=== PATIENT | male | born 1970 | race Caucasian/White ===

== ENCOUNTER 2021-06-18 13:03 | Outpatient (REF) | payer BC, SELFPAY ==
--- NOTE | ~2021-06-18 | XR_ITS ---
EXAMINATION: XR CHEST CLINICAL INFORMATION: Cough. COMPARISON: None TECHNIQUE: 2 views of the chest were obtained. FINDINGS: No significant abnormality is noted involving the heart, lungs, mediastinum, bony thorax or soft tissues. XR/XR chest 2V IMPRESSION: No acute cardiopulmonary process.
[2021-06-18 13:30] LABS: Binax Internal Control QC Valid; Binax Now Covid-19 Ag Negative (Negative)
== END 2021-06-18 13:04 | disposition home or self-care (01) ==
LOC: HO.HMGCX 13:03
PROVIDERS: Visit Provider Physician Assistant Medical
DX: R05.9 Cough, unspecified (principal); Z20.822 Contact with and (suspected) exposure to COVID-19
CPT/HCPCS: 71046

== ENCOUNTER 2021-07-03 11:35 | Emergency (ER) | payer BC, SELFPAY ==
--- NOTE | ~2021-07-03 | US_ITS ---
EXAMINATION: US SCROTUM US PELVIC-LIMITED CLINICAL INFORMATION: Right testicular pain.. Right groin pain. COMPARISON: None TECHNIQUE: A sonogram of the scrotum was performed assessing jiang-scale appearance and color Doppler flow. Spectral Doppler analysis of the arterial and venous flow were performed in the testes bilaterally. FINDINGS: SCROTAL ULTRASOUND: RIGHT: Right testicle measures 4.9 x 1.9 x 3.7 cm, volume 17.4 mL. No focal testicular parenchymal lesions are visualized. Spectral Doppler analysis of the arterial and venous flow is normal in the right testis. Right epididymal head is normal in size. The body of the right epididymis appears slightly heterogeneous, without any hypervascularity, may represent chronic changes. No right varicocele is seen. Right epididymal Doppler flow is normal. Note is made of right-sided epididymal head cyst measuring 0.7 x 0.6 x 0.7 cm. Moderate to large volume hydrocele is noted. LEFT: Left testicle measures 4.1 x 2.2 x 3.0 cm, volume 14.5 mL. No focal testicular parenchymal lesions are visualized. Spectral Doppler analysis of the arterial and venous flow is normal in the left testis. Septated cysts are noted in the region of the left epididymal head, the largest measures approximately 2 cm, most consistent with epididymal head cysts versus spermatocele or combination thereof. No left varicocele is seen. Left epididymal Doppler flow is normal. Moderate to large volume hydrocele is present. PELVIC ULTRASOUND: Evaluation of the right groin, right lower quadrant of the abdomen shows no underlying sonographically detectable focal abnormalities. No evidence of any herniation or mass is present. No fluid collection is seen. Morphologically normal-appearing right groin lymph nodes are present. US/US scrotum doppler IMPRESSION: 1. Sonographically unremarkable bilateral testicles. 2. Bilateral moderate to large volume hydrocele. 3. Bilateral epididymal head cyst/spermatocele (left greater than right). 4. Slight heterogeneous appearance of the body of the right epididymis without any increased flow, may represent chronic changes. 5. No sonographic evidence of right groin hernia or mass or fluid collection or lymphadenopathy.
--- NOTE | ~2021-07-03 | US_ITS ---
EXAMINATION: US PELVIS, LIMITED/FOLLOW UP CLINICAL INFORMATION: Right inguinal/testicle pain COMPARISON: Scrotal ultrasound performed the same day TECHNIQUE: Grayscale and color imaging of the right inguinal region using a linear transducer FINDINGS: No hernia or mass is seen. There is a normal-appearing right inguinal lymph node that measures 3 x 1 x 1.2 cm in sagittal AP and transverse dimension. US/US pelvic limited IMPRESSION: No hernia seen.
[2021-07-03 12:00] VITALS: BP 157/72; PULSE 81; RESP 20; TEMP 36.6; O2SAT 98; BMI 24.4
[2021-07-03 14:40] LABS: Appearance Urine CLEAR; Color Urine YELLOW; Glucose Urine UA NEG (NEG); Leukocyte Esterase Urine NEG (NEG); Nitrite Urine NEG (NEG); PH 7.5 (5.0-8.0); Urine Blood NEG (NEG); Urine Ketones NEG (NEG); Urine Protein NEG (NEG-TRACE)
--- NOTE | 2021-07-03 15:02 | ED.MALEGU ---
HPI - Male Genitourinary General Chief complaint: Urogenital-Male Stated complaint: Hernia Time Seen by Provider: 07/03/21 12:22 Source: patient Mode of arrival: ambulatory History of Present Illness HPI Narrative: 50-year-old male with no significant past medical history presenting to the ED complaining of acute on chronic right testicular pain and swelling which worsened today. Admits symptoms have been present for years. Denies trauma, injury, erythema, fever, chills, dysuria/hematuria, penile discharge, abdominal pain, flank pain Denies being sexually active or concern for STI MD Complaint: testicle swelling Onset (ago): year(s) Related Data Previous Rx's Medication Instructions Recorded albuterol sulfate 90 mcg/actuation 1 inh INHALATION QID PRN #6.7 g 06/18/21 aerosol inhaler azithromycin 250 mg tablet See Rx Instructions PO .COMPLEX #6 06/18/21 tab benzonatate 100 mg capsule 100 mg PO BID-TID PRN #30 cap 06/18/21 prednisone 10 mg tablet 40 mg PO DAILY 3 Days #30 tab 06/18/21 acetaminophen 500 mg tablet 500 mg PO Q6H PRN #20 tab 07/03/21 (Tylenol Extra Strength) levofloxacin 500 mg tablet 500 mg PO DAILY 10 Days #10 tab 07/03/21 naproxen 500 mg tablet 500 mg PO BID PRN 10 Days #20 tab 07/03/21 Allergies Allergy/AdvReac Type Severity Reaction Status Date / Time ENVIRONMENTAL Allergy Unknown STUFFY Uncoded 06/18/21 12:32 NOSE, SNEEZING Review of Systems Review of Systems: Constitutional: No Fever, No Chills, No Fatigue, No Malaise ENT/Mouth: No Ear Pain, No Nasal Congestion, No sore throat, No Rhinorrhea, No Swallowing Difficulty Eyes: No Eye Pain, No Swelling, No Redness Cardiovascular: No Chest Pain, No SOB, No Edema, No Palpitations Respiratory: No Cough, No Sputum, No Dyspnea Gastrointestinal: No Nausea, No Vomiting, No Diarrhea, No Constipation, No Abdominal pain Genitourinary: No irregular bleeding, No Dysuria, No Urinary Frequency, No Hematuria, +scrotal pain and swelling, No Urgency, No Flank Pain, No Urinary Flow Changes Musculoskeletal: No joint pain, No Myalgias, No Joint Swelling Skin: No Skin Lesions, No rash Neuro: No Weakness, No Headache Yes all other systems are reviewed and are negative [facility] Past Medical History Attestation statement: The following information was validated with the patient. Social History Social History Advance Directives: No Advance Directives Information Provided: No Physical Exam Vital Signs: Vital Signs: Last Vital Signs Temp 98 F 07/03/21 12:00 Pulse 81 07/03/21 12:00 Resp 20 07/03/21 12:00 BP 157/72 H 07/03/21 12:00 Pulse Ox 98 07/03/21 12:00 BMI result Body Mass Index 24.4 Const: General: cooperative, healthy appearing and no acute distress Orientation/consciousness: patient oriented x3 Limitations: no limitations HEENT: Head: Yes normal to inspection and Yes atraumatic Ears: hearing grossly normal bilaterally General nose exam: Normal external nose present Face and sinus: Yes normal facial exam Eyes: General: appearance normal, both eyes and all related structures EOM: EOMs intact bilaterally Neck: Neck: Yes normal visual inspection and Yes no meningeal signs Resp: Effort & Inspection: normal respiratory effort and no respiratory distress Cardio: Rate: regular rate Heart sounds: S1 normal heart sound present and S2 normal heart sound present GI: Inspection: Yes normal to inspection Palpation (GI): Soft to palpation, nontender, no guarding and not rigid : General: Yes no CVA tenderness Male General Exam: No hernia Penis: normal penis and circumcised Scrotum: not edematous, not erythematous, scrotal swelling bilateral (> right) and no ulcerations Testes: no testicular mass and testicular tenderness on the right (mild) Back/Spine/Pelvis: Back: no CVA tenderness Skin: Rashes: no rashes Wounds: no wounds Neuro: General: patient oriented x3, tone normal and no meningeal signs Gait exam (Neuro): Normal gait present Extrem: General: Yes normal to inspection Course Course Course Narrative: US pelvic limited IMPRESSION: No hernia seen.? ? US scrotum IMPRESSION: 1. Sonographically unremarkable bilateral testicles. 2. Bilateral moderate to large volume hydrocele. 3. Bilateral epididymal head cyst/spermatocele (left greater than right). 4. Slight heterogeneous appearance of the body of the right epididymis without any increased flow, may represent chronic changes. 5. No sonographic evidence of right groin hernia or mass or fluid collection or lymphadenopathy. >> results discussed with patient including needed follow-up with urology. He verbalized understanding and feels safe for discharge home. Worrisome signs and symptoms discussed. MDM - Male Genitourinary MDM Narrative Medical decision making narrative: 50-year-old male with no significant past medical history presenting to the ED complaining of acute on chronic right testicular pain and swelling which worsened today. On exam vital signs stable, NAD/nontoxic appearing, abdomen soft/nontender, bilateral scrotal swelling greater to the right with mild right testicular/epididymal tenderness. Concern for acute on chronic epididymitis vs hydrocele. Lower concern for torsion with chronicity of pain. Rule out UTI Plan: UA, CT NG, scrotal and pelvic ultrasound Differential Diagnosis Differential diagnosis: Likely urinary tract infection, epididymitis and inguinal hernia Medical Records Attestation: I reviewed the patient's medical records. Lab Data Attestation: I reviewed the patient's lab results. Labs: Lab Results 07/03/21 Range/Units 14:33 Urine Color YELLOW Urine Appearance CLEAR Urine pH 7.5 (5.0-8.0) Ur Specific [place] 1.010 (1.005-1.025) Urine Protein NEG (NEG-TRACE) MG/DL Urine Glucose (UA) NEG (NEG) MG/DL Urine Ketones NEG (NEG) MG/DL Urine Blood NEG (NEG) Urine Nitrite NEG (NEG) Ur Leukocyte Esterase NEG (NEG) Discharge Plan Discharge Clinical Impression: Bilateral hydrocele, Cyst of epididymis Patient Disposition: Home, Self-Care Instructions: Hydrocele (ED), Scrotal Pain (ED) Additional Instructions: Your ultrasound shows bilateral moderate to large volume hydrocele. This is a lot of fluid in her scrotum, you should apply scrotal sling/scrotal support, you may get this at a medical supply store, or wear supportive underwear. You also bilateral epididymal head cysts You need to follow-up with the specialist, urology. Call tomorrow to make an appointment Levaquin as an antibiotic please take as prescribed. In addition naproxen as anti-inflammatory/pain medication, and also take Tylenol Prescriptions: New levofloxacin 500 mg tablet 500 mg PO DAILY 10 Days Qty: 10 0RF acetaminophen [Tylenol Extra Strength] 500 mg tablet 500 mg PO Q6H PRN (Reason: pain or fever) Qty: 20 0RF naproxen 500 mg tablet 500 mg PO BID PRN (Reason: pain) 10 Days Qty: 20 0RF No Action azithromycin 250 mg tablet See Rx Instructions PO .COMPLEX Qty: 6 0RF Rx Instructions: take 500 mg today (day 1), then 250 mg for 4 days (days 2-5) PO benzonatate 100 mg capsule 100 mg PO BID-TID PRN (Reason: cough) Qty: 30 0RF prednisone 10 mg tablet 40 mg PO DAILY 3 Days Qty: 30 0RF Rx Instructions: then take 3 tabs for 3 days, then 2 tabs for 3 days, then 1 tab for 3 days. albuterol sulfate 90 mcg/actuation HFA aerosol inhaler 1 inh inhalation QID PRN (Reason: shortness of breath or wheezing) Qty: 6.7 0RF Referrals: Rian Crocker MD [Physician] - 1 day (call tomorrow to make appointment )
[2021-07-04 05:40] LABS: CT PCR NOT DETECTED (Not Detect.); NG PCR NOT DETECTED (Not Detect.)
== END 2021-07-03 15:22 | disposition home or self-care (01) ==
PROVIDERS: Physician Assistant; Emergency Provider Emergency Medicine
DX: N43.3 Hydrocele, unspecified (principal); N45.1 Epididymitis; N50.812 Left testicular pain; N50.811 Right testicular pain; Z79.899 Other long term (current) drug therapy
CPT/HCPCS: 76857; 76870; 81003; 87491; 87591; 93975; 99283; 99284

== ENCOUNTER → 2021-08-12 13:04 | Outpatient (BNVA) | payer BC, SELFPAY | PROVIDERS: Visit Provider Urology | DX: Z13.89 Encounter for screening for other disorder (principal) ==

== ENCOUNTER 2021-08-31 10:08 | Outpatient (REF) | payer BC, SELFPAY ==
--- NOTE | ~2021-08-31 | CT_ITS ---
EXAMINATION: CT PELVIS WITHOUT CONTRAST CLINICAL INFORMATION: Unilateral inguinal hernia without obstruction COMPARISON: Previous scrotal ultrasound June 2021 TECHNIQUE: Helical scanning was performed with submillimeter collimation through the pelvis. Sagittal and coronal multiplanar 2-D reconstructions were obtained. This CT examination was performed using dose optimization techniques as appropriate, variously including the following: *Automated exposure control *Adjustment of mA and/or kV according to patient size (this includes techniques or standardized protocols for targeted exams where dose is matched to indication/reason for exam; i.e. extremities or head) *Use of iterative reconstruction technique DLP: 645 mGy-cm FINDINGS: There is a large right inguinal hernia containing small bowel. There is a small left inguinal hernia containing fat. There is a small umbilical hernia containing fat. There is a horseshoe kidney. There is diverticulosis of the colon. The bladder and prostate gland are normal. No ascites. There are small bilateral inguinal lymph nodes. No enlarged lymph nodes. There is degenerative disc disease at L5-S1. CT/CT pelvis wo con IMPRESSION: Right inguinal hernia containing small bowel. No evidence of obstruction. Small left inguinal hernia containing fat. Horseshoe kidney. Mild diverticulosis of the colon.
== END 2021-08-31 10:09 | disposition home or self-care (01) ==
LOC: HO.CT 10:08
PROVIDERS: Visit Provider Urology
DX: K40.90 Unilateral inguinal hernia, without obstruction or gangrene, not specified as recurrent (principal)
CPT/HCPCS: 72192

== ENCOUNTER 2021-10-12 13:22 | Outpatient (REF) | payer BC, SELFPAY ==
[2021-10-12 13:36] LABS: MANUAL DIFF FLAG NO
[2021-10-12 14:16] LABS: Basophils Percent Auto 0.4 % (0-2); Eosinophils Absolute Auto 0.6 X10*3/uL (0.0-0.4); Eosinophils Percent Auto 6.5 % (0-4); Hematocrit 40.5 % (42.0-52.0); Hemoglobin 13.4 g/dl (14.0-18.0); Imm Gran Abs Auto 0.02 X10*3/uL (0.00-0.03); Imm Gran Pct Auto 0.2 % (0.0-0.4); Lymphocytes Absolute Auto 2.1 X10*3/uL (1.2-4.9); Mean Corpuscular HGB Conc 33.1 g/dl (31.0-36.0); Mean Corpuscular Hemoglobin 30.1 pg (27.0-33.0); Mean Platelet Volume 10.7 fL (9.4-12.4); Monocytes Absolute Auto 0.8 X10*3/uL (0.1-1.2); Monocytes Percent Auto 9.1 % (2-11); Neutrophils Absolute Auto 5.6 x10*3/uL (2.0-8.3); Neutrophils Percent Auto 60.8 % (45-73); Platelet Count 211 X10*3/uL (160-400); Red Blood Count 4.45 X10*6/uL (4.60-5.80); Red Cell Distribution Width 12.9 % (11.0-16.0); White Blood Count 9.2 X10*3/uL (4.8-10.8)
[2021-10-12 15:00] LABS: Anion Gap 14 (12-20); Blood Urea Nitrogen 11 mg/dL (9-16); Calcium 9.5 mg/dL (8.4-10.2); Carbon Dioxide 28 mmol/L (22-29); Chloride 106 mmol/L (96-108); Estimated Glomerular Filt Rate > 60; Glucose Random 69 mg/dL (60-115); Potassium 4.8 mmol/L (3.3-5.1); Sodium 143 mmol/L (135-145)
[2021-10-17 18:22] LABS: Cotinine, U 11 ng/mL; Nicotine, U <2 ng/mL
== END 2021-10-12 13:23 | disposition home or self-care (01) ==
LOC: HO.LAB 13:22
PROVIDERS: Visit Provider Surgery
DX: R10.9 Unspecified abdominal pain (principal); K40.90 Unilateral inguinal hernia, without obstruction or gangrene, not specified as recurrent; F17.210 Nicotine dependence, cigarettes, uncomplicated
CPT/HCPCS: 80048; 80323; 85025

== ENCOUNTER → 2021-10-27 09:10 | Day surgery (SDC) | payer BC, SELFPAY ==
[2021-10-21 16:28] VITALS: BMI 25.1
--- NOTE | 2021-10-26 10:16 | HO.ANESPROP2 ---
HPI - Anesthesia Eval Consult details Narrative: 50yo M for Hernia Repair Inguinal with mesh PMFSH Active Problems Active Problems: All Active Problems (Updated 08/12/21 @ 13:23 by Rian Crocker MD) Cigarette smoker (Acute) Inguinal hernia (Acute) Hydrocele in adult (Acute) Past Medical History Medical History Cigarette smoker Family History Family History Maternal Grandmother Cancer of unknown origin Mother Skin cancer Surgical History Surgical History History of appendectomy Social History Social History Alcohol intake: current Alcohol intake frequency: holidays/special occasions only Patient Tobacco Use Status: Current everyday Tobacco user Cigarettes Per Day: 5 Meds Allergies Allergy/AdvReac Type Severity Reaction Status Date / Time ENVIRONMENTAL Allergy Unknown STUFFY Uncoded 10/12/21 12:58 NOSE, SNEEZING Home Medications Medication Instructions Recorded Confirmed Last Taken Type omeprazole magnesium 20 mg 20 mg PO DAILY 09/21/21 09/21/21 Unknown History tablet,delayed release (Prilosec OTC) Exam Exam Date and Time: October 26, 2021 1016 Height,Weight and Vital Signs: Height 5 ft 11 in Weight 81.647 kg Pertinent Lab Results Pertinent Lab Results: Laboratory Tests 10/12/21 10/12/21 13:33 13:33 WBC 9.2 Hgb 13.4 L Hct 40.5 L Plt Count 211 Sodium 143 Potassium 4.8 Chloride 106 Carbon Dioxide 28 BUN 11 Creatinine 1.13 Assessment and Plan Assessment Anesthesia Assessment: Chart Reviewed
--- NOTE | 2021-10-27 09:21 | W.PM.OPN ---
Operative Note Operative Note Date of Service: 10/27/21 Narrative: Patient has tinea Crura & tinea corpra; case to be rescheduled
[2021-10-27 10:25] VITALS: BMI 26.4
[2021-10-27 10:32] VITALS: BP 128/72; PULSE 61; RESP 16; TEMP 36.6; O2SAT 93
--- NOTE | 2021-10-27 11:17 | PC.NURSE ---
MD SANTANA BY BEDSIDE EVALUATING PATIENT GENERALIZED RASH. CANCELLED FOR TODAY. INSTRUCTED PATIENT TO FOLLOW UP WITH HIS PCP FOR THE RASH AND THEN THE HERNIA SURGERY WILL RESCHEDULE WITH HIM.
== END | disposition home or self-care (01) ==
PROVIDERS: Visit Provider Surgery
DX: K40.90 Unilateral inguinal hernia, without obstruction or gangrene, not specified as recurrent (principal); Z53.09 Procedure and treatment not carried out because of other contraindication; R21 Rash and other nonspecific skin eruption

== ENCOUNTER 2022-05-11 16:07 | Outpatient (REF) | payer BC, SELFPAY ==
[2022-05-11 16:46] LABS: MANUAL DIFF FLAG NO
[2022-05-11 17:03] LABS: Basophils Percent Auto 0.5 % (0-2); Eosinophils Absolute Auto 0.4 X10*3/uL (0.0-0.4); Eosinophils Percent Auto 4.7 % (0-4); Hematocrit 39.5 % (42.0-52.0); Hemoglobin 13.1 g/dl (14.0-18.0); Imm Gran Abs Auto 0.02 X10*3/uL (0.00-0.03); Imm Gran Pct Auto 0.2 % (0.0-0.4); Lymphocytes Absolute Auto 2.6 X10*3/uL (1.2-4.9); Lymphocytes Percent Auto 31.6 % (20-40); Mean Corpuscular HGB Conc 33.2 g/dl (31.0-36.0); Mean Corpuscular Hemoglobin 29.8 pg (27.0-33.0); Mean Corpuscular Volume 89.8 fL (80.0-98.0); Mean Platelet Volume 10.2 fL (9.4-12.4); Monocytes Absolute Auto 0.8 X10*3/uL (0.1-1.2); Monocytes Percent Auto 9.3 % (2-11); Neutrophils Absolute Auto 4.4 x10*3/uL (2.0-8.3); Neutrophils Percent Auto 53.7 % (45-73); Platelet Count 261 X10*3/uL (160-400); Red Cell Distribution Width 13.1 % (11.0-16.0); White Blood Count 8.1 X10*3/uL (4.8-10.8)
[2022-05-11 17:35] LABS: Alanine Aminotransferase 20 U/L (0-40); Albumin Level 4.4 g/dL (3.5-5.0); Alkaline Phosphatase 82 U/L (39-117); Anion Gap 12 (12-20); Aspartate Amino Transferase 18 U/L (5-37); Bilirubin Total 0.4 mg/dL (0.0-1.0); Blood Urea Nitrogen 16 mg/dL (9-16); Calcium 9.9 mg/dL (8.4-10.2); Carbon Dioxide 28 mmol/L (22-29); Chloride 105 mmol/L (96-108); Estimated Glomerular Filt Rate > 60; Glucose Random 96 mg/dL (60-115); Potassium 4.3 mmol/L (3.3-5.1); Sodium 141 mmol/L (135-145); Total Protein 7.7 g/dL (6.5-8.0)
== END 2022-05-11 16:08 | disposition home or self-care (01) ==
LOC: HO.LAB 16:07
PROVIDERS: Visit Provider Surgery
DX: K40.90 Unilateral inguinal hernia, without obstruction or gangrene, not specified as recurrent (principal); B35.4 Tinea corporis; D64.9 Anemia, unspecified; R01.1 Cardiac murmur, unspecified; Z87.891 Personal history of nicotine dependence
CPT/HCPCS: 80053; 85025

== ENCOUNTER 2022-08-30 08:14 | Outpatient (REF) | payer BC, SELFPAY ==
[2022-08-30 11:14] LABS: MANUAL DIFF FLAG NO
[2022-08-30 11:21] LABS: Basophils Percent Auto 0.4 % (0-2); Eosinophils Absolute Auto 0.3 X10*3/uL (0.0-0.4); Eosinophils Percent Auto 3.3 % (0-4); Hematocrit 38.2 % (42.0-52.0); Hemoglobin 12.6 g/dl (14.0-18.0); Imm Gran Abs Auto 0.02 X10*3/uL (0.00-0.03); Imm Gran Pct Auto 0.3 % (0.0-0.4); Lymphocytes Absolute Auto 2.1 X10*3/uL (1.2-4.9); Lymphocytes Percent Auto 27.4 % (20-40); Mean Corpuscular Hemoglobin 30.1 pg (27.0-33.0); Mean Corpuscular Volume 91.4 fL (80.0-98.0); Mean Platelet Volume 10.6 fL (9.4-12.4); Monocytes Absolute Auto 0.8 X10*3/uL (0.1-1.2); Monocytes Percent Auto 10.1 % (2-11); Neutrophils Absolute Auto 4.6 x10*3/uL (2.0-8.3); Neutrophils Percent Auto 58.5 % (45-73); Platelet Count 244 X10*3/uL (160-400); Red Blood Count 4.18 X10*6/uL (4.60-5.80); Red Cell Distribution Width 13.3 % (11.0-16.0); White Blood Count 7.8 X10*3/uL (4.8-10.8)
[2022-08-30 11:26] LABS: Appearance Urine Clear; Color Urine Yellow; Glucose Urine UA Negative (Negative); Leukocyte Esterase Urine Negative (Negative); Nitrite Urine Negative (Negative); Specific Gravity - Urine 1.015 (1.005-1.025); Urine Blood Negative (Negative); Urine Ketones Negative (Negative); Urine Protein Negative (Neg-Trace)
[2022-08-30 12:08] LABS: Alanine Aminotransferase 20 U/L (0-40); Albumin Level 4.1 g/dL (3.5-5.0); Alkaline Phosphatase 73 U/L (39-117); Anion Gap 14 (12-20); Aspartate Amino Transferase 17 U/L (5-37); Bilirubin Total 0.6 mg/dL (0.0-1.0); Blood Urea Nitrogen 12 mg/dL (9-16); Calcium 9.4 mg/dL (8.4-10.2); Carbon Dioxide 24 mmol/L (22-29); Chloride 105 mmol/L (96-108); Cholesterol 183 mg/dL; Estimated Glomerular Filt Rate > 60; Glucose Fasting 107 mg/dL (60-99); HDL Cholesterol 47 mg/dL; LDL Cholesterol Calculated 126 mg/dl; Potassium 4.1 mmol/L (3.3-5.1); Sodium 139 mmol/L (135-145); Total Protein 7.5 g/dL (6.5-8.0); Triglycerides 53 mg/dL
[2022-08-30 12:13] LABS: Prostate Specific Antigen Scr 1.93 ng/mL (<0.05-4.0)
== END 2022-08-30 08:15 | disposition home or self-care (01) ==
LOC: HO.HMGCLDS 08:14
PROVIDERS: PCP Nurse Practitioner Family; Visit Provider Nurse Practitioner Family
DX: B35.6 Tinea cruris (principal); D64.9 Anemia, unspecified; R01.1 Cardiac murmur, unspecified; K40.90 Unilateral inguinal hernia, without obstruction or gangrene, not specified as recurrent; Z12.5 Encounter for screening for malignant neoplasm of prostate; Z13.220 Encounter for screening for lipoid disorders
CPT/HCPCS: 36415; 80053; 80061; 81003; 84153; 84443; 85025

== ENCOUNTER → 2022-10-10 14:56 | Outpatient (REF) | payer BC, SELFPAY ==
--- NOTE | 2022-10-10 15:00 | CA_ITS ---
Transthoracic Echocardiogram Patient (Last, First, Middle): Saroj Vega, Gender: Male Date of : 1970 Age: 51 Procedure Date: 10/10/2022 Procedure Type: Transthoracic Echocardiogram Location: OP Height: 180.34 cm Weight: 85.73 kg BSA: 2.06 m2 Heart Rate: bpm BP: 115 / 62 mmHg Awning Hanger Supervisor: CANDACE Referring MD: Ritchie Villa [facility] Symptoms: R01.1 - Cardiac murmur, unspecified Study Quality: Adequate ECG Rhythm: Sinus Conclusions: - The left ventricular systolic function is hyperdynamic. The calculated ejection fraction is 71% by biplane method. - There is mild aortic valve stenosis. There is mild aortic valve regurgitation. Probable bicuspid aortic valve with some calcification. - There is moderate dilatation of the ascending aorta measuring 4.60 cm and mild dilatation of the aortic arch measuring 4.00 cm. Findings Left Ventricle Normal left ventricular cavity size. There is mildly increased left ventricular wall thickness. The left ventricular systolic function is hyperdynamic. The calculated ejection fraction is 71% by biplane method. There is no evidence of regional wall motion abnormalities. Diastolic function is indeterminate on the basis of available data. Right Ventricle Normal right ventricular cavity size and systolic function. Atria The left atrium is mildly dilated. The right atrium is normal in size. Aortic Valve There is mild aortic valve stenosis. There is mild aortic valve regurgitation. Probable bicuspid aortic valve with some calcification, but difficult to see raphe. Gradients across aortic valve are elevated, likely from high stroke volume. Mitral Valve There is mild anterior mitral leaflet thickening. There is mild mitral annular calcification. There is no mitral valve stenosis. Pulmonic Valve The pulmonic valve is likely normal. Tricuspid Valve There is trace tricuspid valve regurgitation. There is no evidence of pulmonary hypertension. Great Vessels The sinuses of valsalva is normal in size. There is moderate dilatation of the ascending aorta measuring 4.60 cm and mild dilatation of the aortic arch measuring 4.00 cm. Venous The inferior vena cava is normal in size and collapses greater than 50% with inspiration. Pericardium/Pleural There is no evidence of pericardial effusion. Prior Study Comparison No prior study available for comparison. Measurements 2D Linear Measurements IVSd: 1.14 0.6-0.9/0.6-1.0 cm LVIDd: 5.06 3.9-5.3/4.2-5.9 cm LVIDd Index: 2.46 2.4-3.2/2.2-3.1 cm/m2 LVIDs: 2.75 2.0-3.6 cm LVPWd: 1.05 0.7-1.1 cm LA Diam: 3.20 2.7-3.8/3.0-4.0 cm LAIDs Index: 1.55 1.5-2.3 cm/m2 LV Mass: 261.58 67-162/88-224 g LV Mass Index: 126.98 43-95/49-115 g/m2 LVOT Diam: 2.20 3.0+(-)1.3 cm 2D Systolic Function EF 4C: 71.70 >55% EF 2C: 69.90 >55% EF BiP: 71.40 >55% Mitral Valve MV Pk E: 1.14 MV PK A: 0.74 MV Decel Time: 265.00 E/A: 1.50 E'Lateral: 9.25 E'Medial: 7.18 E/E' Med: 15.90 E/E' Lat: 12.30 PHT: 77.00 MVA PHT: 2.86 Decel [place]: 4.30 Aortic Valve AoV Pk Juan: 3.91 AoV Mn Juan: 2.76 AoV VTI: 0.80 AoV Pk Grad: 61.00 Aov Mn Grad: 35.00 CADE Cont.VTI: 1.70 AI Pk Juan: 3.61 AI [place]: 2.54 LVOT LVOT Pk Juan: 1.63 LVOT Mn Juan: 1.08 LVOT VTI: 0.36 LVOT Pk Grad: 11.00 LVOT Mn Grad: 6.00 LVOT Diam: 2.20 LVOT Area: 3.80 Diastolic Function MV Pk E: 1.14 MV Pk A: 0.74 E/A: 1.50 E'Medial: 7.18 E/E' Med: 15.90 E' Laterial: 9.25 E/E' Lat: 12.30 Right Ventricle TAPSE (mm): 28.70 TVS' Juan: 18.60 Tricuspid Valve TR Pk Juan: 2.17 TR Pk Grad: 19.00 Great Vessels Aorta Sinus of Valsalva: 3.69 2.0-3.[address] [place]: 3.21 1.7-3.4 cm Ao Asc: 4.60 2.1-3.4 cm Ao Arch: 4.00 Updated in Other Vendor System with Status of Final Calvin Tovar MD electronically signed on 10/11/2022 11:40:29 AM with status of Final
== END ==
LOC: HO.CARD 14:56
PROVIDERS: PCP Nurse Practitioner Family; Visit Provider Nurse Practitioner Family
DX: R01.1 Cardiac murmur, unspecified (principal)
CPT/HCPCS: 93306

== ENCOUNTER → 2022-10-10 15:00 | Outpatient (BNV) | payer BC, SELFPAY | PROVIDERS: PCP Nurse Practitioner Family; Visit Provider Internal Medicine | DX: I35.0 Nonrheumatic aortic (valve) stenosis (principal); I35.1 Nonrheumatic aortic (valve) insufficiency | CPT/HCPCS: 93306 ==

== ENCOUNTER 2022-10-17 13:40 | Outpatient (AMB) | payer BC, SELFPAY ==
--- NOTE | 2022-10-17 13:49 | MHC.PC.OV ---
Vital Signs 10/17/22 13:56 Height 5 ft 11 in Weight 189 lb 4 oz BMI 26.4 BP 120/68 Blood Pressure Location Lt brachial Position Sitting Pulse 73 Pulse Source Pulse Oximeter Pulse Oximetry (%) 94 Oxygen Delivery Method Room Air Intake Visit Reasons: Annual PE PER [facility] Allergies ENVIRONMENTAL Allergy (Unknown, Uncoded 10/17/22 14:13) STUFFY NOSE, SNEEZING Medication List - Last Reconciled 10/17/22 by LISA BuckYONATHAN ketoconazole 2% 1 appl topical BID omeprazole magnesium (Prilosec OTC) 20 mg PO DAILY Tobacco use date assessed: 10/17/22 Dental Screening Dental Screen Date: 10/17/22 Did you have a dental visit in the last 12 months?: No Did you have a dental problem in the last 6 months where you did not have access to dental care?: No Was dental information given to patient?: Patient has dentist HPI Annual PE PER [facility] HPI Details Pt is here for a PE. Labs were already performed. PSA is up to date. Anemia noted, will check iron and ferritin. Pt is seeing GI for a colon screen. PFSH Medical History Aortic stenosis Ascending aorta dilatation Bicuspid aortic valve Cigarette smoker Surgical History History of appendectomy Family History Maternal Grandmother Cancer of unknown origin Mother Skin cancer Social History Housing: Condominium Alcohol intake: current Alcohol intake frequency: holidays/special occasions only Patient Tobacco Use Status: Current everyday Tobacco user Tobacco use type: Cigarette Cigarettes Per Day: 2 e-Cigarette/Vaping Use: Never Used Second Hand Smoke Exposure: Yes service: No Current occupational status: employed Current occupation: [employer] Current occupational exposures/hazards: No Cognitive needs: No Hearing needs: No Vision needs: No Questionnaire Thrive Questionnaire Date Thrive assessed: 08/23/22 ARTHUR-7 AMB Questionnaire ARTHUR-7 Date ARTHUR - 7 assessed: 08/23/22 Source: Developed by Drs. Pieter Hedrick, Alida Ruiz, Drew Murray and colleagues, with an educational chaim from [employer]. Review of Systems Const Denies chills and Denies fever(s) Eyes Denies blurry vision ENT Denies vertigo, Denies dizziness and Denies sore throat Card Denies chest pain at rest, Denies chest pain with activity, Denies diaphoresis, Denies dyspnea and Denies dyspnea on exertion Resp Denies cough, Denies dyspnea, Denies dyspnea on exertion and Denies wheezing GI Denies abdominal pain, Denies melena, Denies hematochezia, Denies constipation, Denies diarrhea and Denies loose stools Denies hematuria Musc Denies numbness and Denies tingling Skin/Breast Denies lesions Neuro Denies vertigo, Denies dizziness, Denies numbness and Denies tingling Psych Denies anxiety, Denies depression, Denies homicidal ideation, Denies suicidal ideation and Denies other (substance abuse) Aller/Immun Denies wheezing Physical exam (Primary Care) Vital Signs: Last Vital Signs Pulse 73 10/17/22 13:56 BP 120/68 10/17/22 13:56 Pulse Ox 94 10/17/22 13:56 Oxygen Delivery Method Room Air 10/17/22 13:56 BMI result Body Mass Index 26.4 Tobacco/Smoking Status: Tobacco use Status Tobacco use date assessed 10/17/22 10/17/22 14:02 Patient Tobacco Use Status Current everyday Tobacco 10/17/22 13:49 Tobacco use type Cigarette 10/17/22 13:49 e-Cigarette/Vaping Use Never Used 10/17/22 13:49 Thrive Assessment: Date of Thrive Assessment Date Thrive assessed 08/23/22 10/17/22 13:49 Const General: cooperative Nutritional Appearance: well nourished Orientation/consciousness: patient oriented x3 HENMT Other: cerumen noted bilat, after ear lavage TMs easily seen Head: Yes normal to inspection, Yes normocephalic and Yes atraumatic Eyes General: appearance normal, both eyes and all related structures Alignment and Position: alignment normal and position normal Neck Neck: Yes normal visual inspection and Yes no lymphadenopathy Thyroid: Thyroid normal Resp Effort & Inspection: normal respiratory effort Auscultation: clear to auscultation bilaterally Cardio Rate: regular rate Rhythm: regular rhythm Heart sounds: S1 normal heart sound present, S2 normal heart sound present and Murmur heart sound present systolic GI Palpation (GI): Soft to palpation and nontender Auscultation: normal bowel sounds Other: excessively large right inguinal hernia, right scrotum enlarged, slightly indurated, no erythema Male General Exam: Yes normal external exam Penis: normal penis Scrotum: testes descended bilaterally Testes: no testicular mass Skin Rashes: no rashes Neuro General: patient oriented x3, moves all extremities, no focal motor deficits and deep tendon reflexes 2+ bilaterally Romberg Test: Negative Psych Appearance: grossly normal Mental Status: mental status grossly normal Speech and movement: Normal speech and movement present Affect: normal affect Attitude: cooperative Thought process: Normal thought process present Thought content: Normal thought content present Insight: Good insight present (Psych) Judgement: Good judgement present (Psych) Office Procedures Cerumen Removal From which ear canal was the cerumen removed: bilateral Removal: irrigation Notes: patient tolerated procedure well [id number] Irrigation/Lavage Assessment and Plan Assessment & Plan (1) Impacted cerumen of both ears: Code(s): H61.23 - Impacted cerumen, bilateral (2) Physical exam: Code(s): Z00.00 - Encounter for general adult medical examination without abnormal findings Plan The patient agreed to the use of a manager medical device for this encounter. Scribed for JERMAINE John by Doreen Gonzalez manager medical device, on 10/17/2022 at 14:10 EST. Coding Level of Care Code Est Pt Prev Care 40-64y(39917) Diagnoses Impacted cerumen of both ears H61.23 Physical exam Z00.00 CPT Codes Office Procedure - CPT: 29178-Inm Irrigation/Lavage ([id number])
[2022-10-17 13:56] VITALS: BP 120/68; PULSE 73; O2SAT 94; BMI 26.4
== END 2022-10-17 16:04 | disposition home or self-care (01) ==
PROVIDERS: PCP Nurse Practitioner Family; Visit Provider Nurse Practitioner Family
DX: Z00.00 Encounter for general adult medical examination without abnormal findings (principal); H61.23 Impacted cerumen, bilateral
CPT/HCPCS: 69209; 99396

== ENCOUNTER 2022-10-25 10:16 | Outpatient (AMB) | payer BC, SELFPAY ==
--- NOTE | 2022-10-25 10:21 | MHC.OFFVISWM ---
Intake Intake Visit Reasons: re-discuss inguinal hernia repair Allergies ENVIRONMENTAL Allergy (Unknown, Uncoded 10/17/22 14:13) STUFFY NOSE, SNEEZING PFSH Medical History Aortic stenosis Ascending aorta dilatation Bicuspid aortic valve Cigarette smoker Surgical History History of appendectomy Family History Maternal Grandmother Cancer of unknown origin Mother Skin cancer Social History Housing: Condominium Alcohol intake: current Alcohol intake frequency: holidays/special occasions only Patient Tobacco Use Status: Current everyday Tobacco user Tobacco use type: Cigarette Cigarettes Per Day: 2 e-Cigarette/Vaping Use: Never Used Second Hand Smoke Exposure: Yes service: No Current occupational status: employed Current occupation: [employer] Current occupational exposures/hazards: No Cognitive needs: No Hearing needs: No Vision needs: No Coding Diagnoses
--- NOTE | 2022-10-25 10:23 | MHC.OFFVIS ---
Intake Vital Signs 10/25/22 10:38 Height 5 ft 11 in Weight 186 lb 8.177 oz BMI 26.0 BP 144/69 H Blood Pressure Location Lt brachial Position Sitting Pulse 67 Intake Visit Reasons: re-discuss inguinal hernia repair Intake Note: Patient is seen in office to re-discuss right inguinal hernia surgery. Patient c/o: pt did establish with a PCP and is schedule to see gastro next week, states hernia is getting bigger. 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 He is seen by way of Dr. Crocker, her urologist, as the patient had right scrotal swelling that is been present for a couple years. He was seen in the emergency department and ultrasound was concerning for a hydrocele. The patient was seen by the urologist who sent him for a CT on 08/31/2021 of the pelvis confirmed a large RIGHT INGUINAL/SCROTAL HERNIA with fat and small bowel. The patient presented for surgery with a large fungal infection/tinea corpris, involving his abdomen and pelvis. He is here post treatment for evaluation. The patient has establish a relationship with his PCP for appropriate treatment. He has resumed smoking. He further denies any constipation, hematuria or rectal bleeding. Denies any unexplained weight loss. The patient denies prior history of hernia repair at any point in his life. He notes that the mass is painful when he exerts himself and he is interested in repair. The patient states he has quit smoking. He states he works at [employer] and shop. [facility] Medical History Aortic stenosis Ascending aorta dilatation Bicuspid aortic valve Cigarette smoker Surgical History History of appendectomy Family History Maternal Grandmother Cancer of unknown origin Mother Skin cancer [facility] Alcohol intake: current Alcohol intake frequency: holidays/special occasions only Patient Tobacco Use Status: Current everyday Tobacco user Tobacco use type: Cigarette Cigarettes Per Day: 2 e-Cigarette/Vaping Use: Never Used Second Hand Smoke Exposure: Yes service: No Current occupational status: employed Current occupation: [employer] Current occupational exposures/hazards: No Cognitive needs: No Hearing needs: No Vision needs: No Review of Systems Const All systems reviewed & are unremarkable except as noted in HPI and below Reports as per HPI Physical Exam On exam, the patient is nontoxic He smells of cigarette smoke His heart is regular with a 2/6 EBENEZER as previously noted Lungs are clear and equal Examination of his abdomen and right inguinal area demonstrated a large chronically incarcerated right inguinal hernia and no evidence of fungal infection Results Reviewed Results Reviewed: I reviewed the actual images and CT report from 08/31/2021 and confirmed the patient has a large right scrotal hernia containing fat and nonobstructed bowel Labs dated 08/30/2022 show mild anemia with a hemoglobin of 12.6 with normochromic indices White blood cell count is normal at 7.8, platelet count 244K Electrolytes are within normal parameters, BUN 12, creatinine 0.87 Assessment & Plan Assessment & Plan (1) Bicuspid aortic valve: Code(s): Q23.1 - Congenital insufficiency of aortic valve (2) Ascending aorta dilatation: Code(s): I77.810 - Thoracic aortic ectasia (3) Aortic stenosis: Code(s): I35.0 - Nonrheumatic aortic (valve) stenosis (4) Inguinal hernia: Code(s): K40.90 - Unilateral inguinal hernia, without obstruction or gangrene, not specified as recurrent (5) Cigarette smoker: Code(s): F17.210 - Nicotine dependence, cigarettes, uncomplicated Plan We discussed open RIGHT inguinal hernia repair with mesh versus the option of continued observation or 2nd opinion. The patient's questions seemed to be satisfactorily answered. Activity restrictions, specifically the patient cannot lift more than 20 lb for the next 4 weeks, the need for light duty, the fact that the patient is not disabled and can perform light duty was all discussed and apparently understood. The patient is resumed smoking and the importance of nicotine cessation before scheduling surgery was reviewed. The increased risk of surgical complications including infection, pain and hernia recurrence and need for another procedure in the event of complication was discussed and apparently understood The options including continued observation and 2nd opinion were also discussed but declined. The inherent risks to open inguinal hernia repair: These risks of hernia surgery include, but are not limited to: Bleeding, infection, hernia recurrence especially if weight gain or postoperative instructions are not followed, nerve entrapment, urinary retention & need for [place], chronic pain, mesh complications that could require reoperation. The patient seemed to understand all of these matters, had his questions answered and wanted to proceed. Post-op activity restrictions and pain management including the need to contact me if his postop narcotic medicine is out of stock was also discussed. Coding Level of Care Code Est Pt Level 4 (69189) Diagnoses Bicuspid aortic valve Q23.1 Ascending aorta dilatation I77.810 Aortic stenosis I35.0 Inguinal hernia K40.90 Cigarette smoker F17.210
[2022-10-25 10:38] VITALS: BP 144/69; PULSE 67; BMI 26.0
== END 2022-10-25 11:13 | disposition home or self-care (01) ==
LOC: HO.HGS 10:16
PROVIDERS: PCP Nurse Practitioner Family; Visit Provider Surgery
DX: Q23.1 Congenital insufficiency of aortic valve (principal); I77.810 Thoracic aortic ectasia; K40.90 Unilateral inguinal hernia, without obstruction or gangrene, not specified as recurrent; F17.210 Nicotine dependence, cigarettes, uncomplicated
CPT/HCPCS: 99214

== ENCOUNTER → 2022-10-25 10:16 | Outpatient (BNVA) | payer BC, SELFPAY | PROVIDERS: PCP Nurse Practitioner Family; Visit Provider Surgery ==

== ENCOUNTER 2022-11-01 08:08 | Outpatient (REF) | payer BC, SELFPAY ==
[2022-11-07 22:04] LABS: Cotinine, U 16 ng/mL; Nicotine, U 4 ng/mL
== END 2022-11-01 08:09 | disposition home or self-care (01) ==
LOC: HO.LAB 08:08
PROVIDERS: PCP Nurse Practitioner Family; Visit Provider Surgery
DX: Z12.11 Encounter for screening for malignant neoplasm of colon (principal); B35.4 Tinea corporis; K40.90 Unilateral inguinal hernia, without obstruction or gangrene, not specified as recurrent; F17.210 Nicotine dependence, cigarettes, uncomplicated
CPT/HCPCS: 80323

== ENCOUNTER 2022-11-01 08:08 | Outpatient (AMB) | payer BC, SELFPAY ==
--- NOTE | 2022-11-01 08:18 | MHC.OFFVIS ---
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 Accompanied by: Self / Same As Patient Allergies ENVIRONMENTAL Allergy (Unknown, Uncoded 10/25/22 10:45) STUFFY NOSE, SNEEZING Medication List - Last Reconciled 11/01/22 by Arlene Blunt PA-C ketoconazole 2% 1 appl topical BID omeprazole magnesium (Prilosec OTC) 20 mg PO DAILY HPI HPI Comments History of Present Illness Details A 51 y/o male referred for index screening colonoscopy- Family hx unknown- Bowels are normal Appetite good-he does not have acid reflux he does not use omeprazole He drinks- no smoke, he works He has no respiratory are cardiac issues PFSH Medical History Aortic stenosis Ascending aorta dilatation Bicuspid aortic valve Cigarette smoker Surgical History History of appendectomy Family History Maternal Grandmother Cancer of unknown origin Mother Skin cancer Social History Housing: Condominium Alcohol intake: current Alcohol intake frequency: holidays/special occasions only Patient Tobacco Use Status: Current everyday Tobacco user Tobacco use type: Cigarette Cigarettes Per Day: 2 e-Cigarette/Vaping Use: Never Used Second Hand Smoke Exposure: Yes service: No Current occupational status: employed Current occupation: [employer] Current occupational exposures/hazards: No Cognitive needs: No Hearing needs: No Vision needs: No Review of Systems Const All systems reviewed & are unremarkable except as noted in HPI and below Card Denies chest pain, Denies dyspnea and Denies dyspnea on exertion Resp Denies dyspnea and Denies dyspnea on exertion GI Denies abdominal pain, Denies hematochezia, Denies change in bowel habits, Denies heartburn, Denies nausea and Denies vomiting Physical Exam Vital Signs: Last Vital Signs Pulse 59 11/01/22 08:20 BP 125/58 L 11/01/22 08:20 BMI result Body Mass Index 25.9 Const General: comfortable and no acute distress Orientation/consciousness: patient oriented x3 Limitations: no limitations Eyes Sclerae: sclerae normal Resp Effort & Inspection: normal respiratory effort and able to speak in complete sentences Auscultation: clear to auscultation bilaterally, no rales, rhonchi and no wheezes Cardio Rate: regular rate Rhythm: regular rhythm Heart sounds: Murmur heart sound present Neuro General: patient oriented x3 Extrem General: Yes full ROM Psych Speech and movement: Clear speech present Affect: Irritable affect present Attitude: Guarded attititude/behavior present Results Reviewed Results Reviewed: 10/10/22- ECG Rhythm:? ? ? Sinus ?? ? Conclusions: - The left ventricular systolic function is hyperdynamic.? The ? calculated ejection fraction is 71% by biplane method. ? - There is mild aortic valve stenosis.? There is mild aortic ? ? valve regurgitation.? Probable bicuspid aortic valve with some ? calcification. ? - There is moderate dilatation of the ascending aorta measuring? 4.60 cm and mild dilatation of the aortic arch measuring 4.00 cm Assessment & Plan Assessment & Plan (1) Screening for colon cancer: Comment: NOT forthcoming- Code(s): Z12.11 - Encounter for screening for malignant neoplasm of colon Plan Colonoscopy- MG prep- Patient Instructions: 51-year-old male referred for index screening colonoscopy he has no GI complaints. Index screening colonoscopy MiraLax Gatorade split-literature given Discussed procedure, indications, rare risks, need for escorted due to anesthesia Encouraged to call questions or concerns Coding Level of Care Code New Pt Level 3 (69391) Diagnoses Screening for colon cancer Z12.11 Time Spent (min) 25
[2022-11-01 08:20] VITALS: BP 125/58; PULSE 59; BMI 25.9
== END 2022-11-01 09:43 | disposition home or self-care (01) ==
PROVIDERS: PCP Nurse Practitioner Family; Visit Provider Physician Assistant
DX: Z01.818 Encounter for other preprocedural examination (principal); Z12.11 Encounter for screening for malignant neoplasm of colon
CPT/HCPCS: S0285

== ENCOUNTER 2023-01-15 11:26 | Outpatient (AMB) | payer BC, SELFPAY ==
[2023-01-15 13:38] VITALS: BP 120/70; PULSE 69; TEMP 36.3; O2SAT 95; BMI 24.5
--- NOTE | 2023-01-15 13:38 | MHC.OFFWIV ---
Intake Vital Signs 01/15/23 13:38 Height 5 ft 11 in Weight 79.549 kg BMI 24.5 BP 120/70 Blood Pressure Location Lt brachial Position Sitting Pulse 69 Pulse Source Pulse Oximeter Temp 97.4 F Temp Source Temporal Artery Scan Pulse Oximetry (%) 95 Oxygen Delivery Method Room Air Intake Visit Reasons: EP stomach cramps Intake Note: pt is here for c/o stomach cramps Patient Tobacco Use Status: Current everyday Tobacco user Allergies ENVIRONMENTAL Allergy (Unknown, Uncoded 01/15/23 13:39) STUFFY NOSE, SNEEZING Do you need a note to return to daycare/school/sports/work: Yes HPI EP stomach cramps HPI Details Patient presents with 2 days of upper abdominal pain and cramping. He does note 1 episode of vomiting and now continued anorexia nausea. He also notes 1-2 episodes of diarrhea. He has not had vomiting or diarrhea today. He denies melena, hematochezia, coffee-ground emesis. He admits to occasional bright red blood per rectum with wiping. He does not drink alcohol daily. No history of liver disease or gallbladder disease Or peptic ulcer disease.. He does note he has an inguinal hernia Pending repair.. He denies fever, chest pain or shortness of breath. PFSH Medical History Aortic stenosis Ascending aorta dilatation Bicuspid aortic valve Cigarette smoker Surgical History History of appendectomy Family History Maternal Grandmother Cancer of unknown origin Mother Skin cancer Social History Housing: Condominium Alcohol intake: current Alcohol intake frequency: holidays/special occasions only Patient Tobacco Use Status: Current everyday Tobacco user Tobacco use type: Cigarette Cigarettes Per Day: 2 e-Cigarette/Vaping Use: Never Used Second Hand Smoke Exposure: Yes service: No Current occupational status: employed Current occupation: [employer] Current occupational exposures/hazards: No Cognitive needs: No Hearing needs: No Vision needs: No Review of Systems Const Reports as per HPI and Reports no additional complaints Card Reports as per HPI and Reports no additional complaints Resp Reports as per HPI and Reports no additional complaints GI Reports as per HPI and Reports no additional complaints Reports no additional complaints and Reports as per HPI Musc Reports no additional complaints and Reports as per HPI Neuro Reports no additional complaints and Reports as per HPI Physical Exam Vital Signs: Last Vital Signs Temp 97.4 F 01/15/23 13:38 Pulse 69 01/15/23 13:38 BP 120/70 01/15/23 13:38 Pulse Ox 95 01/15/23 13:38 Oxygen Delivery Method Room Air 01/15/23 13:38 BMI result Body Mass Index 24.5 Const General: cooperative, comfortable and no acute distress Orientation/consciousness: patient oriented x3 Resp Effort & Inspection: normal respiratory effort Auscultation: clear to auscultation bilaterally Cardio Rate: regular rate Rhythm: regular rhythm Heart sounds: S1 normal heart sound present and S2 normal heart sound present GI Inspection: Yes normal to inspection, No distended and No visible pulsation Palpation (GI): Soft to palpation, Tenderness to palpation present (GI) (Diffuse right upper quadrant tenderness without a positive Story sign) with no rebound tenderness, no guarding, not rigid, no hernias, no masses, no pulsatile masses, No Ascites present and No Rebound tenderness present Percussion: Yes normal to percussion Auscultation: normal bowel sounds Neuro General: patient oriented x3 Assessment & Plan Assessment & Plan (1) Abdominal pain: Code(s): R10.9 - Unspecified abdominal pain Qualifiers: Abdominal location: generalized Qualified Code(s): R10.84 - Generalized abdominal pain Plan: Patient's exam is essentially benign, no red flags for surgical abdomen. Diffuse tenderness could be related to gastroenteritis. Will draw some basic labs today with strict instructions if any worsening of symptoms or if symptoms continue for another 24 hours she should be seen in emergency department for CT scan. Follow-up with PCP if symptoms persist. Will report lab results as available. Orders: Orders Complete Blood Count Auto Diff 01/15/23 R10.9 - Unspecified abdominal pain Comprehensive Met. Panel 01/15/23 R10.9 - Unspecified abdominal pain Lipase 01/15/23 R10.9 - Unspecified abdominal pain Coding Level of Care Code Est Pt Level 4 (03529) Diagnoses Generalized abdominal pain R10.84 Abdominal location: generalized
== END 2023-01-15 14:21 | disposition home or self-care (01) ==
PROVIDERS: PCP Nurse Practitioner Family; Visit Provider Physician Assistant
DX: R10.84 Generalized abdominal pain (principal)
CPT/HCPCS: 99214

== ENCOUNTER 2023-01-15 14:21 | Outpatient (REF) | payer BC, SELFPAY ==
[2023-01-15 16:10] LABS: MANUAL DIFF FLAG NO
[2023-01-15 16:13] LABS: Basophils Percent Auto 0.3 % (0-2); Eosinophils Absolute Auto 0.1 X10*3/uL (0.0-0.4); Eosinophils Percent Auto 1.5 % (0-4); Hematocrit 36.8 % (42.0-52.0); Imm Gran Abs Auto 0.03 X10*3/uL (0.00-0.03); Imm Gran Pct Auto 0.3 % (0.0-0.4); Lymphocytes Absolute Auto 2.8 X10*3/uL (1.2-4.9); Lymphocytes Percent Auto 31.5 % (20-40); Mean Corpuscular HGB Conc 32.6 g/dl (31.0-36.0); Mean Corpuscular Hemoglobin 30.9 pg (27.0-33.0); Mean Corpuscular Volume 94.8 fL (80.0-98.0); Mean Platelet Volume 10.4 fL (9.4-12.4); Monocytes Absolute Auto 0.9 X10*3/uL (0.1-1.2); Monocytes Percent Auto 10.2 % (2-11); Neutrophils Percent Auto 56.2 % (45-73); Platelet Count 259 X10*3/uL (160-400); Red Blood Count 3.88 X10*6/uL (4.60-5.80); Red Cell Distribution Width 15.6 % (11.0-16.0); White Blood Count 8.9 X10*3/uL (4.8-10.8)
[2023-01-15 17:21] LABS: Alanine Aminotransferase 15 U/L (0-40); Alkaline Phosphatase 71 U/L (39-117); Anion Gap 11 (12-20); Aspartate Amino Transferase 16 U/L (5-37); Blood Urea Nitrogen 20 mg/dL (9-16); Calcium 9.2 mg/dL (8.4-10.2); Carbon Dioxide 27 mmol/L (22-29); Chloride 104 mmol/L (96-108); Estimated Glomerular Filt Rate > 60; Glucose Random 99 mg/dL (60-115); Iron 48 mcg/dL (45-160); Lipase 8 U/L (8-78); Percent Iron Saturation 19 % (15-50); Potassium 4.5 mmol/L (3.3-5.1); Sodium 137 mmol/L (135-145); Total Iron Binding Capacity 253 mcg/dL (228-428); Total Protein 7.6 g/dL (6.5-8.0); Unsaturated Iron Binding 205 ug/dL
[2023-01-15 17:36] LABS: Ferritin 266 ng/mL (20-250)
[2023-01-15 17:50] LABS: Folate 9.2 ng/mL (> or = 4.0); Vitamin B12 333 pg/mL (200-900)
== END 2023-01-15 14:22 | disposition home or self-care (01) ==
LOC: HO.HMGCLDS 14:21
PROVIDERS: PCP Nurse Practitioner Family; Visit Provider Physician Assistant
DX: R10.9 Unspecified abdominal pain (principal); D64.9 Anemia, unspecified
CPT/HCPCS: 36415; 80053; 82607; 82728; 82746; 83540; 83690; 85025

== ENCOUNTER 2023-01-17 13:39 | Inpatient (IN) | payer BC, SELFPAY ==
--- NOTE | ~2023-01-17 | XR_ITS ---
EXAMINATION: XR CHEST CLINICAL INFORMATION: Central line placement. COMPARISON: Chest radiograph 06/18/2021. TECHNIQUE: Frontal view of the chest was obtained. FINDINGS: Right IJ CVC tip projects at the level of the cavoatrial junction. Normal heart size. Low lung volumes with mild platelike opacities in the right lower lobe. Otherwise, clear lungs. No pleural effusion or pneumothorax. No acute osseous findings. XR/XR chest 1V IMPRESSION: 1. Right IJ CVC tip projects at the level of the cavoatrial junction. No pneumothorax. 2. Low lung volumes with platelike opacities in the right lower lobe, likely subsegmental atelectasis.
--- NOTE | ~2023-01-17 | XR_ITS ---
EXAMINATION: XR ABDOMEN KUB CLINICAL INDICATION: Abdominal bloating post laparoscopy for bleeding. COMPARISON: CT scan dated 01/18/2023. TECHNIQUE: AP view of the abdomen. FINDINGS: The bowel gas pattern appears unremarkable, with no evidence of ileus or obstruction. No unusual soft tissue calcifications are noted. The bones appear unremarkable. Large right lower quadrant hematoma seen on recent prior CT scan is not well appreciated on the current film examination. XR/XR KUB IMPRESSION: No acute finding.
--- NOTE | ~2023-01-17 | XR_ITS ---
EXAMINATION: XR CHEST CLINICAL INFORMATION: Respiratory failure. COMPARISON: 01/18/2023. TECHNIQUE: Frontal view of the chest was obtained. FINDINGS: The lung volumes are low. The cardiomediastinal silhouette is within normal limits and stable. There is an endotracheal tube seen in adequate position above the jose. A right central line is in a stable position.There appears to be minimal atelectatic change at the lung bases. There are no significant pleural effusions. The bony structures and soft tissues are unremarkable. XR/XR chest 1V IMPRESSION: Low lung volume slightly limits evaluation. Endotracheal tube in adequate position. There appears to be minimal atelectatic change at the lung bases.
--- NOTE | ~2023-01-17 | CT_ITS ---
EXAMINATION: CT ABDOMEN AND PELVIS WITH CONTRAST CLINICAL INFORMATION: Evaluate retroperitoneal bleed. Fever. Hernia repair. COMPARISON: CT abdomen from 01/18/2023 TECHNIQUE: Multidetector volumetric images were obtained from the superior aspect of the liver through the pubic symphysis following administration 85 mL of Omnipaque 350 intravenous contrast and oral contrast. Sagittal and coronal reformatted images were obtained on the technologist's workstation. This CT examination was performed using dose optimization techniques as appropriate, variously including the following: *Automated exposure control *Adjustment of mA and/or kV according to patient size (this includes techniques or standardized protocols for targeted exams where dose is matched to indication/reason for exam; i.e. extremities or head) *Use of iterative reconstruction technique DLP: 507 mGy-cm FINDINGS: LUNG BASES: Subsegmental atelectasis of posterior right lower lobe and trace right pleural effusion. The aortic valve is calcified. Coronary artery atherosclerotic calcifications are noted. HEPATOBILIARY: The liver has normal size, shape, and attenuation.. Gallbladder has a normal appearance. No radiopaque stones, wall thickening or pericholecystic fluid. No dilated bile ducts. PANCREAS: No edema, pancreatic ductal dilatation or mass. SPLEEN: Normal. ADRENAL GLANDS: Normal. 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 BLADDER: Unremarkable. BOWEL AND PERITONEUM: Stomach is normal. No dilated bowel loops. No focal bowel wall thickening or pneumoperitoneum. There are multiple diverticula of the descending and sigmoid colon without evidence of diverticulitis. ABDOMINAL WALL: There is edema within subcutaneous tissues of the lower abdominal wall. A small amount of fat is seen within the right inguinal canal and again noted is fluid/hemorrhage along the canal. This is associated with the retroperitoneal hematoma which projects lateral to the horseshoe kidney and overlies the right iliopsoas as it tracks anteroinferiorly in the pelvis to the right inguinal canal. The hematoma is difficult to precisely measure since it has some irregular peripheral components. The main hematoma is approximately 11 cm transverse, 10.5 cm AP and 16 cm craniocaudal (12.5 x 10.5 x 17 cm on 01/18/2023). No evidence of any active bleeding. Specifically, no recurrent bleed in region of right inferior epigastric vessels. A large right-sided hydrocele is present. VASCULATURE: Abdominal aorta is normal in caliber and its branches are widely patent. Inferior vena cava is unremarkable. LYMPH NODES: No pathologic sized lymph nodes in the abdomen or pelvis. No inguinal lymphadenopathy. PELVIC VISCERA: Prostate gland is unremarkable. MUSCULOSKELETAL: No acute or suspicious osseous abnormality. Degenerative loss of disc height, vacuum disc phenomenon and osteophytosis at L5-S1. CT/CT abdomen pelvis w IV con IMPRESSION: * No evidence of recurrent hemorrhage. * There is a residual large right pelvic hematoma which tracks into the right inguinal canal, status post reduction/repair of previously seen bowel herniation into the right inguinal canal. The hematoma is slightly smaller compared to 01/18/2023. A large right hydrocele is present. * Trace right pleural effusion and mild right lower lobe atelectasis.
--- NOTE | ~2023-01-17 | CT_ITS ---
EXAMINATION: CT ANGIOGRAM CHEST, ABDOMEN AND PELVIS CLINICAL INFORMATION: Hypotension, concern for aortic dissection, concern for intra-abdominal bleeding COMPARISON: CT abdomen and pelvis 01/17/2023 TECHNIQUE: Following the uneventful intravenous administration of [address] angiography of the chest, abdomen and pelvis was performed from the thoracic inlet through the proximal femurs. Coronal and sagittal reformatted images were generated from the source data. This CT examination was performed using dose optimization techniques as appropriate, variously including the following: *Automated exposure control *Adjustment of mA and/or kV according to patient size (this includes techniques or standardized protocols for targeted exams where dose is matched to indication/reason for exam; i.e. extremities or head) *Use of iterative reconstruction technique DLP: 913 mGy-cm FINDINGS: Vascular: There is an aneurysm of the ascending thoracic aorta which measures 4.4 x 4.3 cm at the level of the main pulmonary artery. There is motion artifact which slightly limits evaluation, though there is no definite evidence of dissection or other acute aortic syndrome. The aorta tapers into the aortic arch. There is three-vessel branching anatomy of the arch vessels. The visualized segments of the arch vessels are well-opacified and normal in caliber. The descending thoracic aorta is normal in caliber. No dissection or other acute aortic syndrome. The abdominal aorta is normal in course and caliber. There is no dissection or other acute aortic syndrome. Iliac bifurcation is unremarkable. There is a J-shaped orientation of the celiac axis which may relate to phase of respiration. The celiac is otherwise well opacified and has an expected branching pattern. The superior mesenteric artery is normal in caliber. The inferior mesenteric artery is patent. There are 3 renal arteries with an accessory renal originating from the left common iliac and supplying the midportion of the horseshoe kidney. There is minimal calcification of the right common femoral. The visualized segments of the femoral arteries are well-opacified. There is a focus of contrast extravasation centered within a hematoma in the right lower quadrant (for example image 639, series 14) the site of origin of extravasation is not fully certain. The inferior epigastric is in relative proximity, and there is potentially a portion of the omentum tracking into the central portion of the hematoma where the contrast extravasation is seen, best appreciated on sagittal images. The heterogeneous hematoma centered within the right lower quadrant measures on the order of 10.7 x 13 x 16.8 cm with blood products tracking into the region of the repaired right inguinal hernia as well as tracking cranially along the anterior margin of the iliopsoas, though not does not appear to arise from within the iliopsoas. The hematoma displaces bowel structures and, the bladder, the horseshoe kidney medially. There is also a small volume of hemoperitoneum. With fluid in the right greater than left upper quadrant. There is an unremarkable appearance of the venous structures for an arterial phase of contrast. The pulmonary arteries are not dilated. While not a dedicated evaluation of the pulmonary arteries, no large central pulmonary emboli are seen. Nonvascular: There is trace bilateral pleural fluid and a small amount of bibasilar opacity and volume loss likely representing atelectasis. No discrete suspicious pulmonary nodule is seen. The central and peripheral airways are patent and normal appearing. The heart is not enlarged. There are partially visualized calcifications of the coronary arteries, though evaluation is limited secondary to cardiac motion. There is no pericardial effusion or pericardial thickening. No pathologically enlarged thoracic lymph nodes are seen. The axillae are unremarkable. There is fluid within the esophagus to the level of the thoracic inlet. The liver is normal in size and overall attenuation. No focal lesions are identified. There is no intra or extrahepatic duct dilation. The gallbladder is unremarkable and there is no pericholecystic inflammation seen. The pancreas is unremarkable. No pancreatic duct dilation is seen. The spleen is unremarkable. Adrenal glands are normal appearing. There is a horseshoe orientation of the kidney. No renal lesions, calculi or hydronephrosis are seen. There is fluid distending the esophagus and the stomach is distended with fluid as well. There is a small hiatus hernia containing peritoneal fat and small amount of fluid. The small and large bowel are normal in caliber. No bowel wall inflammatory changes are seen. The bladder is distended and displaced to the left secondary to the right lower quadrant hematoma described above. Prostate and seminal vesicles are unremarkable. No abdominopelvic or retroperitoneal lymphadenopathy is seen. There are surgical changes relating to a right inguinal hernia repair with small amount of blood products and foci of gas within the hernia repair bed. There is no acute or aggressive bony abnormality identified. CT/CT abdomen pelvis w IV con IMPRESSION: There is a large right lower quadrant hematoma with displacement of intra-abdominal structures. There is contrast extravasation at its anterior inferior aspect suggesting active arterial hemorrhage. The exact source of the hemorrhage is uncertain. This is in the relative vicinity of the inferior epigastric and there may be omental fat contained within the more central portion of the hematoma. This finding was discussed by telephone with Dr. Petty by Dr. Cook at 2206 hours. No evidence of aortic dissection or other acute aortic syndrome. Postsurgical changes relating to hernia repair.
--- NOTE | ~2023-01-17 | CT_ITS ---
EXAMINATION: CT ABDOMEN AND PELVIS WITH CONTRAST CLINICAL INFORMATION: Left lower quadrant pain COMPARISON: Previous CT of the pelvis August 2021 TECHNIQUE: Multidetector volumetric images were obtained from the superior aspect of the liver through the pubic symphysis following administration 85 mL of Omnipaque 350 intravenous contrast. Sagittal and coronal reformatted images were obtained on the technologist's workstation. Oral contrast: Yes This CT examination was performed using dose optimization techniques as appropriate, variously including the following: *Automated exposure control *Adjustment of mA and/or kV according to patient size (this includes techniques or standardized protocols for targeted exams where dose is matched to indication/reason for exam; i.e. extremities or head) *Use of iterative reconstruction technique DLP: 819 mGy-cm FINDINGS: LUNG BASES: The visualized lung bases are unremarkable. LIVER, GALLBLADDER, AND BILIARY TREE: The liver is normal in size, shape, and attenuation. No focal hepatic lesion or biliary ductal dilatation is present. The gallbladder is contracted. PANCREAS: Unremarkable. SPLEEN: Unremarkable. ADRENAL GLANDS: Unremarkable. KIDNEYS AND URETERS: Horseshoe kidney. No hydronephrosis, hydroureter, or calculi seen. No perinephric stranding. BLADDER: There are full bladder. GASTROINTESTINAL TRACT: Right inguinal hernia containing the appendix, cecum and distal small bowel. The more proximal small bowel is dilated. There is a caliber change of the small bowel at the hernia suggestive of cause of distal small bowel obstruction. ABDOMINAL WALL: Right inguinal hernia containing appendix seen, and distal small bowel as described above. Small left inguinal hernia containing fat. Small umbilical hernia containing fat. LYMPH NODES: Nonspecific fat stranding of the small bowel mesentery and small lymph nodes. A nonspecific finding. Differential would include mesenteritis, changes from pancreatitis or enteritis, lymphoproliferative disease and carcinoid. VASCULAR: Unremarkable. PELVIC VISCERA: Unremarkable. OSSEOUS STRUCTURES: Degenerative changes at L5-S1.. CT/CT abdomen pelvis w IV con IMPRESSION: Distal small bowel obstruction secondary to right inguinal hernia. There is also some of the cecum and appendix in the hernia sac. Small left inguinal hernia containing fat. Horseshoe kidney. Distended bladder. Fleischner guidelines were followed. Findings will be communicated by the [facility] biological scientist
[2023-01-17 14:04] VITALS: BP 145/50; PULSE 76; RESP 18; TEMP 37.1; O2SAT 96; BMI 24.4
[2023-01-17 14:51] LABS: MANUAL DIFF FLAG NO
[2023-01-17 14:52] LABS: Basophils Percent Auto 0.3 % (0-2); Eosinophils Absolute Auto 0.2 X10*3/uL (0.0-0.4); Eosinophils Percent Auto 2.8 % (0-4); Hematocrit 31.5 % (42.0-52.0); Hemoglobin 10.5 g/dl (14.0-18.0); Imm Gran Abs Auto 0.02 X10*3/uL (0.00-0.03); Imm Gran Pct Auto 0.3 % (0.0-0.4); Lymphocytes Absolute Auto 2.7 X10*3/uL (1.2-4.9); Lymphocytes Percent Auto 39.8 % (20-40); Mean Corpuscular HGB Conc 33.3 g/dl (31.0-36.0); Mean Corpuscular Hemoglobin 30.3 pg (27.0-33.0); Mean Corpuscular Volume 90.8 fL (80.0-98.0); Mean Platelet Volume 9.2 fL (9.4-12.4); Monocytes Absolute Auto 0.8 X10*3/uL (0.1-1.2); Monocytes Percent Auto 11.3 % (2-11); Neutrophils Absolute Auto 3.1 x10*3/uL (2.0-8.3); Neutrophils Percent Auto 45.5 % (45-73); Platelet Count 211 X10*3/uL (160-400); Red Blood Count 3.47 X10*6/uL (4.60-5.80); Red Cell Distribution Width 14.9 % (11.0-16.0); White Blood Count 6.7 X10*3/uL (4.8-10.8)
[2023-01-17 15:16] LABS: Alanine Aminotransferase 14 U/L (0-40); Albumin Level 3.6 g/dL (3.5-5.0); Alkaline Phosphatase 78 U/L (39-117); Anion Gap 8 (12-20); Aspartate Amino Transferase 15 U/L (5-37); Bilirubin Direct 0.3 mg/dL (0.0-0.5); Bilirubin Total 0.6 mg/dL (0.0-1.0); Blood Urea Nitrogen 13 mg/dL (9-16); Calcium 8.8 mg/dL (8.4-10.2); Carbon Dioxide 29 mmol/L (22-29); Chloride 107 mmol/L (96-108); Creatinine Clr Calc Pharmacy 118.3; Estimated Glomerular Filt Rate > 60; Glucose Random 97 mg/dL (60-115); Lipase 11 U/L (8-78); Magnesium 1.9 mg/dL (1.6-2.6); Potassium 3.7 mmol/L (3.3-5.1); Sodium 140 mmol/L (135-145); Total Protein 6.7 g/dL (6.5-8.0)
[2023-01-17 16:55] VITALS: BP 149/68; PULSE 68; RESP 18; TEMP 36.8; O2SAT 96
--- NOTE | 2023-01-17 18:40 | PC.NURSE ---
a&o x4, calm, and cooperative. pt changed over to hospital attire. placed on bedside monitor. awaiting UA. call morales within reach. visitor at bedside. plan of care ongoing.
[2023-01-17 18:43] VITALS: BP 139/72; PULSE 67; RESP 17; O2SAT 98
--- NOTE | 2023-01-17 19:07 | ED_ITS ---
HPI - General Adult General Chief complaint: Abdominal Pain Stated complaint: Abd pain Time Seen by Provider: 01/17/23 18:49 Source: patient Limitations: no limitations History of Present Illness HPI narrative: 52 years old with no significant past medical history, prior surgical history of appendectomy presents to the emergency room for evaluation of abdominal pain. The patient reports that he started feeling sick on Sunday at that time he had abdominal pain and vomiting while on Sunday he had diarrhea. He attended a walking clinic which discharge home however today patient was called by On- call at urgent care clinic and was advised to present to the emergency room for CT scan of his belly because is hemoglobin had dropped 2 g since his last blood work. Patient reports nonbloody loose stools over the past 5 days however reported that over the past few months he had intermittent episodes of hematochezia for which she is pending an outpatient colonoscopy. Patient denies family history of colon cancer. He denies shortness of breath or chest pain. No headache, unilateral weakness, blurry vision Patient reports that the pain in his abdomen has almost completely resolved, is periumbelical 1/10 in severity he did not have any bowel movement since Sunday but is passing air. Related Data Home Medications Medication Instructions Recorded Confirmed omeprazole magnesium 20 mg 20 mg PO DAILY 09/21/21 11/01/22 tablet,delayed release (Prilosec OTC) Previous Rx's Medication Instructions Recorded ketoconazole 2 % topical cream 1 appl topical BID #60 grams 08/30/22 Allergies Allergy/AdvReac Type Severity Reaction Status Date / Time ENVIRONMENTAL Allergy Unknown STUFFY Uncoded 01/15/23 13:39 NOSE, SNEEZING Review of Systems 2 Review of Systems: Yes all other systems are reviewed and are negative [facility] Past Medical History Medical History Aortic stenosis Ascending aorta dilatation Bicuspid aortic valve Cigarette smoker Surgical History History of appendectomy Family History Family History Maternal Grandmother Cancer of unknown origin Mother Skin cancer Social History [facility] Alcohol intake: current Alcohol intake frequency: holidays/special occasions only Alcohol type: beer Patient Tobacco Use Status: Current everyday Tobacco user Tobacco use type: Cigarette Cigarettes Per Day: 2 Smoked in Last 30 Days: No e-Cigarette/Vaping Use: Never Used Second Hand Smoke Exposure: Yes Use of substances other than those prescribed or required for medical reasons: No Advance Directives: No Advance Directives Information Provided: Yes service: No Current occupational status: employed Current occupation: [employer] Current occupational exposures/hazards: No Cognitive needs: No Hearing needs: No Vision needs: No Physical Exam ED Vital Signs: Vital Signs - 24 hr 01/17/23 14:04 01/17/23 16:55 01/17/23 18:43 Temperature 98.7 F 98.3 F Pulse Rate 76 68 67 Respiratory Rate 18 18 17 Blood Pressure 145/50 H 149/68 H 139/72 Pulse Oximetry 96 96 98 Oxygen Delivery Method Room Air Room Air Room Air 01/17/23 21:56 Temperature 98.7 F Pulse Rate 70 Respiratory Rate 17 Blood Pressure 129/64 Pulse Oximetry 96 Oxygen Delivery Method Room Air BMI result Body Mass Index 24.4 General: Alert, Not in Distress Skin: No rash, warm HEENT: Atraumatic, No Exudate or Pharyngeal Erythema Resp: Normal Breath sounds bilaterally Cardio: Regular rate and Rhythm, Normal S1, S2 ABD: Abd mildly tender in periumbelical area, no guarding or rebound. Normal Bowel sounds. : No cva tenderness Neuro: Alert, oriented x4, PERRL Strenght 5/5 on all extremities Sensation is preserved in both lower and upper extremities Index to nose: normal Cranial Nerves II-XII grossly intact No dysarthria, or aphasia No neglet. Visual edmond are normal bilaterally Psych: Cooperative, NO SI Course Reevaluation(s) Reevaluation #1: FOB negative. Time: 20:23 Reevaluation #2: I personally reviewed the patient's CT scan which seems unremarkable Formal reading is pending Patient is comfortable, not in pain. will sign out to dr crocker Time: 21:46 Medications Administered Discontinued Medications Generic Name Dose Route Start Last Admin Trade Name Freq PRN Reason Stop Dose Admin Acetaminophen 975 mg 01/17/23 18:57 01/17/23 19:14 Acetaminophen 325 Mg Tablet PO 01/17/23 18:58 975 mg ONCE ONE Administration Iohexol 85 ml 01/17/23 21:12 01/17/23 21:13 Iohexol 350 Mg/Ml 100 Ml Infus..Btl IV 01/17/23 21:13 85 ml ONCE ONE Administration Ketorolac Tromethamine 30 mg 01/17/23 18:57 01/17/23 19:15 Ketorolac Tromethamine 30 Mg/Ml Vial IM 01/17/23 18:58 30 mg ONCE ONE Administration Medical Decision Making Medical Decision Making [facility] Narrative: Patient presents to the emergency room for episode of abdominal pain which has however almost resolved since his onset 4 days ago. Concern from urgent care clinic because his hemoglobin had dropped 2 points since August however patient has history of for the past couple of months of blood in the stools for which is pending outpatient colonoscopy. Patient does not have any chest pain or shortness of breath. No active bleeding. Impression: Abdominal pain nausea and vomiting from this weekend are possibly secondary to virus syndrome/enteritis/gastritis. The chronic lower GI bleed the patient is reporting may be secondary to polyps, av malformation hemorrhoids Plan: Analgesia CT abdomen and pelvis Reassessment. Admission/Observation Consideration of admission/observation: Escalation of care including admission/observation considered Lab Data [facility] Lab Attestation statement: I reviewed the patient's lab results. 01/17/23 14:47 01/17/23 14:47 Labs: Lab Results 01/17/23 01/17/23 01/17/23 Range/Units 14:47 19:55 22:03 WBC 6.7 (4.8-10.8) X10*3/uL RBC 3.47 L (4.60-5.80) X10*6/uL Hgb 10.5 L (14.0-18.0) g/dl Hct 31.5 L (42.0-52.0) % MCV 90.8 (80.0-98.0) fL MCH 30.3 (27.0-33.0) pg MCHC 33.3 (31.0-36.0) g/dl RDW 14.9 (11.0-16.0) % Plt Count 211 (160-400) X10*3/uL MPV 9.2 L (9.4-12.4) fL Immature Gran % (Auto) 0.3 (0.0-0.4) % Neut % (Auto) 45.5 (45-73) % Lymph % (Auto) 39.8 (20-40) % Hunt % (Auto) 11.3 H (2-11) % Eos % (Auto) 2.8 (0-4) % Baso % (Auto) 0.3 (0-2) % Lymph # (Auto) 2.7 (1.2-4.9) X10*3/uL Hunt # (Auto) 0.8 (0.1-1.2) X10*3/uL Eos # (Auto) 0.2 (0.0-0.4) X10*3/uL Baso # (Auto) 0.0 (0.0-0.2) X10*3/uL Abs Immat Gran (auto) 0.02 (0.00-0.03) X10*3/uL Absolute Neuts (auto) 3.1 (2.0-8.3) x10*3/uL Absolute Nucleated RBC 0.000 (0.0-0.012) X10*3/uL Nucleated RBC % (auto) 0.0 (0.0-0.2) /100WBC Sodium 140 (135-145) mmol/L Potassium 3.7 (3.3-5.1) mmol/L Chloride 107 (96-108) mmol/L Carbon Dioxide 29 (22-29) mmol/L Anion Gap 8 L (12-20) BUN 13 (9-16) mg/dL Creatinine 0.76 (0.5-1.4) mg/dL Estim Creat Clear Calc 118.3 Estimated GFR > 60 Random Glucose 97 (60-115) mg/dL Calcium 8.8 (8.4-10.2) mg/dL Magnesium 1.9 (1.6-2.6) mg/dL Total Bilirubin 0.6 (0.0-1.0) mg/dL Direct Bilirubin 0.3 (0.0-0.5) mg/dL AST 15 (5-37) U/L ALT 14 (0-40) U/L Alkaline Phosphatase 78 (39-117) U/L Total Protein 6.7 (6.5-8.0) g/dL Albumin 3.6 (3.5-5.0) g/dL Lipase 11 (8-78) U/L Stool Occult Blood NEGATIVE (NEGATIVE) Urine Opiates Screen Not Detected (Not Detect) Urine Fentanyl Screen Not Detected (Not Detect) Ur Barbiturates Screen Not Detected (Not Detect) Ur Phencyclidine Scrn Not Detected (Not Detect) Ur Amphetamines Screen Not Detected (Not Detect) U Benzodiazepines Scrn Not Detected (Not Detect) Urine Cocaine Screen Not Detected (Not Detect) U Marijuana (THC) Screen Not Detected (Not Detect) Ethyl Alcohol < 10 mg/dL Independent Interpretation I performed an independent interpretation of an: CT Scan (unremarkable CT abd) Discharge Plan Discharge Clinical Impression: Abdominal pain Instructions: Abdominal Pain (ED) Additional Instructions: Your seen emergency room for abdominal pain. Your physical exam was reassuring Occult blood in your stools was also negative. Your CT scan did not show any worrisome finding. Given the fact that your hemoglobin has dropped 2 g since August and that you have been having intermittent episodes of blood in your stools is important for you to follow-up with her primary care physician within a week. Please call his office to schedule an appointment. We also recommend follow-up with the GI. Please: Dr. Lal office to schedule an appointment. Prescriptions: No Action ketoconazole 2 % cream 1 appl topical BID Qty: 60 0RF omeprazole magnesium [Prilosec OTC] 20 mg tablet,delayed release (/EC) 20 mg PO DAILY Referrals: Ritchie Villa FNP- [Primary Care Provider] - Pieter Lal MD [Physician] - (Lower GI bleed)
[2023-01-17] MEDS: Acetaminophen 325 MG TABLET 975 MG PO (19:14)
[2023-01-17] MEDS: Ketorolac Tromethamine 30 MG/ML VIAL IM (19:15)
[2023-01-17 19:34] LABS: Ethanol < 10 mg/dL
[2023-01-17 20:03] LABS: OBS Int Ctl Valid YES; OBS1 NEGATIVE (NEGATIVE)
[2023-01-17] MEDS: iohexoL 350 MG/ML 100 ML INFUS..BTL 85 ML IV (21:13)
[2023-01-17 21:56] VITALS: BP 129/64; PULSE 70; RESP 17; TEMP 37.1; O2SAT 96
[2023-01-17 22:16] LABS: Amphetamine Screen Urine Not Detected (Not Detect); Appearance Urine Clear; Barbiturates, Urine Not Detected (Not Detect); Benzodiazepines Screen Urine Not Detected (Not Detect); Cannabinoid Screen Urine Not Detected (Not Detect); Cocaine Screen Urine Not Detected (Not Detect); Color Urine Dark Yellow; Fentanyl, urine Not Detected (Not Detect); Glucose Urine UA Negative (Negative); Leukocyte Esterase Urine Negative (Negative); Nitrite Urine Negative (Negative); Opiate Screen Urine Not Detected (Not Detect); PH 6.5 (5.0-9.0); Phencyclidine Screen Urine Not Detected (Not Detect); Specific Gravity - Urine 1.025 (1.005-1.025); Urine Blood Negative (Negative); Urine Ketones Negative (Negative); Urine Protein Negative (Neg-Trace)
[2023-01-17] MEDS: Dextrose 5 % and 0.45 % NaCl 1,000 ML 125 ML IVCONT (23:35)
[2023-01-17 23:42] VITALS: BP 136/70; PULSE 70; RESP 16; TEMP 36.9; O2SAT 96
[2023-01-17] MEDS: Acetaminophen 1,000 MG/100 ML PIGGYBACK 400 MG IV (23:54)
[2023-01-18] VITALS (61 sets, daily range): BP systolic 68–159; BP diastolic 35–94; PULSE 57–110; RESP 13–28; TEMP 35.8–37; O2SAT 92–100
--- NOTE | 2023-01-18 | ECG_ITS ---
Test Reason : Hypotension Blood Pressure : / mmHG Vent. Rate : 104 BPM Atrial Rate : 104 BPM P-R Int : 128 ms QRS Dur : 082 ms QT Int : 338 ms P-R-T Axes : 054 010 008 degrees QTc Int : 444 ms Sinus tachycardia with Premature supraventricular complexes RSR' or QR pattern in V1 suggests right ventricular conduction delay Nonspecific T wave abnormality Inferior leads Abnormal ECG No previous ECGs available Referred By: Dorie Calzada Electronically Signed By:MARISSA MCDONOUGH MD
--- NOTE | 2023-01-18 02:53 | PC.NURSE ---
Patient ambulated to the restroom independently with a steady gait. Patient returned back to his room. Patient denies any pain. IV fluids running, call morales within patient's reach.
[2023-01-18 06:01] LABS: MANUAL DIFF FLAG NO
[2023-01-18] MEDS: Acetaminophen 1,000 MG/100 ML PIGGYBACK 400 MG IV ×3 (06:07→19:49)
[2023-01-18 06:17] LABS: Basophils Percent Auto 0.5 % (0-2); Eosinophils Absolute Auto 0.2 X10*3/uL (0.0-0.4); Eosinophils Percent Auto 3.2 % (0-4); Hematocrit 30.4 % (42.0-52.0); Hemoglobin 9.9 g/dl (14.0-18.0); Imm Gran Abs Auto 0.02 X10*3/uL (0.00-0.03); Imm Gran Pct Auto 0.3 % (0.0-0.4); Lymphocytes Absolute Auto 2.9 X10*3/uL (1.2-4.9); Lymphocytes Percent Auto 49.1 % (20-40); Mean Corpuscular HGB Conc 32.6 g/dl (31.0-36.0); Mean Corpuscular Hemoglobin 30.3 pg (27.0-33.0); Mean Platelet Volume 10.4 fL (9.4-12.4); Monocytes Absolute Auto 0.7 X10*3/uL (0.1-1.2); Neutrophils Absolute Auto 2.1 x10*3/uL (2.0-8.3); Neutrophils Percent Auto 35.9 % (45-73); Platelet Count 219 X10*3/uL (160-400); Red Blood Count 3.27 X10*6/uL (4.60-5.80); Red Cell Distribution Width 14.6 % (11.0-16.0); White Blood Count 5.9 X10*3/uL (4.8-10.8)
[2023-01-18 06:22] LABS: Anion Gap 10 (12-20); Blood Urea Nitrogen 9 mg/dL (9-16); Calcium 8.6 mg/dL (8.4-10.2); Carbon Dioxide 28 mmol/L (22-29); Chloride 106 mmol/L (96-108); Creatinine Clr Calc Pharmacy 115.3; Estimated Glomerular Filt Rate > 60; Glucose Random 105 mg/dL (60-115); Sodium 140 mmol/L (135-145)
--- NOTE | 2023-01-18 08:25 | PHA.MEDREC ---
Pharmacy Consult ? Medication Reconciliation Pharmacy has completed the medication reconciliation. Spoke to patient and confirmed medication list.
--- NOTE | 2023-01-18 08:32 | PC.NURSE ---
patient awake, resting quietly in room on phone. met with surgeon this morning, awaiting dispo at this time. offering no complaints at this time, call morales remains in reach
--- NOTE | 2023-01-18 09:25 | PM.HPGS ---
History of Present Illness History of Present Illness Date of Service: 01/18/23 Chief complaint: SBO, Right Inguinal Hernia Narrative: Saroj Vega Jr is a 52 year old male known to me for a large right scrotal hernia that is been present for some number of years. Patient was referred to the office with an active fungal infection and had delayed follow-up and treatment because of not following up with his PCP. In evaluation, he was also noted to have anemia which is not yet been evaluated. We have had candid discussions about his age, nicotine use/smoking and risk of malignancy but the patient reports that over the weekend he has been having abdominal cramps and bloating. Patient was admitted by Dr. Martinez yesterday via ER for presumed bowel obstruction given recent symptoms but on my interview with the patient this morning, he notes that he is passing gas and had a sandwich in the emergency room last night without any GI complaints. During follow-up, he had a new 2/6 EBENEZER at physical exam; evaluation is pending. The patient believes that the hernia is worse and impacting on his day-to-day activities including ability to eat. Long discussion regarding options at this point given that he reports he is passing gas and had tolerated dinner last night was undertaken. Patient notes that he has pending appointments regarding anemia workup including EGD and colonoscopy but would like to have the hernia repair given his recent abdominal complaints. Review of Systems Review of Systems: Yes all other systems are reviewed and are negative Constitutional: Constitutional: Reports as per [facility] Past Medical History Medical History Ascending aorta dilatation Bicuspid aortic valve Aortic stenosis Cigarette smoker Functional capacity: independent ambulation Family History Family History Maternal Grandmother Cancer of unknown origin Mother Skin cancer Surgical History Surgical History History of appendectomy Social History Social History Housing: Condominium Alcohol intake: current Alcohol intake frequency: holidays/special occasions only Alcohol type: beer Patient Tobacco Use Status: Former Tobacco user Tobacco use type: Cigarette Cigarettes Per Day: 2 Smoked in Last 30 Days: No e-Cigarette/Vaping Use: Never Used Second Hand Smoke Exposure: Yes Use of substances other than those prescribed or required for medical reasons: No Advance Directives: No Advance Directives Information Provided: Yes service: No Current occupational status: employed Current occupation: [employer] Current occupational exposures/hazards: No Cognitive needs: No Hearing needs: No Vision needs: No Meds Allergies Allergy/AdvReac Type Severity Reaction Status Date / Time ENVIRONMENTAL Allergy Unknown STUFFY Uncoded 01/15/23 13:39 NOSE, SNEEZING Active Medications: Current Medications Hydromorphone HCl (Hydromorphone Hcl 0.5 Mg/0.5 Ml Syringe) 0.5 mg IVPUSH Q4H PRN; Protocol PRN Reason: Pain, Severe (Pain Scale 7-10) Dextrose/Sodium Chloride (D51/2ns) 1,000 mls @ 125 mls/hr IVCONT .Q8H [facility] Last Admin: 01/17/23 23:35 Dose: 125 mls/hr Acetaminophen (Ofirmev) 1,000 mg in 100 mls @ 400 mls/hr IV Q6H [facility] Last Infusion: 01/18/23 06:26 Dose: Infused Ondansetron HCl (Ondansetron Hcl 4 Mg/2 Ml Vial) 4 mg IVPUSH Q8H PRN PRN Reason: Nausea and Vomiting Sodium Chloride (0.9 % Sodium Chloride Flush 3 Ml Syringe) 3 ml IVFLUSH QSHIFT [facility] Last Admin: 01/18/23 07:42 Dose: Not Given Zolpidem Tartrate (Zolpidem Tartrate 5 Mg Tablet) 5 mg PO BEDTIME PRN PRN Reason: Insomnia Home Medications Medication Instructions Recorded Confirmed Last Taken Type omeprazole magnesium 20 mg 20 mg PO DAILY PRN Acid Reflux 09/21/21 01/17/23 Unknown History tablet,delayed release (Prilosec OTC) Physical Exam Vital Signs: Vital Signs: Last Vital Signs Temp 97.5 F 01/18/23 06:21 Pulse 59 01/18/23 06:21 Resp 14 01/18/23 06:21 BP 138/64 01/18/23 06:21 Pulse Ox 96 01/18/23 06:21 O2 Del Method Room Air 01/18/23 06:21 BMI result Body Mass Index 24.4 On exam, the patient is nontoxic His heart is regular with a 2/6 EBENEZER as previously noted Lungs are clear and equal Examination of his abdomen and right inguinal area demonstrated a large chronically incarcerated right inguinal hernia and no evidence of fungal infection. His hernia is nontender, there are no trophic skin changes. Results Results Labs: Short CBC 01/17/23 01/18/23 Range/Units 14:47 04:45 WBC 6.7 5.9 (4.8-10.8) X10*3/uL Hgb 10.5 L 9.9 L (14.0-18.0) g/dl Hct 31.5 L 30.4 L (42.0-52.0) % Plt Count 211 219 (160-400) X10*3/uL BMP 01/17/23 01/18/23 14:47 04:45 Sodium 140 140 Potassium 3.7 4.0 Chloride 107 106 Carbon Dioxide 29 28 BUN 13 9 Creatinine 0.76 0.78 Calcium 8.8 8.6 Liver Function 01/17/23 Range/Units 14:47 Total Bilirubin 0.6 (0.0-1.0) mg/dL Direct Bilirubin 0.3 (0.0-0.5) mg/dL AST 15 (5-37) U/L ALT 14 (0-40) U/L Alkaline Phosphatase 78 (39-117) U/L Albumin 3.6 (3.5-5.0) g/dL Urine 01/17/23 Range/Units 22:03 Urine Color Dark Yellow Urine Appearance Clear Urine pH 6.5 (5.0-9.0) Ur Specific [place] 1.025 (1.005-1.025) Urine Protein Negative (Neg-Trace) mg/dL Urine Glucose (UA) Negative (Negative) mg/dL Abdomen CT scan report/results: report reviewed and image reviewed CT scan - pelvis: report reviewed and image reviewed Assessment and Plan (1) Inguinal hernia: Status: Acute (2) Heart murmur: Status: Acute (3) Anemia: Status: Acute (4) Bicuspid aortic valve: Status: Acute (5) Ascending aorta dilatation: Status: Acute (6) Aortic stenosis: Status: Acute Plan The patient reports that he continues to pass gas since admission and that he is not obstructed. Given this, we discussed the option of continuing his workup given the anemia that could represent a malignancy and his cardiac murmur. However, the patient has had poor follow-up regarding his health care and is now intermittently having obstructive symptoms that are impacting on his life and he wishes to proceed with surgery. The patient seemed to understand his options and expressed concern over the obstructive symptoms. Activity restrictions, specifically the patient cannot lift more than 20 lb for the next 4 weeks, the need for light duty, the fact that the patient is not disabled and can perform light duty was all discussed and apparently understood. Given that the hernia contains small bowel and cecum and to his scrotum, we discussed an open right inguinal hernia repair with mesh. The options including continued workup given his anemia that could represent malignancy and impact postoperative healing, his heart murmur versus operative repair today were also discussed. The inherent risks to open inguinal hernia repair with mesh were discussed. These risks of hernia surgery include, but are not limited to: Bleeding, infection, hernia recurrence especially if weight gain or postoperative instructions are not followed, nerve entrapment, urinary retention, chronic pain, mesh complications that could require reoperation. The patient seemed to understand his options, had his questions answered and wanted to proceed with open right inguinal hernia repair with mesh. Activity restrictions were also discussed at length in the patient's questions seemed to be answered. The importance of follow-up regarding his anemia which could represent malignancy and his heart murmur were also discussed. See orders; patient for OR this morning. 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 Patient should be suitable for discharge unless unexpected intraoperative postoperative issues arise. Quality Stroke Does the patient have a stroke diagnosis?: No VTE Prior VTE?: No VTE Risk Level:: Surgical - moderate VTE Device Contraindication: N/A - Device Ordered VTE Drug Contraindication: Treatment Not Indicated Procedures Date of Service Date of Service: 01/18/23
[2023-01-18] MEDS: ceFAZolin Sodium/Dextrose,Iso 2 GM/50 ML PIGGYBACK IV (09:34)
--- NOTE | 2023-01-18 09:36 | W.PM.OPN ---
Operative Note Operative Note Date of Service: 01/18/23 Narrative: Preop diagnosis: [RIGHT inguinal hernia with obstructive symptoms] Postop diagnosis: [Same, small-bowel adhesions SHRAVAN for 25'] Procedure: [Open right inguinal hernia repair with 3' x 6' polypropylene mesh and lysis of adhesions for 25 minute] Surgeon: Tl Petty MD, FACS, [facility] Assist: [Nga Pond, RN] Anesthesia: [GET, lidocaine, 1% with epi/Marcaine, 0.25% in 50 50 mix] Estimated blood loss: [3cc] Specimen: [Hernia sac] Intraoperative findings: [A large indirect hernia sac containing viable small bowel with extensive bowel/bowel adhesions requiring lysis of adhesions was encountered. High ligation of the sac and Fanny hernia repair were performed.] Indications: [The patient is a 52-year-old gentleman who was referred to the office because of a hernia that was initially assumed to be a hydrocele. During workup, the patient was noted to be anemic and ultimately was identified to have a new systolic ejection murmur that his aortic stenosis. Patient has follow-up regarding workup was poor and treatment further delayed by a fungal infection of his skin that he opted to treat topically rather than as recommended and continued nicotine use. The patient has had progressive anemia and has not had this evaluated. Over the weekend, he had developed some obstructive symptoms assumed to be related to his hernia and was ultimately directed to the ER last night and admitted. Patient reports that he tolerated a sandwich at 11:00 o'clock last night and is passing gas and had a bowel movement yesterday. However CT shows proximal small bowel dilation and is noted clinically, he is having new partial obstruction symptoms including abdominal bloating, pain and vomiting. Options including continuing his cardiac workup for his new murmur and anemia evaluation since this could represent a malignancy were discussed with the patient as well as the inherent risks of operative repair. Patient would like to proceed with open right inguinal hernia repair with mesh. These risks of hernia surgery include, but are not limited to: Bleeding, infection, hernia recurrence especially if weight gain or postoperative instructions are not followed, nerve entrapment, urinary retention, chronic pain, mesh complications that could require reoperation. The risk of seroma formation that may require aspiration was also reviewed with the patient and reassured that this is normal given the size of his hernia was also discussed. The patient seemed to understand all of these options, had his questions answered and wanted to proceed. Activity restrictions were also discussed at length and the patient's questions seemed to be answered. ] Procedure: [ The patient presented with a symptomatic right inguinal hernia. The options including continued observation versus operative repair and 2nd opinion were discussed. The inherent risks to open inguinal hernia repair were discussed and options to explore his anemia of unknown origin were discussed patient wanted to proceed with open right inguinal hernia repair.. These risks of hernia surgery include, but are not limited to: Bleeding, infection, hernia recurrence especially if weight gain or postoperative instructions are not followed, nerve entrapment, chronic pain, mesh complications that could require reoperation. The patient seemed to understand all of these options, had their questions answered and wanted to proceed. Procedure: The patient was identified in the preoperative holding area by myself and the operative site marked by me confirming a right inguinal hernia. 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 The operative field hair had been clipped in preop holding. The patient was again identified in the operating suite and placed supine on the table. See anesthesia notes for full details regarding anesthesia care and management. An appropriate time-out was performed confirming the operative site and procedure. The patient was then widely prepped and draped in the usual manner using chlorhexidine. A right ileoinguinal nerve block was performed using 1% lidocaine with epinephrine and bupivacaine, 0.25% and a standard inguinal herniorrhaphy incision made sharply through the skin. Dissection was carried through all layers using electric cautery for dissection and hemostasis. Additional local was infiltrated is the external oblique aponeurosis, in the external oblique aponeurosis opened sharply in the direction of its fibers to the external ring. The ilioinguinal nerve was identified and sacrificed due to its chronic distortion from this large hernia. The cord was mobilized at the level of the pubic tubercle and surrounded with hernia tape. The floor was inspected and an indirect inguinal hernia found. Careful dissection of the spermatic cord to preserve the vessels & vas was undertaken but the large hernia had distorted his anatomy. The hernia sac was highly dissected, opened, and approximately a foot of small bowel with dense adhesions required lysis for 25 minutes, then its contents reduced and suture ligation performed with a 2 0 Vicryl.. Next, a standard Fanny tension-free herniorrhaphy performed using polypropylene patch (3' x 6 trimmed to approximately 5 in in length) that was sutured to the pubic tubercle and inguinal ligament using a 2-0 Polysorb. A new internal ring was made using 2-0 polypropylene suture. The new internal ring was snug enough that it could just accommodate a tip of a hemostat. Next, the operative field was inspected for hemostasis which was good, the external oblique aponeurosis was closed with a running 0 Polysorb suture, subcutaneous tissues closed with 3-0 Polysorb and skin closed with running 4-0 Monocryl subcuticular suture. The abdomen was washed and dried, Mastisol and Steri-Strips applied followed by a sterile dressing. Patient tolerated the procedure well was sent to the recovery area in stable condition. All sponge and instrument counts were correct x2.]
--- NOTE | 2023-01-18 09:50 | HO.ANESPROP2 ---
HPI - Anesthesia Eval Consult details Narrative: 52 M for open hernia repair for right inguinal hernia with obstructive symptoms Patient with progressive anemia , h/o fungal infection ,Mild Aortic stenosis, moderate dilatation of the ascending aorta. The patient was suppose to get further work up for the anemia but the patient is non compliant . We discussed the case with the surgeon Dr Petty . The patient is not optimized but as per the surgeon since the patient now has obstructive symptoms so we have to proceed emergently for the procedure without any further work up at this time . Patient denies any chest pain, SOB or any other cardiac symptoms . He is an active smoker . Patient educated about the increased risks in the perioperative period PMFSH Active Problems Active Problems: All Active Problems (Updated 01/17/23 @ 23:18 by Kuldeep Wooten MD) Inguinal hernia of right side with obstruction and without gangrene (Acute) Physical exam (Acute) Impacted cerumen of both ears (Acute) Bicuspid aortic valve (Acute) Ascending aorta dilatation (Acute) Aortic stenosis (Acute) Screening for colon cancer (Acute) Screening PSA (prostate specific antigen) (Acute) Heart murmur (Acute) Anemia (Acute) Cigarette smoker (Acute) Tinea corporis (Acute) Tinea cruris (Acute) Inguinal hernia (Acute) Hydrocele in adult (Acute) Past Medical History Medical History Ascending aorta dilatation Bicuspid aortic valve Aortic stenosis Cigarette smoker Family History Family History Maternal Grandmother Cancer of unknown origin Mother Skin cancer Family history of problems with anesthesia: No Surgical History Surgical History History of appendectomy History of Problems with Anesthesia: No Social History Social History Housing: Condominium Alcohol intake: current Alcohol intake frequency: 0-2 drinks per day Alcohol type: beer Patient Tobacco Use Status: Former Tobacco user Tobacco use type: Cigarette Cigarettes Per Day: 2 e-Cigarette/Vaping Use: Never Used Second Hand Smoke Exposure: No service: No Current occupational status: employed Current occupation: [employer] Current occupational exposures/hazards: No Cognitive needs: No Hearing needs: No Vision needs: No Meds Allergies Allergy/AdvReac Type Severity Reaction Status Date / Time ENVIRONMENTAL Allergy Unknown STUFFY Uncoded 01/15/23 13:39 NOSE, SNEEZING Active Medications: Current Medications Hydromorphone HCl (Hydromorphone Hcl 0.5 Mg/0.5 Ml Syringe) 0.5 mg IVPUSH Q4H PRN; Protocol PRN Reason: Pain, Severe (Pain Scale 7-10) Dextrose/Sodium Chloride (D51/2ns) 1,000 mls @ 125 mls/hr IVCONT .Q8H [facility] Last Admin: 01/17/23 23:35 Dose: 125 mls/hr Acetaminophen (Ofirmev) 1,000 mg in 100 mls @ 400 mls/hr IV Q6H [facility] Last Infusion: 01/18/23 06:26 Dose: Infused Cefazolin Sodium/Dextrose (Ancef) 2 gm in 50 mls @ 100 mls/hr IV ONCE ONE Stop: 01/18/23 10:03 Ondansetron HCl (Ondansetron Hcl 4 Mg/2 Ml Vial) 4 mg IVPUSH Q8H PRN PRN Reason: Nausea and Vomiting Sodium Chloride (0.9 % Sodium Chloride Flush 3 Ml Syringe) 3 ml IVFLUSH QSHIFT [facility] Last Admin: 01/18/23 07:42 Dose: Not Given Zolpidem Tartrate (Zolpidem Tartrate 5 Mg Tablet) 5 mg PO BEDTIME PRN PRN Reason: Insomnia Home Medications Medication Instructions Recorded Confirmed Last Taken Type omeprazole magnesium 20 mg 20 mg PO DAILY PRN Acid Reflux 09/21/21 01/17/23 Unknown History tablet,delayed release (Prilosec OTC) Exam Exam Date and Time: January 18, 2023 0950 Height,Weight and Vital Signs: Height 5 ft 11 in Weight 79.379 kg Last Vital Signs Temp 97.5 F 01/18/23 06:21 Pulse 59 01/18/23 06:21 Resp 14 01/18/23 06:21 BP 138/64 01/18/23 06:21 Pulse Ox 96 01/18/23 06:21 O2 Del Method Room Air 01/18/23 06:21 Pertinent Lab Results Pertinent Lab Results: Laboratory Tests 01/17/23 01/17/23 01/17/23 14:47 19:55 22:03 WBC 6.7 RBC 3.47 L Hgb 10.5 L Hct 31.5 L MCV 90.8 MCH 30.3 MCHC 33.3 RDW 14.9 Plt Count 211 MPV 9.2 L Immature Gran % (Auto) 0.3 Neut % (Auto) 45.5 Lymph % (Auto) 39.8 [place] % (Auto) 11.3 H Eos % (Auto) 2.8 Baso % (Auto) 0.3 Lymph # (Auto) 2.7 [place] # (Auto) 0.8 Eos # (Auto) 0.2 Baso # (Auto) 0.0 Abs Immat Gran (auto) 0.02 Absolute Neuts (auto) 3.1 Absolute Nucleated RBC 0.000 Nucleated RBC % (auto) 0.0 Sodium 140 Potassium 3.7 Chloride 107 Carbon Dioxide 29 Anion Gap 8 L BUN 13 Creatinine 0.76 Estim Creat Clear Calc 118.3 Estimated GFR > 60 Random Glucose 97 Calcium 8.8 Magnesium 1.9 Total Bilirubin 0.6 Direct Bilirubin 0.3 AST 15 ALT 14 Alkaline Phosphatase 78 Total Protein 6.7 Albumin 3.6 Lipase 11 Urine Color Dark Yellow Urine Appearance Clear Urine pH 6.5 Ur Specific [place] 1.025 Urine Protein Negative Urine Glucose (UA) Negative Urine Ketones Negative Urine Blood Negative Urine Nitrite Negative Ur Leukocyte Esterase Negative Stool Occult Blood NEGATIVE Urine Opiates Screen Not Detected Urine Fentanyl Screen Not Detected Ur Barbiturates Screen Not Detected Ur Phencyclidine Scrn Not Detected Ur Amphetamines Screen Not Detected U Benzodiazepines Scrn Not Detected Urine Cocaine Screen Not Detected U Marijuana (THC) Screen Not Detected Ethyl Alcohol < 10 01/18/23 04:45 WBC 5.9 RBC 3.27 L Hgb 9.9 L Hct 30.4 L MCV 93.0 MCH 30.3 MCHC 32.6 RDW 14.6 Plt Count 219 MPV 10.4 Immature Gran % (Auto) 0.3 Neut % (Auto) 35.9 L Lymph % (Auto) 49.1 H [place] % (Auto) 11.0 Eos % (Auto) 3.2 Baso % (Auto) 0.5 Lymph # (Auto) 2.9 [place] # (Auto) 0.7 Eos # (Auto) 0.2 Baso # (Auto) 0.0 Abs Immat Gran (auto) 0.02 Absolute Neuts (auto) 2.1 Absolute Nucleated RBC 0.000 Nucleated RBC % (auto) 0.0 Sodium 140 Potassium 4.0 Chloride 106 Carbon Dioxide 28 Anion Gap 10 L BUN 9 Creatinine 0.78 Estim Creat Clear Calc 115.3 Estimated GFR > 60 Random Glucose 105 Calcium 8.6 Magnesium Total Bilirubin Direct Bilirubin AST ALT Alkaline Phosphatase Total Protein Albumin Lipase Urine Color Urine Appearance Urine pH Ur Specific [place] Urine Protein Urine Glucose (UA) Urine Ketones Urine Blood Urine Nitrite Ur Leukocyte Esterase Stool Occult Blood Urine Opiates Screen Urine Fentanyl Screen Ur Barbiturates Screen Ur Phencyclidine Scrn Ur Amphetamines Screen U Benzodiazepines Scrn Urine Cocaine Screen U Marijuana (THC) Screen Ethyl Alcohol Narrative Narrative: [address] [address] Cardiology Report Signed Patient: Saroj Vega Jr MR#: [id number] Date of Service: 10/10/22 Procedure(s): CA echo transthoracic complete Conclusions: - The left ventricular systolic function is hyperdynamic. The calculated ejection fraction is 71% by biplane method. - There is mild aortic valve stenosis. There is mild aortic valve regurgitation. Probable bicuspid aortic valve with some calcification. - There is moderate dilatation of the ascending aorta measuring 4.60 cm and mild dilatation of the aortic arch measuring 4.00 cm. Airway Mallampati Class: IV Neck ROM: Full Loose/Missing/Broken Teeth: Yes Assessment and Plan Assessment Anesthesia Assessment: Anesthesia Plan Discussed and Chart Reviewed Final Anesthetic Review Family History of Problems with Anesthesia: No History of Problems with Anesthesia: No NPO: Yes ASA Class: III and Emergency Final Preanesthetic Review: Meds/Allgs Chart Reviewed, Consent Obtained/Reviewed and Anes Risks/Benef Reviewed Patient Risk: High Procedure Risk: Intermediate Anesthetic Plan Anesthetic Plan: GA and Agree w/ Assess. and Plan Disposition: Standard PACU and Inp. Admit - IMC
--- NOTE | 2023-01-18 09:50 | MHC.CM.PN ---
Attempted to meet with patient in regards to discharge planning. Patient currently in OR. No family present. Will attempt to meet again. Continue to monitor for d/c needs.
--- NOTE | 2023-01-18 13:29 | PM.PNGS ---
Subjective Subjective Date of Service: 01/18/23 Patient reports: no new complaints and feels better Interval history: Patient is seen in PACU after notification by RN regarding low blood pressure at 88. There is no tachycardia and the patient is requesting 1/4 lb her with cheese. Overall, he feels better. Patient is receiving a bolus of IV fluid and denies chest pain or shortness of breath Physical Exam Vital Signs: Vital Signs: Last Vital Signs Temp 97.5 F 01/18/23 11:45 Pulse 64 01/18/23 13:05 Resp 18 01/18/23 13:05 BP 88/55 L 01/18/23 13:05 Pulse Ox 100 01/18/23 13:05 O2 Del Method Nasal Cannula 01/18/23 13:05 O2 Flow Rate 2 01/18/23 13:05 BMI result Body Mass Index 24.4 On exam, the patient is nontoxic and in surprisingly good spirits Abdomen is soft with no peritoneal sign in his right inguinal dressing is intact with no obvious swelling nor hematoma Objective Data Active Medications Docusate Sodium (Docusate Sodium 100 Mg Capsule) 200 mg PO BID [facility] Hydromorphone HCl (Hydromorphone Hcl 0.5 Mg/0.5 Ml Syringe) 0.5 mg IVPUSH Q4H PRN; Protocol PRN Reason: Pain, Severe (Pain Scale 7-10) Hydromorphone HCl (Hydromorphone Hcl 0.5 Mg/0.5 Ml Syringe) 0.25 mg IVPUSH Q5M PRN; Protocol PRN Reason: Pain, Severe (Pain Scale 7-10) Dextrose/Sodium Chloride (D51/2ns) 1,000 mls @ 125 mls/hr IVCONT .Q8H [facility] Last Admin: 01/17/23 23:35 Dose: 125 mls/hr Documented By: ALLI Acetaminophen (Ofirmev) 1,000 mg in 100 mls @ 400 mls/hr IV Q6H [facility] Last Infusion: 01/18/23 06:26 Dose: Infused Documented By: ALLI Promethazine HCl 6.25 mg/ (Sodium Chloride) 50.25 mls @ 201 mls/hr IV ONCE PRN PRN Reason: Nausea and Vomiting Ibuprofen (Ibuprofen 400 Mg Tablet) 400 mg PO Q6H PRN PRN Reason: Pain, Mild (Pain Scale 1-3) Ondansetron HCl (Ondansetron Hcl 4 Mg/2 Ml Vial) 4 mg IVPUSH Q8H PRN PRN Reason: Nausea and Vomiting Oxycodone HCl (Oxycodone Hcl Immed Release 5 Mg Tablet) 5 mg PO Q4H PRN PRN Reason: Pain, Moderate(Pain Scale 4-6) Sodium Chloride (0.9 % Sodium Chloride Flush 3 Ml Syringe) 3 ml IVFLUSH QSHIFT [facility] Last Admin: 01/18/23 07:42 Dose: Not Given Documented By: MIKI Non-Admin Reason: IV Running Labs 01/18/23 04:45 01/18/23 04:45 Labs: Laboratory Results - last 24 hr 01/17/23 01/17/23 01/17/23 14:47 19:55 22:03 MCV 90.8 MCH 30.3 MCHC 33.3 RDW 14.9 Plt Count 211 MPV 9.2 L Immature Gran % (Auto) 0.3 Neut % (Auto) 45.5 Lymph % (Auto) 39.8 [place] % (Auto) 11.3 H Eos % (Auto) 2.8 Baso % (Auto) 0.3 Lymph # (Auto) 2.7 [place] # (Auto) 0.8 Eos # (Auto) 0.2 Baso # (Auto) 0.0 Abs Immat Gran (auto) 0.02 Absolute Neuts (auto) 3.1 Absolute Nucleated RBC 0.000 Nucleated RBC % (auto) 0.0 Anion Gap 8 L Estim Creat Clear Calc 118.3 Estimated GFR > 60 Random Glucose 97 Calcium 8.8 Magnesium 1.9 Total Bilirubin 0.6 Direct Bilirubin 0.3 AST 15 ALT 14 Alkaline Phosphatase 78 Total Protein 6.7 Albumin 3.6 Lipase 11 Urine Color Dark Yellow Urine Appearance Clear Urine pH 6.5 Ur Specific [place] 1.025 Urine Protein Negative Urine Glucose (UA) Negative Urine Ketones Negative Urine Blood Negative Urine Nitrite Negative Ur Leukocyte Esterase Negative Stool Occult Blood NEGATIVE Urine Opiates Screen Not Detected Urine Fentanyl Screen Not Detected Ur Barbiturates Screen Not Detected Ur Phencyclidine Scrn Not Detected Ur Amphetamines Screen Not Detected U Benzodiazepines Scrn Not Detected Urine Cocaine Screen Not Detected U Marijuana (THC) Screen Not Detected Ethyl Alcohol < 10 01/18/23 04:45 MCV 93.0 MCH 30.3 MCHC 32.6 RDW 14.6 Plt Count 219 MPV 10.4 Immature Gran % (Auto) 0.3 Neut % (Auto) 35.9 L Lymph % (Auto) 49.1 H [place] % (Auto) 11.0 Eos % (Auto) 3.2 Baso % (Auto) 0.5 Lymph # (Auto) 2.9 [place] # (Auto) 0.7 Eos # (Auto) 0.2 Baso # (Auto) 0.0 Abs Immat Gran (auto) 0.02 Absolute Neuts (auto) 2.1 Absolute Nucleated RBC 0.000 Nucleated RBC % (auto) 0.0 Anion Gap 10 L Estim Creat Clear Calc 115.3 Estimated GFR > 60 Random Glucose 105 Calcium 8.6 Magnesium Total Bilirubin Direct Bilirubin AST ALT Alkaline Phosphatase Total Protein Albumin Lipase Urine Color Urine Appearance Urine pH Ur Specific [place] Urine Protein Urine Glucose (UA) Urine Ketones Urine Blood Urine Nitrite Ur Leukocyte Esterase Stool Occult Blood Urine Opiates Screen Urine Fentanyl Screen Ur Barbiturates Screen Ur Phencyclidine Scrn Ur Amphetamines Screen U Benzodiazepines Scrn Urine Cocaine Screen U Marijuana (THC) Screen Ethyl Alcohol Procedures Date of Service Date of Service: 01/18/23 Progress Note: A&P Assessment and plan (1) Inguinal hernia: Status: Acute (2) Heart murmur: Status: Acute (3) Anemia: Status: Acute (4) Cigarette smoker: Status: Acute (5) Aortic stenosis: Status: Acute (6) Bicuspid aortic valve: Status: Acute Plan Continue IV fluid as ordered If BP remains soft, may need input from hospitalist or Cardiology given the patient's smoking history, aortic stenosis and unknown etiology for his anemia. Patient's abdominal exam is not consistent with hemoperitoneum, nor is his operative site. There is no tachycardia to suggest sepsis and the patient is hungry and in surprisingly good spirits. Continue to monitor Time Spent With Patient Time: Total time managing care of this patient today ____ minutes. Quality Stroke Does the patient have a stroke diagnosis?: No VTE Prior VTE?: No VTE Risk Level:: Surgical - moderate VTE Device Contraindication: N/A - Device Ordered VTE Drug Contraindication: Treatment Not Indicated
[2023-01-18 14:39] LABS: MANUAL DIFF FLAG NO
[2023-01-18 14:41] LABS: Basophils Percent Auto 0.2 % (0-2); Eosinophils Percent Auto 0.3 % (0-4); Hematocrit 26.1 % (42.0-52.0); Hemoglobin 8.6 g/dl (14.0-18.0); Imm Gran Abs Auto 0.07 X10*3/uL (0.00-0.03); Imm Gran Pct Auto 0.6 % (0.0-0.4); Lymphocytes Absolute Auto 1.5 X10*3/uL (1.2-4.9); Lymphocytes Percent Auto 13.8 % (20-40); Mean Corpuscular Hemoglobin 30.6 pg (27.0-33.0); Mean Corpuscular Volume 92.9 fL (80.0-98.0); Mean Platelet Volume 9.5 fL (9.4-12.4); Monocytes Absolute Auto 0.4 X10*3/uL (0.1-1.2); Monocytes Percent Auto 3.8 % (2-11); Neutrophils Percent Auto 81.3 % (45-73); Platelet Count 249 X10*3/uL (160-400); Red Blood Count 2.81 X10*6/uL (4.60-5.80); Red Cell Distribution Width 14.9 % (11.0-16.0); White Blood Count 11.1 X10*3/uL (4.8-10.8)
[2023-01-18 14:55] LABS: Anion Gap 10 (12-20); Blood Urea Nitrogen 8 mg/dL (9-16); Calcium 8.1 mg/dL (8.4-10.2); Carbon Dioxide 27 mmol/L (22-29); Chloride 108 mmol/L (96-108); Creatinine Clr Calc Pharmacy 116.8; Estimated Glomerular Filt Rate > 60; Glucose Random 145 mg/dL (60-115); Potassium 3.6 mmol/L (3.3-5.1); Sodium 141 mmol/L (135-145)
--- NOTE | 2023-01-18 16:09 | PC.NURSE ---
Addendum entered by Pepe Lambert 01/18/23 16:50: Levophed started by Dr. Henry at bedside. Original Note: Blood completed. Patient denies shortness of breath. Lungs clear. Anesthesia remains at bedside.
[2023-01-18] MEDS: Norepinephrine Bitartrate/D5W 8 MG/250 ML PLAST..BAG 10.42 MG IV (16:41)
--- NOTE | 2023-01-18 17:23 | P.PNCC_ITS ---
Subjective Subjective Date of Service: 01/18/23 Interval History: Patient is a 52 Y M, bicuspid aortic valve, appendectomy, presenting 01/17 to ED w/ abdominal pain, found to have a R inguinal hernia containing the appendix, and complicated by small bowel obstruction, admitted to general surgery service; now s/p open R inguinal repair; in PACU, patient developed hypotension, found to have anemia, transferred to ICU for further work-up, management Critical Care Time (minutes): 60 Physical Exam 2 Vital Signs: Vital Signs: Last Vital Signs Temp 97.2 F 01/18/23 16:05 Pulse 78 01/18/23 17:15 Resp 14 01/18/23 17:15 BP 111/58 L 01/18/23 17:15 Pulse Ox 100 01/18/23 17:15 O2 Del Method Room Air 01/18/23 17:15 O2 Flow Rate 2 01/18/23 17:00 BMI result Body Mass Index 24.4 Const: Other: overall generally pale complexion General: cooperative, comfortable and well developed O rientation/consciousness: patient oriented x3 HEENT: Head: Yes normal to inspection, Yes normocephalic and Yes atraumatic Eyes: General: appearance normal, both eyes and all related structures Neck: Neck: Yes normal visual inspection and Yes supple Chest: Chest palpation & inspection: normal inspection of the chest Resp: Other: no rales, rhonchi, wheezing Cardio: Rate: regular rate Rhythm: regular rhythm GI: Other: some distension, though soft, compressible; no guarding, rebound : Other: appreciable scrotal edema, R greater than L Skin: General skin exam: no rashes or lesions noted Neuro: General: patient oriented x3, moves all extremities and no focal motor deficits Extrem: General: Yes normal to inspection, Yes capillary refill normal and Yes no clubbing, cyanosis or edema Psych: Appearance: grossly normal Objective Data Labs 01/18/23 17:57 01/18/23 17:57 Labs: Laboratory Results - last 24 hr 01/17/23 01/17/23 01/17/23 14:47 19:55 22:03 WBC RBC Hgb Hct MCV MCH MCHC RDW Plt Count MPV Immature Gran % (Auto) Neut % (Auto) Lymph % (Auto) [place] % (Auto) Eos % (Auto) Baso % (Auto) Lymph # (Auto) [place] # (Auto) Eos # (Auto) Baso # (Auto) Abs Immat Gran (auto) Absolute Neuts (auto) Absolute Nucleated RBC Nucleated RBC % (auto) Sodium Potassium Chloride Carbon Dioxide Anion Gap BUN Creatinine Estim Creat Clear Calc Estimated GFR Random Glucose Calcium Urine Color Dark Yellow Urine Appearance Clear Urine pH 6.5 Ur Specific [place] 1.025 Urine Protein Negative Urine Glucose (UA) Negative Urine Ketones Negative Urine Blood Negative Urine Nitrite Negative Ur Leukocyte Esterase Negative Stool Occult Blood NEGATIVE Urine Opiates Screen Not Detected Urine Fentanyl Screen Not Detected Ur Barbiturates Screen Not Detected Ur Phencyclidine Scrn Not Detected Ur Amphetamines Screen Not Detected U Benzodiazepines Scrn Not Detected Urine Cocaine Screen Not Detected U Marijuana (THC) Screen Not Detected Ethyl Alcohol < 10 Blood Type Antibody Screen Crossmatch 01/18/23 01/18/23 01/18/23 04:45 14:26 14:33 WBC 5.9 11.1 H RBC 3.27 L 2.81 L Hgb 9.9 L 8.6 L Hct 30.4 L 26.1 L MCV 93.0 92.9 MCH 30.3 30.6 MCHC 32.6 33.0 RDW 14.6 14.9 Plt Count 219 249 MPV 10.4 9.5 Immature Gran % (Auto) 0.3 0.6 H Neut % (Auto) 35.9 L 81.3 H Lymph % (Auto) 49.1 H 13.8 L [place] % (Auto) 11.0 3.8 Eos % (Auto) 3.2 0.3 Baso % (Auto) 0.5 0.2 Lymph # (Auto) 2.9 1.5 [place] # (Auto) 0.7 0.4 Eos # (Auto) 0.2 0.0 Baso # (Auto) 0.0 0.0 Abs Immat Gran (auto) 0.02 0.07 H Absolute Neuts (auto) 2.1 9.0 H Absolute Nucleated RBC 0.000 0.000 Nucleated RBC % (auto) 0.0 0.0 Sodium 140 141 Potassium 4.0 3.6 Chloride 106 108 Carbon Dioxide 28 27 Anion Gap 10 L 10 L BUN 9 8 L Creatinine 0.78 0.77 Estim Creat Clear Calc 115.3 116.8 Estimated GFR > 60 > 60 Random Glucose 105 145 H Calcium 8.6 8.1 L Urine Color Urine Appearance Urine pH Ur Specific [place] Urine Protein Urine Glucose (UA) Urine Ketones Urine Blood Urine Nitrite Ur Leukocyte Esterase Stool Occult Blood Urine Opiates Screen Urine Fentanyl Screen Ur Barbiturates Screen Ur Phencyclidine Scrn Ur Amphetamines Screen U Benzodiazepines Scrn Urine Cocaine Screen U Marijuana (THC) Screen Ethyl Alcohol Blood Type O Positive Antibody Screen NEGATIVE Crossmatch See Detail Progress Note: A&P Assessment and plan (1) Hypotension: Status: Acute (2) Inguinal hernia of right side with obstruction and without gangrene: Status: Acute Plan Patient is a 52 Y M with bicuspid aortic valve, c/b aortic stenosis, p/w R inguinal hernia c/b small bowel obstruction, s/p R inguinal hernia repair, found to be hypotensive, anemic; N: no acute issues CV: hypotension; norepinephrine gtt as needed; to follow-up formal echocardiogram R: no acute issues GI: R inguinal hernia s/p repair; NPO : no acute issues H: anemia; to investivate possible bleeding w/ CTA chest, abdomen, pelvis ID: given hypotension, to perform blood cultures, empirc vancomycin, zosyn E: no acute issues P: no acute issues Quality Stroke Does the patient have a stroke diagnosis?: No VTE Prior VTE?: No VTE Risk Level:: Surgical - moderate VTE Device Contraindication: N/A - Device Ordered VTE Drug Contraindication: Treatment Not Tolerated
--- NOTE | 2023-01-18 17:37 | HO.ANESEVENT ---
Anesthesia Event Note Date of Service: 01/18/23 Event Note: In the PACU , the patient's Blood pressures were low . We started fluid resuscitation, obtained addtional IV access and stat labs were sent. H and H dropped to 8.6 and 26.1 from 9.9 and 30.4 in the AM . Stat PRBC were ordered and started in the PACU along with low dose pressors . The case was discussed with the surgeon and the Personnel Training Officer . As per the surgeon a diagnostic Laproscopy will be low yield . Surgical options deferred to the surgery team . The supervisor steffen house did a bedside ECHO and as per her interpretation patient is hypovolemic . Patient is accepted by the supervisor steffen house and being transferred to the ICU for further workup and management . Further management as per the ICU and the surgical team. Time Spent With Patient Time: Total time managing care of this patient today ____ minutes.
[2023-01-18] MEDS: Lactated Ringers 1,000 ML 100 ML IVCONT (18:03)
[2023-01-18 18:04] LABS: MANUAL DIFF FLAG NO
[2023-01-18 18:16] LABS: Lactic Acid 2.9 mmol/L (0.5-2.0)
[2023-01-18] MEDS: Calcium Gluconate/NaCl,Iso-Osm 2 GM/100 ML PLAST..BAG IV (18:17)
[2023-01-18 18:19] LABS: Basophils Percent Auto 0.1 % (0-2); Hematocrit 25.6 % (42.0-52.0); Hemoglobin 8.3 g/dl (14.0-18.0); Imm Gran Abs Auto 0.19 X10*3/uL (0.00-0.03); Imm Gran Pct Auto 1.4 % (0.0-0.4); Lymphocytes Absolute Auto 1.8 X10*3/uL (1.2-4.9); Lymphocytes Percent Auto 12.9 % (20-40); Mean Corpuscular HGB Conc 32.4 g/dl (31.0-36.0); Mean Corpuscular Hemoglobin 29.7 pg (27.0-33.0); Mean Corpuscular Volume 91.8 fL (80.0-98.0); Mean Platelet Volume 9.9 fL (9.4-12.4); Monocytes Absolute Auto 0.8 X10*3/uL (0.1-1.2); Monocytes Percent Auto 5.8 % (2-11); Neutrophils Absolute Auto 11.1 x10*3/uL (2.0-8.3); Neutrophils Percent Auto 79.8 % (45-73); Platelet Count 288 X10*3/uL (160-400); Red Blood Count 2.79 X10*6/uL (4.60-5.80); Red Cell Distribution Width 14.8 % (11.0-16.0); White Blood Count 13.9 X10*3/uL (4.8-10.8)
[2023-01-18 18:20] LABS: Alanine Aminotransferase 11 U/L (0-40); Albumin Level 2.7 g/dL (3.5-5.0); Alkaline Phosphatase 48 U/L (39-117); Anion Gap 11 (12-20); Aspartate Amino Transferase 18 U/L (5-37); Bilirubin Total 1.7 mg/dL (0.0-1.0); Blood Urea Nitrogen 10 mg/dL (9-16); Calcium 7.8 mg/dL (8.4-10.2); Carbon Dioxide 26 mmol/L (22-29); Chloride 104 mmol/L (96-108); Creatinine Clr Calc Pharmacy 108.3; Estimated Glomerular Filt Rate > 60; Glucose Random 194 mg/dL (60-115); Potassium 3.9 mmol/L (3.3-5.1); Sodium 137 mmol/L (135-145); Total Protein 4.8 g/dL (6.5-8.0)
[2023-01-18 18:49] LABS: Glucose, Whole Blood 170 mg/dL (60-115)
--- NOTE | 2023-01-18 18:55 | PC.NURSE ---
Assume care of patient at 175O, Bedside report per PACU nurse. MAP low Levophed titrated up, see MAR. LR and Blood infusing, increase to 350ml/ hr, VO Dr. Petty. Anesthesia at bedside for TLC placement. MAP maintaining greater then 65. Hand off given to Vivien BROWNE. Plan for CT abd when pt stable.
[2023-01-18 19:16] LABS: Partial Thromboplastin Time 24.1 SEC (26.0-36.4)
[2023-01-18 19:19] LABS: Lactate Dehydrogenase 186 U/L (118-273)
[2023-01-18] MEDS: vancomycin/NS 2,000 MG/500 ML PLAST..BAG 250 MG IV (19:49)
[2023-01-18] MEDS: Lactated Ringers 1,000 ML 125 ML IVCONT (19:50)
[2023-01-18] MEDS: Albumin Human 25 % 100 ML IV ×2 (19:50→20:20)
[2023-01-18] MEDS: Piperacillin Sodium/Tazobactam 3.375 GM in 0.9 % Sodium Chloride 50 ML IV (19:50)
--- NOTE | 2023-01-18 19:51 | W.PM.CCHP ---
Procedures Date of Service Date of Service: 01/18/23 Central Line Placement Right IJ: Central Line Comments: Patient requiring high amount of vasopressors, requiring emergent central line access. Right internal jugular triple lumen central venous catheter placed in usual sterile conditions under ultrasound guidance for appropriate vascular access without immediate complications. Central line position verified with Chest XRAY. Consent for Procedure: Emergent-no informed consent obtained Time out performed: Yes Sterile Technique Used: Yes Patient placed on monitor/pulse ox: Yes MD prep: mask, gown and gloves Central line prep: Chlorhexidine scrub Local anesthesia used: lidocaine 1% Amount of anesthesia used (ml): 1 Ultrasound used for placement: Yes Central line lumen inserted: triple Post procedure: sutured in place, good blood return, all ports aspirated, flushed, capped and sterile dressing applied Post procedure x-ray: tip of catheter in good position and no pneumothorax seen Patient tolerated procedure: well and no complications Complications: none
[2023-01-18 19:56] LABS: Glucose, Whole Blood 226 mg/dL (60-115)
[2023-01-18 20:02] LABS: Reflex Lactate? Lactic Acid Added
[2023-01-18 20:12] LABS: Troponin-I High Sensitivity 16.4 ng/L (<3.5-35.0)
--- NOTE | 2023-01-18 20:24 | PHA.PROG ---
Admission Date/Time: January 17, 2023 23:03 Indication: other Weight in k.379 kg Adjusted body weight in K.93 [place] body weight in K.3 Obesity Dosing Indication % IBW: not obese Serum Creatinine - Last 168 Hours 01/17/23 01/18/23 01/18/23 14:47 04:45 14:26 Creatinine 0.76 0.78 0.77 01/18/23 17:57 Creatinine 0.83 Estimated CrCl and GFR - Last 168 Hours 01/17/23 01/18/23 01/18/23 14:47 04:45 14:26 Estim Creat Clear Calc 118.3 115.3 116.8 Estimated GFR > 60 > 60 > 60 01/18/23 17:57 Estim Creat Clear Calc 108.3 Estimated GFR > 60 Vancomycin Loading Dose: 2000 mg Current Vancomycin Dosing Regimen: 1000 Q12H Vancomycin Monitoring using AUC goal of 400 - 600 range with trough as surrogate marker: 460 Date and Time for next Vancomycin Level to be drawn: 01/20 @0600 Pharmacist Comments on Vancomycin Plan: Vancomycin dosing will take advantage of [employer] as a clinical decision support tool that uses Bayesian modeling to calculate individual patient's pharmacokinetic parameters and forecast the patient's drug concentration time course with the target goal AUC 24 range of 400 - 600 mg/L/hr.
[2023-01-18 20:42] LABS: ~Lactic Acid-LAB USE ONLY 1.9 mmol/L (0.5-2.0)
--- NOTE | 2023-01-18 20:44 | PM.EVENT ---
Documented by User: Kristin Young NP 01/19/23 04:33 Event Note Date of Service: 01/19/23 Event Note: Hypotension likely from from hemorrhagic shock. No evidence of septic shock/severe infection, lactic improved after 4 liter of crystalloids and 2 RBCs. Will continue fluids Time Spent With Patient Time: Total time managing care of this patient today ____ minutes. Documented by User: Dorie Calzada MD 01/19/23 07:28 Event Note Date of Service: 01/19/23
[2023-01-18] MEDS: iohexoL 350 MG/ML 100 ML INFUS..BTL 85 ML IV (20:50)
--- NOTE | 2023-01-18 21:00 | PC.NURSE ---
Pt transferred to ICU from PACU at approx 1800 on previous shift. Upon initial assessment at 1900- pt A&Ox4, calm/cooperative. Afebrile. NSR/ST on tele, HR 90-100s. Levophed ordered and titrated to maintain MAP > 65. 1 unit of PRBC infusing per TAR. TLC placed to R IJ by COY Young, placement confirmed by pCXR. Brought down for CT scan at approx 2100 without incident. SYRUPER and MD Petty notified and aware of results. Critical repeat H/H reported, additional 2 units of PRBCs ordered. Surgical dressing C/D/I. Pt with increasing abd distention, and becoming diaphoretic. Attempting to transfer pt to OSH at this time versus back to OR. Pt, nursing nitroglycerin supervisor and providers aware. Report giving to oncoming RN at 2200.
[2023-01-18 21:58] LABS: INTERNATIONAL NORM RATIO 1.1 (0.9-1.1); Prothrombin Time 12.8 SEC (11.1-13.3)
[2023-01-18 22:04] LABS: MANUAL DIFF FLAG NO
[2023-01-18 22:05] LABS: Basophils Percent Auto 0.1 % (0-2); Imm Gran Abs Auto 0.18 X10*3/uL (0.00-0.03); Lymphocytes Absolute Auto 2.3 X10*3/uL (1.2-4.9); Lymphocytes Percent Auto 12.7 % (20-40); Mean Corpuscular HGB Conc 33.3 g/dl (31.0-36.0); Mean Corpuscular Hemoglobin 29.9 pg (27.0-33.0); Mean Corpuscular Volume 89.7 fL (80.0-98.0); Mean Platelet Volume 9.9 fL (9.4-12.4); Monocytes Absolute Auto 1.5 X10*3/uL (0.1-1.2); Monocytes Percent Auto 8.4 % (2-11); Neutrophils Absolute Auto 13.9 x10*3/uL (2.0-8.3); Neutrophils Percent Auto 77.8 % (45-73); Platelet Count 241 X10*3/uL (160-400); Red Blood Count 2.34 X10*6/uL (4.60-5.80); Red Cell Distribution Width 15.7 % (11.0-16.0); White Blood Count 17.9 X10*3/uL (4.8-10.8)
--- NOTE | 2023-01-18 22:20 | PM.EVENT ---
Event Note Date of Service: 01/18/23 Event Note: CTs reviewed & d/w Dr. Joseph Cook, on-call radiologist. There's an active vascular blush & embolization is recommended vs surgical exploration. D/W Kristin Young, COY covering ICU WARNING COORDINATION METEOROLOGIST & she will coordinate with tertiary care with angiography capabilities. Hb drifted to 7.0; 2 more units prbcs ordered. Time Spent With Patient Time: Total time managing care of this patient today ____ minutes.
[2023-01-18] MEDS: HYDROmorphone HCl 0.5 MG/0.5 ML SYRINGE IVPUSH (22:34)
--- NOTE | 2023-01-18 22:45 | PC.NURSE ---
Addendum entered by Amy Rose RN 01/19/23 06:09: 0430- pt arrived from OR via own bed, remains sedated/ intubated. Placed on Vent settings AC/VC FiO2 of 70% then weaned to 50%. PEEP of 5.O2 sats maintaining at 95-97%.ETT size 7.5, 25 to the lip. Xray done at bedside.Still on Levophed drip at 0.05mcg/kg with MAP >65. Started on Propofol at 30mcg/kg for sedation. Soft wrist restraints applied to protect the tubings. Labs drawn. Hgb went up to 7.3. Another unit of PRBC given to pt. Magnesium of 1.4 was replaced. Fagan cath in place, patent and draining. Addendum entered by Amy Rose RN 01/19/23 02:01: 2300 pt bladder scanned for 944ml. 0030 Fagan cath inserted. Pt tolerated well. Sent to OR at 0115, #2 units of PRBC infusing and FFP. Original Note: Acquired care at 2130. Pt is awake, alert and oriented. ST on tele. HR on a 100s. SBP on120's on Levo gtt of 0.21. R TLC IJ in place and patent. STAT labs/CBC with diff and INR drawn. 22:10 r for H+H came back 7.0 % 21.0. 2 units ordered for Blood transfusion. 2214 started 1 unit of PRBC. Pt tolerating so far. C/o of 7/10 pain to abdominal area. Abdomen is soft and round. RLQ dressing remains dry and intact.
--- NOTE | 2023-01-18 23:01 | PC.NURSE ---
Pt transferred to ICU from PACU at approx 1800 on previous shift. Upon initial assessment at 1900- pt A&Ox4, calm/cooperative. Afebrile. NSR/ST on tele, HR 90-100s. Levophed ordered and titrated to maintain MAP > 65. 1 unit of PRBC infusing per TAR. TLC placed to R IJ by COY Young, placement confirmed by pCXR. Brought down for CT scan at approx 2100 without incident. WINDOWS SECURITY ENGINEER and MD Petty notified and aware of results. Critical reapeat H/H reported, additional 2 units of PRBCs ordered. Surgical dressing C/D/I. Pt with increasing abd distention, and becoming diaphoretic. Attempting to transfer pt to OSH at this time versus back to OR. Pt, nursing lasting room supervisor and providers aware. Report giving to oncoming RN at 2200.
[2023-01-18 23:29] LABS: Glucose, Whole Blood 172 mg/dL (60-115)
[2023-01-19] VITALS (42 sets, daily range): BP systolic 100–146; BP diastolic 45–79; PULSE 70–91; RESP 13–32; TEMP 34.6–37.7; O2SAT 90–99; BMI 26.4
[2023-01-19] MEDS: Tranexamic Acid 1,000 MG in 0.9 % Sodium Chloride 50 ML 360 MG IV (00:31)
[2023-01-19] MEDS: Norepinephrine Bitartrate/D5W 8 MG/250 ML PLAST..BAG 22.33 MG IV (00:37)
--- NOTE | 2023-01-19 00:48 | P.OP_ITS ---
Operative Note Operative Note Date of Service: 01/19/23 Narrative: Preop diagnosis: [Hemoperitoneum and vascular blush RLQ on CT] Postop diagnosis: [same, no active bleed seen] Procedure: [Diagnostic laparoscopy, lysis of adhesions] Surgeon: Tl Petty MD, FACS, FASS Assist: [None] Anesthesia: [GET, Marcaine, 0.25% plain] Estimated blood loss: [3cc, see OR records regarding total volume] Specimen: [None] Intraoperative findings: [Distorted anatomy secondary to intraperitoneal blood, retroperitoneal hematoma tracking up the right pelvis to retroperitoneum, blood over the liver and in Morison's pouch; adhesions from the patient's prior open appendectomy also distorted his colon and right-side mesentery requiring lysis to evaluate his anatomy; no clear, pulsatile arterial bleeder was identified, however in the area of the hernia repair, mesentery and omentum contained hematoma that was evacuated and irrigated clear which was the area of arterial blush on CT] Indications: [The patient is a 52-year-old gentleman with aortic stenosis, anemia of unclear etiology and a history of a large scrotal hernia that was repaired earlier today due to progressive obstructive symptoms. The repair was an open, Fanny repair of an indirect hernia with bowel with minimal blood loss. Viable small bowel required a lysis of adhesions but there was minimal bleeding. In the PACU, the patient's blood pressures became soft with a benign abdomen and in spite of bolus and then to units of IV fluid. Patient was transferred to the ICU for ongoing management and a CTA demonstrated an intraperitoneal hematoma with vascular blush possibly due to small bowel mesentery or omentum according to the radiologist. Discussion with radiologist recommended interventional angiography as the 1st choice, but this service is not provided here and no hospitals in the area were available to except the patient. Given his progressive deterioration and still requiring IV pressors, decision to explore the patient with a diagnostic laparoscopy, possible laparotomy was recommended with the inherent risks of bleeding, infection, need for open surgery, risk of multi organ system failure, cardiopulmonary compromise and . The patient seemed understand his options and wanted to proceed.] Procedure: [The patient was identified in the preoperative holding area and again in room 6. See anesthesia notes. He was induced in general endotracheal anesthesia administered with excellent effect. NG was placed by the anesthesiologist. Abdominal hair was clipped, sequential compression stockings were in place, Fagan catheter was in place. An appropriate time-out confirming the plan for a diagnostic laparoscopy a possible conversion to laparotomy was reviewed and supplies were present. The patient's prior right inguinal hernia repair was covered with a sterile gauze and large Tegaderm and prepped into the field. Preemptive analgesia was used at all trocar insertion sites. I began at the supraumbilical midline and raised a skin wheal then infiltrated local and made a transverse incision to allow the Veress needle to be inserted. A needle was inserted without incident and an appropriate drop test performed. Pneumoperitoneum of 15 mmHg was obtained with carbon dioxide. Opening pressures fruit 6 mmHg. Next, I entered the abdomen through the left lower quadrant using preemptive analgesia and a 5 mm trocar over a 30 degree/5 mm laparoscopic without incident. In entering the abdomen, it was distorted from the hematoma on the right side and gross blood was noted. The Veress needle was examined and there was no significant trauma so was removed. A 5 mm trocar was then placed under direct vision and a right-sided 5 mm trocar was placed. Patient was placed in Trendelenburg and the blood suctioned out from in the peritoneal cavity. This was old blood with some scattered clot attention was then directed towards the right lower quadrant and omentum and mesentery was densely adherent to the peritoneal area where the hernia sac it been reduced. Adhesions from the patient's appendectomy required lysis in order to demonstrate the patient's anatomy and then the mesentery and omentum taken down to better evaluate this area where the vascular blush was demonstrated. A fair amount of coagulated blood was removed and there was some red blood is seen in the center but is the clot was all removed and irrigated, the pneumo was decreased in the area exam ined and no ongoing bleeding was demonstrated. Position changes were used to remove the additional irrigation fluid and the abdomen inspected for both removal of the blood and hemostasis. The right retroperitoneal/mesenteric hematoma was left in place. Patient remains stable through the procedure and anesthesia reported they were weaning off the Levophed. Patient was returned to neutral position and the fascia at the umbilicus closed with an 0 0 Polysorb suture and skin closed with 4-0 Monocryl sutures. The abdomen was washed and dried, Mastisol and Steri-Strips applied followed by Band-Aids. All sponge needle instrument counts were correct x2.]
--- NOTE | 2023-01-19 00:57 | P.CONAN_ITS ---
[facility] Active Problems Active Problems: All Active Problems (Updated 01/18/23 @ 19:26 by Dorie Calzada MD) Hypotension (Acute) Inguinal hernia of right side with obstruction and without gangrene (Acute) Physical exam (Acute) Impacted cerumen of both ears (Acute) Bicuspid aortic valve (Acute) Ascending aorta dilatation (Acute) Aortic stenosis (Acute) Screening for colon cancer (Acute) Screening PSA (prostate specific antigen) (Acute) Heart murmur (Acute) Anemia (Acute) Cigarette smoker (Acute) Tinea corporis (Acute) Tinea cruris (Acute) Inguinal hernia (Acute) Hydrocele in adult (Acute) Past Medical History Medical History Ascending aorta dilatation Bicuspid aortic valve Aortic stenosis Cigarette smoker Functional capacity: independent ambulation Family History Family History Maternal Grandmother Cancer of unknown origin Mother Skin cancer Family history of problems with anesthesia: No Surgical History Surgical History History of appendectomy History of Problems with Anesthesia: No Social History Social History Household Members: Family Housing: House Alcohol intake: current Alcohol intake frequency: 0-2 drinks per day Alcohol type: beer Patient Tobacco Use Status: Former Tobacco user Tobacco use type: Cigarette Cigarettes Per Day: 2 e-Cigarette/Vaping Use: Never Used Second Hand Smoke Exposure: No service: No Current occupational status: employed Current occupation: [employer] Current occupational exposures/hazards: No Cognitive needs: No Hearing needs: No Vision needs: No Meds Allergies Allergy/AdvReac Type Severity Reaction Status Date / Time ENVIRONMENTAL Allergy Unknown STUFFY Uncoded 01/15/23 13:39 NOSE, SNEEZING Active Medications: Current Medications Dextrose (Dextrose 50 % 25 Gm/50 Ml Syringe) 25 gm IVPUSH Q15M PRN; Protocol PRN Reason: per Hypoglycemia Standing Ord. Docusate Sodium (Docusate Sodium 100 Mg Capsule) 200 mg PO BID KISHORE Last Admin: 01/18/23 19:51 Dose: Not Given Glucose (Glucose Gel 15 Gm Gel..Gram.) 15 gm PO Q15M PRN; Protocol PRN Reason: per Hypoglycemia Standing Ord. Hydromorphone HCl (Hydromorphone Hcl 0.5 Mg/0.5 Ml Syringe) 0.5 mg IVPUSH Q4H PRN; Protocol PRN Reason: Pain, Severe (Pain Scale 7-10) Last Admin: 01/18/23 22:34 Dose: 0.5 mg Hydromorphone HCl (Hydromorphone Hcl 0.5 Mg/0.5 Ml Syringe) 0.25 mg IVPUSH Q5M PRN; Protocol PRN Reason: Pain, Severe (Pain Scale 7-10) Acetaminophen (Ofirmev) 1,000 mg in 100 mls @ 400 mls/hr IV Q6H [facility] Last Admin: 01/19/23 00:07 Dose: Not Given Promethazine HCl 6.25 mg/ (Sodium Chloride) 50.25 mls @ 201 mls/hr IV ONCE PRN PRN Reason: Nausea and Vomiting Lactated Ringer's (Lr) 1,000 mls @ 125 mls/hr IVCONT .Q8H [facility] Last Admin: 01/18/23 19:50 Dose: 125 mls/hr Norepinephrine Bitartrate (Levophed) 8 mg in 250 mls @ 0 mls/hr IV .Q0M [facility]; Protocol Last Admin: 01/19/23 00:37 Dose: 0.15 mcg/kg/min, 22.33 mls/hr Piperacillin Sod/Tazobactam (Sod 3.375 gm/ Sodium Chloride) 50 mls @ 100 mls/hr IV Q8H [facility] Last Infusion: 01/18/23 20:06 Dose: Infused Vancomycin HCl 1,000 mg/ (Sodium Chloride) 270 mls @ 270 mls/hr IV Q12H [facility] Sodium Chloride (Ns) 100 mls @ 100 mls/hr IV ONCE ONE Stop: 01/19/23 01:31 Sodium Chloride (Ns) 100 mls @ 100 mls/hr IV ONCE ONE Stop: 01/19/23 01:31 Cefazolin Sodium/Dextrose (Ancef) 2 gm in 50 mls @ 100 mls/hr IV ONCE ONE Stop: 01/19/23 01:15 Ibuprofen (Ibuprofen 400 Mg Tablet) 400 mg PO Q6H PRN PRN Reason: Pain, Mild (Pain Scale 1-3) Insulin Human Lispro (Insulin Lispro 100 Unit/Ml 3 Ml Vial) 0 unit SUBCUT Q6H [facility]; Protocol Last Admin: 01/18/23 20:06 Dose: Not Given Omeprazole (Omeprazole 20 Mg Capsule.Dr) 20 mg PO DAILY PRN PRN Reason: Acid Reflux Ondansetron HCl (Ondansetron Hcl 4 Mg/2 Ml Vial) 4 mg IVPUSH Q8H PRN PRN Reason: Nausea and Vomiting Pharmacy Consult (Consult Rx Vancomycin Dosing) 1 each MISCELLANE DAILY PRN PRN Reason: Consult order Sodium Chloride (0.9 % Sodium Chloride Flush 3 Ml Syringe) 3 ml IVFLUSH QSHIFT [facility] Last Admin: 01/18/23 17:32 Dose: Not Given Home Medications Medication Instructions Recorded Confirmed Last Taken Type omeprazole magnesium 20 mg 20 mg PO DAILY PRN Acid Reflux 09/21/21 01/17/23 Unknown History tablet,delayed release (Prilosec OTC) Exam Exam Date and Time: January 19, 20237 Height,Weight and Vital Signs: Height 5 ft 11 in Weight 79.379 kg Last Vital Signs Temp 98.8 F 01/19/23 00:45 Pulse 82 01/19/23 00:45 Resp 22 H 01/19/23 00:45 BP 112/70 01/19/23 00:45 Pulse Ox 92 01/18/23 23:58 O2 Del Method Room Air 01/18/23 23:58 O2 Flow Rate 2 01/18/23 17:00 Pertinent Lab Results Pertinent Lab Results: Laboratory Tests 01/17/23 01/17/23 01/17/23 14:47 19:55 22:03 WBC 6.7 RBC 3.47 L Hgb 10.5 L Hct 31.5 L MCV 90.8 MCH 30.3 MCHC 33.3 RDW 14.9 Plt Count 211 MPV 9.2 L Immature Gran % (Auto) 0.3 Neut % (Auto) 45.5 Lymph % (Auto) 39.8 [place] % (Auto) 11.3 H Eos % (Auto) 2.8 Baso % (Auto) 0.3 Lymph # (Auto) 2.7 [place] # (Auto) 0.8 Eos # (Auto) 0.2 Baso # (Auto) 0.0 Abs Immat Gran (auto) 0.02 Absolute Neuts (auto) 3.1 Absolute Nucleated RBC 0.000 Nucleated RBC % (auto) 0.0 PT INR APTT Sodium 140 Potassium 3.7 Chloride 107 Carbon Dioxide 29 Anion Gap 8 L BUN 13 Creatinine 0.76 Estim Creat Clear Calc 118.3 Estimated GFR > 60 POC Glucose Random Glucose 97 Lactic Acid Lactic Acid F/U @ 2Hr Calcium 8.8 Magnesium 1.9 Total Bilirubin 0.6 Direct Bilirubin 0.3 AST 15 ALT 14 Alkaline Phosphatase 78 Lactate Dehydrogenase Troponin I High Sens Total Protein 6.7 Albumin 3.6 Lipase 11 Urine Color Dark Yellow Urine Appearance Clear Urine pH 6.5 Ur Specific [place] 1.025 Urine Protein Negative Urine Glucose (UA) Negative Urine Ketones Negative Urine Blood Negative Urine Nitrite Negative Ur Leukocyte Esterase Negative Stool Occult Blood NEGATIVE Urine Opiates Screen Not Detected Urine Fentanyl Screen Not Detected Ur Barbiturates Screen Not Detected Ur Phencyclidine Scrn Not Detected Ur Amphetamines Screen Not Detected U Benzodiazepines Scrn Not Detected Urine Cocaine Screen Not Detected U Marijuana (THC) Screen Not Detected Ethyl Alcohol < 10 Blood Type Antibody Screen Crossmatch 01/18/23 01/18/23 01/18/23 04:45 14:26 14:33 WBC 5.9 11.1 H RBC 3.27 L 2.81 L Hgb 9.9 L 8.6 L Hct 30.4 L 26.1 L MCV 93.0 92.9 MCH 30.3 30.6 MCHC 32.6 33.0 RDW 14.6 14.9 Plt Count 219 249 MPV 10.4 9.5 Immature Gran % (Auto) 0.3 0.6 H Neut % (Auto) 35.9 L 81.3 H Lymph % (Auto) 49.1 H 13.8 L [place] % (Auto) 11.0 3.8 Eos % (Auto) 3.2 0.3 Baso % (Auto) 0.5 0.2 Lymph # (Auto) 2.9 1.5 [place] # (Auto) 0.7 0.4 Eos # (Auto) 0.2 0.0 Baso # (Auto) 0.0 0.0 Abs Immat Gran (auto) 0.02 0.07 H Absolute Neuts (auto) 2.1 9.0 H Absolute Nucleated RBC 0.000 0.000 Nucleated RBC % (auto) 0.0 0.0 PT INR APTT Sodium 140 141 Potassium 4.0 3.6 Chloride 106 108 Carbon Dioxide 28 27 Anion Gap 10 L 10 L BUN 9 8 L Creatinine 0.78 0.77 Estim Creat Clear Calc 115.3 116.8 Estimated GFR > 60 > 60 POC Glucose Random Glucose 105 145 H Lactic Acid Lactic Acid F/U @ 2Hr Calcium 8.6 8.1 L Magnesium Total Bilirubin Direct Bilirubin AST ALT Alkaline Phosphatase Lactate Dehydrogenase Troponin I High Sens Total Protein Albumin Lipase Urine Color Urine Appearance Urine pH Ur Specific [place] Urine Protein Urine Glucose (UA) Urine Ketones Urine Blood Urine Nitrite Ur Leukocyte Esterase Stool Occult Blood Urine Opiates Screen Urine Fentanyl Screen Ur Barbiturates Screen Ur Phencyclidine Scrn Ur Amphetamines Screen U Benzodiazepines Scrn Urine Cocaine Screen U Marijuana (THC) Screen Ethyl Alcohol Blood Type O Positive Antibody Screen NEGATIVE Crossmatch See Detail 01/18/23 01/18/23 01/18/23 17:57 18:45 18:52 WBC 13.9 H RBC 2.79 L Hgb 8.3 L Hct 25.6 L MCV 91.8 MCH 29.7 MCHC 32.4 RDW 14.8 Plt Count 288 MPV 9.9 Immature Gran % (Auto) 1.4 H Neut % (Auto) 79.8 H Lymph % (Auto) 12.9 L [place] % (Auto) 5.8 Eos % (Auto) 0.0 Baso % (Auto) 0.1 Lymph # (Auto) 1.8 [place] # (Auto) 0.8 Eos # (Auto) 0.0 Baso # (Auto) 0.0 Abs Immat Gran (auto) 0.19 H Absolute Neuts (auto) 11.1 H Absolute Nucleated RBC 0.000 Nucleated RBC % (auto) 0.0 PT 12.8 INR 1.1 APTT 24.1 L Sodium 137 Potassium 3.9 Chloride 104 Carbon Dioxide 26 Anion Gap 11 L BUN 10 Creatinine 0.83 Estim Creat Clear Calc 108.3 Estimated GFR > 60 POC Glucose 170 H Random Glucose 194 H Lactic Acid 2.9 H* Lactic Acid F/U @ 2Hr Calcium 7.8 L Magnesium Total Bilirubin 1.7 H Direct Bilirubin AST 18 ALT 11 Alkaline Phosphatase 48 Lactate Dehydrogenase 186 Troponin I High Sens 16.4 Total Protein 4.8 L Albumin 2.7 L Lipase Urine Color Urine Appearance Urine pH Ur Specific [place] Urine Protein Urine Glucose (UA) Urine Ketones Urine Blood Urine Nitrite Ur Leukocyte Esterase Stool Occult Blood Urine Opiates Screen Urine Fentanyl Screen Ur Barbiturates Screen Ur Phencyclidine Scrn Ur Amphetamines Screen U Benzodiazepines Scrn Urine Cocaine Screen U Marijuana (THC) Screen Ethyl Alcohol Blood Type Antibody Screen Crossmatch 01/18/23 01/18/23 01/18/23 19:53 20:24 21:43 WBC 17.9 H RBC 2.34 L Hgb 7.0 L* Hct 21.0 L* MCV 89.7 MCH 29.9 MCHC 33.3 RDW 15.7 Plt Count 241 MPV 9.9 Immature Gran % (Auto) 1.0 H Neut % (Auto) 77.8 H Lymph % (Auto) 12.7 L [place] % (Auto) 8.4 Eos % (Auto) 0.0 Baso % (Auto) 0.1 Lymph # (Auto) 2.3 [place] # (Auto) 1.5 H Eos # (Auto) 0.0 Baso # (Auto) 0.0 Abs Immat Gran (auto) 0.18 H Absolute Neuts (auto) 13.9 H Absolute Nucleated RBC 0.000 Nucleated RBC % (auto) 0.0 PT INR APTT Sodium Potassium Chloride Carbon Dioxide Anion Gap BUN Creatinine Estim Creat Clear Calc Estimated GFR POC Glucose 226 H Random Glucose Lactic Acid Lactic Acid F/U @ 2Hr 1.9 Calcium Magnesium Total Bilirubin Direct Bilirubin AST ALT Alkaline Phosphatase Lactate Dehydrogenase Troponin I High Sens Total Protein Albumin Lipase Urine Color Urine Appearance Urine pH Ur Specific [place] Urine Protein Urine Glucose (UA) Urine Ketones Urine Blood Urine Nitrite Ur Leukocyte Esterase Stool Occult Blood Urine Opiates Screen Urine Fentanyl Screen Ur Barbiturates Screen Ur Phencyclidine Scrn Ur Amphetamines Screen U Benzodiazepines Scrn Urine Cocaine Screen U Marijuana (THC) Screen Ethyl Alcohol Blood Type Antibody Screen Crossmatch 01/18/23 23:26 WBC RBC Hgb Hct MCV MCH MCHC RDW Plt Count MPV Immature Gran % (Auto) Neut % (Auto) Lymph % (Auto) [place] % (Auto) Eos % (Auto) Baso % (Auto) Lymph # (Auto) [place] # (Auto) Eos # (Auto) Baso # (Auto) Abs Immat Gran (auto) Absolute Neuts (auto) Absolute Nucleated RBC Nucleated RBC % (auto) PT INR APTT Sodium Potassium Chloride Carbon Dioxide Anion Gap BUN Creatinine Estim Creat Clear Calc Estimated GFR POC Glucose 172 H Random Glucose Lactic Acid Lactic Acid F/U @ 2Hr Calcium Magnesium Total Bilirubin Direct Bilirubin AST ALT Alkaline Phosphatase Lactate Dehydrogenase Troponin I High Sens Total Protein Albumin Lipase Urine Color Urine Appearance Urine pH Ur Specific [place] Urine Protein Urine Glucose (UA) Urine Ketones Urine Blood Urine Nitrite Ur Leukocyte Esterase Stool Occult Blood Urine Opiates Screen Urine Fentanyl Screen Ur Barbiturates Screen Ur Phencyclidine Scrn Ur Amphetamines Screen U Benzodiazepines Scrn Urine Cocaine Screen U Marijuana (THC) Screen Ethyl Alcohol Blood Type Antibody Screen Crossmatch Airway Mallampati Class: III TM Dist: >3cm Denture: Lower Assessment and Plan Assessment Anesthesia Assessment: Anesthesia Plan Discussed and Chart Reviewed Final Anesthetic Review Family History of Problems with Anesthesia: No History of Problems with Anesthesia: No NPO: Yes ASA Class: IV and Emergency Final Preanesthetic Review: No Changes in Pt Med Stat, Meds/Allgs Chart Reviewed, Consent Obtained/Reviewed and Anes Risks/Benef Reviewed Patient Risk: High Procedure Risk: Intermediate Anesthetic Plan Anesthetic Plan: GA Disposition: Standard PACU
[2023-01-19] MEDS: Piperacillin Sodium/Tazobactam 3.375 GM in 0.9 % Sodium Chloride 50 ML IV ×3 (03:58→18:51)
[2023-01-19 04:12] LABS: VBG Base Excess 2.4 mmol/L; VBG HCO3 27 mmol/L (22-26); VBG pCO2 50 mmHg; VBG pH 7.35 (7.32-7.43); VBG pO2 62 mmHg
[2023-01-19] MEDS: propofoL 1,000 MG/100 ML VIAL 14.29 MG IVCONT ×2 (04:17→09:27)
[2023-01-19 04:21] LABS: MANUAL DIFF FLAG NO
[2023-01-19 04:23] LABS: Basophils Percent Auto 0.4 % (0-2); Hematocrit 21.6 % (42.0-52.0); Hemoglobin 7.3 g/dl (14.0-18.0); Imm Gran Pct Auto 1.2 % (0.0-0.4); Lymphocytes Absolute Auto 1.4 X10*3/uL (1.2-4.9); Lymphocytes Percent Auto 17.8 % (20-40); Mean Corpuscular HGB Conc 33.8 g/dl (31.0-36.0); Mean Corpuscular Hemoglobin 30.8 pg (27.0-33.0); Mean Corpuscular Volume 91.1 fL (80.0-98.0); Mean Platelet Volume 9.9 fL (9.4-12.4); Monocytes Absolute Auto 0.5 X10*3/uL (0.1-1.2); Monocytes Percent Auto 6.2 % (2-11); Neutrophils Percent Auto 74.4 % (45-73); Platelet Count 154 X10*3/uL (160-400); Red Blood Count 2.37 X10*6/uL (4.60-5.80); Red Cell Distribution Width 15.2 % (11.0-16.0); White Blood Count 8.1 X10*3/uL (4.8-10.8)
[2023-01-19 04:32] LABS: Venous Blood Gas Refer to POC result
[2023-01-19 04:43] LABS: Alanine Aminotransferase 13 U/L (0-40); Alkaline Phosphatase 40 U/L (39-117); Anion Gap 10 (12-20); Aspartate Amino Transferase 17 U/L (5-37); Bilirubin Total 1.7 mg/dL (0.0-1.0); Blood Urea Nitrogen 14 mg/dL (9-16); Calcium 7.6 mg/dL (8.4-10.2); Carbon Dioxide 26 mmol/L (22-29); Chloride 106 mmol/L (96-108); Creatinine Clr Calc Pharmacy 113.8; Estimated Glomerular Filt Rate > 60; Glucose Random 158 mg/dL (60-115); Magnesium 1.4 mg/dL (1.6-2.6); Phosphorus 4.7 mg/dL (2.7-4.5); Potassium 4.3 mmol/L (3.3-5.1); Sodium 138 mmol/L (135-145); Total Protein 4.7 g/dL (6.5-8.0)
[2023-01-19] MEDS: Magnesium Sulfate/D5W 1 GM/100 ML PIGGYBACK IV (04:54)
[2023-01-19] MEDS: Lactated Ringers 1,000 ML 125 ML IVCONT (05:14)
[2023-01-19 05:39] LABS: INTERNATIONAL NORM RATIO 1.1 (0.9-1.1); Prothrombin Time 13.4 SEC (11.1-13.3)
[2023-01-19] MEDS: Acetaminophen 1,000 MG/100 ML PIGGYBACK 400 MG IV ×2 (05:43→12:09)
[2023-01-19 05:46] LABS: Partial Thromboplastin Time 21.9 SEC (26.0-36.4)
[2023-01-19 05:58] LABS: Glucose, Whole Blood 156 mg/dL (60-115)
[2023-01-19] MEDS: Pantoprazole Sodium 40 MG/10 ML VIAL IVPUSH (06:27)
--- NOTE | 2023-01-19 07:00 | CA_ITS ---
Transthoracic Echocardiogram Patient (Last, First, Middle): Saroj Vega, Gender: Male Date of : 1970 Age: 52 Procedure Date: 01/19/2023 Procedure Type: Transthoracic Echocardiogram Location: ICU Height: 180.34 cm Weight: 85.73 kg BSA: 2.06 m2 Heart Rate: 71 bpm BP: 107 / 59 mmHg Wood Floor Layer: SB Referring MD: Dorie Calzada MD Symptoms: Hypotension, Aortic Stenosis Study Quality: Adequate ECG Rhythm: Sinus Conclusions: - 1. Normal LV ejection fraction of 65-70% with mild LVH with impaired relaxation filling pattern 2. Mildly dilated left atrium 3. Possible bicuspid aortic valve with [id number] aortic stenosis and [id number] aortic regurgitation 4. Moderately dilated ascending aorta at 4.9 cm 5. No pericardial effusion Findings Procedure Information The quality of the study was technically difficult. The study quality is limited by the presence of a ventilator. Left Ventricle Normal left ventricular size and systolic function. There is mildly increased left ventricular wall thickness. The visually estimated ejection fraction is between 65-70%. Spectral Doppler is indicative of an impaired relaxation filling pattern. E/E prime ratio is between 8 and 15 consistent with indeterminate filling pressures. Right Ventricle Normal right ventricular cavity size and systolic function. Atria The left atrium is mildly dilated. Interatrial shunt cannot be excluded. The right atrium is normal in size. Aortic Valve There is moderate calcification of the aortic valve. There is moderate thickening of the aortic valve. There is mild to moderate aortic valve stenosis. The peak aortic gradient is 38 mmHg.The mean gradient is 22 mmHg. There is mild to moderate aortic valve regurgitation. Bicuspid morphology cannot be entirely ruled out on this study Mitral Valve There is mild anterior mitral leaflet thickening. There is mild mitral annular calcification. There is trace mitral valve regurgitation. There is no mitral valve stenosis. Pulmonic Valve The pulmonic valve is likely normal. There is trace to mild pulmonic valve regurgitation. Tricuspid Valve Normal tricuspid valve structure. Tricuspid regurgitation envelope is inadequate for calculation of right ventricular systolic pressure. Normal right atrial pressure. Great Vessels The pulmonary artery was not well visualized. There is moderate dilatation of the ascending aorta measuring 4.90 cm. Venous The inferior vena cava is normal in size and collapses greater than 50% with inspiration. Pericardium/Pleural There is no evidence of pericardial effusion. Prior Study Comparison Changes noted compared to prior study dated: 10/10/2022. ascending aorta is further enlarged. Both the severity of aortic stenosis and aortic regurgitation are marginally worse Recommendations, Care & Conclusions Consider a EDIN if clinically appropriate. Measurements 2D Linear Measurements IVSd: 1.39 0.6-0.9/0.6-1.0 cm LVIDd: 4.72 3.9-5.3/4.2-5.9 cm LVIDd Index: 2.29 2.4-3.2/2.2-3.1 cm/m2 LVIDs: 2.56 2.0-3.6 cm LVPWd: 1.21 0.7-1.1 cm LA Diam: 3.70 2.7-3.8/3.0-4.0 cm LAIDs Index: 1.80 1.5-2.3 cm/m2 LV Mass: 285.49 67-162/88-224 g LV Mass Index: 138.59 43-95/49-115 g/m2 LVOT Diam: 2.20 3.0+(-)1.3 cm 2D Systolic Function EF 4C: 66.60 >55% EF 2C: 73.00 >55% EF BiP: 70.00 >55% Mitral Valve MV Pk E: 0.97 MV PK A: 1.05 MV Decel Time: 193.00 E/A: 0.90 E'Lateral: 11.60 E'Medial: 5.55 E/E' Med: 17.40 E/E' Lat: 8.30 PHT: 56.00 MVA PHT: 3.93 Decel [place]: 5.01 Aortic Valve AoV Pk Juan: 3.07 AoV Mn Juan: 2.13 AoV VTI: 0.54 AoV Pk Grad: 38.00 Aov Mn Grad: 22.00 CADE: 1.80 CADE Method: Continuity Equation AI Pk Juan: 3.02 AI [place]: 1.61 LVOT LVOT Pk Juan: 1.47 LVOT Mn Juan: 0.95 LVOT VTI: 0.32 LVOT Pk Grad: 9.00 LVOT Mn Grad: 4.00 LVOT Diam: 2.20 LVOT Area: 3.80 Diastolic Function MV Pk E: 0.97 MV Pk A: 1.05 E/A: 0.90 E'Medial: 5.55 E/E' Med: 17.40 E' Laterial: 11.60 E/E' Lat: 8.30 Right Ventricle TAPSE (mm): 20.90 TVS' Juan: 18.00 Tricuspid Valve RA Press: 3.00 Great Vessels Aorta Sinus of Valsalva: 3.70 2.0-3.5 cm Ao Asc: 4.90 2.1-3.4 cm Ao Arch: 4.10 Pulmonary Valve PV Pk Juan: 1.07 Peak PV Grad: 5.00 Updated in Other Vendor System with Status of Final Jey Norris MD electronically signed on 01/19/2023 12:38:26 PM with status of Final
--- NOTE | 2023-01-19 07:30 | P.PNCC_ITS ---
Subjective Subjective Date of Service: 01/19/23 Interval History: found to have arterial bleeding into RLQ hematoma, s/p diagnostic laparoscopy; additional transfusions given w/ improvement of hemodynamics Critical Care Time (minutes): 60 Physical Exam 2 Vital Signs: Vital Signs: Last Vital Signs Temp 99.5 F 01/19/23 07:00 Pulse 70 01/19/23 07:23 Resp 21 H 01/19/23 07:00 BP 120/67 01/19/23 07:23 Pulse Ox 98 01/19/23 07:00 O2 Del Method Mechanical Ventil ation 01/19/23 07:00 O2 Flow Rate 2 01/18/23 17:00 FiO2 50 01/19/23 07:18 BMI result Body Mass Index 26.4 Const: Other: intubated, sedated General: comfortable and no acute distress HEENT: Head: Yes normocephalic and Yes atraumatic Eyes: General: appearance normal, both eyes and all related structures Neck: Neck: Yes normal visual inspection, Yes full ROM and Yes supple Chest: Chest palpation & inspection: normal inspection of the chest Resp: Other: no rales, rhonchi, wheezing Cardio: Rate: regular rate Rhythm: regular rhythm GI: Other: abdomen distended, though compressible, without guarding, rebound; laporoscopy incisions clean, dry, intact Palpation (GI): not rigid : General: Yes bladder normal to inspection Skin: General skin exam: no rashes or lesions noted Neuro: Other: intubated, sedated Extrem: General: Yes normal to inspection, Yes capillary refill normal and Yes no clubbing, cyanosis or edema Psych: Other: unable to assess Objective Data Labs 01/19/23 04:04 01/19/23 04:04 Labs: Laboratory Results - last 24 hr 01/18/23 01/18/23 01/18/23 14:26 14:33 17:57 WBC 11.1 H 13.9 H RBC 2.81 L 2.79 L Hgb 8.6 L 8.3 L Hct 26.1 L 25.6 L MCV 92.9 91.8 MCH 30.6 29.7 MCHC 33.0 32.4 RDW 14.9 14.8 Plt Count 249 288 MPV 9.5 9.9 Immature Gran % (Auto) 0.6 H 1.4 H Neut % (Auto) 81.3 H 79.8 H Lymph % (Auto) 13.8 L 12.9 L [place] % (Auto) 3.8 5.8 Eos % (Auto) 0.3 0.0 Baso % (Auto) 0.2 0.1 Lymph # (Auto) 1.5 1.8 [place] # (Auto) 0.4 0.8 Eos # (Auto) 0.0 0.0 Baso # (Auto) 0.0 0.0 Abs Immat Gran (auto) 0.07 H 0.19 H Absolute Neuts (auto) 9.0 H 11.1 H Absolute Nucleated RBC 0.000 0.000 Nucleated RBC % (auto) 0.0 0.0 PT INR APTT Hold Blue Top VBG pH VBG pCO2 VBG pO2 VBG HCO3 VBG O2 Saturation VBG Base Excess Sodium 141 137 Potassium 3.6 3.9 Chloride 108 104 Carbon Dioxide 27 26 Anion Gap 10 L 11 L BUN 8 L 10 Creatinine 0.77 0.83 Estim Creat Clear Calc 116.8 108.3 Estimated GFR > 60 > 60 POC Glucose Random Glucose 145 H 194 H Lactic Acid 2.9 H* Lactic Acid F/U @ 2Hr Calcium 8.1 L 7.8 L Phosphorus Magnesium Total Bilirubin 1.7 H AST 18 ALT 11 Alkaline Phosphatase 48 Lactate Dehydrogenase Troponin I High Sens Total Protein 4.8 L Albumin 2.7 L Blood Type O Positive Antibody Screen NEGATIVE Crossmatch See Detail 01/18/23 01/18/23 01/18/23 18:45 18:52 19:53 WBC RBC Hgb Hct MCV MCH MCHC RDW Plt Count MPV Immature Gran % (Auto) Neut % (Auto) Lymph % (Auto) [place] % (Auto) Eos % (Auto) Baso % (Auto) Lymph # (Auto) [place] # (Auto) Eos # (Auto) Baso # (Auto) Abs Immat Gran (auto) Absolute Neuts (auto) Absolute Nucleated RBC Nucleated RBC % (auto) PT 12.8 INR 1.1 APTT 24.1 L Hold Blue Top VBG pH VBG pCO2 VBG pO2 VBG HCO3 VBG O2 Saturation VBG Base Excess Sodium Potassium Chloride Carbon Dioxide Anion Gap BUN Creatinine Estim Creat Clear Calc Estimated GFR POC Glucose 170 H 226 H Random Glucose Lactic Acid Lactic Acid F/U @ 2Hr Calcium Phosphorus Magnesium Total Bilirubin AST ALT Alkaline Phosphatase Lactate Dehydrogenase 186 Troponin I High Sens 16.4 Total Protein Albumin Blood Type Antibody Screen Crossmatch 01/18/23 01/18/23 01/18/23 20:24 21:43 23:26 WBC 17.9 H RBC 2.34 L Hgb 7.0 L* Hct 21.0 L* MCV 89.7 MCH 29.9 MCHC 33.3 RDW 15.7 Plt Count 241 MPV 9.9 Immature Gran % (Auto) 1.0 H Neut % (Auto) 77.8 H Lymph % (Auto) 12.7 L [place] % (Auto) 8.4 Eos % (Auto) 0.0 Baso % (Auto) 0.1 Lymph # (Auto) 2.3 [place] # (Auto) 1.5 H Eos # (Auto) 0.0 Baso # (Auto) 0.0 Abs Immat Gran (auto) 0.18 H Absolute Neuts (auto) 13.9 H Absolute Nucleated RBC 0.000 Nucleated RBC % (auto) 0.0 PT INR APTT Hold Blue Top VBG pH VBG pCO2 VBG pO2 VBG HCO3 VBG O2 Saturation VBG Base Excess Sodium Potassium Chloride Carbon Dioxide Anion Gap BUN Creatinine Estim Creat Clear Calc Estimated GFR POC Glucose 172 H Random Glucose Lactic Acid Lactic Acid F/U @ 2Hr 1.9 Calcium Phosphorus Magnesium Total Bilirubin AST ALT Alkaline Phosphatase Lactate Dehydrogenase Troponin I High Sens Total Protein Albumin Blood Type Antibody Screen Crossmatch 01/19/23 01/19/23 01/19/23 04:04 04:06 05:17 WBC 8.1 RBC 2.37 L Hgb 7.3 L Hct 21.6 L MCV 91.1 MCH 30.8 MCHC 33.8 RDW 15.2 Plt Count 154 L D MPV 9.9 Immature Gran % (Auto) 1.2 H Neut % (Auto) 74.4 H Lymph % (Auto) 17.8 L [place] % (Auto) 6.2 Eos % (Auto) 0.0 Baso % (Auto) 0.4 Lymph # (Auto) 1.4 [place] # (Auto) 0.5 Eos # (Auto) 0.0 Baso # (Auto) 0.0 Abs Immat Gran (auto) 0.10 H Absolute Neuts (auto) 6.0 Absolute Nucleated RBC 0.000 Nucleated RBC % (auto) 0.0 PT 13.4 H INR 1.1 APTT 21.9 L Hold Blue Top SEE NOTE VBG pH 7.35 VBG pCO2 50 VBG pO2 62 VBG HCO3 27 H VBG O2 Saturation 91.0 VBG Base Excess 2.4 Sodium 138 Potassium 4.3 Chloride 106 Carbon Dioxide 26 Anion Gap 10 L BUN 14 Creatinine 0.79 Estim Creat Clear Calc 113.8 Estimated GFR > 60 POC Glucose Random Glucose 158 H Lactic Acid Lactic Acid F/U @ 2Hr Calcium 7.6 L Phosphorus 4.7 H Magnesium 1.4 L* Total Bilirubin 1.7 H AST 17 ALT 13 Alkaline Phosphatase 40 Lactate Dehydrogenase Troponin I High Sens Total Protein 4.7 L Albumin 3.0 L Blood Type Antibody Screen Crossmatch 01/19/23 05:54 WBC RBC Hgb Hct MCV MCH MCHC RDW Plt Count MPV Immature Gran % (Auto) Neut % (Auto) Lymph % (Auto) [place] % (Auto) Eos % (Auto) Baso % (Auto) Lymph # (Auto) [place] # (Auto) Eos # (Auto) Baso # (Auto) Abs Immat Gran (auto) Absolute Neuts (auto) Absolute Nucleated RBC Nucleated RBC % (auto) PT INR APTT Hold Blue Top VBG pH VBG pCO2 VBG pO2 VBG HCO3 VBG O2 Saturation VBG Base Excess Sodium Potassium Chloride Carbon Dioxide Anion Gap BUN Creatinine Estim Creat Clear Calc Estimated GFR POC Glucose 156 H Random Glucose Lactic Acid Lactic Acid F/U @ 2Hr Calcium Phosphorus Magnesium Total Bilirubin AST ALT Alkaline Phosphatase Lactate Dehydrogenase Troponin I High Sens Total Protein Albumin Blood Type Antibody Screen Crossmatch Progress Note: A&P Assessment and plan (1) Inguinal hernia of right side with obstruction and without gangrene: Status: Acute (2) Hemorrhagic shock: Status: Acute (3) Retroperitoneal hematoma: Status: Acute Plan Patient is a 52 Y M with bicuspid aortic valve, c/b aortic stenosis, p/w R inguinal hernia c/b small bowel obstruction, s/p R inguinal hernia repair, found to be hemorrhagic shock d/t retroperitoneal hematoma, s/p exploratory laparoscopy N: intubated, sedated w/ propofol gtt; wean sedation as tolerated for possible extubation pending any procedural planning CV: hemorrhagic shock, improved; on low-dose norepinephrine gtt, transfuse as needed; to follow-up formal echocardiogram R: intubated; possible extubation pending any procedural planning GI: R inguinal hernia s/p repair; retroperitoneal hematoma c/b hemorrhagic shock; NPO : no acute issues H: hemorrhagic shock as described above ID: empiric vancomycin, zosyn; to consider discontinuing after 48 hours if cultures unremarkable and improvement in clinical status E: no acute issues P: no acute issues Quality Stroke Does the patient have a stroke diagnosis?: No VTE Prior VTE?: No VTE Risk Level:: Surgical - moderate VTE Device Contraindication: N/A - Device Ordered VTE Drug Contraindication: Treatment Not Tolerated
[2023-01-19] MEDS: 0.9 % Sodium Chloride Flush 3 ML SYRINGE IVFLUSH ×2 (07:44→15:44)
[2023-01-19] MEDS: Calcium Chloride 1 GM/10 ML SYRINGE IVPUSH (07:44)
[2023-01-19] MEDS: Chlorhexidine Gluc Oral Rinse 15 ML MOUTHWASH BUCCAL (07:51)
--- NOTE | 2023-01-19 08:25 | P.PNGS_ITS ---
Subjective Subjective Date of Service: 01/19/23 Interval history: Patient unchanged over the past few hours; he remains sedated and intubated Is still on low-dose Levophed which is being weaned and the plan for today is to allow him to wake up and attempt extubation if possible Since the patient had previously requested I update his father and sister, I met with them in the ICU waiting area to give them an update. Physical Exam 2 Vital Signs: Vital Signs: Last Vital Signs Temp 99.7 F 01/19/23 08:24 Pulse 71 01/19/23 08:24 Resp 20 01/19/23 08:24 BP 106/58 L 01/19/23 08:24 Pulse Ox 96 01/19/23 08:00 O2 Del Method Mechanical Ventil ation 01/19/23 08:00 O2 Flow Rate 2 01/18/23 17:00 FiO2 50 01/19/23 08:00 BMI result Body Mass Index 26.4 Patient is resting, sedated and intubated No obvious respiratory distress Abdomen is unchanged since earlier this morning. Objective Data Active Medications Chlorhexidine Gluconate (Chlorhexidine Gluc Oral Rinse 15 Ml Mouthwash) 15 ml BUCCAL TID [facility] Last Admin: 01/19/23 07:51 Dose: 15 ml Documented By: REYNALDO Dextrose (Dextrose 50 % 25 Gm/50 Ml Syringe) 25 gm IVPUSH Q15M PRN; Protocol PRN Reason: per Hypoglycemia Standing Ord. Docusate Sodium (Docusate Sodium 100 Mg Capsule) 200 mg PO BID [facility] Last Admin: 01/19/23 07:22 Dose: Not Given Documented By: REYNALDO Non-Admin Reason: NPO Glucose (Glucose Gel 15 Gm Gel..Gram.) 15 gm PO Q15M PRN; Protocol PRN Reason: per Hypoglycemia Standing Ord. Hydromorphone HCl (Hydromorphone Hcl 0.5 Mg/0.5 Ml Syringe) 0.5 mg IVPUSH Q4H PRN; Protocol PRN Reason: Pain, Severe (Pain Scale 7-10) Last Admin: 01/18/23 22:34 Dose: 0.5 mg Documented By: FERCHO Hydromorphone HCl (Hydromorphone Hcl 0.5 Mg/0.5 Ml Syringe) 0.25 mg IVPUSH Q5M PRN; Protocol PRN Reason: Pain, Severe (Pain Scale 7-10) Acetaminophen (Ofirmev) 1,000 mg in 100 mls @ 400 mls/hr IV Q6H [facility] Last Infusion: 01/19/23 05:58 Dose: Infused Documented By: FERCHO Promethazine HCl 6.25 mg/ (Sodium Chloride) 50.25 mls @ 201 mls/hr IV ONCE PRN PRN Reason: Nausea and Vomiting Lactated Ringer's (Lr) 1,000 mls @ 125 mls/hr IVCONT .Q8H [facility] Last Admin: 01/19/23 05:14 Dose: 125 mls/hr Documented By: FERCHO Norepinephrine Bitartrate (Levophed) 8 mg in 250 mls @ 0 mls/hr IV .Q0M [facility]; Protocol Last Titration: 01/19/23 07:23 Dose: 0.03 mcg/kg/min, 4.47 mls/hr Documented By: REYNALDO Piperacillin Sod/Tazobactam (Sod 3.375 gm/ Sodium Chloride) 50 mls @ 100 mls/hr IV Q8H [facility] Last Infusion: 01/19/23 04:43 Dose: Infused Documented By: FERCHO Vancomycin HCl 1,000 mg/ (Sodium Chloride) 270 mls @ 270 mls/hr IV Q12H [facility] Propofol (Diprivan) 1,000 mg in 100 mls @ 0 mls/hr IVCONT .Q0M [facility]; Protocol Last Admin: 01/19/23 04:17 Dose: 30 mcg/kg/min, 14.29 mls/hr Documented By: FERCHO Ibuprofen (Ibuprofen 400 Mg Tablet) 400 mg PO Q6H PRN PRN Reason: Pain, Mild (Pain Scale 1-3) Insulin Human Lispro (Insulin Lispro 100 Unit/Ml 3 Ml Vial) 0 unit SUBCUT Q6H [facility]; Protocol Last Admin: 01/19/23 06:21 Dose: Not Given Documented By: FERCHO Non-Admin Reason: NPO Ondansetron HCl (Ondansetron Hcl 4 Mg/2 Ml Vial) 4 mg IVPUSH Q8H PRN PRN Reason: Nausea and Vomiting Pantoprazole Sodium (Pantoprazole Sodium 40 Mg/10 Ml Vial) 40 mg IVPUSH DAILY@0630 [facility] Last Admin: 01/19/23 06:27 Dose: 40 mg Documented By: FERCHO Pharmacy Consult (Consult Rx Vancomycin Dosing) 1 each MISCELLANE DAILY PRN PRN Reason: Consult order Sodium Chloride (0.9 % Sodium Chloride Flush 3 Ml Syringe) 3 ml IVFLUSH QSHIFT [facility] Last Admin: 01/19/23 07:44 Dose: 3 ml Documented By: REYNALDO Labs 01/19/23 04:04 01/19/23 04:04 Labs: Laboratory Results - last 24 hr 01/18/23 01/18/23 01/18/23 14:26 14:33 17:57 MCV 92.9 91.8 MCH 30.6 29.7 MCHC 33.0 32.4 RDW 14.9 14.8 Plt Count 249 288 MPV 9.5 9.9 Immature Gran % (Auto) 0.6 H 1.4 H Neut % (Auto) 81.3 H 79.8 H Lymph % (Auto) 13.8 L 12.9 L [place] % (Auto) 3.8 5.8 Eos % (Auto) 0.3 0.0 Baso % (Auto) 0.2 0.1 Lymph # (Auto) 1.5 1.8 [place] # (Auto) 0.4 0.8 Eos # (Auto) 0.0 0.0 Baso # (Auto) 0.0 0.0 Abs Immat Gran (auto) 0.07 H 0.19 H Absolute Neuts (auto) 9.0 H 11.1 H Absolute Nucleated RBC 0.000 0.000 Nucleated RBC % (auto) 0.0 0.0 PT INR APTT Hold Blue Top VBG pH VBG pCO2 VBG pO2 VBG HCO3 VBG O2 Saturation VBG Base Excess Anion Gap 10 L 11 L Estim Creat Clear Calc 116.8 108.3 Estimated GFR > 60 > 60 POC Glucose Random Glucose 145 H 194 H Lactic Acid 2.9 H* Lactic Acid F/U @ 2Hr Calcium 8.1 L 7.8 L Phosphorus Magnesium Total Bilirubin 1.7 H AST 18 ALT 11 Alkaline Phosphatase 48 Lactate Dehydrogenase Total Protein 4.8 L Albumin 2.7 L Blood Type O Positive Antibody Screen NEGATIVE Crossmatch See Detail 01/18/23 01/18/23 01/18/23 18:45 18:52 19:53 MCV MCH MCHC RDW Plt Count MPV Immature Gran % (Auto) Neut % (Auto) Lymph % (Auto) [place] % (Auto) Eos % (Auto) Baso % (Auto) Lymph # (Auto) [place] # (Auto) Eos # (Auto) Baso # (Auto) Abs Immat Gran (auto) Absolute Neuts (auto) Absolute Nucleated RBC Nucleated RBC % (auto) PT 12.8 INR 1.1 APTT 24.1 L Hold Blue Top VBG pH VBG pCO2 VBG pO2 VBG HCO3 VBG O2 Saturation VBG Base Excess Anion Gap Estim Creat Clear Calc Estimated GFR POC Glucose 170 H 226 H Random Glucose Lactic Acid Lactic Acid F/U @ 2Hr Calcium Phosphorus Magnesium Total Bilirubin AST ALT Alkaline Phosphatase Lactate Dehydrogenase 186 Total Protein Albumin Blood Type Antibody Screen Crossmatch 01/18/23 01/18/23 01/18/23 20:24 21:43 23:26 MCV 89.7 MCH 29.9 MCHC 33.3 RDW 15.7 Plt Count 241 MPV 9.9 Immature Gran % (Auto) 1.0 H Neut % (Auto) 77.8 H Lymph % (Auto) 12.7 L [place] % (Auto) 8.4 Eos % (Auto) 0.0 Baso % (Auto) 0.1 Lymph # (Auto) 2.3 [place] # (Auto) 1.5 H Eos # (Auto) 0.0 Baso # (Auto) 0.0 Abs Immat Gran (auto) 0.18 H Absolute Neuts (auto) 13.9 H Absolute Nucleated RBC 0.000 Nucleated RBC % (auto) 0.0 PT INR APTT Hold Blue Top VBG pH VBG pCO2 VBG pO2 VBG HCO3 VBG O2 Saturation VBG Base Excess Anion Gap Estim Creat Clear Calc Estimated GFR POC Glucose 172 H Random Glucose Lactic Acid Lactic Acid F/U @ 2Hr 1.9 Calcium Phosphorus Magnesium Total Bilirubin AST ALT Alkaline Phosphatase Lactate Dehydrogenase Total Protein Albumin Blood Type Antibody Screen Crossmatch 01/19/23 01/19/23 01/19/23 04:04 04:06 05:17 MCV 91.1 MCH 30.8 MCHC 33.8 RDW 15.2 Plt Count 154 L D MPV 9.9 Immature Gran % (Auto) 1.2 H Neut % (Auto) 74.4 H Lymph % (Auto) 17.8 L [place] % (Auto) 6.2 Eos % (Auto) 0.0 Baso % (Auto) 0.4 Lymph # (Auto) 1.4 [place] # (Auto) 0.5 Eos # (Auto) 0.0 Baso # (Auto) 0.0 Abs Immat Gran (auto) 0.10 H Absolute Neuts (auto) 6.0 Absolute Nucleated RBC 0.000 Nucleated RBC % (auto) 0.0 PT 13.4 H INR 1.1 APTT 21.9 L Hold Blue Top SEE NOTE VBG pH 7.35 VBG pCO2 50 VBG pO2 62 VBG HCO3 27 H VBG O2 Saturation 91.0 VBG Base Excess 2.4 Anion Gap 10 L Estim Creat Clear Calc 113.8 Estimated GFR > 60 POC Glucose Random Glucose 158 H Lactic Acid Lactic Acid F/U @ 2Hr Calcium 7.6 L Phosphorus 4.7 H Magnesium 1.4 L* Total Bilirubin 1.7 H AST 17 ALT 13 Alkaline Phosphatase 40 Lactate Dehydrogenase Total Protein 4.7 L Albumin 3.0 L Blood Type Antibody Screen Crossmatch 01/19/23 05:54 MCV MCH MCHC RDW Plt Count MPV Immature Gran % (Auto) Neut % (Auto) Lymph % (Auto) [place] % (Auto) Eos % (Auto) Baso % (Auto) Lymph # (Auto) [place] # (Auto) Eos # (Auto) Baso # (Auto) Abs Immat Gran (auto) Absolute Neuts (auto) Absolute Nucleated RBC Nucleated RBC % (auto) PT INR APTT Hold Blue Top VBG pH VBG pCO2 VBG pO2 VBG HCO3 VBG O2 Saturation VBG Base Excess Anion Gap Estim Creat Clear Calc Estimated GFR POC Glucose 156 H Random Glucose Lactic Acid Lactic Acid F/U @ 2Hr Calcium Phosphorus Magnesium Total Bilirubin AST ALT Alkaline Phosphatase Lactate Dehydrogenase Total Protein Albumin Blood Type Antibody Screen Crossmatch Procedures Date of Service Date of Service: 01/19/23 Progress Note: A&P Assessment and plan (1) Retroperitoneal hematoma: Status: Acute (2) Hemorrhagic shock: Status: Acute (3) Hypotension: Status: Acute (4) Aortic stenosis: Status: Acute (5) Anemia: Status: Acute (6) Inguinal hernia: Status: Acute Plan I met with the patient's father and sister as he had previously requested an updated them both and answered their questions regarding the course of events from last night. I explained that his CT showed ongoing bleeding and that an angiogram and embolization would better answer where the bleeding was occurring since the anatomy was distorted my conversation with Dr. Cook. Since that service was not available, the ICU team reached out to multiple hospitals that were unable to help facilitate the patient's care as he was getting more unstable. This led to a decision to reoperate and I explained the intraoperative findings at laparoscopy including the extensive adhesions from the patient's prior open appendectomy. I also explained that near as I can tell, 1 of these adhesions was likely torn when I repaired his hernia leading to unrecognized, significant bleeding and both his retroperitoneum and abdomen. At the time of surgery, no definitive bleeding point was identified but after irrigate, there was no gross blood. A lysis of adhesions of the right lower quadrant was required to facilitate exposure of the vascular blush seen on CT. The gravity of his recognized and unrecognized comorbidities, presenting anemia and events that required another operative intervention were discussed. Their questions seemed to be satisfactorily answered. Explained that the intensive care team will continue to try to wean to extubate if safe and we will continue to support him but that will take several days for him to stabilize and I will reach out to them if there are any significant changes. They declined a 2nd opinion at this time. Time Spent With Patient Time: Total time managing care of this patient today ____ minutes. Quality Stroke Does the patient have a stroke diagnosis?: No VTE Prior VTE?: No VTE Risk Level:: Surgical - moderate VTE Device Contraindication: N/A - Device Ordered VTE Drug Contraindication: Treatment Not Tolerated
[2023-01-19] MEDS: vancomycin HCL 1,000 MG in 0.9 % Sodium Chloride 250 ML 270 MG IV ×2 (08:48→19:59)
[2023-01-19 08:58] LABS: MANUAL DIFF FLAG NO
[2023-01-19 09:09] LABS: Basophils Percent Auto 0.2 % (0-2); Hematocrit 24.2 % (42.0-52.0); Hemoglobin 8.2 g/dl (14.0-18.0); Imm Gran Abs Auto 0.06 X10*3/uL (0.00-0.03); Imm Gran Pct Auto 0.5 % (0.0-0.4); Lymphocytes Percent Auto 17.5 % (20-40); Mean Corpuscular HGB Conc 33.9 g/dl (31.0-36.0); Mean Corpuscular Hemoglobin 30.5 pg (27.0-33.0); Mean Platelet Volume 9.5 fL (9.4-12.4); Monocytes Percent Auto 9.2 % (2-11); Neutrophils Absolute Auto 8.1 x10*3/uL (2.0-8.3); Neutrophils Percent Auto 72.6 % (45-73); Platelet Count 147 X10*3/uL (160-400); Red Blood Count 2.69 X10*6/uL (4.60-5.80); Red Cell Distribution Width 15.7 % (11.0-16.0); White Blood Count 11.1 X10*3/uL (4.8-10.8)
--- NOTE | 2023-01-19 10:38 | PC.NURSE ---
Sedation vacation initiated at 1011. Pt awake and calm. Propofol titrated per MAY. Extubation performed at 1025, MD and RT at bedside. Procedure unremarkable.
[2023-01-19] MEDS: Furosemide 20 MG/2 ML VIAL 10 MG IVPUSH ×2 (12:10→15:44)
[2023-01-19 12:15] LABS: MANUAL DIFF FLAG NO
[2023-01-19 12:17] LABS: Basophils Percent Auto 0.1 % (0-2); Eosinophils Percent Auto 0.1 % (0-4); Hematocrit 25.8 % (42.0-52.0); Hemoglobin 8.9 g/dl (14.0-18.0); Imm Gran Abs Auto 0.07 X10*3/uL (0.00-0.03); Imm Gran Pct Auto 0.6 % (0.0-0.4); Lymphocytes Absolute Auto 2.1 X10*3/uL (1.2-4.9); Mean Corpuscular HGB Conc 34.5 g/dl (31.0-36.0); Mean Corpuscular Hemoglobin 30.4 pg (27.0-33.0); Mean Corpuscular Volume 88.1 fL (80.0-98.0); Mean Platelet Volume 9.9 fL (9.4-12.4); Monocytes Absolute Auto 0.9 X10*3/uL (0.1-1.2); Monocytes Percent Auto 7.9 % (2-11); Neutrophils Absolute Auto 8.5 x10*3/uL (2.0-8.3); Neutrophils Percent Auto 73.3 % (45-73); Platelet Count 146 X10*3/uL (160-400); Red Blood Count 2.93 X10*6/uL (4.60-5.80); Red Cell Distribution Width 15.3 % (11.0-16.0); White Blood Count 11.6 X10*3/uL (4.8-10.8)
--- NOTE | 2023-01-19 13:12 | HO.POSTANES ---
Post Anesthesia Evaluation Post Anesthesia Evaluation Date of Service: 01/19/23 Vital Signs: Vital Signs Temp Pulse Resp BP Pulse Ox O2 Del Method O2 Flow Rate 01/19/23 13:00 85 25 H 100/51 L 90 L Nasal Cannula 2 01/19/23 12:00 99.0 F 76 21 H 108/47 L 90 L Nasal Cannula 2 01/19/23 11:28 84 115/60 01/19/23 11:05 82 115/60 01/19/23 11:04 99.7 F 82 22 H 115/60 01/19/23 11:00 84 24 H 115/60 92 Nasal Cannula 2 01/19/23 10:00 99.9 F 76 21 H 112/54 L 94 Mechanical Ventilation 01/19/23 09:00 99.9 F 72 23 H 109/59 L 96 Mechanical Ventilation 01/19/23 08:47 99.9 F 71 23 H 107/60 01/19/23 08:28 99.9 F 70 22 H 106/58 L 01/19/23 08:24 99.7 F 71 20 106/58 L 01/19/23 08:00 99.7 F 70 22 H 110/60 96 Mechanical Ventilation 01/19/23 07:54 99.7 F 71 22 H 110/60 01/19/23 07:23 70 120/67 01/19/23 07:18 01/19/23 07:16 01/19/23 07:00 99.5 F 70 21 H 107/59 L 98 Mechanical Ventilation 01/19/23 06:00 99.1 F 70 20 109/60 99 Mechanical Ventilation 01/19/23 05:07 99 F 72 19 104/60 01/19/23 05:00 99.0 F 73 20 109/64 97 Mechanical Ventilation 01/19/23 04:50 99.0 F 73 20 109/64 01/19/23 04:29 01/19/23 04:16 84 146/56 H 01/19/23 04:01 01/19/23 04:00 98.6 F 82 22 H 146/56 H 98 Mechanical Ventilation FiO2 01/19/23 13:00 01/19/23 12:00 01/19/23 11:28 01/19/23 11:05 01/19/23 11:04 01/19/23 11:00 01/19/23 10:00 50 01/19/23 09:00 50 01/19/23 08:47 01/19/23 08:28 01/19/23 08:24 01/19/23 08:00 50 01/19/23 07:54 01/19/23 07:23 01/19/23 07:18 50 01/19/23 07:16 50 01/19/23 07:00 60 01/19/23 06:00 60 01/19/23 05:07 01/19/23 05:00 60 01/19/23 04:50 01/19/23 04:29 50 01/19/23 04:16 01/19/23 04:01 70 01/19/23 04:00 70 Anesthesia: General Endotracheal-GETA Mental Status: Awake Pain Control: Satisfactory Nausea/Vomiting: None Hydration: Adequate Anesthesia-Related Issues: No Anes. Related Issues Comments: Patient s/p hernia repair brought back to OR for ex-lap bleeding. Patient extubated now on levofed in ICU.
--- NOTE | 2023-01-19 15:58 | MHC.CM.PN ---
Met with pt to discuss d/c planning needs: Pt resides in a condo with his sister: his father lives next door. Pt is independent, has no DME or services. HCP completed and placed in chart. No services anticipated. Family to tranport to home.
[2023-01-19] MEDS: Ibuprofen 400 MG TABLET PO (19:58)
[2023-01-19] MEDS: Docusate Sodium 100 MG CAPSULE 200 MG PO (20:03)
[2023-01-20] VITALS (28 sets, daily range): BP systolic 95–151; BP diastolic 31–74; PULSE 78–99; RESP 20–30; TEMP 36.4–37.7; O2SAT 91–96; BMI 27.4
[2023-01-20] MEDS: Acetaminophen 1,000 MG/100 ML PIGGYBACK 400 MG IV ×5 (01:01→23:09)
[2023-01-20] MEDS: 0.9 % Sodium Chloride Flush 3 ML SYRINGE IVFLUSH ×4 (01:04→21:02)
[2023-01-20 01:13] LABS: Glucose, Whole Blood 115 mg/dL (60-115)
[2023-01-20] MEDS: Piperacillin Sodium/Tazobactam 3.375 GM in 0.9 % Sodium Chloride 50 ML IV ×3 (01:39→18:18)
[2023-01-20 05:27] LABS: VBG Base Excess 8.4 mmol/L; VBG HCO3 31 mmol/L (22-26); VBG pCO2 39 mmHg; VBG pH 7.51 (7.32-7.43); VBG pO2 48 mmHg
[2023-01-20 05:28] LABS: Venous Blood Gas Refer to POC result
[2023-01-20] MEDS: Pantoprazole Sodium 40 MG/10 ML VIAL IVPUSH (05:35)
[2023-01-20 05:37] LABS: MANUAL DIFF FLAG NO
[2023-01-20 05:45] LABS: Basophils Percent Auto 0.4 % (0-2); Eosinophils Absolute Auto 0.1 X10*3/uL (0.0-0.4); Eosinophils Percent Auto 0.8 % (0-4); Hematocrit 21.6 % (42.0-52.0); Hemoglobin 7.3 g/dl (14.0-18.0); Imm Gran Abs Auto 0.12 X10*3/uL (0.00-0.03); Imm Gran Pct Auto 1.3 % (0.0-0.4); Lymphocytes Absolute Auto 1.7 X10*3/uL (1.2-4.9); Lymphocytes Percent Auto 18.4 % (20-40); Mean Corpuscular HGB Conc 33.8 g/dl (31.0-36.0); Mean Corpuscular Hemoglobin 30.7 pg (27.0-33.0); Mean Corpuscular Volume 90.8 fL (80.0-98.0); Monocytes Absolute Auto 0.8 X10*3/uL (0.1-1.2); Monocytes Percent Auto 9.2 % (2-11); NRBC Pct Auto 0.3 /100WBC (0.0-0.2); Neutrophils Absolute Auto 6.3 x10*3/uL (2.0-8.3); Neutrophils Percent Auto 69.9 % (45-73); Platelet Count 121 X10*3/uL (160-400); Red Blood Count 2.38 X10*6/uL (4.60-5.80); Red Cell Distribution Width 15.5 % (11.0-16.0)
[2023-01-20 05:54] LABS: Vancomycin Random 9.4 mcg/mL (15-20)
[2023-01-20 06:00] LABS: Magnesium 1.6 mg/dL (1.6-2.6); Phosphorus 2.2 mg/dL (2.7-4.5)
[2023-01-20 06:01] LABS: Anion Gap 9 (12-20); Blood Urea Nitrogen 10 mg/dL (9-16); Calcium 8.1 mg/dL (8.4-10.2); Carbon Dioxide 29 mmol/L (22-29); Chloride 102 mmol/L (96-108); Creatinine Clr Calc Pharmacy 119.9; Estimated Glomerular Filt Rate > 60; Glucose Random 113 mg/dL (60-115); Potassium 3.3 mmol/L (3.3-5.1); Sodium 137 mmol/L (135-145)
--- NOTE | 2023-01-20 06:37 | HE.PHANOTE ---
RE VANCO DOSING LEVEL TODAY AFTER 3 DOSES IS ONLY 9.4. RENAL FUNCTION STILL STABLE SO WILL INCREASE DOSE FROM 1000 Q12 TO 1500 Q12 TO ATTEMPT TO OBTAIN THERAPEUTIC AUC. INSIGHT EXPECTS AUC 516 AND TROUGH OF 13.7 WITH THIS DOSING. WILL RECHECK LEVEL 01/21/23 @0600 AFTER 2 DOSES ARE GIVEN.
--- NOTE | 2023-01-20 07:57 | P.PNCC_ITS ---
Subjective Subjective Date of Service: 01/20/23 Interval History: no significant overnight events Critical Care Time (minutes): 60 Physical Exam 2 Vital Signs: Vital Signs: Last Vital Signs Temp 99 F 01/20/23 03:59 Pulse 84 01/20/23 07:00 Resp 24 H 01/20/23 07:00 BP 122/55 L 01/20/23 07:00 Pulse Ox 93 01/20/23 07:00 O2 Del Method Nasal Cannula 01/20/23 07:00 O2 Flow Rate 3 01/20/23 07:00 FiO2 50 01/19/23 10:00 BMI result Body Mass Index 27.4 Const: General: cooperative, healthy appearing, comfortable, no acute distress, well developed, alert, awake and Physically active O rientation/consciousness: patient oriented x3 HEENT: Head: Yes normal to inspection, Yes normocephalic and Yes atraumatic Eyes: General: appearance normal, both eyes and all related structures Neck: Neck: Yes normal visual inspection, Yes full ROM and Yes supple Chest: Chest palpation & inspection: normal inspection of the chest Resp: Other: no overt rales, rhonchi, wheezing Cardio: Rate: regular rate Rhythm: regular rhythm GI: Other: distended, though soft, compressible; some tenderness to palpation RLQ, without guarding, rebound Inspection: Yes normal to inspection and No Abdominal wall edema P alpation (GI): not firm Skin: General skin exam: no rashes or lesions noted Neuro: General: patient oriented x3, moves all extremities and no focal motor deficits Extrem: Other: 1+ pitting edema to bilateral knees General: Yes normal to inspection and Yes capillary refill normal Psych: Appearance: grossly normal Objective Data Labs 01/20/23 05:20 01/20/23 05:20 Labs: Laboratory Results - last 24 hr 01/18/23 01/19/23 01/19/23 14:33 08:55 12:01 WBC 11.1 H 11.6 H RBC 2.69 L 2.93 L Hgb 8.2 L 8.9 L Hct 24.2 L 25.8 L MCV 90.0 88.1 MCH 30.5 30.4 MCHC 33.9 34.5 RDW 15.7 15.3 Plt Count 147 L 146 L MPV 9.5 9.9 Immature Gran % (Auto) 0.5 H 0.6 H Neut % (Auto) 72.6 73.3 H Lymph % (Auto) 17.5 L 18.0 L [place] % (Auto) 9.2 7.9 Eos % (Auto) 0.0 0.1 Baso % (Auto) 0.2 0.1 Lymph # (Auto) 2.0 2.1 [place] # (Auto) 1.0 0.9 Eos # (Auto) 0.0 0.0 Baso # (Auto) 0.0 0.0 Abs Immat Gran (auto) 0.06 H 0.07 H Absolute Neuts (auto) 8.1 8.5 H Absolute Nucleated RBC 0.000 0.000 Nucleated RBC % (auto) 0.0 0.0 VBG pH VBG pCO2 VBG pO2 VBG HCO3 VBG O2 Saturation VBG Base Excess Sodium Potassium Chloride Carbon Dioxide Anion Gap BUN Creatinine Estim Creat Clear Calc Estimated GFR POC Glucose Random Glucose Calcium Phosphorus Magnesium Albumin Random Vancomycin Blood Type O Positive Antibody Screen NEGATIVE Crossmatch See Detail 01/20/23 01/20/23 01/20/23 01:09 05:20 05:21 WBC 9.0 RBC 2.38 L Hgb 7.3 L Hct 21.6 L MCV 90.8 MCH 30.7 MCHC 33.8 RDW 15.5 Plt Count 121 L MPV 10.0 Immature Gran % (Auto) 1.3 H Neut % (Auto) 69.9 Lymph % (Auto) 18.4 L [place] % (Auto) 9.2 Eos % (Auto) 0.8 Baso % (Auto) 0.4 Lymph # (Auto) 1.7 [place] # (Auto) 0.8 Eos # (Auto) 0.1 Baso # (Auto) 0.0 Abs Immat Gran (auto) 0.12 H Absolute Neuts (auto) 6.3 Absolute Nucleated RBC 0.030 H Nucleated RBC % (auto) 0.3 H VBG pH 7.51 H VBG pCO2 39 VBG pO2 48 VBG HCO3 31 H VBG O2 Saturation 82.0 VBG Base Excess 8.4 Sodium 137 Potassium 3.3 D Chloride 102 Carbon Dioxide 29 Anion Gap 9 L BUN 10 Creatinine 0.75 Estim Creat Clear Calc 119.9 Estimated GFR > 60 POC Glucose 115 Random Glucose 113 Calcium 8.1 L D Phosphorus 2.2 L Magnesium 1.6 Albumin 3.0 L Random Vancomycin 9.4 L Blood Type Antibody Screen Crossmatch Microbiology Microbiology Results: Microbiology 01/18/23 18:52 Blood - Venous Blood Culture - Preliminary No growth after 24 hours. 01/18/23 18:52 Blood - Venous Blood Culture - Preliminary No growth after 24 hours. Progress Note: A&P Assessment and plan (1) Hemorrhagic shock: Status: Acute (2) Inguinal hernia of right side with obstruction and without gangrene: Status: Acute (3) Retroperitoneal hematoma: Status: Acute Plan Patient is a 52 Y M with bicuspid aortic valve, c/b aortic stenosis, p/w R inguinal hernia c/b small bowel obstruction, s/p R inguinal hernia repair, found to be hemorrhagic shock d/t retroperitoneal hematoma, s/p exploratory laparoscopy N: no acute issues CV: hemorrhagic shock, resolved; still necessitating intermittent transfusions R: 2 L NC, incentive spirometer GI: R inguinal hernia s/p repair; retroperitoneal hematoma c/b hemorrhagic shock; clear liquid diet, advance diet per surgery : no acute issues; c/f some volume overload s/p resuscitation; furosemide IV PRN H: hemorrhagic shock, resolved ID: empiric vancomycin, zosyn; to consider discontinuing after 48 hours if cultures unremarkable and improvement in clinical status E: no acute issues P: no acute issues Quality Stroke Does the patient have a stroke diagnosis?: No VTE Prior VTE?: No VTE Risk Level:: Surgical - moderate VTE Device Contraindication: N/A - Device Ordered VTE Drug Contraindication: Treatment Not Tolerated
--- NOTE | 2023-01-20 08:21 | PM.PNGS ---
Subjective Subjective Date of Service: 01/20/23 Patient reports: feels better, tolerating liquids well and flatus Interval history: The patient reports that he is doing well and hopeful to have his diet advanced. He reports he is passing gas and feeling good. He denies any chest pain, difficulty breathing or shortness of breath. Patient requested that I call his father at [phone] to update him. Physical Exam Vital Signs: Vital Signs: Last Vital Signs Temp 97.5 F 01/20/23 08:00 Pulse 85 01/20/23 08:00 Resp 26 H 01/20/23 08:00 BP 103/53 L 01/20/23 08:00 Pulse Ox 95 01/20/23 08:00 O2 Del Method Nasal Cannula 01/20/23 08:00 O2 Flow Rate 3 01/20/23 08:00 FiO2 50 01/19/23 10:00 BMI result Body Mass Index 27.4 On exam, the patient is nontoxic and in surprisingly good spirits He is anicteric and having no respiratory distress His abdomen is distended and tympanitic with no peritoneal sign. His right groin incision and other abdominal Band-Aids are dry with no significant drainage Objective Data Active Medications Dextrose (Dextrose 50 % 25 Gm/50 Ml Syringe) 25 gm IVPUSH Q15M PRN; Protocol PRN Reason: per Hypoglycemia Standing Ord. Docusate Sodium (Docusate Sodium 100 Mg Capsule) 200 mg PO BID KISHORE Last Admin: 01/19/23 20:03 Dose: 200 mg Documented By: KIERAN Glucose (Glucose Gel 15 Gm Gel..Gram.) 15 gm PO Q15M PRN; Protocol PRN Reason: per Hypoglycemia Standing Ord. Hydromorphone HCl (Hydromorphone Hcl 0.5 Mg/0.5 Ml Syringe) 0.5 mg IVPUSH Q4H PRN; Protocol PRN Reason: Pain, Severe (Pain Scale 7-10) Last Admin: 01/18/23 22:34 Dose: 0.5 mg Documented By: FERCHO Hydromorphone HCl (Hydromorphone Hcl 0.5 Mg/0.5 Ml Syringe) 0.25 mg IVPUSH Q5M PRN; Protocol PRN Reason: Pain, Severe (Pain Scale 7-10) Acetaminophen (Ofirmev) 1,000 mg in 100 mls @ 400 mls/hr IV Q6H [facility] Last Infusion: 01/20/23 06:13 Dose: Infused Documented By: KIERAN Promethazine HCl 6.25 mg/ (Sodium Chloride) 50.25 mls @ 201 mls/hr IV ONCE PRN PRN Reason: Nausea and Vomiting Piperacillin Sod/Tazobactam (Sod 3.375 gm/ Sodium Chloride) 50 mls @ 100 mls/hr IV Q8H [facility] Last Infusion: 01/20/23 05:06 Dose: Infused Documented By: KIERAN Potassium Phosphate (Kphos) 15 mmol in 250 mls @ 62.5 mls/hr IV ONCE ONE Stop: 01/20/23 11:59 Albumin Human (Kedbumin 25 %) 100 mls @ 100 mls/hr IV ONCE ONE Stop: 01/20/23 08:59 Vancomycin HCl 1,500 mg/ (Sodium Chloride) 500 mls @ 333.333 mls/hr IV Q12H [facility] Sodium Chloride (Ns) 100 mls @ 100 mls/hr IV ONCE ONE Stop: 01/20/23 08:53 Insulin Human Lispro (Insulin Lispro 100 Unit/Ml 3 Ml Vial) 0 unit SUBCUT Q6H [facility]; Protocol Last Admin: 01/20/23 06:19 Dose: Not Given Documented By: KIERAN Non-Admin Reason: No Insulin Coverage Ondansetron HCl (Ondansetron Hcl 4 Mg/2 Ml Vial) 4 mg IVPUSH Q8H PRN PRN Reason: Nausea and Vomiting Pantoprazole Sodium (Pantoprazole Sodium 40 Mg/10 Ml Vial) 40 mg IVPUSH DAILY@0630 [facility] Last Admin: 01/20/23 05:35 Dose: 40 mg Documented By: KIERAN Pharmacy Consult (Consult Rx Vancomycin Dosing) 1 each MISCELLANE DAILY PRN PRN Reason: Consult order Sodium Chloride (0.9 % Sodium Chloride Flush 3 Ml Syringe) 3 ml IVFLUSH QSHIFT [facility] Last Admin: 01/20/23 01:04 Dose: 3 ml Documented By: BACILIO Labs 01/20/23 05:20 01/20/23 05:20 Labs: Laboratory Results - last 24 hr 01/18/23 01/19/23 01/19/23 14:33 08:55 12:01 MCV 90.0 88.1 MCH 30.5 30.4 MCHC 33.9 34.5 RDW 15.7 15.3 Plt Count 147 L 146 L MPV 9.5 9.9 Immature Gran % (Auto) 0.5 H 0.6 H Neut % (Auto) 72.6 73.3 H Lymph % (Auto) 17.5 L 18.0 L [place]cd[place] % (Auto) 9.2 7.9 Eos % (Auto) 0.0 0.1 Baso % (Auto) 0.2 0.1 Lymph # (Auto) 2.0 2.1 [place] # (Auto) 1.0 0.9 Eos # (Auto) 0.0 0.0 Baso # (Auto) 0.0 0.0 Abs Immat Gran (auto) 0.06 H 0.07 H Absolute Neuts (auto) 8.1 8.5 H Absolute Nucleated RBC 0.000 0.000 Nucleated RBC % (auto) 0.0 0.0 VBG pH VBG pCO2 VBG pO2 VBG HCO3 VBG O2 Saturation VBG Base Excess Anion Gap Estim Creat Clear Calc Estimated GFR POC Glucose Random Glucose Calcium Phosphorus Magnesium Albumin Random Vancomycin Blood Type O Positive Antibody Screen NEGATIVE Crossmatch See Detail 01/20/23 01/20/23 01/20/23 01:09 05:20 05:21 MCV 90.8 MCH 30.7 MCHC 33.8 RDW 15.5 Plt Count 121 L MPV 10.0 Immature Gran % (Auto) 1.3 H Neut % (Auto) 69.9 Lymph % (Auto) 18.4 L [place]cd[place] % (Auto) 9.2 Eos % (Auto) 0.8 Baso % (Auto) 0.4 Lymph # (Auto) 1.7 [place] # (Auto) 0.8 Eos # (Auto) 0.1 Baso # (Auto) 0.0 Abs Immat Gran (auto) 0.12 H Absolute Neuts (auto) 6.3 Absolute Nucleated RBC 0.030 H Nucleated RBC % (auto) 0.3 H VBG pH 7.51 H VBG pCO2 39 VBG pO2 48 VBG HCO3 31 H VBG O2 Saturation 82.0 VBG Base Excess 8.4 Anion Gap 9 L Estim Creat Clear Calc 119.9 Estimated GFR > 60 POC Glucose 115 Random Glucose 113 Calcium 8.1 L D Phosphorus 2.2 L Magnesium 1.6 Albumin 3.0 L Random Vancomycin 9.4 L Blood Type Antibody Screen Crossmatch Microbiology Microbiology Results: Microbiology 01/18/23 18:52 Blood Culture - Preliminary Blood - Venous No growth after 24 hours. 01/18/23 18:52 Blood Culture - Preliminary Blood - Venous No growth after 24 hours. Procedures Date of Service Date of Service: 01/20/23 Progress Note: A&P Assessment and plan (1) Retroperitoneal hematoma: Status: Acute (2) Bicuspid aortic valve: Status: Acute (3) Ascending aorta dilatation: Status: Acute (4) Aortic stenosis: Status: Acute (5) Anemia: Status: Acute (6) Ileus: Status: Acute Plan While the patient reports flatus, his abdominal exam is suggestive of an ileus or slow gut transit given his tympany and I have ordered him to be on NPO except for sips of water for meds and ice chips as well as comfort. I have ordered abdominal x-rays to assess if he has a significant stool burden and would benefit from enemas. Patient receive another unit of PRBCs. I suspect he is still equilibrating given his reported lack of pain is when he was bleeding. Continue to monitor Patient requested that I call his father at [phone] and an update of the plan was explained and his questions answered. Time Spent With Patient Time: Total time managing care of this patient today ____ minutes. Quality Stroke Does the patient have a stroke diagnosis?: No VTE Prior VTE?: No VTE Risk Level:: Surgical - moderate VTE Device Contraindication: N/A - Device Ordered VTE Drug Contraindication: Treatment Not Tolerated
[2023-01-20] MEDS: Potassium Phosphate/NS 15 MMOL/250 ML PLAST..BAG 62.5 MMOL IV (08:59)
[2023-01-20] MEDS: Furosemide 20 MG/2 ML VIAL 10 MG IVPUSH ×2 (08:59→18:18)
[2023-01-20] MEDS: Albumin Human 25 % 100 ML IV (09:00)
[2023-01-20] MEDS: Docusate Sodium 100 MG CAPSULE 200 MG PO (09:00)
[2023-01-20] MEDS: vancomycin HCL 1,500 MG in 0.9 % Sodium Chloride 500 ML 333.33 MG IV ×2 (09:12→20:58)
[2023-01-20 12:33] LABS: Glucose, Whole Blood 105 mg/dL (60-115)
[2023-01-20 17:37] LABS: Glucose, Whole Blood 91 mg/dL (60-115)
[2023-01-20 18:05] LABS: MANUAL DIFF FLAG NO
[2023-01-20 18:06] LABS: Basophils Percent Auto 0.3 % (0-2); Eosinophils Absolute Auto 0.1 X10*3/uL (0.0-0.4); Eosinophils Percent Auto 0.4 % (0-4); Hematocrit 25.7 % (42.0-52.0); Hemoglobin 8.6 g/dl (14.0-18.0); Imm Gran Abs Auto 0.18 X10*3/uL (0.00-0.03); Imm Gran Pct Auto 1.6 % (0.0-0.4); Lymphocytes Absolute Auto 1.8 X10*3/uL (1.2-4.9); Lymphocytes Percent Auto 16.1 % (20-40); Mean Corpuscular HGB Conc 33.5 g/dl (31.0-36.0); Mean Corpuscular Hemoglobin 30.6 pg (27.0-33.0); Mean Corpuscular Volume 91.5 fL (80.0-98.0); Mean Platelet Volume 9.8 fL (9.4-12.4); Monocytes Absolute Auto 0.9 X10*3/uL (0.1-1.2); Monocytes Percent Auto 7.7 % (2-11); NRBC Pct Auto 0.3 /100WBC (0.0-0.2); Neutrophils Absolute Auto 8.3 x10*3/uL (2.0-8.3); Neutrophils Percent Auto 73.9 % (45-73); Platelet Count 141 X10*3/uL (160-400); Red Blood Count 2.81 X10*6/uL (4.60-5.80); Red Cell Distribution Width 15.1 % (11.0-16.0); White Blood Count 11.3 X10*3/uL (4.8-10.8)
[2023-01-20 23:05] LABS: Glucose, Whole Blood 102 mg/dL (60-115)
[2023-01-21] VITALS (26 sets, daily range): BP systolic 112–148; BP diastolic 53–89; PULSE 78–93; RESP 18–93; TEMP 36.9–37.8; O2SAT 89–96; BMI 26.9
[2023-01-21] MEDS: Piperacillin Sodium/Tazobactam 3.375 GM in 0.9 % Sodium Chloride 50 ML IV (03:38)
[2023-01-21 05:38] LABS: VBG HCO3 28 mmol/L (22-26); VBG pCO2 34 mmHg; VBG pH 7.52 (7.32-7.43); VBG pO2 46 mmHg
[2023-01-21 05:40] LABS: Venous Blood Gas Refer to POC result
[2023-01-21 05:47] LABS: MANUAL DIFF FLAG NO
[2023-01-21 05:54] LABS: Basophils Percent Auto 0.1 % (0-2); Eosinophils Absolute Auto 0.1 X10*3/uL (0.0-0.4); Eosinophils Percent Auto 0.7 % (0-4); Hematocrit 23.6 % (42.0-52.0); Imm Gran Abs Auto 0.18 X10*3/uL (0.00-0.03); Imm Gran Pct Auto 1.9 % (0.0-0.4); Lymphocytes Absolute Auto 1.5 X10*3/uL (1.2-4.9); Lymphocytes Percent Auto 15.5 % (20-40); Mean Corpuscular HGB Conc 33.9 g/dl (31.0-36.0); Mean Corpuscular Hemoglobin 30.8 pg (27.0-33.0); Mean Corpuscular Volume 90.8 fL (80.0-98.0); Mean Platelet Volume 9.6 fL (9.4-12.4); Monocytes Absolute Auto 0.9 X10*3/uL (0.1-1.2); Monocytes Percent Auto 9.2 % (2-11); NRBC Pct Auto 0.2 /100WBC (0.0-0.2); Neutrophils Absolute Auto 6.8 x10*3/uL (2.0-8.3); Neutrophils Percent Auto 72.6 % (45-73); Platelet Count 134 X10*3/uL (160-400); Red Cell Distribution Width 15.2 % (11.0-16.0); White Blood Count 9.4 X10*3/uL (4.8-10.8)
[2023-01-21 06:08] LABS: Anion Gap 11 (12-20); Blood Urea Nitrogen 6 mg/dL (9-16); Calcium 8.3 mg/dL (8.4-10.2); Carbon Dioxide 26 mmol/L (22-29); Chloride 102 mmol/L (96-108); Creatinine Clr Calc Pharmacy 134.2; Estimated Glomerular Filt Rate > 60; Glucose Random 119 mg/dL (60-115); Magnesium 1.8 mg/dL (1.6-2.6); Phosphorus 1.9 mg/dL (2.7-4.5); Potassium 3.1 mmol/L (3.3-5.1); Sodium 136 mmol/L (135-145)
[2023-01-21] MEDS: Pantoprazole Sodium 40 MG/10 ML VIAL IVPUSH (06:09)
--- NOTE | 2023-01-21 06:14 | P.PNGS_ITS ---
Subjective Subjective Date of Service: 01/21/23 Physical Exam 2 Vital Signs: Vital Signs: Last Vital Signs Temp 98.9 F 01/21/23 03:59 Pulse 85 01/21/23 06:00 Resp 93 H 01/21/23 06:00 BP 137/63 01/21/23 06:00 Pulse Ox 93 01/21/23 06:00 O2 Del Method Nasal Cannula 01/21/23 06:00 O2 Flow Rate 2 01/21/23 06:00 FiO2 50 01/19/23 10:00 BMI result Body Mass Index 26.9 Objective Data Active Medications Dextrose (Dextrose 50 % 25 Gm/50 Ml Syringe) 25 gm IVPUSH Q15M PRN; Protocol PRN Reason: per Hypoglycemia Standing Ord. Docusate Sodium (Docusate Sodium 100 Mg Capsule) 200 mg PO BID [facility] Last Admin: 01/20/23 21:02 Dose: Not Given Documented By: KIERAN Non-Admin Reason: BM X3 Glucose (Glucose Gel 15 Gm Gel..Gram.) 15 gm PO Q15M PRN; Protocol PRN Reason: per Hypoglycemia Standing Ord. Hydromorphone HCl (Hydromorphone Hcl 0.5 Mg/0.5 Ml Syringe) 0.5 mg IVPUSH Q4H PRN; Protocol PRN Reason: Pain, Severe (Pain Scale 7-10) Last Admin: 01/18/23 22:34 Dose: 0.5 mg Documented By: FERCHO Hydromorphone HCl (Hydromorphone Hcl 0.5 Mg/0.5 Ml Syringe) 0.25 mg IVPUSH Q5M PRN; Protocol PRN Reason: Pain, Severe (Pain Scale 7-10) Promethazine HCl 6.25 mg/ (Sodium Chloride) 50.25 mls @ 201 mls/hr IV ONCE PRN PRN Reason: Nausea and Vomiting Piperacillin Sod/Tazobactam (Sod 3.375 gm/ Sodium Chloride) 50 mls @ 100 mls/hr IV Q8H [facility] Last Infusion: 01/21/23 04:12 Dose: Infused Documented By: KIERAN Vancomycin HCl 1,500 mg/ (Sodium Chloride) 500 mls @ 333.333 mls/hr IV Q12H [facility] Last Infusion: 01/20/23 22:50 Dose: Infused Documented By: KIERAN Insulin Human Lispro (Insulin Lispro 100 Unit/Ml 3 Ml Vial) 0 unit SUBCUT Q6H [facility]; Protocol Last Admin: 01/20/23 23:15 Dose: Not Given Documented By: KIERAN Non-Admin Reason: No Insulin Coverage Ondansetron HCl (Ondansetron Hcl 4 Mg/2 Ml Vial) 4 mg IVPUSH Q8H PRN PRN Reason: Nausea and Vomiting Pantoprazole Sodium (Pantoprazole Sodium 40 Mg/10 Ml Vial) 40 mg IVPUSH DAILY@0630 [facility] Last Admin: 01/21/23 06:09 Dose: 40 mg Documented By: KIERAN Pharmacy Consult (Consult Rx Vancomycin Dosing) 1 each MISCELLANE DAILY PRN PRN Reason: Consult order Sodium Chloride (0.9 % Sodium Chloride Flush 3 Ml Syringe) 3 ml IVFLUSH QSHIFT [facility] Last Admin: 01/20/23 21:02 Dose: 3 ml Documented By: KIERAN Labs 01/21/23 05:34 01/21/23 05:34 Labs: Laboratory Results - last 24 hr 01/18/23 01/20/23 01/20/23 14:33 12:30 17:32 MCV MCH MCHC RDW Plt Count MPV Immature Gran % (Auto) Neut % (Auto) Lymph % (Auto) [place] % (Auto) Eos % (Auto) Baso % (Auto) Lymph # (Auto) [place] # (Auto) Eos # (Auto) Baso # (Auto) Abs Immat Gran (auto) Absolute Neuts (auto) Absolute Nucleated RBC Nucleated RBC % (auto) VBG pH VBG pCO2 VBG pO2 VBG HCO3 VBG O2 Saturation VBG Base Excess Anion Gap Estim Creat Clear Calc Estimated GFR POC Glucose 105 91 Random Glucose Calcium Phosphorus Magnesium Random Vancomycin Blood Type O Positive Antibody Screen NEGATIVE Crossmatch See Detail 01/20/23 01/20/23 01/21/23 17:54 23:02 05:32 MCV 91.5 MCH 30.6 MCHC 33.5 RDW 15.1 Plt Count 141 L MPV 9.8 Immature Gran % (Auto) 1.6 H Neut % (Auto) 73.9 H Lymph % (Auto) 16.1 L [place] % (Auto) 7.7 Eos % (Auto) 0.4 Baso % (Auto) 0.3 Lymph # (Auto) 1.8 [place] # (Auto) 0.9 Eos # (Auto) 0.1 Baso # (Auto) 0.0 Abs Immat Gran (auto) 0.18 H Absolute Neuts (auto) 8.3 Absolute Nucleated RBC 0.030 H Nucleated RBC % (auto) 0.3 H VBG pH 7.52 H VBG pCO2 34 VBG pO2 46 VBG HCO3 28 H VBG O2 Saturation 79.0 VBG Base Excess 6.0 Anion Gap Estim Creat Clear Calc Estimated GFR POC Glucose 102 Random Glucose Calcium Phosphorus Magnesium Random Vancomycin Blood Type Antibody Screen Crossmatch 01/21/23 05:34 MCV 90.8 MCH 30.8 MCHC 33.9 RDW 15.2 Plt Count 134 L MPV 9.6 Immature Gran % (Auto) 1.9 H Neut % (Auto) 72.6 Lymph % (Auto) 15.5 L [place] % (Auto) 9.2 Eos % (Auto) 0.7 Baso % (Auto) 0.1 Lymph # (Auto) 1.5 [place] # (Auto) 0.9 Eos # (Auto) 0.1 Baso # (Auto) 0.0 Abs Immat Gran (auto) 0.18 H Absolute Neuts (auto) 6.8 Absolute Nucleated RBC 0.020 H Nucleated RBC % (auto) 0.2 VBG pH VBG pCO2 VBG pO2 VBG HCO3 VBG O2 Saturation VBG Base Excess Anion Gap 11 L Estim Creat Clear Calc 134.2 Estimated GFR > 60 POC Glucose Random Glucose 119 H Calcium 8.3 L Phosphorus 1.9 L Magnesium 1.8 Random Vancomycin 12.0 L Blood Type Antibody Screen Crossmatch Imaging Abdominal x-ray: Radiologist's impression: Impressions KUB X-Ray 01/20/23 10:52 IMPRESSION: No acute finding. Microbiology Microbiology Results: Microbiology 01/18/23 18:52 Blood Culture - Preliminary Blood - Venous No growth after 48 hours. 01/18/23 18:52 Blood Culture - Preliminary Blood - Venous No growth after 48 hours. Procedures Date of Service Date of Service: 01/21/23 Progress Note: A&P Assessment and plan (1) Retroperitoneal hematoma: Status: Acute (2) Ileus: Status: Acute (3) Hemorrhagic shock: Status: Acute (4) Hypotension: Status: Acute (5) Aortic stenosis: Status: Acute (6) Ascending aorta dilatation: Status: Acute Plan Continue to monitor hemoglobin. I suspect the patient is still equilibrating given his large retroperitoneal hematoma and hemoperitoneum. However, a definitive bleeding source was never identified. If the patient is still experiencing a drifting hemoglobin repeat CT with IV contrast will be in order. Given the distorted intra-abdominal anatomy, angiogram and embolization may be helpful in this situation. Patient is more stable at this time and this service may be available on site. Stopping antibiotics at this time; advanced diet, trend labs. Time Spent With Patient Time: Total time managing care of this patient today ____ minutes. Quality Stroke Does the patient have a stroke diagnosis?: No VTE Prior VTE?: No VTE Risk Level:: Surgical - moderate VTE Device Contraindication: N/A - Device Ordered VTE Drug Contraindication: Treatment Not Tolerated
--- NOTE | 2023-01-21 06:35 | PC.NURSE ---
PT A&OX3. VITAL SIGNS STABLE. TEMP 99.9 TYMP. MONITOR SHOWS NSR, 70-80'S, NO ECTOPY. DENIES PAIN. ABD SEMI FIRM TO SOFT, + BOWEL SOUNDS 4 QUADS. PT IS TAKING CLEAR LIQUID DIET WITHOUT ILL EFFECT. OOB TO BEDSIDE COMMODE SEVERAL TIMES OVERNIGHT FOR BM. PASSING LIQUID BROWN STOOL WITH FORMED STOOL. PT ABLE TO MOVE WELL AND BEAR HIS OWN WEIGHT. ABLE TO CLEAN SELF. STATES HE IS ALSO PASSING GAS. DSG RT GROIN IS D&I. NO S/S OF BLEEDING. PT IS DOING HIS INCENTIVE SPIROMETER TO THE MAX AMOUNT. LUNGS ARE CLEAR. O2 AT 2L VIA NC. O2 [id number]%.
--- NOTE | 2023-01-21 06:35 | HE.PHANOTE ---
RE VANCO DOSING TROUGH HAS INCREASED BUT IS STILL SUBTHERAPEUTIC AT 12. RENAL FUNCTION STILL GOOD. WILL KEEP TDD SAME BUT INCREASE DOSING FREQUENCY SO NEW DOSE IS 1000 Q8 AND RECHECK LEVEL AGAIN 01/22 @0600. PT SHOULD BE ABOUT 13 TO 14 AT THAT TIME AND MAY NEED TO INCREASE TO 1250 Q8 LONG RENAL FUNCTION IS STILL GOOD.
[2023-01-21] MEDS: 0.9 % Sodium Chloride Flush 3 ML SYRINGE IVFLUSH ×3 (07:41→22:23)
[2023-01-21] MEDS: Potassium Phosphate/NS 15 MMOL/250 ML PLAST..BAG 62.5 MMOL IV (07:41)
[2023-01-21] MEDS: vancomycin HCL 1,000 MG in 0.9 % Sodium Chloride 250 ML 270 MG IV (07:42)
[2023-01-21] MEDS: Docusate Sodium 100 MG CAPSULE 200 MG PO (07:44)
--- NOTE | 2023-01-21 08:36 | PM.CCPN ---
Subjective Subjective Date of Service: 01/21/23 Interval History: no significant overnight events Critical Care Time (minutes): 60 Physical Exam Vital Signs: Vital Signs: Last Vital Signs Temp 98.5 F 01/21/23 08:00 Pulse 90 01/21/23 08:00 Resp 20 01/21/23 08:00 BP 128/89 01/21/23 08:00 Pulse Ox 95 01/21/23 08:00 O2 Del Method Nasal Cannula 01/21/23 08:00 O2 Flow Rate 2 01/21/23 08:00 FiO2 50 01/19/23 10:00 BMI result Body Mass Index 26.9 Const: General: cooperative, healthy appearing, comfortable, no acute distress, well developed, alert and awake Orientation/consciousness: patient oriented x3 HEENT: Head: Yes normal to inspection, Yes normocephalic and Yes atraumatic Eyes: General: appearance normal, both eyes and all related structures Neck: Neck: Yes normal visual inspection, Yes no meningeal signs and Yes supple Chest: Chest palpation & inspection: normal inspection of the chest Resp: Other: no rales, rhonchi, wheezing Effort & Inspection: normal respiratory effort Cardio: Rate: regular rate Rhythm: regular rhythm GI: Inspection: Yes normal to inspection, No Abdominal wall edema and No distended Palpation (GI): Soft to palpation, not firm, nontender, no guarding and not rigid Skin: General skin exam: no rashes or lesions noted Neuro: General: patient oriented x3, moves all extremities, no meningeal signs and no focal motor deficits Extrem: Other: 1+ pitting edema to bilateral knees General: Yes normal to inspection, Yes full ROM and Yes capillary refill normal Psych: Appearance: grossly normal Objective Data Labs 01/21/23 05:34 01/21/23 05:34 Labs: Laboratory Results - last 24 hr 01/18/23 01/20/23 01/20/23 14:33 12:30 17:32 WBC RBC Hgb Hct MCV MCH MCHC RDW Plt Count MPV Immature Gran % (Auto) Neut % (Auto) Lymph % (Auto) Barnes % (Auto) Eos % (Auto) Baso % (Auto) Lymph # (Auto) Barnes # (Auto) Eos # (Auto) Baso # (Auto) Abs Immat Gran (auto) Absolute Neuts (auto) Absolute Nucleated RBC Nucleated RBC % (auto) VBG pH VBG pCO2 VBG pO2 VBG HCO3 VBG O2 Saturation VBG Base Excess Sodium Potassium Chloride Carbon Dioxide Anion Gap BUN Creatinine Estim Creat Clear Calc Estimated GFR POC Glucose 105 91 Random Glucose Calcium Phosphorus Magnesium Random Vancomycin Blood Type O Positive Antibody Screen NEGATIVE Crossmatch See Detail 01/20/23 01/20/23 01/21/23 17:54 23:02 05:32 WBC 11.3 H RBC 2.81 L Hgb 8.6 L Hct 25.7 L MCV 91.5 MCH 30.6 MCHC 33.5 RDW 15.1 Plt Count 141 L MPV 9.8 Immature Gran % (Auto) 1.6 H Neut % (Auto) 73.9 H Lymph % (Auto) 16.1 L Barnes % (Auto) 7.7 Eos % (Auto) 0.4 Baso % (Auto) 0.3 Lymph # (Auto) 1.8 Barnes # (Auto) 0.9 Eos # (Auto) 0.1 Baso # (Auto) 0.0 Abs Immat Gran (auto) 0.18 H Absolute Neuts (auto) 8.3 Absolute Nucleated RBC 0.030 H Nucleated RBC % (auto) 0.3 H VBG pH 7.52 H VBG pCO2 34 VBG pO2 46 VBG HCO3 28 H VBG O2 Saturation 79.0 VBG Base Excess 6.0 Sodium Potassium Chloride Carbon Dioxide Anion Gap BUN Creatinine Estim Creat Clear Calc Estimated GFR POC Glucose 102 Random Glucose Calcium Phosphorus Magnesium Random Vancomycin Blood Type Antibody Screen Crossmatch 01/21/23 05:34 WBC 9.4 RBC 2.60 L Hgb 8.0 L Hct 23.6 L MCV 90.8 MCH 30.8 MCHC 33.9 RDW 15.2 Plt Count 134 L MPV 9.6 Immature Gran % (Auto) 1.9 H Neut % (Auto) 72.6 Lymph % (Auto) 15.5 L Barnes % (Auto) 9.2 Eos % (Auto) 0.7 Baso % (Auto) 0.1 Lymph # (Auto) 1.5 Barnes # (Auto) 0.9 Eos # (Auto) 0.1 Baso # (Auto) 0.0 Abs Immat Gran (auto) 0.18 H Absolute Neuts (auto) 6.8 Absolute Nucleated RBC 0.020 H Nucleated RBC % (auto) 0.2 VBG pH VBG pCO2 VBG pO2 VBG HCO3 VBG O2 Saturation VBG Base Excess Sodium 136 Potassium 3.1 L Chloride 102 Carbon Dioxide 26 Anion Gap 11 L BUN 6 L Creatinine 0.67 Estim Creat Clear Calc 134.2 Estimated GFR > 60 POC Glucose Random Glucose 119 H Calcium 8.3 L Phosphorus 1.9 L Magnesium 1.8 Random Vancomycin 12.0 L Blood Type Antibody Screen Crossmatch Microbiology Microbiology Results: Microbiology 01/18/23 18:52 Blood - Venous Blood Culture - Preliminary No growth after 48 hours. 01/18/23 18:52 Blood - Venous Blood Culture - Preliminary No growth after 48 hours. Progress Note: A&P Assessment and plan (1) Retroperitoneal hematoma: Status: Acute (2) Inguinal hernia of right side with obstruction and without gangrene: Status: Acute Plan Patient is a 52 Y M with bicuspid aortic valve, c/b aortic stenosis, p/w R inguinal hernia c/b small bowel obstruction, s/p R inguinal hernia repair, found to be hemorrhagic shock d/t retroperitoneal hematoma, s/p exploratory laparoscopy N: no acute issues CV: hemorrhagic shock, resolved; last transfusion 01/20 R: 2 L NC, incentive spirometer GI: R inguinal hernia s/p repair; retroperitoneal hematoma c/b hemorrhagic shock; clear liquid diet, advance diet per surgery : no acute issues; c/f some volume overload s/p resuscitation; furosemide IV PRN H: hemorrhagic shock, resolved; to consider anticoagulation per surgery ID: empiric vancomycin, zosyn; to consider discontinuing after 48 hours if cultures unremarkable and improvement in clinical status E: no acute issues P: no acute issues Quality Stroke Does the patient have a stroke diagnosis?: No VTE Prior VTE?: No VTE Risk Level:: Surgical - moderate VTE Device Contraindication: N/A - Device Ordered VTE Drug Contraindication: Treatment Not Tolerated
[2023-01-21] MEDS: Calcium Chloride 1 GM/10 ML SYRINGE IVPUSH (09:22)
[2023-01-21] MEDS: Acetaminophen 325 MG TABLET 650 MG PO ×2 (10:15→16:22)
[2023-01-21 18:29] LABS: MANUAL DIFF FLAG NO
[2023-01-21 18:58] LABS: Basophils Percent Auto 0.3 % (0-2); Eosinophils Absolute Auto 0.1 X10*3/uL (0.0-0.4); Eosinophils Percent Auto 0.9 % (0-4); Hematocrit 24.5 % (42.0-52.0); Hemoglobin 8.1 g/dl (14.0-18.0); Lymphocytes Absolute Auto 1.8 X10*3/uL (1.2-4.9); Lymphocytes Percent Auto 18.1 % (20-40); Mean Corpuscular HGB Conc 33.1 g/dl (31.0-36.0); Mean Corpuscular Hemoglobin 30.9 pg (27.0-33.0); Mean Corpuscular Volume 93.5 fL (80.0-98.0); Mean Platelet Volume 10.4 fL (9.4-12.4); Monocytes Percent Auto 9.6 % (2-11); NRBC Pct Auto 0.3 /100WBC (0.0-0.2); Neutrophils Absolute Auto 6.8 x10*3/uL (2.0-8.3); Neutrophils Percent Auto 68.1 % (45-73); Platelet Count 165 X10*3/uL (160-400); Red Blood Count 2.62 X10*6/uL (4.60-5.80); Red Cell Distribution Width 15.4 % (11.0-16.0)
[2023-01-21] MEDS: Acetaminophen 325 MG TABLET 975 MG PO (22:18)
[2023-01-22] VITALS (21 sets, daily range): BP systolic 110–147; BP diastolic 41–73; PULSE 66–85; RESP 16–32; TEMP 36.8–38.2; O2SAT 90–98; BMI 25.2
--- NOTE | 2023-01-22 00:31 | PC.NURSE ---
CARE ASSUMED 7PM...ALERT..ORIENTED X3...BP STABLE...TOLERATING PO FLUIDS W/O DIFFICULTING ..6PM H/H=8.1/24.5..PREVIOUS TEMP PER SHIFT REPORT 101.3 TEMPORAL AND 100.1 ORAL...PER REPORT DR SANTANA UPDATED R/T TEMP AND H/H....F/U TEMPS =99.4-99.3-99.2 TEMPORAL AND ORAL TEMP 98.8...OOB TO BEDSIDE COMMODE WITH STEADY GAIT...VOIDED AND PASSED LOOSES BROWN STOOL...SCROTUN AND PENIS SWOLLEN AND ECCHYMOTIC...SURGEON AWARE PER REPORT....TYLENOL PO 10:15PM FOR C/O MILD LOWER BACK ACHE D/T PROLONGED BEDREST WITH RELIEF..DENIES NAUSEA OR ABDOMINAL PAIN
[2023-01-22] MEDS: Pantoprazole Sodium 40 MG/10 ML VIAL IVPUSH (05:42)
[2023-01-22 05:51] LABS: MANUAL DIFF FLAG NO
[2023-01-22 06:00] LABS: Basophils Percent Auto 0.2 % (0-2); Eosinophils Absolute Auto 0.2 X10*3/uL (0.0-0.4); Hemoglobin 7.9 g/dl (14.0-18.0); Imm Gran Abs Auto 0.14 X10*3/uL (0.00-0.03); Imm Gran Pct Auto 1.6 % (0.0-0.4); Lymphocytes Absolute Auto 1.6 X10*3/uL (1.2-4.9); Lymphocytes Percent Auto 17.8 % (20-40); Mean Corpuscular HGB Conc 32.9 g/dl (31.0-36.0); Mean Corpuscular Hemoglobin 30.3 pg (27.0-33.0); Mean Platelet Volume 9.9 fL (9.4-12.4); Monocytes Absolute Auto 0.9 X10*3/uL (0.1-1.2); Monocytes Percent Auto 10.1 % (2-11); NRBC Pct Auto 0.2 /100WBC (0.0-0.2); Neutrophils Percent Auto 68.3 % (45-73); Platelet Count 176 X10*3/uL (160-400); Red Blood Count 2.61 X10*6/uL (4.60-5.80); Red Cell Distribution Width 15.2 % (11.0-16.0); White Blood Count 8.8 X10*3/uL (4.8-10.8)
[2023-01-22 06:03] LABS: Vancomycin Random 2.8 mcg/mL (15-20)
[2023-01-22 06:21] LABS: Anion Gap 10 (12-20); Blood Urea Nitrogen 5 mg/dL (9-16); Calcium 8.6 mg/dL (8.4-10.2); Carbon Dioxide 27 mmol/L (22-29); Chloride 103 mmol/L (96-108); Creatinine Clr Calc Pharmacy 128.4; Estimated Glomerular Filt Rate > 60; Glucose Random 106 mg/dL (60-115); Magnesium 1.8 mg/dL (1.6-2.6); Phosphorus 2.7 mg/dL (2.7-4.5); Potassium 3.1 mmol/L (3.3-5.1); Sodium 137 mmol/L (135-145)
--- NOTE | 2023-01-22 07:19 | PM.PNGS ---
Subjective Subjective Date of Service: 01/22/23 Patient reports: no new complaints, feels better, tolerating a regular diet and flatus Interval history: Patient reports that he is doing well but having some abdominal distension. His last bowel movement was yesterday and he reports that he has been passing gas. He denies any chest pain, difficulty breathing, shortness of breath. Physical Exam Vital Signs: Vital Signs: Last Vital Signs Temp 98.6 F 01/22/23 03:36 Pulse 71 01/22/23 07:00 Resp 24 H 01/22/23 07:00 BP 110/41 L 01/22/23 07:00 Pulse Ox 92 01/22/23 07:00 O2 Del Method Nasal Cannula 01/22/23 07:00 O2 Flow Rate 2 01/22/23 07:00 FiO2 50 01/19/23 10:00 BMI result Body Mass Index 25.2 On exam, the patient is nontoxic and in surprisingly good spirits He is anicteric and having no respiratory distress His abdomen is distended and tympanitic with no peritoneal sign. His right groin incision and other abdominal Band-Aids are dry with no significant drainage Objective Data Active Medications Acetaminophen (Acetaminophen 325 Mg Tablet) 975 mg PO Q6H PRN PRN Reason: Pain, Mild (Pain Scale 1-3) Last Admin: 01/21/23 22:18 Dose: 975 mg Documented By: KEVEN Dextrose (Dextrose 50 % 25 Gm/50 Ml Syringe) 25 gm IVPUSH Q15M PRN; Protocol PRN Reason: per Hypoglycemia Standing Ord. Docusate Sodium (Docusate Sodium 100 Mg Capsule) 200 mg PO BID KISHORE Last Admin: 01/21/23 20:34 Dose: Not Given Documented By: KEVEN Non-Admin Reason: Patient Refused Glucose (Glucose Gel 15 Gm Gel..Gram.) 15 gm PO Q15M PRN; Protocol PRN Reason: per Hypoglycemia Standing Ord. Hydromorphone HCl (Hydromorphone Hcl 0.5 Mg/0.5 Ml Syringe) 0.5 mg IVPUSH Q4H PRN; Protocol PRN Reason: Pain, Severe (Pain Scale 7-10) Last Admin: 01/18/23 22:34 Dose: 0.5 mg Documented By: FERCHO Hydromorphone HCl (Hydromorphone Hcl 0.5 Mg/0.5 Ml Syringe) 0.25 mg IVPUSH Q5M PRN; Protocol PRN Reason: Pain, Severe (Pain Scale 7-10) Promethazine HCl 6.25 mg/ (Sodium Chloride) 50.25 mls @ 201 mls/hr IV ONCE PRN PRN Reason: Nausea and Vomiting Potassium Phosphate (Kphos) 15 mmol in 250 mls @ 62.5 mls/hr IV Q4H [facility] Stop: 01/22/23 14:59 Ondansetron HCl (Ondansetron Hcl 4 Mg/2 Ml Vial) 4 mg IVPUSH Q8H PRN PRN Reason: Nausea and Vomiting Sodium Chloride (0.9 % Sodium Chloride Flush 3 Ml Syringe) 3 ml IVFLUSH QSHIFT [facility] Last Admin: 01/21/23 22:23 Dose: 3 ml Documented By: KEVEN Labs 01/22/23 05:27 01/22/23 05:27 Labs: Laboratory Results - last 24 hr 01/21/23 01/22/23 18:09 05:27 MCV 93.5 92.0 MCH 30.9 30.3 MCHC 33.1 32.9 RDW 15.4 15.2 Plt Count 165 176 MPV 10.4 9.9 Immature Gran % (Auto) 3.0 H 1.6 H Neut % (Auto) 68.1 68.3 Lymph % (Auto) 18.1 L 17.8 L [place] % (Auto) 9.6 10.1 Eos % (Auto) 0.9 2.0 Baso % (Auto) 0.3 0.2 Lymph # (Auto) 1.8 1.6 [place] # (Auto) 1.0 0.9 Eos # (Auto) 0.1 0.2 Baso # (Auto) 0.0 0.0 Abs Immat Gran (auto) 0.30 H 0.14 H Absolute Neuts (auto) 6.8 6.0 Absolute Nucleated RBC 0.030 H 0.020 H Nucleated RBC % (auto) 0.3 H 0.2 Anion Gap 10 L Estim Creat Clear Calc 128.4 Estimated GFR > 60 Random Glucose 106 Calcium 8.6 Phosphorus 2.7 Magnesium 1.8 Random Vancomycin 2.8 L Procedures Date of Service Date of Service: 01/22/23 Progress Note: A&P Assessment and plan (1) Retroperitoneal hematoma: Status: Acute (2) Ileus: Status: Acute (3) Bicuspid aortic valve: Status: Acute (4) Ascending aorta dilatation: Status: Acute (5) Aortic stenosis: Status: Acute (6) Inguinal hernia: Status: Acute Plan The patient appears to be stabilizing at this point. Unless objections from the medical record transcriber team, I believe he can be transferred to [place] [id number] to be monitored with b.i.d. CBC. If his hemoglobin remains stable, there is no need for repeat CT at this time or discussion of angiogram/embolization. I am exploring this option, in case it is needed. Time Spent With Patient Time: Total time managing care of this patient today ____ minutes. Quality Stroke Does the patient have a stroke diagnosis?: No VTE Prior VTE?: No VTE Risk Level:: Surgical - moderate VTE Device Contraindication: N/A - Device Ordered VTE Drug Contraindication: Treatment Not Tolerated
[2023-01-22] MEDS: 0.9 % Sodium Chloride Flush 3 ML SYRINGE IVFLUSH ×2 (07:44→17:11)
[2023-01-22] MEDS: Potassium Phosphate/NS 15 MMOL/250 ML PLAST..BAG 62.5 MMOL IV ×2 (07:44→12:04)
[2023-01-22] MEDS: Docusate Sodium 100 MG CAPSULE 200 MG PO ×2 (07:54→20:10)
[2023-01-22] MEDS: Acetaminophen 325 MG TABLET 975 MG PO ×2 (07:54→20:10)
--- NOTE | 2023-01-22 15:36 | MHC.CM.PN ---
Pt making clinical progress and able to transfer to [facility] floor today. Discussed [facility] needs once d/c'd to home: pt feels he will be managed without services at this time. Family to transport to home. CM to follow
[2023-01-22 18:54] LABS: MANUAL DIFF FLAG NO
[2023-01-22 18:56] LABS: Basophils Percent Auto 0.3 % (0-2); Eosinophils Absolute Auto 0.2 X10*3/uL (0.0-0.4); Eosinophils Percent Auto 1.8 % (0-4); Hemoglobin 8.4 g/dl (14.0-18.0); Imm Gran Abs Auto 0.18 X10*3/uL (0.00-0.03); Imm Gran Pct Auto 1.8 % (0.0-0.4); Lymphocytes Percent Auto 19.6 % (20-40); Mean Corpuscular HGB Conc 33.6 g/dl (31.0-36.0); Mean Corpuscular Hemoglobin 30.3 pg (27.0-33.0); Mean Corpuscular Volume 90.3 fL (80.0-98.0); Mean Platelet Volume 9.7 fL (9.4-12.4); Monocytes Absolute Auto 1.1 X10*3/uL (0.1-1.2); Monocytes Percent Auto 10.4 % (2-11); Neutrophils Absolute Auto 6.7 x10*3/uL (2.0-8.3); Neutrophils Percent Auto 66.1 % (45-73); Platelet Count 203 X10*3/uL (160-400); Red Blood Count 2.77 X10*6/uL (4.60-5.80); White Blood Count 10.2 X10*3/uL (4.8-10.8)
--- NOTE | 2023-01-23 01:15 | PC.NURSE ---
Acquired care at 2330. Pt was in bed. awake. Denies any pain. Full assessment is benign. Right groin incision is clean and intact.
[2023-01-23 04:00] VITALS: BP 124/70; PULSE 75; RESP 18; TEMP 37.3; O2SAT 95
[2023-01-23 06:34] LABS: Anion Gap 11 (12-20); Blood Urea Nitrogen 9 mg/dL (9-16); Calcium 8.7 mg/dL (8.4-10.2); Carbon Dioxide 26 mmol/L (22-29); Chloride 101 mmol/L (96-108); Creatinine Clr Calc Pharmacy 130.3; Estimated Glomerular Filt Rate > 60; Glucose Random 105 mg/dL (60-115); Magnesium 1.8 mg/dL (1.6-2.6); Phosphorus 2.5 mg/dL (2.7-4.5); Potassium 3.6 mmol/L (3.3-5.1); Sodium 134 mmol/L (135-145)
[2023-01-23 07:15] VITALS: BP 139/72; PULSE 76; RESP 20; TEMP 37.2; O2SAT 95
[2023-01-23] MEDS: Docusate Sodium 100 MG CAPSULE 200 MG PO ×2 (07:50→21:04)
[2023-01-23] MEDS: 0.9 % Sodium Chloride Flush 3 ML SYRINGE IVFLUSH ×3 (07:51→23:08)
--- NOTE | 2023-01-23 07:57 | P.PNGS_ITS ---
Subjective Subjective Date of Service: 01/23/23 Patient reports: no new complaints, feels better, flatus and bowel movement Interval history: Patient is been moved IMCU. He reports his morning labs have been drawn. He denies any significant abdominal pain and reports he is passing gas, tolerating his diet and moving his bowels. He otherwise denies chest pain, difficulty breathing or shortness of breath. The patient did have another fever overnight but denies any cough, difficulty breathing or shortness of breath, he is having loose stool but no watery diarrhea and has no urinary complaints. Physical Exam 2 Vital Signs: Vital Signs: Last Vital Signs Temp 98.9 F 01/23/23 07:15 Pulse 76 01/23/23 07:15 Resp 20 01/23/23 07:15 BP 139/72 01/23/23 07:15 Pulse Ox 95 01/23/23 07:15 O2 Del Method Room Air 01/23/23 07:15 O2 Flow Rate 2 01/22/23 17:00 FiO2 50 01/19/23 10:00 BMI result Body Mass Index 25.2 On exam, the patient is nontoxic and in surprisingly good spirits He is having no respiratory difficulty He is anicteric His abdomen is soft with mild right lower quadrant fullness but no peritoneal sign His right inguinal hernia dressing was just changed by the nurse and the area looks good. He is developing scrotal edema and seroma as expected. There are no trophic skin changes, redness in the area is minimally tender. Objective Data Active Medications Acetaminophen (Acetaminophen 325 Mg Tablet) 975 mg PO Q6H PRN PRN Reason: Pain, Mild (Pain Scale 1-3) Last Admin: 01/22/23 20:10 Dose: 975 mg Documented By: MERNA Dextrose (Dextrose 50 % 25 Gm/50 Ml Syringe) 25 gm IVPUSH Q15M PRN; Protocol PRN Reason: per Hypoglycemia Standing Ord. Docusate Sodium (Docusate Sodium 100 Mg Capsule) 200 mg PO BID KISHORE Last Admin: 01/23/23 07:50 Dose: 200 mg Documented By: DOBROB Glucose (Glucose Gel 15 Gm Gel..Gram.) 15 gm PO Q15M PRN; Protocol PRN Reason: per Hypoglycemia Standing Ord. Hydromorphone HCl (Hydromorphone Hcl 0.5 Mg/0.5 Ml Syringe) 0.5 mg IVPUSH Q4H PRN; Protocol PRN Reason: Pain, Severe (Pain Scale 7-10) Last Admin: 01/18/23 22:34 Dose: 0.5 mg Documented By: FERCHO Promethazine HCl 6.25 mg/ (Sodium Chloride) 50.25 mls @ 201 mls/hr IV ONCE PRN PRN Reason: Nausea and Vomiting Ondansetron HCl (Ondansetron Hcl 4 Mg/2 Ml Vial) 4 mg IVPUSH Q8H PRN PRN Reason: Nausea and Vomiting Sodium Chloride (0.9 % Sodium Chloride Flush 3 Ml Syringe) [facility] Last Admin: 01/23/23 07:51 Dose: 3 ml Documented By: VIOLETA Labs 01/22/23 18:40 01/23/23 05:39 Labs: Laboratory Results - last 24 hr 01/22/23 01/23/23 18:40 05:39 MCV 90.3 MCH 30.3 MCHC 33.6 RDW 15.0 Plt Count 203 MPV 9.7 Immature Gran % (Auto) 1.8 H Neut % (Auto) 66.1 Lymph % (Auto) 19.6 L [place] % (Auto) 10.4 Eos % (Auto) 1.8 Baso % (Auto) 0.3 Lymph # (Auto) 2.0 [place] # (Auto) 1.1 Eos # (Auto) 0.2 Baso # (Auto) 0.0 Abs Immat Gran (auto) 0.18 H Absolute Neuts (auto) 6.7 Absolute Nucleated RBC 0.000 Nucleated RBC % (auto) 0.0 Anion Gap 11 L Estim Creat Clear Calc 130.3 Estimated GFR > 60 Random Glucose 105 Calcium 8.7 Phosphorus 2.5 L Magnesium 1.8 This morning CBCD is currently pending Procedures Date of Service Date of Service: 01/23/23 Progress Note: A&P Assessment and plan (1) Retroperitoneal hematoma: Status: Acute (2) Bicuspid aortic valve: Status: Acute (3) Ascending aorta dilatation: Status: Acute (4) Aortic stenosis: Status: Acute (5) Anemia: Status: Acute Plan Await this morning's lab. If his hemoglobin remains stable, we can transition to daily, morning labs only. Findings of seroma is expected and was discussed with the patient. It is not unusual for patients with hematomas to periodically have issues with fevers. There is no evidence of ongoing infection given the patient's normal white blood cell counts and he is currently off antibiotics. He is having no pulmonary, GI or urinary symptoms to suggest a source and there were no skin complaints to suggest cutaneous infection. Continue present management and will reassess later today. Time Spent With Patient Time: Total time managing care of this patient today ____ minutes. Quality Stroke Does the patient have a stroke diagnosis?: No VTE Prior VTE?: No VTE Risk Level:: Surgical - moderate VTE Device Contraindication: N/A - Device Ordered VTE Drug Contraindication: Treatment Not Tolerated
[2023-01-23 10:20] LABS: MANUAL DIFF FLAG NO
[2023-01-23 10:25] LABS: Basophils Percent Auto 0.2 % (0-2); Eosinophils Absolute Auto 0.3 X10*3/uL (0.0-0.4); Eosinophils Percent Auto 1.9 % (0-4); Hematocrit 25.9 % (42.0-52.0); Hemoglobin 8.7 g/dl (14.0-18.0); Imm Gran Abs Auto 0.16 X10*3/uL (0.00-0.03); Imm Gran Pct Auto 1.2 % (0.0-0.4); Lymphocytes Absolute Auto 2.4 X10*3/uL (1.2-4.9); Lymphocytes Percent Auto 17.8 % (20-40); Mean Corpuscular HGB Conc 33.6 g/dl (31.0-36.0); Mean Corpuscular Hemoglobin 30.4 pg (27.0-33.0); Mean Corpuscular Volume 90.6 fL (80.0-98.0); Mean Platelet Volume 9.3 fL (9.4-12.4); Monocytes Absolute Auto 1.1 X10*3/uL (0.1-1.2); Monocytes Percent Auto 8.2 % (2-11); Neutrophils Absolute Auto 9.4 x10*3/uL (2.0-8.3); Neutrophils Percent Auto 70.7 % (45-73); Platelet Count 229 X10*3/uL (160-400); Red Blood Count 2.86 X10*6/uL (4.60-5.80); Red Cell Distribution Width 14.9 % (11.0-16.0); White Blood Count 13.3 X10*3/uL (4.8-10.8)
[2023-01-23 11:04] VITALS: BP 109/59; PULSE 74; RESP 20; TEMP 36.7; O2SAT 94
[2023-01-23 15:02] VITALS: BP 117/63; PULSE 78; RESP 16; TEMP 37.4; O2SAT 92
[2023-01-23 18:42] VITALS: BP 118/60; PULSE 77; RESP 14; TEMP 37.1; O2SAT 97
[2023-01-23] MEDS: Acetaminophen 325 MG TABLET 975 MG PO (21:04)
[2023-01-23 23:45] VITALS: BP 128/66; PULSE 72; RESP 18; TEMP 36.4; O2SAT 93
[2023-01-24] VITALS (7 sets, daily range): BP systolic 105–149; BP diastolic 57–71; PULSE 62–87; RESP 18–20; TEMP 36.6–38.6; O2SAT 93–97
[2023-01-24 06:26] LABS: MANUAL DIFF FLAG NO
[2023-01-24 06:33] LABS: Basophils Absolute Auto 0.1 X10*3/uL (0.0-0.2); Basophils Percent Auto 0.5 % (0-2); Eosinophils Absolute Auto 0.2 X10*3/uL (0.0-0.4); Eosinophils Percent Auto 1.8 % (0-4); Hematocrit 26.7 % (42.0-52.0); Hemoglobin 8.7 g/dl (14.0-18.0); Imm Gran Abs Auto 0.22 X10*3/uL (0.00-0.03); Imm Gran Pct Auto 1.8 % (0.0-0.4); Lymphocytes Percent Auto 16.3 % (20-40); Mean Corpuscular HGB Conc 32.6 g/dl (31.0-36.0); Mean Corpuscular Hemoglobin 30.3 pg (27.0-33.0); Monocytes Absolute Auto 1.1 X10*3/uL (0.1-1.2); Monocytes Percent Auto 8.9 % (2-11); Neutrophils Absolute Auto 8.7 x10*3/uL (2.0-8.3); Neutrophils Percent Auto 70.7 % (45-73); Platelet Count 246 X10*3/uL (160-400); Red Blood Count 2.87 X10*6/uL (4.60-5.80); Red Cell Distribution Width 14.7 % (11.0-16.0); White Blood Count 12.3 X10*3/uL (4.8-10.8)
[2023-01-24 06:46] LABS: Phosphorus 3.2 mg/dL (2.7-4.5)
--- NOTE | 2023-01-24 06:46 | P.CDIM_ITS ---
PROVIDER RESPONSE TEXT: To clarify, the appropriate diagnosis supported by the clinical indicators: Acute blood loss anemia with baseline chronic anemia: Pt preented aa year ago re: hernia & was no lexi to be anemic. His f/u regarding assessment has been poor. The etiology may be malignancy & has been discussed & doc umented at length. QUERY TEXT: PHYSICIAN'S DOCUMENTATION REQUEST Date of Query: 01/23/2023 08:41 AM EST Patient Name: Saroj Vega Admit Date: 01/18/2023 Dear Tl Petty, A review of the medical record indicates additional documentation may be needed. Please review below and update the documentation accordingly. Clinical Indicators: on 01/17/23: H&H: 10.5/31.5 Per General Surgery Progress Note 01/19/23: CT showed ongoing bleeding This led to a decision to re-operate the intraoperative findings at laparoscopy including the extensive adhesions from the patient's prior open appendectomy. 1 of these adhesions was likely torn when repaired his hernia leading to unrecognized, significant bl eeding and both his retroperitoneum and abdomen. At the time of surgery, no definitive bleeding point was identified but after irrigate, there was no gross blood. Based on the above, could you clarify which of the following is the most likely type of anemia you ar e evaluating, treating, and/or monitoring? Acute blood loss anemia Acute blood loss anemia with baseline chronic anemia (specify type) Anemia of chronic disease indicate if neoplastic disease, CKD, or other Chronic iron deficiency anemia due to blood loss Other (explain) Clinically unable to determine (explain) Thank you, Virginia Montoya RN Use of terms such as suspected, likely, concern for, or probable (associated with a specific diagnosi s that is being evaluated, monitored, or treated as if it exists) are acceptable and can be coded in the inpatient se tting, when documented at the time of discharge. Please use your independent medical judgment in providing your response. THIS QUERY IS PART OF THE PERMANENT MEDICAL RECORD
--- NOTE | 2023-01-24 06:47 | PM.PNGS ---
Subjective Subjective Date of Service: 01/24/23 Patient reports: no new complaints, feels better, tolerating a regular diet and bowel movement Interval history: The patient reports that he is doing well. He has been up and walking in the [place] using his walker which is been recommended due to hospital policy regarding concerns of safety. He denies chest pain, difficulty breathing, shortness of breath, fevers or chills, cough or urinary symptoms. Physical Exam Vital Signs: Vital Signs: Last Vital Signs Temp 97.9 F 01/24/23 04:00 Pulse 76 01/24/23 04:00 Resp 18 01/24/23 04:00 BP 149/71 H 01/24/23 04:00 Pulse Ox 96 01/24/23 04:00 O2 Del Method Room Air 01/24/23 04:00 O2 Flow Rate 2 01/22/23 17:00 FiO2 50 01/19/23 10:00 BMI result Body Mass Index 25.2 On exam he is nontoxic and in surprisingly good spirits He is having no respiratory difficulty He is anicteric His abdomen is soft and nontender. His right inguinal herniorrhaphy incision is healing well with expected healing ridge but no erythema. We reviewed his seroma and that this is normal and expected. He has no peritoneal sign or cellulitis. His abdominal incisions are healing well with no evidence of infection. Objective Data Active Medications Acetaminophen (Acetaminophen 325 Mg Tablet) 975 mg PO Q6H PRN PRN Reason: Pain, Mild (Pain Scale 1-3) Last Admin: 01/23/23 21:04 Dose: 975 mg Documented By: ALISON Dextrose (Dextrose 50 % 25 Gm/50 Ml Syringe) 25 gm IVPUSH Q15M PRN; Protocol PRN Reason: per Hypoglycemia Standing Ord. Docusate Sodium (Docusate Sodium 100 Mg Capsule) 200 mg PO BID KISHORE Last Admin: 01/23/23 21:04 Dose: 200 mg Documented By: ALISON Glucose (Glucose Gel 15 Gm Gel..Gram.) 15 gm PO Q15M PRN; Protocol PRN Reason: per Hypoglycemia Standing Ord. Hydromorphone HCl (Hydromorphone Hcl 0.5 Mg/0.5 Ml Syringe) 0.5 mg IVPUSH Q4H PRN; Protocol PRN Reason: Pain, Severe (Pain Scale 7-10) Last Admin: 01/18/23 22:34 Dose: 0.5 mg Documented By: FERCHO Promethazine HCl 6.25 mg/ (Sodium Chloride) 50.25 mls @ 201 mls/hr IV ONCE PRN PRN Reason: Nausea and Vomiting Ondansetron HCl (Ondansetron Hcl 4 Mg/2 Ml Vial) 4 mg IVPUSH Q8H PRN PRN Reason: Nausea and Vomiting Sodium Chloride (0.9 % Sodium Chloride Flush 3 Ml Syringe) 3 ml IVFLUSH QSHIFT [facility] Last Admin: 01/23/23 23:08 Dose: 3 ml Documented By: ALISON Labs 01/24/23 05:51 01/23/23 05:39 Labs: Laboratory Results - last 24 hr 01/23/23 01/24/23 10:03 05:51 MCV 90.6 93.0 MCH 30.4 30.3 MCHC 33.6 32.6 RDW 14.9 14.7 Plt Count 229 246 MPV 9.3 L 10.0 Immature Gran % (Auto) 1.2 H 1.8 H Neut % (Auto) 70.7 70.7 Lymph % (Auto) 17.8 L 16.3 L [place] % (Auto) 8.2 8.9 Eos % (Auto) 1.9 1.8 Baso % (Auto) 0.2 0.5 Lymph # (Auto) 2.4 2.0 [place] # (Auto) 1.1 1.1 Eos # (Auto) 0.3 0.2 Baso # (Auto) 0.0 0.1 Abs Immat Gran (auto) 0.16 H 0.22 H Absolute Neuts (auto) 9.4 H 8.7 H Absolute Nucleated RBC 0.000 0.000 Nucleated RBC % (auto) 0.0 0.0 Phosphorus 3.2 Magnesium 2.0 Microbiology Microbiology Results: Microbiology 01/18/23 18:52 Blood Culture - Final Blood - Venous No growth after 5 days. 01/18/23 18:52 Blood Culture - Final Blood - Venous No growth after 5 days. Procedures Date of Service Date of Service: 01/24/23 Progress Note: A&P Assessment and plan (1) Retroperitoneal hematoma: Status: Acute (2) Inguinal hernia: Status: Resolved Plan Patient seems to be doing well. He has a mild leukocytosis but is hemoglobin is stable. He is tolerating his diet. Will discuss CT imaging with IV contrast given the possibility of infection in the hematoma given his low-grade temps and leukocytosis. Consult PT to assess his postoperative deconditioning. Time Spent With Patient Time: Total time managing care of this patient today ____ minutes. Quality Stroke Does the patient have a stroke diagnosis?: No VTE Prior VTE?: No VTE Risk Level:: Surgical - moderate VTE Device Contraindication: N/A - Device Ordered VTE Drug Contraindication: Treatment Not Tolerated
--- NOTE | 2023-01-24 09:15 | MHC.CM.PN ---
Patient is not yet medically cleared for dc (low grade temps & Leukocytosis); home is the goal and CM will continue to follow.
--- NOTE | 2023-01-24 09:31 | MHC.CM.PN ---
PT is recommending home with family support; CM will follow.
[2023-01-24] MEDS: Docusate Sodium 100 MG CAPSULE 200 MG PO ×2 (10:13→21:51)
[2023-01-24] MEDS: Acetaminophen 325 MG TABLET 975 MG PO ×2 (10:13→21:51)
[2023-01-24] MEDS: 0.9 % Sodium Chloride Flush 3 ML SYRINGE IVFLUSH ×2 (10:17→21:52)
[2023-01-25 00:29] VITALS: BP 109/59; PULSE 73; RESP 20; TEMP 36.9; O2SAT 93
[2023-01-25 06:57] VITALS: BP 117/61; PULSE 74; RESP 20; TEMP 36.6; O2SAT 95
--- NOTE | 2023-01-25 08:22 | P.PNGS_ITS ---
Subjective Subjective Date of Service: 01/25/23 Patient reports: no new complaints, feels better, tolerating a regular diet, flatus and bowel movement Interval history: The patient can use to report he is walking in the [place], tolerating a diet, not requiring any narcotic and is anxious for discharge. However, overnight, he had a T-max of 101 degrees. He did not recall the conversation about the concern for infection and unfortunately, his morning labs were delayed. These are currently pending. Explained to the patient the need to obtain a CT of the abdomen and pelvis with oral and IV contrast to assess whether not the hematoma has evidence that it is infected. If it is, interventional drainage procedure may be required. Patient is understandably frustrated but seems to understand at this point that this is for safety reasons since overwhelming infection can lead to fatal outcome. Physical Exam 2 Vital Signs: Vital Signs: Last Vital Signs Temp 97.8 F 01/25/23 06:57 Pulse 74 01/25/23 06:57 Resp 20 01/25/23 06:57 BP 117/61 01/25/23 06:57 Pulse Ox 95 01/25/23 06:57 O2 Del Method Room Air 01/25/23 06:57 O2 Flow Rate 2 01/22/23 17:00 FiO2 50 01/19/23 10:00 BMI result Body Mass Index 25.2 On exam he is nontoxic and tearful at times He is having no respiratory difficulty He is anicteric His abdomen is unchanged and is soft and nontender. His right inguinal herniorrhaphy incision is healing well with expected healing ridge but no erythema. We reviewed his seroma and that this is normal and expected. He has no peritoneal sign or cellulitis. His abdominal incisions are healing well with no evidence of infection. Objective Data Active Medications Acetaminophen (Acetaminophen 325 Mg Tablet) 975 mg PO Q6H PRN PRN Reason: Pain, Mild (Pain Scale 1-3) Last Admin: 01/24/23 21:51 Dose: 975 mg Documented By: XIOMARA Dextrose (Dextrose 50 % 25 Gm/50 Ml Syringe) 25 gm IVPUSH Q15M PRN; Protocol PRN Reason: per Hypoglycemia Standing Ord. Docusate Sodium (Docusate Sodium 100 Mg Capsule) 200 mg PO BID KISHORE Last Admin: 01/24/23 21:51 Dose: 200 mg Documented By: XIOMARA Glucose (Glucose Gel 15 Gm Gel..Gram.) 15 gm PO Q15M PRN; Protocol PRN Reason: per Hypoglycemia Standing Ord. Hydromorphone HCl (Hydromorphone Hcl 0.5 Mg/0.5 Ml Syringe) 0.5 mg IVPUSH Q4H PRN; Protocol PRN Reason: Pain, Severe (Pain Scale 7-10) Last Admin: 01/18/23 22:34 Dose: 0.5 mg Documented By: FERCHO Promethazine HCl 6.25 mg/ (Sodium Chloride) 50.25 mls @ 201 mls/hr IV ONCE PRN PRN Reason: Nausea and Vomiting Ondansetron HCl (Ondansetron Hcl 4 Mg/2 Ml Vial) 4 mg IVPUSH Q8H PRN PRN Reason: Nausea and Vomiting Sodium Chloride (0.9 % Sodium Chloride Flush 3 Ml Syringe) [facility] Last Admin: 01/24/23 21:52 Dose: 3 ml Documented By: XIOMARA Labs 01/24/23 05:51 01/23/23 05:39 Procedures Date of Service Date of Service: 01/25/23 Progress Note: A&P Assessment and plan (1) Fever: Status: Acute (2) Retroperitoneal hematoma: Status: Acute (3) Leukocytosis: Status: Acute (4) Bicuspid aortic valve: Status: Acute (5) Ascending aorta dilatation: Status: Acute (6) Aortic stenosis: Status: Acute Plan I explained the need to make the patient NPO for a stat CT with oral and IV contrast to assess his hematoma for evidence of infection. Patient is understandably anxious about having to have another operation and we discussed that there may be no need to do anything in that his fevers may be secondary to the hematoma itself. Patient seems to understand the importance of assessing this matter and will cooperate. Will assess the CT and discuss with IR as needed. NPO for now. Labs pending. Time Spent With Patient Time: Total time managing care of this patient today ____ minutes. Quality Stroke Does the patient have a stroke diagnosis?: No VTE Prior VTE?: No VTE Risk Level:: Surgical - moderate VTE Device Contraindication: N/A - Device Ordered VTE Drug Contraindication: Treatment Not Tolerated
[2023-01-25] MEDS: 0.9 % Sodium Chloride Flush 3 ML SYRINGE IVFLUSH ×2 (08:30→16:46)
[2023-01-25 08:35] LABS: MANUAL DIFF FLAG NO
[2023-01-25 08:37] LABS: Basophils Percent Auto 0.3 % (0-2); Eosinophils Absolute Auto 0.2 X10*3/uL (0.0-0.4); Eosinophils Percent Auto 1.8 % (0-4); Hematocrit 27.2 % (42.0-52.0); Hemoglobin 8.9 g/dl (14.0-18.0); Imm Gran Abs Auto 0.19 X10*3/uL (0.00-0.03); Imm Gran Pct Auto 1.6 % (0.0-0.4); Lymphocytes Absolute Auto 2.3 X10*3/uL (1.2-4.9); Lymphocytes Percent Auto 19.3 % (20-40); Mean Corpuscular HGB Conc 32.7 g/dl (31.0-36.0); Mean Corpuscular Hemoglobin 30.3 pg (27.0-33.0); Mean Corpuscular Volume 92.5 fL (80.0-98.0); Mean Platelet Volume 9.4 fL (9.4-12.4); Monocytes Percent Auto 7.9 % (2-11); Neutrophils Absolute Auto 8.3 x10*3/uL (2.0-8.3); Neutrophils Percent Auto 69.1 % (45-73); Platelet Count 309 X10*3/uL (160-400); Red Blood Count 2.94 X10*6/uL (4.60-5.80); Red Cell Distribution Width 14.8 % (11.0-16.0); White Blood Count 12.1 X10*3/uL (4.8-10.8)
[2023-01-25 08:53] LABS: Anion Gap 11 (12-20); Blood Urea Nitrogen 10 mg/dL (9-16); Calcium 9.2 mg/dL (8.4-10.2); Carbon Dioxide 27 mmol/L (22-29); Chloride 101 mmol/L (96-108); Creatinine Clr Calc Pharmacy 132.2; Estimated Glomerular Filt Rate > 60; Glucose Random 103 mg/dL (60-115); Potassium 4.1 mmol/L (3.3-5.1); Sodium 135 mmol/L (135-145)
[2023-01-25] MEDS: iohexoL 350 MG/ML 100 ML INFUS..BTL 85 ML IV (09:44)
[2023-01-25] MEDS: Diatrizoate Meglumine, Sodium 30 ML SOLUTION PO (09:45)
[2023-01-25] MEDS: LORazepam 0.5 MG TABLET PO (10:55)
[2023-01-25 10:56] VITALS: BP 116/61; PULSE 73; RESP 20; TEMP 36.8; O2SAT 95
[2023-01-25 15:15] VITALS: BP 142/72; PULSE 84; RESP 16; TEMP 36.6; O2SAT 96
--- NOTE | 2023-01-25 15:34 | P.CDIM_ITS ---
PROVIDER RESPONSE TEXT: To clarify, the appropriate diagnosis supported by the clinical indicators: Other (explain): Retroperitoneal hematoma. Pt clinically stable without a hyperdynamic state. CT A/P negative for infection, only hematoma QUERY TEXT: PHYSICIAN'S DOCUMENTATION REQUEST Date of Query: 01/25/2023 02:15 PM EST Patient Name: Saroj Vega Admit Date: 01/18/2023 Dear Tl Petty, A review of the medical record indicates additional documentation may be needed. Please review below and update the documentation accordingly. Clinical Indicators: On 01/24/23, WBC 12.3 and temperature 101.5 Please clarify which, if any, of the following is the most likely etiology of the above symptoms and treatment rendered: Sepsis Localized infection only, without systemic illness Indicate the site/source, such as UTI, pneumonia, etc. Bacteremia (abnormal lab finding only, does not indicate systemic illness) Other (explain) Clinically unable to determine (explain) Thank you, Virginia Montoya RN Use of terms such as suspected, likely, concern for, or probable (associated with a specific diagnosi s that is being evaluated, monitored, or treated as if it exists) are acceptable and can be coded in the inpatient se tting, when documented at the time of discharge. Please use your independent medical judgment in providing your response. THIS QUERY IS PART OF THE PERMANENT MEDICAL RECORD
[2023-01-25] MEDS: Acetaminophen 325 MG TABLET 975 MG PO (16:45)
[2023-01-25 19:32] VITALS: BP 116/70; PULSE 77; RESP 16; TEMP 36.4; O2SAT 95
[2023-01-26] VITALS: BP 123/72; PULSE 95; TEMP 36.7; O2SAT 95
[2023-01-26] MEDS: Acetaminophen 325 MG TABLET 975 MG PO ×2 (00:21→07:37)
[2023-01-26] MEDS: 0.9 % Sodium Chloride Flush 3 ML SYRINGE IVFLUSH ×2 (00:22→07:38)
[2023-01-26 03:17] VITALS: BP 98/50; PULSE 71; RESP 20; TEMP 36.7; O2SAT 95
[2023-01-26 07:20] VITALS: BP 112/62; PULSE 68; RESP 20; TEMP 36.6; O2SAT 96
[2023-01-26 08:40] LABS: MANUAL DIFF FLAG NO
[2023-01-26 08:44] LABS: Basophils Percent Auto 0.3 % (0-2); Eosinophils Absolute Auto 0.2 X10*3/uL (0.0-0.4); Eosinophils Percent Auto 2.1 % (0-4); Hematocrit 27.5 % (42.0-52.0); Hemoglobin 9.1 g/dl (14.0-18.0); Imm Gran Abs Auto 0.16 X10*3/uL (0.00-0.03); Imm Gran Pct Auto 1.6 % (0.0-0.4); Lymphocytes Absolute Auto 2.2 X10*3/uL (1.2-4.9); Lymphocytes Percent Auto 21.9 % (20-40); Mean Corpuscular HGB Conc 33.1 g/dl (31.0-36.0); Mean Corpuscular Hemoglobin 30.2 pg (27.0-33.0); Mean Corpuscular Volume 91.4 fL (80.0-98.0); Monocytes Absolute Auto 0.9 X10*3/uL (0.1-1.2); Monocytes Percent Auto 8.7 % (2-11); Neutrophils Absolute Auto 6.7 x10*3/uL (2.0-8.3); Neutrophils Percent Auto 65.4 % (45-73); Platelet Count 346 X10*3/uL (160-400); Red Blood Count 3.01 X10*6/uL (4.60-5.80); Red Cell Distribution Width 14.6 % (11.0-16.0); White Blood Count 10.2 X10*3/uL (4.8-10.8)
[2023-01-26 08:58] LABS: Anion Gap 11 (12-20); Blood Urea Nitrogen 10 mg/dL (9-16); Calcium 9.1 mg/dL (8.4-10.2); Carbon Dioxide 27 mmol/L (22-29); Chloride 100 mmol/L (96-108); Creatinine Clr Calc Pharmacy 142.7; Estimated Glomerular Filt Rate > 60; Glucose Random 98 mg/dL (60-115); Potassium 4.2 mmol/L (3.3-5.1); Sodium 134 mmol/L (135-145)
--- NOTE | 2023-01-26 09:06 | P.PNGS_ITS ---
Subjective Subjective Date of Service: 01/26/23 Patient reports: no new complaints, feels better, tolerating a regular diet, flatus and bowel movement Interval history: The patient is eating breakfast and is comfortable. He denies any new complaints such as chest pain, difficulty breathing. He is taking only Tylenol for pain and is noted that he will cancel the oxycodone prescription that was called in last week. He had some questions regarding activity and work and he will follow up with me next Sunday to obtain a work note. In the meantime, he will not lift more than 20 lb then will focus on being active with walking, avoid NSAIDs and aspirin and contact me if he is clinically worsening Physical Exam 2 Vital Signs: Vital Signs: Last Vital Signs Temp 97.8 F 01/26/23 07:20 Pulse 68 01/26/23 07:20 Resp 20 01/26/23 07:20 BP 112/62 01/26/23 07:20 Pulse Ox 96 01/26/23 07:20 O2 Del Method Room Air 01/26/23 07:20 O2 Flow Rate 2 01/22/23 17:00 FiO2 50 01/19/23 10:00 BMI result Body Mass Index 25.2 Patient is in surprisingly good spirits He is anicteric He is having no respiratory difficulty His abdomen is at its baseline with some firmness in the right lower quadrant and his right inguinal hernia repair incision is intact with the expected seroma in his right scrotum. No peritoneal sign is present Objective Data Active Medications Acetaminophen (Acetaminophen 325 Mg Tablet) 975 mg PO Q6H PRN PRN Reason: Pain, Mild (Pain Scale 1-3) Last Admin: 01/26/23 00:21 Dose: 975 mg Documented By: XIOMARA Dextrose (Dextrose 50 % 25 Gm/50 Ml Syringe) 25 gm IVPUSH Q15M PRN; Protocol PRN Reason: per Hypoglycemia Standing Ord. Docusate Sodium (Docusate Sodium 100 Mg Capsule) 200 mg PO BID KISHORE Last Admin: 01/25/23 16:46 Dose: Not Given Documented By: WILDA Non-Admin Reason: Patient Refused Glucose (Glucose Gel 15 Gm Gel..Gram.) 15 gm PO Q15M PRN; Protocol PRN Reason: per Hypoglycemia Standing Ord. Hydromorphone HCl (Hydromorphone Hcl 0.5 Mg/0.5 Ml Syringe) 0.5 mg IVPUSH Q4H PRN; Protocol PRN Reason: Pain, Severe (Pain Scale 7-10) Last Admin: 01/18/23 22:34 Dose: 0.5 mg Documented By: FERCHO Promethazine HCl 6.25 mg/ (Sodium Chloride) 50.25 mls @ 201 mls/hr IV ONCE PRN PRN Reason: Nausea and Vomiting Ondansetron HCl (Ondansetron Hcl 4 Mg/2 Ml Vial) 4 mg IVPUSH Q8H PRN PRN Reason: Nausea and Vomiting Sodium Chloride (0.9 % Sodium Chloride Flush 3 Ml Syringe) 3 ml IVFLUSH QSHIFT [facility] Last Admin: 01/26/23 00:22 Dose: 3 ml Documented By: XIOMARA Labs 01/26/23 07:50 01/26/23 07:50 Labs: Laboratory Results - last 24 hr 01/18/23 01/26/23 14:33 07:50 MCV 91.4 MCH 30.2 MCHC 33.1 RDW 14.6 Plt Count 346 MPV 10.0 Immature Gran % (Auto) 1.6 H Neut % (Auto) 65.4 Lymph % (Auto) 21.9 [place] % (Auto) 8.7 Eos % (Auto) 2.1 Baso % (Auto) 0.3 Lymph # (Auto) 2.2 [place] # (Auto) 0.9 Eos # (Auto) 0.2 Baso # (Auto) 0.0 Abs Immat Gran (auto) 0.16 H Absolute Neuts (auto) 6.7 Absolute Nucleated RBC 0.000 Nucleated RBC % (auto) 0.0 Anion Gap 11 L Estim Creat Clear Calc 142.7 Estimated GFR > 60 Random Glucose 98 Calcium 9.1 Crossmatch See Detail Procedures Date of Service Date of Service: 01/26/23 Progress Note: A&P Assessment and plan (1) Retroperitoneal hematoma: Status: Acute (2) Bicuspid aortic valve: Status: Acute (3) Ascending aorta dilatation: Status: Acute (4) Aortic stenosis: Status: Acute (5) Anemia: Status: Acute Plan Instructions reviewed include diet, activity restrictions, work restrictions. The patient's white blood cell count is normal and his hemoglobin is stable, almost back to his admitting hemoglobin of 9.9. Patient has a follow-up with me for Sunday, 01/29 at 09:15 and will contact me or the surgeon lactation coordinator if he has issues or problems. He is free to shower and it is recommended he wear briefs to support the seroma that is expected after the large hernia repair. Patient is advised to reach out and contact me a report to the emergency department if he has return of his fevers, drenching sweats, difficulty breathing or overall malaise/feeling poorly. His questions seemed to be satisfactorily answered. Time Spent With Patient Time: Total time managing care of this patient today ____ minutes. Quality Stroke Does the patient have a stroke diagnosis?: No VTE Prior VTE?: No VTE Risk Level:: Surgical - moderate VTE Device Contraindication: N/A - Device Ordered VTE Drug Contraindication: Treatment Not Tolerated
--- NOTE | 2023-01-26 09:10 | PM.DS ---
DS: Providers Provider Date of Service: 01/26/23 Date of admission: 01/17/23 23:03 Primary care physician: JERMAINE Kiser DS: Diagnosis Discharge Diagnosis (1) Retroperitoneal hematoma: Status: Acute (2) Bicuspid aortic valve: Status: Acute (3) Ascending aorta dilatation: Status: Acute (4) Aortic stenosis: Status: Acute (5) Anemia: Status: Acute DS: Summary Hospital Course Hospital Course: See H&P for full details. Briefly, this 52-year-old man with aortic stenosis, aortic dilation, anemia of unknown etiology, history of tinea corporis was evaluated in the general surgery clinic over a year ago. The importance of controlling the cutaneous fungal infection had been reviewed and the patient was noncompliant. Discussion regarding his anemia which could represent malignancy was undertaken. The patient continued to smoke and was not compliant with recommendations regarding assessment of his anemia. He presented in delayed fashion with a bowel obstruction to the emergency department and hemoglobin of 9.9. While the patient ate a sandwich in reported passing flatus, the option of proceeding with surgery given that his fungal infection had been adequately treated and that his CT demonstrated findings consistent with a bowel obstruction which had resolved by the time I saw him was discussed and he wanted to proceed. Patient underwent an uneventful open right inguinal hernia repair with polypropylene mesh. In PACU, the patient became hypotensive in spite of volume resuscitation and blood. Discussion with anesthesiologist felt the patient was too unstable to explore and the patient was transferred to the ICU for pressors and additional blood transfusion. A CT was done which confirmed both the retroperitoneal hematoma and intraperitoneal blood of unclear etiology. Since embolization was recommended by the on-call radiologist but unavailable in this institution and no other institution could accommodate the patient, he underwent a diagnostic laparoscopy were no active bleeding source was identified, however a tear in the mesentery and retroperitoneum from the hernia reduction was noted is the etiology. This was rendered hemostatic and irrigated but the retroperitoneal hematoma was not opened. Postoperatively, the patient returned to the ICU and over ensuing days, transfused, stabilized and ultimately transferred out in improved condition off of pressors. The patient's diet was advanced, however he was having fevers to 101.5F and a leukocytosis to 12.[address] of the abdomen and pelvis which confirmed there was no gas or peripheral enhancement to suggest infection, nor was there ongoing bleeding. On the day of discharge, the patient's hemoglobin was 9.1 and his white blood cell count had normalized. He was tolerating a diet and requiring only Tylenol for pain. On physical exam, he had no evidence of infection and the expected scrotal seroma post right inguinal hernia repair was minimally tender with no erythema. The importance of maintaining abstinence from nicotine in follow-up regarding his comorbidities and anemia since this could represent a malignancy was discussed. Activity restrictions were reviewed. Patient's questions seemed to be satisfactorily answered and he was discharged in improved condition. Time spent discussing smoking cessation with patient: 3 to 10 minutes Time Attestation Discharge coordination time: Greater than 30 minutes Quality: Safe Use of Opioids Does Pt have an Active Cancer Diagnosis on the Problem List?: No Quality: Stroke Does the patient have a stroke diagnosis?: No Physical Exam Vital Signs: Vital Signs: Last Vital Signs Temp 97.8 F 01/26/23 07:20 Pulse 68 01/26/23 07:20 Resp 20 01/26/23 07:20 BP 112/62 01/26/23 07:20 Pulse Ox 96 01/26/23 07:20 O2 Del Method Room Air 01/26/23 07:20 O2 Flow Rate 2 01/22/23 17:00 FiO2 50 01/19/23 10:00 BMI result Body Mass Index 25.2 DS: Data Data Completed and Pending Completed studies during hospitalization [Text1]: Pending at discharge 01/18/23 11:10 Surgical [PTH] Routine Labs on day of discharge: Laboratory Results - last 24 hr 01/18/23 01/26/23 14:33 07:50 WBC 10.2 RBC 3.01 L Hgb 9.1 L Hct 27.5 L MCV 91.4 MCH 30.2 MCHC 33.1 RDW 14.6 Plt Count 346 MPV 10.0 Immature Gran % (Auto) 1.6 H Neut % (Auto) 65.4 Lymph % (Auto) 21.9 [place] % (Auto) 8.7 Eos % (Auto) 2.1 Baso % (Auto) 0.3 Lymph # (Auto) 2.2 [place] # (Auto) 0.9 Eos # (Auto) 0.2 Baso # (Auto) 0.0 Abs Immat Gran (auto) 0.16 H Absolute Neuts (auto) 6.7 Absolute Nucleated RBC 0.000 Nucleated RBC % (auto) 0.0 Sodium 134 L Potassium 4.2 Chloride 100 Carbon Dioxide 27 Anion Gap 11 L BUN 10 Creatinine 0.63 Estim Creat Clear Calc 142.7 Estimated GFR > 60 Random Glucose 98 Calcium 9.1 Crossmatch See Detail Discharge Plan Discharge Anticipated Discharge Date/Time: 01/26/23 09:16 Patient Disposition: Home, Self-Care Discharge Diagnosis: Right inguinal hernia status post open repair; anemia Referrals: Ritchie Villa FNP- [Primary Care Provider] - Pieter Lal MD [Physician] - (Lower GI bleed) Discharge Medications: New oxycodone 5 mg tablet 5 mg PO Q4H PRN (Reason: pain) Qty: 20 0RF Rx Instructions: Partial Fill upon patient request. Continued omeprazole magnesium [Prilosec OTC] 20 mg tablet,delayed release (DR/EC) 20 mg PO DAILY PRN (Reason: Acid Reflux) Discharge Orders: Discharge Order (Routine); Ordered 01/26/23 Ordered By: Tl Petty Diet: Advance to usual diet Activity on Discharge: No heavy lifting Stand Alone Forms: Patient Portal Discharge page Activity Restrictions/Additional Instructions: You had a hernia repair by Dr. Petty. To allow adequate healing, you must not lift more than 20 lb for the next 4 weeks. Strenuous activities such as hiking uphill, digging/gardening, swimming, yoga, weightlifting, lifting heavy bags, martial arts, yoga, sports like soccer, golf or baseball or other physical activities must be avoided to prevent healing problems and hernia recurrence. If you have questions regarding a specific activity, please ask Dr. Petty. You have a f/u 01/29/23 at 9:15am. Please call [phone] if you have a problem before then or need to reschedule the appointment. You must not smoke or use nicotine is this will impact your healing. You must follow-up with your other physicians regarding your anemia which can represent malignancy. You had a retroperitoneal bleed that required blood transfusion. You may experience abdominal pressure and intermittent fevers, however if you are having worsening pain, consistent fevers, pain in your chest or trouble breathing, please contact Dr. Petty at [phone]. For the 1st 3 days after surgery, you should plan to rest with an ice pack on the hernia site. While you can walk around the house and go up and down stairs, prolonged walking, shopping or out they were activities were you do not have an ice pack on your incision should be discouraged since this will add to swelling and pain. Your dressings should be kept dry until they are removed in 48 hours after surgery. You can sponge bath until you remove the dressings to shower. After 48 hours when you have removed the dressings, it is OK to shower. Do not soak in a tub or pool until your incisions are completely healed, which usually takes at least 2 to 3 weeks, sometimes longer. You can allow soap and water to run over your incisions in a shower and Steri-Strips and thoroughly rinse the area. There are paper tapes known as butterflies/Steri-Strips on your incisions, leave them in place and they will fall off on their own in the next 1-2 weeks. You do not need to place a new bandage on your incision unless your clothing rubs on the incision and causes irritation. You may find that pants with an elastic waist or suspenders are more comfortable than pants with a belt until your incision completely heals. You should not soak in a tub, go into a pool, or swimming in ponds, aragon or lakes. Please allow the paper tapes to dry before dressing. Be sure to schedule a follow-up appointment a week after surgery. Please bring any papers regarding employment and activity restrictions to that appointment. Remember that you are not disabled and can perform light duty. You should contact your employer and tell them you need light duty for medical reasons prior to your operation. Some employers will not allow their employees to work until that have no limitations; it is important you do this because we cannot discuss your personal health matters unless it is a Workman's Comp injury. Bruising and swelling is normal and to be expected. Due to gravity, this may track down towards your pubic area which is normal. If the area becomes hot, red, swollen or drains pus, if you have worsening pains, fevers over 100F, severe abdominal or chest pain or trouble breathing, please report to the nearest emergency department. You are at risk to have swelling known as a seroma, which is a pocket of fluid due to the large hernia. This is normal and Dr. Petty will discuss with you at follow-up. The pain medications you have been prescribed are constipating. You should purchase [id number]-tpadbvb stool softener known as Colace/docusate, 100 mg and take 2 tablets in the morning with breakfast and 2 tablets after dinner in the evening until you are no longer taking narcotics and are having normal bowel movements. If you experience diarrhea while taking stool softeners, this is normal and will resolve a day or 2 after you stop the medication. You should resume your regular medications unless otherwise directed by Dr. Petty. You can take wjrl-ule-ngdlkor Tylenol/acetaminophen for pain unless you have an allergy or medical reason you are not not allowed to take these medications, such as peptic ulcers, taking blood thinners or kidney problems. You should also use ice packs to the operative site to help minimize pain and swelling for the 1st 3 days, or as needed afterwards. Unless there is a medical reason to avoid these medicines, you should take 2 jjlg-blp-loooadb Tylenol every 6 hours for the first 3 days to help with pain. DO NOT TAKE ANY ASPIRIN, ADVIL, IBUPROFEN, MOTRIN, NAPROSYN OR NAPROXEN FOR THE NEXT WEEK. This is to minimize bleeding. Care Plan Goals: Allow adequate postoperative healing Health Concerns: Stop smoking, follow-up regarding your anemia and allow postoperative healing Plan of Treatment: Allow adequate postoperative healing, nicotine cessation, healthy diet including protein and MultiVites Assessment: Right inguinal hernia, status post open repair with mesh 01/18/23 Patient Instructions: Abdominal Pain (ED) Discharge Date/Time: 01/26/23 12:02
--- NOTE | 2023-01-26 09:17 | MHC.CM.PN ---
Per documentation, Patient appears medically cleared for dc to home today, self care.
[2023-01-26 10:59] VITALS: BP 112/66; PULSE 70; RESP 20; TEMP 36.5; O2SAT 97
== END 2023-01-26 12:02 | disposition home or self-care (01) | DRG 228 ==
LOC: HO.ED 23:18 → HO.EDOVER 23:21 → HO.S3 01-18 12:14 → HO.ICU 01-18 17:17 → HO.IMC 01-22 16:55
PROVIDERS: Internal Medicine Critical Care Medicine; Internal Medicine Pulmonary Disease; Physician Assistant Medical; Registered Nurse Community Health; Admitting Provider Surgery; Emergency Provider Student in an Organized Health Care Education/Training Program; PCP Nurse Practitioner Family; Visit Provider Surgery
DX: K40.31 Unilateral inguinal hernia, with obstruction, without gangrene, recurrent (principal); R57.1 Hypovolemic shock; K66.1 Hemoperitoneum; K68.3 Retroperitoneal hematoma; D62 Acute posthemorrhagic anemia; Q23.1 Congenital insufficiency of aortic valve; K56.7 Ileus, unspecified; K91.871 Postprocedural hematoma of a digestive system organ or structure following other procedure; Y83.8 Other surgical procedures as the cause of abnormal reaction of the patient, or of later complication, without mention of misadventure at the time of the procedure; K66.0 Peritoneal adhesions (postprocedural) (postinfection); Z87.891 Personal history of nicotine dependence
CPT/HCPCS: 36415; 71045; 71275; 74018; 74177; 80048; 80053; 80076; 80202; 80307; 81003; 82040; 82272; 82803; 82947; 83605; 83615; 83690; 83735; 84100; 84484; 85025; 85610; 85730; 86850; 86900; 86901; 86923; 87040; 88302; 93005; 93306; 94002; 97162; 99285; 99499; C1758; C1781; C9113; J0131; J0613; J0665; J0690; J1100; J1170; J1885; J1940; J2250; J2371; J2405; J2543; J2704; J3010; J3370; J3371; J3475; J7120; P9016; P9017; P9047; P9073; Q9967

== ENCOUNTER 2023-01-17 23:03 | Outpatient (BNV) | payer BC, SELFPAY | END 2023-01-19 07:00 | PROVIDERS: Admitting Provider Surgery; Emergency Provider Student in an Organized Health Care Education/Training Program; PCP Nurse Practitioner Family; Visit Provider Internal Medicine Cardiovascular Disease | DX: I35.2 Nonrheumatic aortic (valve) stenosis with insufficiency (principal) | CPT/HCPCS: 93306 ==

== ENCOUNTER → 2023-01-17 23:03 | Outpatient (BNV) | payer BC, SELFPAY | PROVIDERS: Admitting Provider Surgery; Emergency Provider Student in an Organized Health Care Education/Training Program; PCP Nurse Practitioner Family; Visit Provider Internal Medicine Critical Care Medicine | DX: R57.8 Other shock (principal); K40.30 Unilateral inguinal hernia, with obstruction, without gangrene, not specified as recurrent; K68.3 Retroperitoneal hematoma | CPT/HCPCS: 36556; 99291; 99499 ==

== ENCOUNTER → 2023-01-17 23:03 | Outpatient (BNV) | payer BC, SELFPAY | PROVIDERS: Admitting Provider Surgery; Emergency Provider Student in an Organized Health Care Education/Training Program; PCP Nurse Practitioner Family; Visit Provider Surgery | DX: K68.3 Retroperitoneal hematoma (principal); Q23.1 Congenital insufficiency of aortic valve; I77.810 Thoracic aortic ectasia; D64.9 Anemia, unspecified | CPT/HCPCS: 49322; 49507; 99024; 99222; 99499 ==

== ENCOUNTER 2023-01-30 11:05 | Outpatient (REF) | payer BC, SELFPAY ==
[2023-01-30 12:07] LABS: MANUAL DIFF FLAG NO
[2023-01-30 12:47] LABS: Basophils Absolute Auto 0.1 X10*3/uL (0.0-0.2); Basophils Percent Auto 0.4 % (0-2); Eosinophils Absolute Auto 0.2 X10*3/uL (0.0-0.4); Eosinophils Percent Auto 1.4 % (0-4); Hematocrit 31.5 % (42.0-52.0); Hemoglobin 9.9 g/dl (14.0-18.0); Imm Gran Abs Auto 0.06 X10*3/uL (0.00-0.03); Imm Gran Pct Auto 0.5 % (0.0-0.4); Lymphocytes Absolute Auto 4.3 X10*3/uL (1.2-4.9); Lymphocytes Percent Auto 34.3 % (20-40); Mean Corpuscular HGB Conc 31.4 g/dl (31.0-36.0); Mean Corpuscular Hemoglobin 29.6 pg (27.0-33.0); Mean Platelet Volume 9.1 fL (9.4-12.4); Monocytes Percent Auto 7.9 % (2-11); Neutrophils Absolute Auto 6.9 x10*3/uL (2.0-8.3); Neutrophils Percent Auto 55.5 % (45-73); Platelet Count 634 X10*3/uL (160-400); Red Blood Count 3.35 X10*6/uL (4.60-5.80); Red Cell Distribution Width 14.6 % (11.0-16.0); White Blood Count 12.5 X10*3/uL (4.8-10.8)
[2023-01-30 13:16] LABS: Alanine Aminotransferase 36 U/L (0-40); Albumin Level 3.7 g/dL (3.5-5.0); Alkaline Phosphatase 88 U/L (39-117); Anion Gap 10 (12-20); Aspartate Amino Transferase 27 U/L (5-37); Bilirubin Total 0.7 mg/dL (0.0-1.0); Blood Urea Nitrogen 16 mg/dL (9-16); Calcium 10.1 mg/dL (8.4-10.2); Carbon Dioxide 32 mmol/L (22-29); Chloride 97 mmol/L (96-108); Estimated Glomerular Filt Rate > 60; Glucose Random 93 mg/dL (60-115); Potassium 4.5 mmol/L (3.3-5.1); Sodium 134 mmol/L (135-145); Total Protein 8.5 g/dL (6.5-8.0)
== END 2023-01-30 11:06 | disposition home or self-care (01) ==
LOC: HO.LAB 11:05
PROVIDERS: PCP Nurse Practitioner Family; Visit Provider Surgery
DX: D64.9 Anemia, unspecified (principal); I35.0 Nonrheumatic aortic (valve) stenosis; I77.810 Thoracic aortic ectasia; K68.3 Retroperitoneal hematoma
CPT/HCPCS: 36415; 80053; 85025

== ENCOUNTER 2023-01-30 11:05 | Outpatient (AMB) | payer BC, SELFPAY ==
--- NOTE | 2023-01-30 11:25 | A.OFFVIS_ITS ---
Intake Vital Signs 01/30/23 11:27 Height 5 ft 11 in Weight 172 lb 13.478 oz BMI 24.1 BP 113/67 Blood Pressure Location Rt brachial Temp 96.6 F L Temp Source Tympanic Pulse Oximetry (%) 99 Oxygen Delivery Method Room Air Intake Visit Reasons: PO diagnostic lap Allergies ENVIRONMENTAL Allergy (Unknown, Uncoded 01/30/23 12:47) STUFFY NOSE, SNEEZING HPI HPI Comments History of Present Illness Details Patient returns for follow-up after an open right inguinal hernia repair on 01/17/2023. Intraoperatively, small bowel requiring lysis of adhesions was reduced. In PACU, the patient became hypotensive requiring volume. Anesthesia felt the patient was too unstable for diagnostic laparoscopy the patient was transferred to ICU where volume resuscitation occurred and a CT demonstrated both retroperitoneal hematoma and intraperitoneal blood. Radiolog ist recommended angiographic embolization which was not available, consequently, the patient was then taken for a diagnostic laparoscopy where extensive right lower quadrant adhesions noted from the patient's previous open appendectomy were identified and required lysis to identify the bleeding point. No active bleeding was noted and the hemoperitoneum was drained. Postoperatively, the patient's Hb equilibrated and was transferred out to the floor. Since that time, he is been doing well, tolerating his diet and moving his bowels. He is having no significant abdominal or incisional pain but does note expected seroma in the right scrotum. He requested I speak freely with his father who accompanied him today but stepped out of the room for the physical exam. But the patient and his father note that there are 2 family members, both women who are dealing with anemia issues & a question re: familial anemia was discussed, but the importance of excluding malignancy given the patient's age and smoking history was discussed & apparently understood. Over a year ago, the patient was identified as having an anemia and it was recommended that this be evaluated before his hernia repair. Patient did not follow through for variety of reasons and ultimately presented to the emergency department on 01/17/[address] concerning for bowel obstruction. Patient's hemoglobin was 9.9. The importance of excluding malignancy has been discussed at length and the patient's questions and his father's questions seemed to be satisfactorily answered. PFSH Medical History Ascending aorta dilatation Bicuspid aortic valve Aortic stenosis Cigarette smoker Surgical History (Updated 01/30/23 @ 11:57 by Tl Petty MD, FACS, FASMBLeida) History of right inguinal hernia repair Hx of laparoscopy History of appendectomy Family History Maternal Grandmother Cancer of unknown origin Mother Skin cancer Household Members: Family Housing: House Alcohol intake: current Alcohol intake frequency: 0-2 drinks per day Alcohol type: beer Patient Tobacco Use Status: Former Tobacco user Tobacco use type: Cigarette Cigarettes Per Day: 2 e-Cigarette/Vaping Use: Never Used Second Hand Smoke Exposure: No service: No Current occupational status: employed Current occupation: [employer] Current occupational exposures/hazards: No Cognitive needs: No Hearing needs: No Vision needs: No Review of Systems Const All systems reviewed & are unremarkable except as noted in HPI and below Physical Exam Vital Signs: Last Vital Signs Temp 96.6 F L 01/30/23 11:27 BP 113/67 01/30/23 11:27 BMI result Body Mass Index 24.1 On exam, the patient is anicteric nontoxic and remains in good spirits He is having no respiratory difficulty His abdominal incisions are healing well with no evidence of any infection. His right lower quadrant open hernia repair incision is intact with no cellulitis. A non tender, non erythematous seroma extending into his scrotum is present. Results Reviewed Results Reviewed: Nonfasting labs including a CBC, CMP and pre-albumin or ordered today. Assessment & Plan Assessment & Plan (1) Retroperitoneal hematoma: Code(s): K68.3 - Retroperitoneal hematoma (2) Bicuspid aortic valve: Code(s): Q23.1 - Congenital insufficiency of aortic valve (3) Ascending aorta dilatation: Code(s): I77.810 - Thoracic aortic ectasia (4) Anemia: Code(s): D64.9 - Anemia, unspecified Plan Instructions regarding diet and activity reviewed and apparently understood. For medical reasons, the patient cannot lift more than 20 lb for the next 6 weeks and a work note was provided. Patient will return for assessment and discussion was labs next week and [facility] paperwork can be completed. Patient is advised to contact me if his seroma starts to become symptomatic or if he has other problems. The possible need for percutaneous aspiration of the seroma was discussed. Risk of ulceration and skin damage he is having symptoms from the seroma were discussed and apparently understood. Retroperitoneal hematoma should reabsorb on its own. Patient in his father had questions regarding the patient's preoperative anemia and the discussion regarding malignancy or other etiologies in the importance of identifying this in a timely manner was discussed. Patient states he is due to have colonoscopy in March next year. I will send a copy of this note to the GI physicians so that there wear of the unexpected retroperitoneal hematoma if it would change the recommendations regarding endoscopy. In discussion with the GI scheduling office, nothing has been scheduled yet regarding the patient's colonoscopy in an alert will be put in the system so the assembly machine operator will review my notes. Orders: Orders Complete Blood Count Auto Diff Today D64.9 - Anemia, unspecified, I35.0 - Nonrheumatic aortic (valve) stenosis, I77.810 - Thoracic aortic ectasia Comprehensive Met. Panel Today D64.9 - Anemia, unspecified, I35.0 - Nonrheumatic aortic (valve) stenosis, I77.810 - Thoracic aortic ectasia Coding Level of Care Code Global (06681) Diagnoses Retroperitoneal hematoma K68.3 Bicuspid aortic valve Q23.1 Ascending aorta dilatation I77.810 Anemia D64.9
[2023-01-30 11:27] VITALS: BP 113/67; TEMP 35.9; O2SAT 99; BMI 24.1
== END 2023-01-30 12:04 | disposition home or self-care (01) ==
PROVIDERS: PCP Nurse Practitioner Family; Visit Provider Surgery
DX: K68.3 Retroperitoneal hematoma (principal); Q23.1 Congenital insufficiency of aortic valve; I77.810 Thoracic aortic ectasia; D64.9 Anemia, unspecified
CPT/HCPCS: 99024

== ENCOUNTER 2023-02-06 11:14 | Outpatient (AMB) | payer BC, SELFPAY ==
--- NOTE | 2023-02-06 11:23 | MHC.OFFVIS ---
Intake Vital Signs 02/06/23 11:24 Height 5 ft 11 in Weight 178 lb 9.191 oz BMI 24.9 BP 154/66 H Blood Pressure Location Rt brachial Position Sitting Pulse 67 Pulse Source Pulse Oximeter Temp 96.3 F L Temp Source Tympanic Pulse Oximetry (%) 98 Oxygen Delivery Method Room Air Intake Visit Reasons: PO diagnostic lap Allergies ENVIRONMENTAL Allergy (Unknown, Uncoded 01/30/23 12:47) STUFFY NOSE, SNEEZING HPI HPI Comments History of Present Illness Details Patient returns for follow-up after an open right inguinal hernia repair on 01/17/2023. Since his office visit last week, he reports that he is doing well. He reports that the seroma in his right scrotum is resolving and he denies any fevers, chills or sweats. He is tolerating his regular diet and following activity restrictions. 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 The importance of excluding malignancy regarding his preoperative anemia has been discussed at length and the patient's questions and his father's questions seemed to be satisfactorily answered. PFS Medical History Ascending aorta dilatation Bicuspid aortic valve Aortic stenosis Cigarette smoker Surgical History History of right inguinal hernia repair Hx of laparoscopy History of appendectomy Family History Maternal Grandmother Cancer of unknown origin Mother Skin cancer Social History Household Members: Family Housing: House Alcohol intake: current Alcohol intake frequency: 0-2 drinks per day Alcohol type: beer Comment: , Patient Tobacco Use Status: Former Tobacco user Tobacco use type: Cigarette Cigarettes Per Day: 2 e-Cigarette/Vaping Use: Never Used Second Hand Smoke Exposure: No service: No Current occupational status: employed Current occupation: [employer] Current occupational exposures/hazards: No Cognitive needs: No Hearing needs: No Vision needs: No Review of Systems Const All systems reviewed & are unremarkable except as noted in HPI and below Physical Exam Vital Signs: Last Vital Signs Temp 96.3 F L 02/06/23 11:24 Pulse 67 02/06/23 11:24 BP 154/66 H 02/06/23 11:24 Pulse Ox 98 02/06/23 11:24 Oxygen Delivery Method Room Air 02/06/23 11:24 BMI result Body Mass Index 24.9 On exam, the patient is anicteric nontoxic and remains in good spirits He is having no respiratory difficulty His abdominal incisions are healing well with no evidence of any infection. His right lower quadrant open hernia repair incision is intact with no cellulitis. A non tender, non erythematous seroma extending into his scrotum is present and smaller than last week. Results Reviewed Results Reviewed: Hemoglobin is back to preoperative baseline at 9.9. Patient has a mild leukocytosis at 12.5 and thrombocytosis. In this setting, this is likely secondary to the retroperitoneal hematoma and CT prior to discharge showed no evidence of infection. The patient is having no fevers, tachycardia or symptoms to suggest infection and this likely represents acute phase reaction and was discussed with the patient and father. Assessment & Plan Assessment & Plan (1) History of right inguinal hernia repair: Comment: jan 2023 Code(s): Z98.890 - Other specified postprocedural states; Z87.19 - Personal history of other diseases of the digestive system (2) Retroperitoneal hematoma: Code(s): K68.3 - Retroperitoneal hematoma (3) Bicuspid aortic valve: Code(s): Q23.1 - Congenital insufficiency of aortic valve (4) Ascending aorta dilatation: Code(s): I77.810 - Thoracic aortic ectasia (5) Aortic stenosis: Code(s): I35.0 - Nonrheumatic aortic (valve) stenosis (6) Anemia: Code(s): D64.9 - Anemia, unspecified Plan Instructions regarding diet and activity reviewed. The patient denies any symptoms from the seroma and is smaller than last week so we will check him again in 1 week. Patient is instructed to contact me if he has fevers, drenching sweats, worsening pain or other problems, otherwise I will repeat non fasting CBC next week. Patient will contact his employer to discuss return to work but is indicated he may wish to stay out the rest of the year. His anemia and unexpected surgical complications, I will accommodate his request spirits Coding Level of Care Code Global (58048) Diagnoses History of right inguinal hernia repair Z98.890; Z87.19 Retroperitoneal hematoma K68.3 Bicuspid aortic valve Q23.1 Ascending aorta dilatation I77.810 Aortic stenosis I35.0 Anemia D64.9
[2023-02-06 11:24] VITALS: BP 154/66; PULSE 67; TEMP 35.7; O2SAT 98; BMI 24.9
== END 2023-02-06 11:57 | disposition home or self-care (01) ==
PROVIDERS: PCP Nurse Practitioner Family; Visit Provider Surgery
DX: Z98.890 Other specified postprocedural states (principal); Z87.19 Personal history of other diseases of the digestive system; K68.3 Retroperitoneal hematoma; Q23.1 Congenital insufficiency of aortic valve; I77.810 Thoracic aortic ectasia; I35.0 Nonrheumatic aortic (valve) stenosis; D64.9 Anemia, unspecified
CPT/HCPCS: 99024

== ENCOUNTER → 2023-02-06 11:14 | Outpatient (BNVA) | payer BC, SELFPAY | PROVIDERS: PCP Nurse Practitioner Family; Visit Provider Surgery | DX: D64.9 Anemia, unspecified (principal); I35.0 Nonrheumatic aortic (valve) stenosis; I77.810 Thoracic aortic ectasia ==

== ENCOUNTER 2023-02-13 11:08 | Outpatient (REF) | payer BC, SELFPAY ==
[2023-02-13 12:08] LABS: MANUAL DIFF FLAG NO
[2023-02-13 12:49] LABS: Basophils Absolute Auto 0.1 X10*3/uL (0.0-0.2); Basophils Percent Auto 0.6 % (0-2); Eosinophils Absolute Auto 0.4 X10*3/uL (0.0-0.4); Hematocrit 37.9 % (42.0-52.0); Hemoglobin 11.7 g/dl (14.0-18.0); Imm Gran Abs Auto 0.02 X10*3/uL (0.00-0.03); Imm Gran Pct Auto 0.2 % (0.0-0.4); Lymphocytes Absolute Auto 3.5 X10*3/uL (1.2-4.9); Lymphocytes Percent Auto 40.5 % (20-40); Mean Corpuscular HGB Conc 30.9 g/dl (31.0-36.0); Mean Corpuscular Hemoglobin 28.1 pg (27.0-33.0); Mean Corpuscular Volume 90.9 fL (80.0-98.0); Mean Platelet Volume 9.4 fL (9.4-12.4); Monocytes Absolute Auto 0.9 X10*3/uL (0.1-1.2); Monocytes Percent Auto 9.8 % (2-11); Neutrophils Absolute Auto 3.9 x10*3/uL (2.0-8.3); Neutrophils Percent Auto 44.9 % (45-73); Platelet Count 382 X10*3/uL (160-400); Red Blood Count 4.17 X10*6/uL (4.60-5.80); Red Cell Distribution Width 14.7 % (11.0-16.0); White Blood Count 8.7 X10*3/uL (4.8-10.8)
[2023-02-13 14:59] LABS: Anion Gap 15 (12-20); Blood Urea Nitrogen 16 mg/dL (9-16); Calcium 10.2 mg/dL (8.4-10.2); Carbon Dioxide 27 mmol/L (22-29); Chloride 103 mmol/L (96-108); Estimated Glomerular Filt Rate > 60; Glucose Random 102 mg/dL (60-115); Potassium 4.8 mmol/L (3.3-5.1); Sodium 140 mmol/L (135-145)
== END 2023-02-13 11:09 | disposition home or self-care (01) ==
LOC: HO.LAB 11:08
PROVIDERS: PCP Nurse Practitioner Family; Visit Provider Surgery
DX: D64.9 Anemia, unspecified (principal); I77.810 Thoracic aortic ectasia; K68.3 Retroperitoneal hematoma; Q23.1 Congenital insufficiency of aortic valve; Z98.890 Other specified postprocedural states; Z87.19 Personal history of other diseases of the digestive system
CPT/HCPCS: 36415; 80048; 85025

== ENCOUNTER 2023-02-13 11:08 | Outpatient (AMB) | payer BC, SELFPAY ==
[2023-02-13 11:11] VITALS: BP 126/60; PULSE 68; TEMP 35.6; O2SAT 98; BMI 25.3
--- NOTE | 2023-02-13 11:11 | A.OFFVIS_ITS ---
Intake Vital Signs 02/13/23 11:11 Height 5 ft 11 in Weight 181 lb 3.52 oz BMI 25.3 BP 126/60 Blood Pressure Location Rt brachial Position Sitting Pulse 68 Pulse Source Pulse Oximeter Temp 96.1 F L Temp Source Tympanic Pulse Oximetry (%) 98 Oxygen Delivery Method Room Air Intake Visit Reasons: PO diagnostic lap Allergies ENVIRONMENTAL Allergy (Unknown, Uncoded 02/13/23 11:17) STUFFY NOSE, SNEEZING HPI HPI Comments History of Present Illness Details Patient returns for follow-up after an open right inguinal hernia repair with mesh on 01/17/2023. Since his office visit last week, he reports that he is doing well. He reports that the seroma in his right scrotum is resolving and he denies any fevers, chills or sweats. He is tolerating his regular diet and following activity restrictions. He is having a discussion with his employer regarding return to work on light duty since FMLA forms originally filled out have him on out on medical leave until 02/28/2023 from the hernia repair. We had discussed any global fatigue that might impact his work performance related to his unexpected retroperitoneal hematoma, and today he reports that he is doing well. He denies any right groin pain, irritation or itching related to the seroma and believes it is continuing to resolve. The importance of excluding malignancy regarding his preoperative anemia has been discussed at length and the patient's questions and his father's questions seemed to be satisfactorily answered. The patient notes that he was contacted by Gastroenterology and he has tried calling to schedule his EGD and colonoscopy appointment. [facility] Medical History Ascending aorta dilatation Bicuspid aortic valve Aortic stenosis Cigarette smoker Surgical History History of right inguinal hernia repair Hx of laparoscopy History of appendectomy Family History Maternal Grandmother Cancer of unknown origin Mother Skin cancer Social History Household Members: Family Housing: House Alcohol intake: current Alcohol intake frequency: 0-2 drinks per day Alcohol type: beer Comment: , Patient Tobacco Use Status: Former Tobacco user Tobacco use type: Cigarette Cigarettes Per Day: 2 e-Cigarette/Vaping Use: Never Used Second Hand Smoke Exposure: No service: No Current occupational status: employed Current occupation: [employer] Current occupational exposures/hazards: No Cognitive needs: No Hearing needs: No Vision needs: No Review of Systems Const All systems reviewed & are unremarkable except as noted in HPI and below Physical Exam Vital Signs: Last Vital Signs Temp 96.1 F L 02/13/23 11:11 Pulse 68 02/13/23 11:11 BP 126/60 02/13/23 11:11 Pulse Ox 98 02/13/23 11:11 Oxygen Delivery Method Room Air 02/13/23 11:11 BMI result Body Mass Index 25.3 On exam, the patient is anicteric nontoxic and remains in good spirits He is having no respiratory difficulty His abdominal incisions are healing well with no evidence of any infection. His right lower quadrant open hernia repair incision is intact with no cellulitis. A non tender, non erythematous seroma extending into his right hemiscrotum is present and smaller than last week. There is no evidence of recurrent tinea cruris, skin irritation and his Steri-Strips are sloughing. All of his incisions are healing well Results Reviewed Results Reviewed: Hemoglobin is back to preoperative baseline at 9.9. Patient has a mild leukocytosis at 12.5 and thrombocytosis. In this setting, this is likely secondary to the retroperitoneal hematoma and CT prior to discharge showed no evidence of infection. The patient is having no fevers, tachycardia or symptoms to suggest infection and this likely represents acute phase reaction and was discussed with the patient and father. repeat nonfasting CBCD & BMP are ordered 02/13/23 Assessment & Plan Assessment & Plan (1) History of right inguinal hernia repair: Comment: jan 2023 Code(s): Z98.890 - Other specified postprocedural states; Z87.19 - Personal history of other diseases of the digestive system (2) Retroperitoneal hematoma: Code(s): K68.3 - Retroperitoneal hematoma (3) Bicuspid aortic valve: Code(s): Q23.1 - Congenital insufficiency of aortic valve (4) Ascending aorta dilatation: Code(s): I77.810 - Thoracic aortic ectasia (5) Aortic stenosis: Code(s): I35.0 - Nonrheumatic aortic (valve) stenosis (6) Anemia: Code(s): D64.9 - Anemia, unspecified Plan Instructions regarding diet and activity reviewed and apparently understood. Patient's FMLA forms have been addressed to keep him out of work until 03/18/2023. He at that time, he can return without restriction, but if he needs a week of half days, he has this option and will contact us for note. The pre-existing anemia identified last summer needs to be addressed with EGD and colonoscopy. Since the patient and Gastroenterology need to connect, I walked the patient over regarding scheduling his procedures. I will see the patient back in 1 week and he will contact me before then if there are issues or problems. We will review his labs at his next visit. The patient is advised to monitor for any wetness or itching in his right hemiscrotum/medial right thigh since he has a history of tinea cruris and the seroma may promote damp conditions that allow the fungus action to return. If he has any symptoms, he will reach out to me or his PCP. Lastly, explained to the patient that I will be out of the office for several months and he will be seen by the surgeon fiscal economist if there are any questions. When he returns to work, he should have no activity restrictions, but if GI has any questions, in my absence, I will ask them to reach out to the surgeon on- call. Orders: Orders Complete Blood Count Auto Diff Today D64.9 - Anemia, unspecified, I35.0 - Nonrheumatic aortic (valve) stenosis, I77.810 - Thoracic aortic ectasia, K68.3 - Retroperitoneal hematoma, Q23.1 - Congenital insufficiency of aortic valve, Z87.19 - Personal history of other diseases of the digestive system, Z98.890 - Other specified postprocedural states Basic Metabolic Panel Today D64.9 - Anemia, unspecified, I35.0 - Nonrheumatic aortic (valve) stenosis, I77.810 - Thoracic aortic ectasia, K68.3 - Retroperitoneal hematoma, Q23.1 - Congenital insufficiency of aortic valve, Z87.19 - Personal history of other diseases of the digestive system, Z98.890 - Other specified postprocedural states Coding Level of Care Code Global (62699) Diagnoses History of right inguinal hernia repair Z98.890; Z87.19 Retroperitoneal hematoma K68.3 Bicuspid aortic valve Q23.1 Ascending aorta dilatation I77.810 Aortic stenosis I35.0 Anemia D64.9
== END 2023-02-13 11:36 | disposition home or self-care (01) ==
PROVIDERS: PCP Nurse Practitioner Family; Visit Provider Surgery
DX: Z98.890 Other specified postprocedural states (principal); Z87.19 Personal history of other diseases of the digestive system; K68.3 Retroperitoneal hematoma; Q23.1 Congenital insufficiency of aortic valve; I77.810 Thoracic aortic ectasia; I35.0 Nonrheumatic aortic (valve) stenosis; D64.9 Anemia, unspecified
CPT/HCPCS: 99024

== ENCOUNTER 2023-02-20 10:03 | Outpatient (AMB) | payer BC, SELFPAY ==
--- NOTE | 2023-02-20 10:17 | A.OFFVIS_ITS ---
Intake Vital Signs 02/20/23 10:23 Height 5 ft 11 in Weight 188 lb 4.396 oz BMI 26.3 BP 151/73 H Blood Pressure Location Rt brachial Position Sitting Pulse 73 Pulse Source Pulse Oximeter Temp 96.6 F L Temp Source Tympanic Pulse Oximetry (%) 98 Intake Visit Reasons: PO diagnostic lap Allergies ENVIRONMENTAL Allergy (Unknown, Uncoded 02/13/23 11:17) STUFFY NOSE, SNEEZING HPI HPI Comments History of Present Illness Details Patient returns for follow-up after an open right inguinal hernia repair with mesh on 01/17/2023. Since his office visit last week, he reports that he is doing well. He reports that the seroma in his right scrotum is resolving and he denies any fevers, chills or sweats. He is tolerating his regular diet and following activity restrictions. He is having a discussion w ith his employer regarding return to work on light duty since FMLA forms originally filled out have him on out on medical leave until 02/28/2023 from the hernia repair. The importance of excluding malignancy regarding his preoperative anemia has been discussed at length and the patient's questions and his father's questions seemed to be satisfactorily answered. The patient notes that he was contacted by Gastroenterology and he has tried calling to schedule his EGD and colonoscopy appointment. The patient requested a speak freely when his father came into the room. 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 We discussed returning on half days with no weightlifting restrictions given the time frame postop from his hernia repair. He reports no issues with the seroma and feels strong enough to return to work. I have recommended half days until March 18 for medical reasons due to deconditioning that occurred with his operation and extenuating retroperitoneal bleed. PFSH Medical History Ascending aorta dilatation Bicuspid aortic valve Aortic stenosis Cigarette smoker Surgical History History of right inguinal hernia repair Hx of laparoscopy History of appendectomy Family History Maternal Grandmother Cancer of unknown origin Mother Skin cancer Social History Household Members: Family Housing: House Alcohol intake: current Alcohol intake frequency: 0-2 drinks per day Alcohol ty pe: beer Comment: , Patient Tobacco Use Status: Former Tobacco user Tobacco use type: Cigarette Cigarettes Per Day: 2 e-Cigarette/Vaping Use: Never Used Second Hand Smoke Exposure: No service: No Current occupational status: employed Current occupation: [employer] Current occupational exposures/hazards: No Cognitive needs: No Hearing needs: No Vision needs: No Review of Systems Const All systems reviewed & are unremarkable except as noted in HPI and below Physical Exam Vital Signs: Last Vital Signs Temp 96.6 F L 02/20/23 10: Pulse 73 02/20/23 10:23 BP 151/73 H 02/20/23 10: Pulse Ox 98 02/20/23 10:23 BMI result Body Mass Index 26.3 On exam, the patient is anicteric nontoxic and remains in good spirits He is having no respiratory difficulty His abdominal incisions are healing well with no evidence of any infection. His right lower quadrant open hernia repair incision is intact with no cellulitis. A non tender, non erythematous seroma extending into his right hemiscrotum is present and smaller than last week. There is no evidence of recurrent tinea cruris, skin irritation and his Steri-Strips are sloughing. All of his incisions are healing well Results Reviewed Results Reviewed: Latest labs show his hemoglobin is up to 11.7 which still represents anemia, white blood cell count normal at 8.7, platelet count 382 K BUN 16, creatinine 0.82, electrolytes within normal parameters Assessment & Plan Assessment & Plan (1) History of right inguinal hernia repair: Comment: jan 2023 Code(s): Z98.890 - Other specified postprocedural states; Z87.19 - Personal history of other diseases of the digestive system (2) Ascending aorta dilatation: Code(s): I77.810 - Thoracic aortic ectasia (3) Aortic stenosis: Code(s): I35.0 - Nonrheumatic aortic (valve) stenosis Plan The patient is progressing well. His seroma has continued to resolve in his right groin and since it is asymptomatic, I have recommended monitoring it. If he becomes symptomatic is evidence by skin irritation, local pain or other issues, he will contact me or the surgeon on-call for evaluation of an ultrasound-guided aspiration. Work note was provided to the patient regarding returning to work on half days 03/07/2023 with no weight restrictions. He can resume full duty on 03/18/2022. The importance of following up with GI endoscopy to exclude malignancy giving his presenting anemia last summer was again discussed. Patient seems to understand the importance and will follow-up with me on a p.r.n. basis. Coding Level of Care Code Global (00619) Diagnoses History of right inguinal hernia repair Z98.890; Z87.19 Ascending aorta dilatation I77.810 Aortic stenosis I35.0
[2023-02-20 10:23] VITALS: BP 151/73; PULSE 73; TEMP 35.9; O2SAT 98; BMI 26.3
== END 2023-02-20 11:13 | disposition home or self-care (01) ==
PROVIDERS: PCP Nurse Practitioner Family; Visit Provider Surgery
DX: Z98.890 Other specified postprocedural states (principal); Z87.19 Personal history of other diseases of the digestive system; I77.810 Thoracic aortic ectasia; I35.0 Nonrheumatic aortic (valve) stenosis
CPT/HCPCS: 99024

== ENCOUNTER → 2023-02-20 10:03 | Outpatient (BNVA) | payer BC, SELFPAY | PROVIDERS: PCP Nurse Practitioner Family; Visit Provider Surgery | DX: D64.9 Anemia, unspecified (principal); I35.0 Nonrheumatic aortic (valve) stenosis; I77.810 Thoracic aortic ectasia; Z98.890 Other specified postprocedural states; Z87.19 Personal history of other diseases of the digestive system; K68.3 Retroperitoneal hematoma; Q23.1 Congenital insufficiency of aortic valve ==

== ENCOUNTER 2023-05-02 12:46 | Outpatient (AMB) | payer BC, SELFPAY ==
[2023-05-02 12:50] VITALS: BP 132/70; PULSE 76; O2SAT 97; BMI 26.6
--- NOTE | 2023-05-02 12:50 | A.OFFPC_ITS ---
Vital Signs 05/02/23 12:50 Height 5 ft 11 in Weight 191 lb BMI 26.6 BP 132/70 Blood Pressure Location Lt brachial Position Sitting Pulse 76 Pulse Source Pulse Oximeter Pulse Oximetry (%) 97 Oxygen Delivery Method Room Air Intake Visit Reasons: 6 month follow up Intake Note: pt is here for 6 month follow up Corrective And Manual Arts Therapist Required: No Accompanied by: Self / Same As Patient Allergies ENVIRONMENTAL Allergy (Unknown, Uncoded 05/02/23 18:07) STUFFY NOSE, SNEEZING Medication List - Last Reconciled 05/02/23 by JERMAINE Buck No Known Home Meds Tobacco use date assessed: 05/02/23 Dental Screening Dental Screen Date: 05/02/23 Did you have a dental visit in the last 12 months?: Yes Did you have a dental problem in the last 6 months where you did not have access to dental care?: No Was dental information given to patient?: Patient has dentist HPI 6 month follow up HPI Details HTN: Blood pressure is stable today. Pt does not check his blood pressure at home. Highly encouraged pt to start taking his BP at home and drop off readings. Denies chest pain, shortness of breath, headache, dizziness, and blurred vision. Pt has a hx of anemia. Will order labs. Denies any blood in stool or hematuria. Pt has a hx of ascending aorta dilatation, aortic stenosis, and bicuspid aortic valve. Due for repeat echo in approximately 4-5 months. Will refer to cardiology. PFSH Medical History Ascending aorta dilatation Bicuspid aortic valve Aortic stenosis Cigarette smoker Surgical History History of right inguinal hernia repair Hx of laparoscopy History of appendectomy Family History Maternal Grandmother Cancer of unknown origin Mother Skin cancer Social History Household Members: Family Housing: House Alcohol intake: current Alcohol intake frequency: 0-2 drinks per day Alcohol type: beer Comment: , Patient Tobacco Use Status: Former Tobacco user Tobacco use type: Cigarette Cigarettes Per Day: 2 e-Cigarette/Vaping Use: Never Used Second Hand Smoke Exposure: No service: No Current occupational status: employed Current occupation: [employer] Current occupational exposures/hazards: No Cognitive needs: No Hearing needs: No Vision needs: No Questionnaire PHQ-9 Over the last 2 weeks, how often have you been bothered by any of the following problems? 1. Little interest or pleasure in doing things: not at all 2. Feeling down, depressed, or hopeless: not at all 3. Trouble falling or staying asleep, or sleeping too much: not at all 4. Feeling tired or having little energy: not at all 5. Poor appetite or overeating: not at all 6. Feeling bad about yourself - or that you are a failure or have let yourself or your family down: not at all 7. Trouble concentrating on things, such as reading the newspaper or watching television: not at all 8. Moving or speaking so slowly that other people could have noticed. Or the opposite - being so fidgety or restless that you have been moving around a lot more than usual: not at all 9. Thoughts that you would be better off or of hurting yourself in some way: not at all Total score: 0 Depression Screening Interpretation: Negative Depression Screening Done: Yes 51034 - PHQ-9 Billing: Yes Source: Developed by Drs. Pieter Hedrick, Alida Ruiz, Drew Murray and colleagues, with an educational chaim from [employer]. Thrive Questionnaire Date Thrive assessed: 05/02/23 I am a: Patient What is your living situation today?: I have a steady place to live Within the past 12 months, did the food you bought not last and you didn't have the money to get more?: Never true Within the past 12 months, did you worry whether your food would run out before you got money to buy more?: Never true Do you have trouble paying for medicines?: No Do you have trouble getting transportation to medical appointments?: No Do you have trouble paying your heating and electricity bill?: No Do you have trouble taking care of your child, family member or friend?: No Do you have trouble with day-to-day activities such as bathing, preparing meals, shopping, managing finances, etc.?: No Are you currently unemployed and looking for a job?: No Are you interested in more education?: No Please select the resources that you would like help with: None Currently or been in a relationship where the following occur: no concerns reported THRIVE Score: 0 AUDIT C Alcohol Use Questionnaire (AUDIT-C) 1. How often do you have a drink containing alcohol?: 2-3 times a week 2. How many drinks containing alcohol do you have on a typical day when you are drinking?: 3 or 4 3. How often do you have six or more drinks on one occasion?: Less than monthly Total Score: 5 Score Reviewed/Action Taken: Yes ARTHUR-7 AMB Questionnaire ARTHUR-7 Date ARTHUR - 7 assessed: 05/02/23 Feeling nervous, anxious, or on edge: 0 = Not at all Not being able to stop or control worryin = Not at all Worrying too much about different things: 0 = Not at all Trouble relaxin = Not at all Being so restless that it is hard to sit still: 0 = Not at all Becoming easily annoyed or irritable: 0 = Not at all Feeling afraid as if something awful might happen: 0 = Not at all Total ARTHUR-7 score (0-4 normal; 5-9 mild; 10-14 moderate; 15-21 severe): 0 Source: Developed by Drs. Pieter Hedrick, Alida Ruiz, Drew Murray and colleagues, with an educational chaim from [employer]. ARTHUR-7 Assessment Billing ARTHUR-7 Assessment Tool: ARTHUR-7 Assessment 19695 Review of Systems Const Reports as per HPI Physical exam (Primary Care) Vital Signs: Last Vital Signs Pulse 76 05/02/23 12:50 BP 132/70 05/02/23 12:50 Pulse Ox 97 05/02/23 12:50 Oxygen Delivery Method Room Air 05/02/23 12:50 BMI result Body Mass Index 26.6 Tobacco/Smoking Status: Tobacco use Status Tobacco use date assessed 05/02/23 05/02/23 12:52 Patient Tobacco Use Status Former Tobacco user 05/02/23 12:52 Tobacco use type Cigarette 05/02/23 12:52 e-Cigarette/Vaping Use Never Used 05/02/23 12:52 PHQ-9: PHQ-9 Score PHQ-9: Total score 0 05/02/23 13:25 Depression Screening Interpretation: Negative Thrive Assessment: Date of Thrive Assessment Date Thrive assessed 05/02/23 05/02/23 13:19 Currently or been in a relationship where the following occur: no concerns reported Const General: cooperative Orientation/consciousness: patient oriented x3 Resp Effort & Inspection: normal respiratory effort Auscultation: clear to auscultation bilaterally Cardio Rate: regular rate Rhythm: regular rhythm Heart sounds: S1 normal heart sound present, S2 normal heart sound present and Murmur heart sound present systolic Neuro General: patient oriented x3 Extrem Right lower extremity: no edema Left lower extremity: no edema Psych Appearance: grossly normal Mental Status: mental status grossly normal Speech and movement: Normal speech and movement present Affect: normal affect Attitude: cooperative Thought process: Normal thought process present Thought content: Normal thought content present Insight: Good insight present (Psych) Judgement: Good judgement present (Psych) Assessment and Plan Assessment & Plan (1) Anemia: Code(s): D64.9 - Anemia, unspecified Plan: Labs ordered, though HGB is rising (2) Aortic stenosis: Code(s): I35.0 - Nonrheumatic aortic (valve) stenosis Plan: Referred to cardiology (3) Ascending aorta dilatation: Code(s): I77.810 - Thoracic aortic ectasia Plan: Referred to cardiology (4) Bicuspid aortic valve: Code(s): Q23.1 - Congenital insufficiency of aortic valve Plan: Referred to cardiology Plan The patient agreed to the use of a certified medical biller for this encounter. Scribed for JERMAINE John by Doreen Gonzalez certified medical biller, on 05/02/2023 at 13:20 EST. Orders: Orders Complete Blood Count Auto Diff Today D64.9 - Anemia, unspecified Ferritin Today D64.9 - Anemia, unspecified IRON PROFILE Today D64.9 - Anemia, unspecified Vitamin B12 and Folate Today D64.9 - Anemia, unspecified Reticulocyte Count Today D64.9 - Anemia, unspecified Referrals Cardiology Referral I35.0 - Nonrheumatic aortic (valve) stenosis, I77.810 - Thoracic aortic ectasia, Q23.1 - Congenital insufficiency of aortic valve Coding Level of Care Code Est Pt Level 3 (54111) Diagnoses Anemia D64.9 Aortic stenosis I35.0 Ascending aorta dilatation I77.810 Bicuspid aortic valve Q23.1 Additional Codes ARTHUR-7 Assessment Billing - ARTHUR-7 Assessment Tool: ARTHUR-7 Assessment 52194 ([id number])
== END 2023-05-02 13:39 | disposition home or self-care (01) ==
PROVIDERS: PCP Nurse Practitioner Family; Visit Provider Nurse Practitioner Family
DX: D64.9 Anemia, unspecified (principal); I35.0 Nonrheumatic aortic (valve) stenosis; I77.810 Thoracic aortic ectasia
CPT/HCPCS: 99213

== ENCOUNTER 2023-06-13 07:33 | Day surgery (SDC) | payer BC, SELFPAY ==
[2023-06-11 14:21] VITALS: BMI 26.6
[2023-06-13 08:46] VITALS: BMI 26.5
[2023-06-13 08:56] VITALS: BP 132/60; PULSE 58; RESP 16; TEMP 37.1; O2SAT 95
--- NOTE | 2023-06-13 08:59 | MHC.SHP ---
Pre-Procedural Eval Section A - 24 Hr Update-Section A only Date of Service: 06/13/23 Section B - Complete if H&P > 30 days Chief Complaint: Encounter for screening for malignant neoplasm of Details of Present Illness: also hx of GERD Relevant Family History (Specify if Yes): No Relevant Social History: None (ex smoker ) Present Medications: see Short Stay Collaborative assessment Medical History: Significant History (Aortic stenosis Ascending aorta dilatation Bicuspid aortic valve Cigarette smoker) History of Previous Operations: Relevant previous surgery/procedure and date(s) (History of appendectomy) Allergies: Allergies Allergy/AdvReac Type Severity Reaction Status Date / Time ENVIRONMENTAL Allergy Unknown STUFFY Uncoded 05/02/23 18:07 NOSE, SNEEZING Review of Systems Sugical H&P ROS: Negative: Constitution, Cardiovascular, Respiratory, Neurological, Psychiatric, Hem-Onc, Allergic/Immunologic, Gastrointestinal, Genitourinary, Musculoskeletal, Integumentary, Endocrine and Eyes/Ears/Nose/Throat Exam Surgical H&P Exam: Normal: HEENT, Normal: Heart, Normal: Lungs, Normal: Extremities, Normal: Abdomen, Normal: Skin and Normal: Neurological Plan Diagnosis/Plan: Unchanged I have reviewed the history and physical and performed a pertinent physical examination on my patient. No changes have occurred unless specified. EGD for hx of GERD, and screening colonoscopy Time Spent With Patient Time: Total time managing care of this patient today ____ minutes.
[2023-06-13] MEDS: Lactated Ringers 1,000 ML 100 ML IVCONT (09:05)
--- NOTE | 2023-06-13 09:10 | P.CONAN_ITS ---
Documented by User: Rocio Moreira NP 06/11/23 14:40 HPI - Anesthesia Eval Consult details Narrative: 52yo M for Colonoscopy s/p open inguinal hernia repair 01/2023 with GA-ETT 7.5 (yellow-brown fluid suctioned and OGT ~ 400ml) Per D/C summary: Patient underwent an uneventful open right inguinal hernia repair with polypropylene mesh. In PACU, the patient became hypotensive in spite of volume resuscitation and blood. Discussion with anesthesiologist felt the patient was too unstable to explore and the patient was transferred to the ICU for pressors and additional blood transfusion. A CT was done which confirmed both the retroperitoneal hematoma and intraperitoneal blood of unclear etiology. Since embolization was recommended by the on-call radiologist but unavailable in this institution and no other institution could accommodate the patient, he underwent a diagnostic laparoscopy were no active bleeding source was identified, however a tear in the mesentery and retroperitoneum from the hernia reduction was noted is the etiology. This was rendered hemostatic and irrigated but the retroperitoneal hematoma was not opened. PMF Active Problems Active Problems: All Active Problems (Updated 02/03/23 @ 00:03 by Jonathan Mcclelland) Leukocytosis (Acute) Fever (Acute) Retroperitoneal hematoma (Acute) Physical exam (Acute) Impacted cerumen of both ears (Acute) Screening for colon cancer (Acute) Screening PSA (prostate specific antigen) (Acute) Heart murmur (Acute) Anemia (Acute) Tinea corporis (Acute) Tinea cruris (Acute) Hydrocele in adult (Acute) History of right inguinal hernia repair (Acute) Bicuspid aortic valve (Acute) Ascending aorta dilatation (Acute) Aortic stenosis (Acute) Past Medical History Medical History Ascending aorta dilatation Bicuspid aortic valve Aortic stenosis Cigarette smoker Family History Family History Maternal Grandmother Cancer of unknown origin Mother Skin cancer Family history of problems with anesthesia: No Surgical History Surgical History (Updated 06/11/23 @ 14:19 by Violetta Church RN) History of right inguinal hernia repair Hx of laparoscopy History of appendectomy History of Problems with Anesthesia: No Social History Social History Household Members: Family Housing: House Alcohol intake: current Alcohol intake frequency: 0-2 drinks per day Alcohol type: beer Comment: , Patient Tobacco Use Status: Former Tobacco user Quit Date: 1 plus years ago Tobacco use type: Cigarette Cigarettes Per Day: 2 e-Cigarette/Vaping Use: Never Used Second Hand Smoke Exposure: No Use of substances other than those prescribed or required for medical reasons: No Are you DNR?: No Advance Directives: No Advance Directives Information Provided: Yes service: No Current occupational status: employed Current occupation: [employer] Current occupational exposures/hazards: No Cognitive needs: No Hearing needs: No Vision needs: No Meds Allergies Allergy/AdvReac Type Severity Reaction Status Date / Time ENVIRONMENTAL Allergy Unknown STUFFY Uncoded 05/02/23 18:07 NOSE, SNEEZING Exam Height,Weight and Vital Signs: Height 5 ft 11 in Weight 86.636 kg Narrative Narrative: EKG 01/2023 Vent. Rate : 104 BPM Atrial Rate : 104 BPM P-R Int : 128 ms QRS Dur : 082 ms QT Int : 338 ms P-R-T Axes : 054 010 008 degrees QTc Int : 444 ms Sinus tachycardia with Premature supraventricular complexes RSR' or QR pattern in V1 suggests right ventricular conduction delay Nonspecific T wave abnormality Inferior leads Abnormal ECG No previous ECGs available ECHO 01/2023 Conclusions: - 1. Normal LV ejection fraction of 65-70% with mild LVH with impaired relaxation filling pattern 2. Mildly dilated left atrium 3. Possible bicuspid aortic valve with nktt-mh-gyjkbsiy aortic stenosis and btkp-zc-sgctslbr aortic regurgitation 4. Moderately dilated ascending aorta at 4.9 cm 5. No pericardial effusion Assessment and Plan Final Anesthetic Review Family History of Problems with Anesthesia: No History of Problems with Anesthesia: No Documented by User: Prabha Henry DO 06/13/23 09:16 [facility] Past Medical History Medical History Ascending aorta dilatation Bicuspid aortic valve Aortic stenosis Cigarette smoker Family History Family History Maternal Grandmother Cancer of unknown origin Mother Skin cancer Family history of problems with anesthesia: No Surgical History Surgical History (Updated 06/11/23 @ 14:19 by Violetta Church RN) History of right inguinal hernia repair Hx of laparoscopy History of appendectomy History of Problems with Anesthesia: No Social History Social History Household Members: Family Housing: House Alcohol intake: current Alcohol intake frequency: 0-2 drinks per day Alcohol type: beer Comment: , Patient Tobacco Use Status: Former Tobacco user Quit Date: 1 plus years ago Tobacco use type: Cigarette Cigarettes Per Day: 2 e-Cigarette/Vaping Use: Never Used Second Hand Smoke Exposure: No Use of substances other than those prescribed or required for medical reasons: No Are you DNR?: No Advance Directives: No Advance Directives Information Provided: Yes service: No Current occupational status: employed Current occupation: [employer] Current occupational exposures/hazards: No Cognitive needs: No Hearing needs: No Vision needs: No Meds Allergies Allergy/AdvReac Type Severity Reaction Status Date / Time ENVIRONMENTAL Allergy Unknown STUFFY Uncoded 05/02/23 18:07 NOSE, SNEEZING Exam Exam Date and Time: June 13, 2023 0910 Height,Weight and Vital Signs: Height 5 ft 11 in Weight 86.636 kg Height 5 ft 11 in Weight 86.296 kg Vital Signs Temperature 98.7 F 06/13/23 08:56 Pulse Rate 58 06/13/23 08:56 Respiratory Rate 16 06/13/23 08:56 Blood Pressure 132/60 06/13/23 08:56 Pulse Oximetry 95 06/13/23 08:56 Oxygen Delivery Method Room Air 06/13/23 08:56 Temperature 98.7 F 06/13/23 08:56 Pulse Rate 58 06/13/23 08:56 Respiratory Rate 16 06/13/23 08:56 Blood Pressure 132/60 06/13/23 08:56 Pulse Oximetry 95 06/13/23 08:56 Oxygen Delivery Method Room Air 06/13/23 08:56 Airway Mallampati Class: II TM Dist: >3cm Partial: Lower Loose/Missing/Broken Teeth: No (patient denies any loose or broken teeth) Heart: S1S2 Lungs: CTAB Assessment and Plan Assessment Anesthesia Assessment: Anesthesia Plan Discussed and Chart Reviewed Final Anesthetic Review Family History of Problems with Anesthesia: No History of Problems with Anesthesia: No NPO: Yes ASA Class: II Final Preanesthetic Review: No Changes in Pt Med Stat, Meds/Allgs Chart Reviewed, Consent Obtained/Reviewed and Anes Risks/Benef Reviewed Patient Risk: Low Procedure Risk: Low Anesthetic Plan Anesthetic Plan: MAC: and Agree w/ Assess. and Plan Disposition: Standard PACU
--- NOTE | 2023-06-13 09:58 | P.OP_ITS ---
Operative Note Operative Note Date of Service: 06/13/23 Narrative: Operative Information Procedure Description: EGD, Colonoscopy Indication: GERD and screening colonoscopy Anesthesia: MAC FLEXIBLE TRANSORAL UPPER GASTROINTESTINAL ENDOSCOPY AND COLONOSCOPY PROCEDURE NOTE UPPER ENDOSCOPY Consent: Indications for the procedure and potential complications of bleeding, perforation, reaction to medications and missed diagnosis were discussed with the patient and informed consent was obtained. Instrument: Olympus GIF H 190 J mid size upper endoscope Monitoring: Vital signs and clinical assessment, continuous EKG monitoring, Pulse oximetry, Carbon Dioxide monitoring and blood pressure monitoring were done throughout the procedure. Procedure: The patient was placed in the left lateral decubitis position and pre-procedure medications were administered and a bite block was placed. The endoscope was inserted into the mouth and advanced under direct vision to the third part of duodenum. A careful inspection was made as the upper endoscope was withdrawn including a retroflexed examination of the proximal stomach; Findings and interventions are described below. Findings: Larynx:normal Esophagus: GE junction at 42 cm, diaphragm hiatus at 42 cm, irregular Z line, possible short segment barretts, bx taken, schatzki ring noted with some mild esophagitis Stomach: Mild erythema . Biopsies were obtained. Grade 2 flap valve on retroflexed examination of the cardia. Duodenum: Normal bulb and descending duodenum, Intervention: Biopsies as noted above, COLONOSCOPY Instrument: Olympus variable stiffness pediatric scope 190L Colonoscopy Monitoring: Vital signs and clinical assessment, continuous EKG monitoring, Pulse oximetry, Carbon Dioxide monitoring and blood pressure monitoring were done throughout the procedure. Colon withdrawal time was 22 minutes. Procedure: The patient was placed in the left lateral decubitis position and pre-procedure medications were administered. After a digital rectal examination of the ano-rectum, the video colonoscope was inserted into the rectum and advanced through the colon to the cecum/TI. The colonoscope was slowly withdrawn in a retrograde panoramic fashion and the colon mucosa was carefully examined including a retroflexed view of the rectum. Findings and interventions are described below. Procedure Difficulty:moderate--pressure applied and placed on back Findings: Terminal Ileum-not intubated Cecum:normal Ascending Colon: moderate diverticulosis, a large sessile polyp noted in proximal AC, with fecal cap, injected with eleview and then removed with hot snare. The edges were ablated with soft tip coag and x 2 clips placed to close the defect, the polyp was retrieved with a net. under the same fold was another sessile polyp with a fecal cap which was removed with cold snare and measured about 10-12 mm. Transverse Colon -normal Descending Colon: moderate diverticulosis Sigmoid Colon: severe diverticulosis Rectum: Retroflexion with small internal hemorrhoids, grade I Anorectum - normal Colon preparation: Herald Bowel Preparation Scale Right colon; 2 Transverse colon: 2 Left colon; 2 (0 = Unprepared colon segment with mucosa not seen due to solid stool that cannot be cleared. 1 = Portion of mucosa of the colon segment seen, but other areas of the colon segment not well seen due to staining, residual stool and/or opaque liquid. 2 = Minor amount of residual staining, small fragments of stool and/or opaque liquid, but mucosa of colon segment seen well. 3 = Entire mucosa of colon segment seen well with no residual staining, small fragments of stool or opaque liquid) Impression and Post Procedure Diagnosis: Endoscopy Findings: mild gastritis schatzki ring Colonoscopy Findings: diverticulosis colon polyps internal hemorrhoids Plan: Await Pathology results Repeat Colonoscopy in 6 months or so or earlier if clinically indicated High fiber diet leaflet avoid straining at stool, epsom salts and sitz bath, anusol supps or cream if Barretts positive, repeat EGD in 3 yrs Above findings were reviewed with the patient and relevant handouts were provided if indicated.
[2023-06-13 10:58] VITALS: BP 143/80; PULSE 65; RESP 16; TEMP 36.3; O2SAT 94
[2023-06-13 11:13] VITALS: BP 131/70; PULSE 58; RESP 14; O2SAT 96
[2023-06-13 11:28] VITALS: BP 140/68; PULSE 62; RESP 16; TEMP 36.2; O2SAT 96
== END 2023-06-13 12:08 | disposition home or self-care (01) ==
PROVIDERS: PCP Nurse Practitioner Family; Visit Provider Internal Medicine Gastroenterology
PROC: (CPT 45385; principal; 2023-06-13 10:40)
DX: Z12.11 Encounter for screening for malignant neoplasm of colon (principal); D12.2 Benign neoplasm of ascending colon; K57.30 Diverticulosis of large intestine without perforation or abscess without bleeding; K64.0 First degree hemorrhoids; K22.2 Esophageal obstruction; K22.89 Other specified disease of esophagus; K29.70 Gastritis, unspecified, without bleeding; F17.210 Nicotine dependence, cigarettes, uncomplicated
CPT/HCPCS: 45385; 45381; 43239; 88305; 88313; 88342; J1596; J2704

== ENCOUNTER → 2023-06-13 07:33 | Outpatient (BNV) | payer BC, SELFPAY | PROVIDERS: PCP Nurse Practitioner Family; Visit Provider Internal Medicine Gastroenterology | DX: Z12.11 Encounter for screening for malignant neoplasm of colon (principal); K63.5 Polyp of colon; K57.90 Diverticulosis of intestine, part unspecified, without perforation or abscess without bleeding; K64.0 First degree hemorrhoids; K21.00 Gastro-esophageal reflux disease with esophagitis, without bleeding; K22.2 Esophageal obstruction; K22.719 Barrett's esophagus with dysplasia, unspecified | CPT/HCPCS: 43239; 45381; 45385 ==

== ENCOUNTER 2023-08-22 10:52 | Outpatient (AMB) | payer BC, SELFPAY ==
--- NOTE | 2023-08-22 10:57 | A.OFFVIS_ITS ---
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 He has a pleasant 52-year-old male was not aware of his diagnosis. Patient says last January he was admitted to the hospital and underwent hernia repair and subsequently developed significant hypertension and had bleeding in his intraperitoneal cavity requiring repeat surgery. At that time he also had an echocardiogram which showed bicuspid aortic valve with rudr-nl-ocrpapjo aortic stenosis and oemt-xj-yuuzpade aortic regurgitation with moderately dilated ascending aorta at 4.9 cm. He said he has been told in the past that he had a murmur although he was not aware of any prior workup that was done for it. He comes for follow-up. Denies any significant symptoms at current point time. 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 He denies any lightheadedness, syncope. No prolonged palpitations or irregular heartbeat. Denies any bleeding issues or neurologic events. Comes for follow-up the echocardiogram. Denies any family history of ascending aortic aneurysm/dissection or prior surgery. [facility] Medical History Ascending aortic aneurysm Bicuspid aortic valve Aortic stenosis Cigarette smoker Surgical History History of right inguinal hernia repair Hx of laparoscopy History of appendectomy Family History Maternal Grandmother Cancer of unknown origin Mother Skin cancer Social History Household Members: Family Housing: House Alcohol intake: current Alcohol intake frequency: 0-2 drinks per day Alcohol type: beer Comment: , Patient Tobacco Use Status: Former Tobacco user Tobacco use type: Cigarette Cigarettes Per Day: 2 e-Cigarette/Vaping Use: Never Used Second Hand Smoke Exposure: No service: No Current occupational status: employed Current occupation: [employer] Current occupational exposures/hazards: No Cognitive needs: No Hearing needs: No Vision needs: No Review of Systems Const Denies chills, Denies daytime sleepiness, Denies fatigue, Denies fever(s), Denies frequent falls, Denies poor appetite, Denies snoring, Denies stops breathing during sleep, Denies weakness, Denies weight gain and Denies weight loss Eyes Denies loss of vision ENT Denies dizziness and Denies hearing loss Card Denies chest pain, Denies claudication, Denies leg edema, Denies lightheadedness, Denies palpitations, Denies dyspnea, Denies dyspnea on exertion and Denies orthopnea Resp Denies cough, Denies excessive phlegm production, Denies dyspnea, Denies dyspnea on exertion, Denies snoring and Denies wheezing GI Denies abdominal pain, Denies hematochezia, Denies change in bowel habits, Denies nausea and Denies vomiting Denies dysuria and Denies urinary frequency Musc Denies arthralgias, Denies muscle weakness, Denies numbness and Denies other (frequent falls) Skin/Breast Denies nail changes and Denies rash Neuro Denies Abnormal speech present, Denies dizziness, Denies frequent falls, Denies loss of vision, Denies memory loss, Denies numbness and Denies weakness Psych Denies depression and Denies memory loss Endo Denies fatigue and Denies palpitations Salvador/Lymph Reports easy bruising and Reports other (anemia) Aller/Immun Denies wheezing Physical Exam Vital Signs: Last Vital Signs Pulse 71 08/22/23 10:58 BP 110/70 08/22/23 10:58 BMI result Body Mass Index 25.5 Const General: cooperative, comfortable, no acute distress, well developed, alert, awake and Physically active Nutritional Appearance: well nourished Orientation/consciousness: patient oriented x3 Limitations: no limitations HEENT Head: Yes normocephalic and Yes atraumatic Neck Neck: Yes trachea midline, Yes supple and Yes no JVD Resp Effort & Inspection: normal respiratory effort Auscultation: clear to auscultation bilaterally Cardio Jugular venous distension: no JVD Palpation: normal PMI Rate: regular rate Rhythm: regular rhythm Heart sounds: S1 normal heart sound present, S2 normal heart sound present, no click, no gallops and Murmur heart sound present systolic early, decrescendo and crescendo GI Auscultation: normal bowel sounds Skin General skin exam: no rashes or lesions noted Neuro General: patient oriented x3 and no focal motor deficits Speech: No Abnormal speech present Extrem General: Yes no clubbing, cyanosis or edema Office Procedures EKG Details: EKG shows normal sinus rhythm nonspecific ST T wave changes 27354-[id number], Complete Assessment & Plan Assessment & Plan (1) Ascending aortic aneurysm: Code(s): I71.21 - Aneurysm of the ascending aorta, without rupture Category: Medical Plan: Ascending aortic aneurysm related to bicuspid aortic valve. Threshold for surgery in patients is at 5 cm. Reviewed the data with him. We discussed about management details. Advised to avoid sudden strenuous isometric exercise. Advised to seek emergency care if he develops significant chest pain. Advised to monitor blood pressure at home maintain a log. Follow-up echocardiogram in January to assess the size. We discussed management if required will be surgical correction. He was surprised but he understood management well. (2) Aortic stenosis: Code(s): I35.0 - Nonrheumatic aortic (valve) stenosis Category: Medical Plan: Bicuspid aortic valve with hfrf-kh-pkwjfxno aortic stenosis. Advise low-dose aspirin therapy. Continue risk factor modification. Target goal LDL less than 100 mg/dL. Will follow-up echocardiogram in January. Most likely require composite process with ascending aortic aneurysm repair log with valve replacement at the time of surgery. This was discussed with him. Will follow with you. Thank you for allowing me to partake in his care Orders: Orders CA echo transthoracic complete 5 Months I71.21 - Aneurysm of the ascending aorta, without rupture Coding Level of Care Code New Pt Level 4 (46585) Diagnoses Ascending aortic aneurysm I71.21 Aortic stenosis I35.0 CPT Codes EKG - CPT: 26056-[id number], Complete ([id number])
[2023-08-22 10:58] VITALS: BP 110/70; PULSE 71; BMI 25.5
== END 2023-08-22 11:28 | disposition home or self-care (01) ==
PROVIDERS: PCP Nurse Practitioner Family; Visit Provider Internal Medicine Cardiovascular Disease
DX: I71.21 Aneurysm of the ascending aorta, without rupture (principal); Q23.1 Congenital insufficiency of aortic valve; Q23.0 Congenital stenosis of aortic valve; R94.31 Abnormal electrocardiogram [ECG] [EKG]
CPT/HCPCS: 93010; 99214

== ENCOUNTER → 2023-08-22 10:52 | Outpatient (BNVA) | payer BC, SELFPAY | PROVIDERS: PCP Nurse Practitioner Family; Visit Provider Internal Medicine Cardiovascular Disease | DX: I71.21 Aneurysm of the ascending aorta, without rupture (principal); I35.0 Nonrheumatic aortic (valve) stenosis | CPT/HCPCS: 93005 ==

== ENCOUNTER → 2023-09-19 10:56 | Outpatient (REF) | payer BC, SELFPAY ==
--- NOTE | 2023-09-19 10:59 | CA_ITS ---
Transthoracic Echocardiogram Patient (Last, First, Middle): Saroj Vega, Gender: Male Date of : 1970 Age: 52 Procedure Date: 09/19/2023 Procedure Type: Transthoracic Echocardiogram Location: OP Height: 180.34 cm Weight: 81.65 kg BSA: 2.02 m2 Heart Rate: bpm BP: 116 / 70 mmHg Historic Interpreter: TO Referring MD: Jey Norris MD Photographic Enlarger Operator: Jey Norris MD Symptoms: I71.21 - Aneurysm of the ascending aorta, without rupture Study Quality: Adequate ECG Rhythm: Sinus Conclusions: - 1. Normal LV systolic function with LVEF of 55-60% 2. Possibility of bicuspid aortic valve with wama-pm-jqtjlaki aortic stenosis and wdpn-cm-nkmnyswh aortic regurgitation 3. Moderate to severe enlargement of ascending aorta at 5 cm 4. No gross pericardial effusion Findings Procedure Information The study quality is limited by the patients inability to tolerate the test. Left Ventricle Normal left ventricular size, thickness, and systolic function. The visually estimated ejection fraction is between 55-60%. Spectral Doppler is indicative of a normal filling pattern. Peak GLS is -19.4%, within normal limits. Right Ventricle Normal right ventricular cavity size and systolic function. Atria The left atrium is mildly dilated. There is lipomatous hypertrophy of the interatrial septum. There is no evidence of interatrial shunt. The right atrium is normal in size. Aortic Valve There is a bicuspid aortic valve. There is moderate calcification of the aortic valve. There is moderate thickening of the aortic valve. There is mild to moderate aortic valve stenosis. There is mild to moderate aortic valve regurgitation. Mitral Valve Normal mitral valve structure and function. There is mild mitral annular calcification. There is mild mitral valve regurgitation. There is no mitral valve stenosis. Pulmonic Valve The pulmonic valve is likely normal. Tricuspid Valve Normal tricuspid valve structure. Tricuspid regurgitation envelope is inadequate for calculation of right ventricular systolic pressure. Normal right atrial pressure. Great Vessels The pulmonary artery was not well visualized. There is moderate dilatation of the ascending aorta measuring 5.00 cm. Venous The inferior vena cava is normal in size and collapses greater than 50% with inspiration. Pericardium/Pleural There is no evidence of pericardial effusion. Prior Study Comparison No significant change compared to prior study dated: 01/19/2023. Measurements 2D Linear Measurements IVSd: 1.13 0.6-0.9/0.6-1.0 cm LVIDd: 5.16 3.9-5.3/4.2-5.9 cm LVIDd Index: 2.55 2.4-3.2/2.2-3.1 cm/m2 LVIDs: 3.42 2.0-3.6 cm LVPWd: 1.07 0.7-1.1 cm LA Diam: 4.20 2.7-3.8/3.0-4.0 cm LAIDs Index: 2.08 1.5-2.3 cm/m2 LV Mass: 320.90 67-162/88-224 g LV Mass Index: 158.86 43-95/49-115 g/m2 LVOT Diam: 2.20 3.0+(-)1.3 cm 2D Systolic Function EF 4C: 58.10 >55% EF 2C: 56.10 >55% EF BiP: 57.60 >55% Mitral Valve MV Pk E: 1.05 MV PK A: 0.59 MV Decel Time: 269.00 E/A: 1.80 E'Lateral: 6.64 E'Medial: 4.79 E/E' Med: 21.90 E/E' Lat: 15.80 PHT: 79.00 MVA PHT: 2.78 Decel [place]: 3.89 Aortic Valve AoV Pk Juan: 3.15 AoV Mn Juan: 2.31 AoV VTI: 0.67 AoV Pk Grad: 40.00 Aov Mn Grad: 24.00 CADE Cont.VTI: 1.51 AI Pk Juan: 3.57 AI VTI: 2.29 AI [place]: 2.08 LVOT LVOT Pk Juan: 1.21 LVOT Mn Juan: 0.76 LVOT VTI: 0.27 LVOT Pk Grad: 6.00 LVOT Mn Grad: 3.00 LVOT Diam: 2.20 LVOT Area: 3.80 Diastolic Function MV Pk E: 1.05 MV Pk A: 0.59 E/A: 1.80 E'Medial: 4.79 E/E' Med: 21.90 E' Laterial: 6.64 E/E' Lat: 15.80 Right Ventricle TAPSE (mm): 24.80 TVS' Juan: 15.10 Tricuspid Valve RA Press: 3.00 Great Vessels Aorta Sinus of Valsalva: 4.14 2.0-3.[address] [place]: 3.24 1.7-3.4 cm Ao Asc: 5.00 2.1-3.4 cm Ao Arch: 4.30 Updated in Other Vendor System with Status of Final Jey Norris MD electronically signed on 09/19/2023 3:15:00 PM with status of Final
== END ==
LOC: HO.CARD 10:56
PROVIDERS: PCP Nurse Practitioner Family; Visit Provider Nurse Practitioner Family
DX: I71.21 Aneurysm of the ascending aorta, without rupture (principal); Q23.1 Congenital insufficiency of aortic valve
CPT/HCPCS: 93306; 93356

== ENCOUNTER → 2023-09-19 10:59 | Outpatient (BNV) | payer BC, SELFPAY | PROVIDERS: PCP Nurse Practitioner Family; Visit Provider Internal Medicine Cardiovascular Disease | DX: Q23.0 Congenital stenosis of aortic valve (principal); Q23.1 Congenital insufficiency of aortic valve; I34.0 Nonrheumatic mitral (valve) insufficiency | CPT/HCPCS: 93303; 93320; 93325; 93356 ==

== ENCOUNTER 2023-10-24 10:36 | Outpatient (AMB) | payer BC, SELFPAY ==
[2023-10-24 10:37] VITALS: BP 132/80; PULSE 77; O2SAT 94; BMI 25.7
--- NOTE | 2023-10-24 10:37 | MHC.PC.OV ---
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 Will order labs. Due for PSA, will order. Denies dribbling with urination, weak stream, and frequent nocturia. Due for colon screen in December, he is following up with GI. Pt follows up with cardiology. Pt smoked up to a pack a day from age [age]. Will refer for low-dose CT. [facility] Medical History Ascending aortic aneurysm Bicuspid aortic valve Aortic stenosis Cigarette smoker Surgical History History of right inguinal hernia repair Hx of laparoscopy History of appendectomy Family History Maternal Grandmother Cancer of unknown origin Mother Skin cancer Social History Household Members: Family Housing: House Alcohol intake: current Alcohol intake frequency: 0-2 drinks per day Alcohol type: beer Comment: , Patient Tobacco Use Status: Former Tobacco user Tobacco use type: Cigarette Cigarettes Per Day: 2 e-Cigarette/Vaping Use: Never Used Second Hand Smoke Exposure: No service: No Current occupational status: employed Current occupation: [employer] Current occupational exposures/hazards: No Cognitive needs: No Hearing needs: No Vision needs: No Questionnaire PHQ-9 Over the last 2 weeks, how often have you been bothered by any of the following problems? 1. Little interest or pleasure in doing things: not at all 2. Feeling down, depressed, or hopeless: not at all 3. Trouble falling or staying asleep, or sleeping too much: not at all 4. Feeling tired or having little energy: not at all 5. Poor appetite or overeating: not at all 6. Feeling bad about yourself - or that you are a failure or have let yourself or your family down: not at all 7. Trouble concentrating on things, such as reading the newspaper or watching television: not at all 8. Moving or speaking so slowly that other people could have noticed. Or the opposite - being so fidgety or restless that you have been moving around a lot more than usual: not at all 9. Thoughts that you would be better off or of hurting yourself in some way: not at all Total score: 0 Depression Screening Interpretation: Negative Depression Screening Done: Yes 56182 - PHQ-9 Billing: Yes Source: Developed by Drs. Pieter Hedrick, Alida Ruiz, Drew Murray and colleagues, with an educational chaim from [facility]. Thrive Questionnaire Date Thrive assessed: 05/02/23 I am a: Patient What is your living situation today?: I have a steady place to live Within the past 12 months, did the food you bought not last and you didn't have the money to get more?: Never true Within the past 12 months, did you worry whether your food would run out before you got money to buy more?: Never true Do you have trouble paying for medicines?: No Do you have trouble getting transportation to medical appointments?: No Do you have trouble paying your heating and electricity bill?: No Do you have trouble taking care of your child, family member or friend?: No Do you have trouble with day-to-day activities such as bathing, preparing meals, shopping, managing finances, etc.?: No Are you currently unemployed and looking for a job?: No Are you interested in more education?: No Please select the resources that you would like help with: None Currently or been in a relationship where the following occur: No concerns reported THRIVE Score: 0 AUDIT C Alcohol Use Questionnaire (AUDIT-C) 1. How often do you have a drink containing alcohol?: 2-3 times a week 2. How many drinks containing alcohol do you have on a typical day when you are drinking?: 3 or 4 3. How often do you have six or more drinks on one occasion?: Less than monthly Total Score: 5 Score Reviewed/Action Taken: Yes ARTHUR-7 AMB Questionnaire ARTHUR-7 Date ARTHUR - 7 assessed: 10/24/23 Feeling nervous, anxious, or on edge: 0 = Not at all Not being able to stop or control worryin = Not at all Worrying too much about different things: 0 = Not at all Trouble relaxin = Not at all Being so restless that it is hard to sit still: 0 = Not at all Becoming easily annoyed or irritable: 0 = Not at all Feeling afraid as if something awful might happen: 0 = Not at all Total ARTHUR-7 score (0-4 normal; 5-9 mild; 10-14 moderate; 15-21 severe): 0 Source: Developed by Drs. Pieter Hedrick, Alida Ruiz, Drew Murray and colleagues, with an educational chaim from [facility]. ARTHUR-7 Assessment Billing ARTHUR-7 Assessment Tool: ARTHUR-7 Assessment 33208 Review of Systems Const Denies chills and Denies fever(s) Eyes Denies blurry vision ENT Denies vertigo, Denies dizziness and Denies sore throat Card Denies chest pain at rest, Denies chest pain with activity, Denies diaphoresis, Denies dyspnea and Denies dyspnea on exertion Resp Denies cough, Denies dyspnea, Denies dyspnea on exertion and Denies wheezing GI Denies abdominal pain, Denies melena, Denies hematochezia, Denies constipation, Denies diarrhea and Denies loose stools Denies hematuria Musc Denies numbness and Denies tingling Skin/Breast Denies lesions Neuro Denies vertigo, Denies dizziness, Denies numbness and Denies tingling Psych Denies anxiety, Denies depression, Denies homicidal ideation, Denies suicidal ideation and Denies other (substance abuse) Aller/Immun Denies wheezing Physical exam (Primary Care) Vital Signs: Last Vital Signs Pulse 77 10/24/23 10:37 BP 132/80 10/24/23 10:37 Pulse Ox 94 10/24/23 10:37 Oxygen Delivery Method Room Air 10/24/23 10:37 BMI result Body Mass Index 25.7 Tobacco/Smoking Status: Tobacco use Status Tobacco use date assessed 05/02/23 10/24/23 10:39 Patient Tobacco Use Status Former Tobacco user 10/24/23 10:39 Tobacco use type Cigarette 10/24/23 10:39 e-Cigarette/Vaping Use Never Used 10/24/23 10:39 PHQ-9: PHQ-9 Score PHQ-9: Total score 0 10/24/23 11:00 Depression Screening Interpretation: Negative Thrive Assessment: Date of Thrive Assessment Date Thrive assessed 05/02/23 10/24/23 10:39 Currently or been in a relationship where the following occur: No concerns reported Const General: cooperative Nutritional Appearance: well nourished Orientation/consciousness: patient oriented x3 HENMT Head: Yes normal to inspection, Yes normocephalic and Yes atraumatic Ears: TM's normal bilaterally Eyes General: appearance normal, both eyes and all related structures Alignment and Position: alignment normal and position normal Neck Neck: Yes normal visual inspection and Yes no lymphadenopathy Thyroid: Thyroid normal Resp Effort & Inspection: normal respiratory effort Auscultation: clear to auscultation bilaterally Cardio Rate: regular rate Rhythm: regular rhythm Heart sounds: S1 normal heart sound present, S2 normal heart sound present and Murmur heart sound present systolic GI Palpation (GI): Soft to palpation and nontender Auscultation: normal bowel sounds Other: right scrotal cyst, right hydrocele, refused IAN Male General Exam: Yes normal external exam Penis: normal penis Scrotum: testes descended bilaterally and no inguinal hernias Testes: no testicular mass Skin Rashes: no rashes Neuro General: patient oriented x3, moves all extremities, no focal motor deficits and deep tendon reflexes 2+ bilaterally Romberg Test: Negative Psych Appearance: grossly normal Mental Status: mental status grossly normal Speech and movement: Normal speech and movement present Affect: normal affect Attitude: cooperative Thought process: Normal thought process present Thought content: Normal thought content present Insight: Good insight present (Psych) Judgement: Good judgement present (Psych) Assessment and Plan Assessment & Plan (1) Physical exam: Code(s): Z00.00 - Encounter for general adult medical examination without abnormal findings Plan: Labs ordered (2) Screening PSA (prostate specific antigen): Code(s): Z12.5 - Encounter for screening for malignant neoplasm of prostate Plan: PSA ordered (3) Cigarette smoker: Code(s): F17.210 - Nicotine dependence, cigarettes, uncomplicated Plan: referred for LDCT Plan The patient agreed to the use of a medical receptionist medical assistant for this encounter. Scribed for LISA John- by Doreen Gonzalez medical receptionist medical assistant, on 10/24/2023 at 10:55 EST. Orders: Orders Complete Blood Count Auto Diff Today Z00.00 - Encounter for general adult medical examination without abnormal findings UA CC w/rflx Micro + Cult Today Z00.00 - Encounter for general adult medical examination without abnormal findings Lipid Panel Today Z00.00 - Encounter for general adult medical examination without abnormal findings Comprehensive [place]. Panel Fast Today Z00.00 - Encounter for general adult medical examination without abnormal findings TSH reflex Free T4 Today Z00.00 - Encounter for general adult medical examination without abnormal findings Prostate Specific Antigen Scr Today Z12.5 - Encounter for screening for malignant neoplasm of prostate Referrals Lung Cancer Screening Referral F17.210 - Nicotine dependence, cigarettes, uncomplicated Coding Level of Care Code Est Pt Prev Care 40-64y(26249) Diagnoses Physical exam Z00.00 Screening PSA (prostate specific antigen) Z12.5 Cigarette smoker F17.210 Additional Codes ARTHUR-7 Assessment Billing - ARTHUR-7 Assessment Tool: ARTHUR-7 Assessment 05398 ([id number])
== END 2023-10-24 11:24 | disposition home or self-care (01) ==
PROVIDERS: PCP Nurse Practitioner Family; Visit Provider Nurse Practitioner Family
DX: Z00.00 Encounter for general adult medical examination without abnormal findings (principal); Z12.5 Encounter for screening for malignant neoplasm of prostate; F17.210 Nicotine dependence, cigarettes, uncomplicated
CPT/HCPCS: 99396

== ENCOUNTER → 2024-01-16 10:35 | Outpatient (REF) | payer BC, SELFPAY ==
--- NOTE | 2024-01-16 10:47 | CA_ITS ---
Transthoracic Echocardiogram Patient (Last, First, Middle): Saroj Vega, Gender: Male Date of : 1970 Age: 53 Procedure Date: 01/16/2024 Procedure Type: Transthoracic Echocardiogram Location: OP Height: 180.34 cm Weight: 81.65 kg BSA: 2.02 m2 Heart Rate: 64 bpm BP: 134 / 60 mmHg Headline Writer: NORIS Referring MD: Jey Norris MD Quarter Inspector: Jey Norris MD Symptoms: I71.21 - Aneurysm of the ascending aorta, without rupture Study Quality: Adequate/limited ordered ECG Rhythm: Sinus Conclusions: - Moderate to severe enlargement of ascending aorta at 5 cm, unchanged from before Findings Left Ventricle Normal left ventricular size, thickness, and systolic function. Great Vessels There is moderate dilatation of the ascending aorta. Prior Study Comparison No significant change compared to prior study dated: 09/19/2023. Recommendations, Care & Conclusions Consider a EDIN if clinically appropriate. Measurements 2D Linear Measurements IVSd: 1.35 0.6-0.9/0.6-1.0 cm LVIDd: 5.42 3.9-5.3/4.2-5.9 cm LVIDd Index: 2.68 2.4-3.2/2.2-3.1 cm/m2 LVIDs: 3.72 2.0-3.6 cm LVPWd: 0.77 0.7-1.1 cm LV Mass: 279.86 67-162/88-224 g LV Mass Index: 138.55 43-95/49-115 g/m2 LVOT Diam: 2.10 3.0+(-)1.3 cm 2D Systolic Function EF 4C: 65.30 >55% EF 2C: 62.20 >55% EF BiP: 63.80 >55% Mitral Valve MV Pk E: 0.89 MV PK A: 0.82 MV Decel Time: 250.00 E/A: 1.10 E'Lateral: 4.68 E'Medial: 4.03 E/E' Med: 22.00 E/E' Lat: 19.00 PHT: 73.00 MVA PHT: 3.01 Decel Peach: 3.55 Aortic Valve AoV Pk Juan: 2.88 AoV Mn Juan: 1.98 AoV VTI: 0.55 AoV Pk Grad: 33.00 Aov Mn Grad: 19.00 CADE Cont.VTI: 1.65 AI Pk Juan: 3.77 AI VTI: 2.20 AI Peach: 2.04 LVOT LVOT Pk Juan: 1.34 LVOT Mn Juan: 0.90 LVOT VTI: 0.26 LVOT Pk Grad: 7.00 LVOT Mn Grad: 4.00 LVOT Diam: 2.10 LVOT Area: 3.46 Diastolic Function MV Pk E: 0.89 MV Pk A: 0.82 E/A: 1.10 E'Medial: 4.03 E/E' Med: 22.00 E' Laterial: 4.68 E/E' Lat: 19.00 Great Vessels Aorta Sinus of Valsalva: 3.60 2.0-3.5 cm Ao Asc: 5.00 2.1-3.4 cm Ao Arch: 3.80 Updated in Other Vendor System with Status of Final Jey Norris MD electronically signed on 01/17/2024 9:21:10 AM with status of Final
== END ==
LOC: HO.CARD 10:35
PROVIDERS: PCP Nurse Practitioner Family; Visit Provider Nurse Practitioner Family
DX: I71.21 Aneurysm of the ascending aorta, without rupture (principal)
CPT/HCPCS: 93308

== ENCOUNTER → 2024-01-16 10:47 | Outpatient (BNV) | payer BC, SELFPAY | PROVIDERS: PCP Nurse Practitioner Family; Visit Provider Internal Medicine Cardiovascular Disease | DX: I71.21 Aneurysm of the ascending aorta, without rupture (principal) | CPT/HCPCS: 93308 ==

== ENCOUNTER 2024-01-25 10:12 | Outpatient (AMB) | payer BC, SELFPAY ==
--- NOTE | 2024-01-25 07:48 | MHC.OFFVIS ---
Intake Visit Reasons: Former Smoker Allergies ENVIRONMENTAL Allergy (Unknown, Uncoded 10/24/23 11:47) STUFFY NOSE, SNEEZING HPI HPI Former Smoker: Details: Initial visit for this 53yo former smoker with a 30+PYH. Patient started smoking at age 16 for 36 years at 1ppd. He quit in 12/2022. . Denies marijuana use. Denies second hand smoke exposure. Denies exposure to chemicals or substances like asbestos. . Denies known family history of lung cancer. Denies personal history of cancers. Denies chest CT in last year. . Denies recent travel outside the [place]. Denies recent respiratory illness or recent hospitalization for respiratory issues. Denies testing positive for COVID. Admits receiving COVID Vaccine. . Denies fever, chills, new/worsening cough, hemoptysis, hoarseness or dysphagia. Denies significant chest pain, significant dyspnea or unintentional weight loss. Patient Lung Cancer Screening Questionnaire reviewed with patient by provider. . Shared Decision Making Completed. Patient meets criteria. Discussed in detail with patient, the risk vs benefit of LDCT screening. Patient consents to proceed with scan. Discussed and encouraged continued smoking cessation. [facility] Medical History (Updated 01/25/24 @ 10:30 by Ngoc Mendes PA-C) Ascending aortic aneurysm Aortic stenosis Bicuspid aortic valve Personal history of nicotine dependence Surgical History (Updated 11/30/23 @ 09:53 by Ngoc Mendes PA-C) History of appendectomy History of right inguinal hernia repair History of esophagogastroduodenoscopy (EGD) History of colonoscopy Family History Maternal Grandmother Cancer of unknown origin Mother Skin cancer Social History (Updated 01/25/24 @ 10:31 by Ngoc Mendes PA-C) Household Members: Family Housing: House Alcohol intake: current Alcohol intake frequency: 0-2 drinks per day Alcohol type: beer Comment: , Patient Tobacco Use Status: Former Tobacco user Tobacco use type: Cigarette Years Smoked: (onset 16yo, 1ppd x 36yrs, 30+PYH, quit 12/2022) e-Cigarette/Vaping Use: Never Used Second Hand Smoke Exposure: No service: No Current occupational status: employed Current occupation: [employer] Current occupational exposures/hazards: No Cognitive needs: No Hearing needs: No Vision needs: No Assessment & Plan Assessment & Plan (1) Personal history of nicotine dependence: Comment: (onset 16yo, 1ppd x 36yrs, 30+PYH, quit 12/2022) Code(s): Z87.891 - Personal history of nicotine dependence Category: Medical Plan: - SDM visit completed today in office. - Patient meets criteria for LDCT for lung cancer screening purposes and is asymptomatic. - Smoking cessation counseling offered. Patients can always call [phone]. - Will arrange for a LDCT scan of the chest for screening purposes at [facility]. - Risks, benefits, and alternatives were discussed in detail and the patient agrees to proceed. - Risks discussed include but are not limited to: radiation exposure, anxiety during testing and while awaiting results, false negatives, false positives and possibility of additional intervention such as further imaging or surgical procedures for benign disease. - Benefits are obviously detection of lung cancer at an early stage which can lead to improved outcomes. - Discussed the importance of screening program compliance with adherence to yearly LDCT scan as scheduled - or sooner interval scans for personalized screening regimen. - Discussed follow up plan. Our office will send a letter discussing results and if needed set up phone call and office visit based on CT findings. - Patient educated on results categorization and the management decisions for suspicious findings potentially found on the screening LDCT scan. Any patient with a Lung RADS score of 3 or 4 will be reviewed by a multidisciplinary team at [facility] to form a plan of action in regards to scan findings. - If further work up is warranted for a suspicious lung finding this will be followed by the Lung Cancer Screening program in conjunction with the Thoracic Surgery Department at [facility]. - A copy of the office note and LDCT will be sent to the patient's PCP - as well as documentation on any associated further plans of care. - Incidental findings on LDCT are the PCP's responsibility. These findings are indicated with an S finding on the LDCT Assessment. A note discussing the findings will be sent to the PCP who is then responsible for further management. - All questions answered.? Coding Level of Care Code Lung Cancer Screening G0296 Diagnoses Personal history of nicotine dependence Z87.891
== END 2024-01-25 10:44 | disposition home or self-care (01) ==
PROVIDERS: PCP Nurse Practitioner Family; Visit Provider Physician Assistant Medical
DX: Z87.891 Personal history of nicotine dependence (principal)
CPT/HCPCS: G0296

== ENCOUNTER 2024-01-25 10:32 | Outpatient (REF) | payer BC, SELFPAY | END 2024-01-25 10:33 | disposition home or self-care (01) | LOC: HO.CT 10:32 | PROVIDERS: PCP Nurse Practitioner Family; Visit Provider Physician Assistant Medical | DX: Z12.2 Encounter for screening for malignant neoplasm of respiratory organs (principal); Z87.891 Personal history of nicotine dependence | CPT/HCPCS: 71271 ==

== ENCOUNTER → 2024-01-25 10:33 | Outpatient (BNV) | payer BC, SELFPAY | PROVIDERS: PCP Nurse Practitioner Family; Visit Provider Radiology Diagnostic Radiology | DX: Z87.891 Personal history of nicotine dependence (principal) | CPT/HCPCS: 71271 ==

== ENCOUNTER 2024-05-28 11:09 | Outpatient (AMB) | payer BC, SELFPAY ==
[2024-05-28 11:28] VITALS: BP 130/70; PULSE 72; TEMP 36.6; O2SAT 97; BMI 27.5
--- NOTE | 2024-05-28 11:28 | A.OFFPC_ITS ---
Vital Signs 05/28/24 11:28 Height 5 ft 11 in Weight 197 lb BMI 27.5 BP 130/70 Blood Pressure Location Lt brachial Position Sitting Pulse 72 Pulse Source Pulse Oximeter Temp 97.9 F Temp Source Oral Pulse Oximetry (%) 97 Oxygen Delivery Method Room Air Intake Visit Reasons: 6M F/U Intake Note: pt is here for 6 mon f/up Overnight Cashier Required: No Accompanied by: Self / Same As Patient Allergies ENVIRONMENTAL Allergy (Unknown, Uncoded 05/28/24 12:20) STUFFY NOSE, SNEEZING Medication List - Last Reconciled 05/28/24 by RUBENS BuckP- aspirin 81 mg PO DAILY Tobacco use date assessed: 05/28/24 Dental Screening Dental Screen Date: 05/28/24 Did you have a dental visit in the last 12 months?: Yes Did you have a dental problem in the last 6 months where you did not have access to dental care?: No Was dental information given to patient?: Patient has dentist HPI 6M F/U HPI Details History of Present Illness The patient is a 53-year-old male presenting for routine follow-up of cardiovascular concerns and health maintenance. He has a known history of aortic stenosis and a dilated ascending aorta, both of which are monitored with regular cardiology visits. A systolic murmur has been observed during previous cardiac evaluations. No current cardiovascular symptoms such as chest pain or dyspnea are reported. The patient also presents with bilateral cerumen impaction, noted during ear examinations. He is a former smoker and participates in a low-dose CT scan program for lung cancer screening due to his smoking history. Additionally, he is due for a repeat colonoscopy for colorectal cancer screening, and a referral will be placed for this procedure. The patient has opted for PSA testing over a digital rectal exam for prostate cancer screening at this visit. Health Maintenance - Enrollment in low-dose CT scan program for lung cancer screening due to former smoking status. - Referral for repeat colonoscopy for co lorectal cancer screening. - PSA testing planned as an alternative to digital rectal exam for prostate cancer screening, pt declined IAN today. Social History - Former smoker, currently participating in a screening program for lung health. Review of Systems - Cardiovascular: Denies chest pain, kym rtness of breath. - Gastrointestinal: Denies blood in stoo l, constipation, diarrhea. - Psychological: Denies anxiety, depress ion. denies any si or hi - Genitourinary: Denies urinary issues. Physical Exam General: Cooperative, healthy appearing, comfortable, no acute distress and well developed Orientation: Patient oriented x3 Limitations: No limitations Head: Normal to inspection Ears: Extensive cerumen noted bilaterally after ear lavage, TMs were easily seen Nose: Normal external nose present Face and sinus: Normal facial exam Eyes: Appearance normal, both eyes and all related structures Neck: Normal visual inspection and Yes full ROM Respiratory: Normal respiratory effort and able to speak in complete sentences. Clear to auscultation bilaterally Cardiovascular: Regular rate and rhythm. Normal S1 and S2. Systolic murmur noted GI: Normal to inspection. Soft to palpation and nontender : ? right hydrocele. superior/posterior left testicle with large cystic lesion Skin: No rashes or lesions noted Neuro: Patient oriented x3 Extremities: Normal to inspection Results Plan For management of aortic stenosis and a dilated ascending aorta, regular follow- up with cardiology will continue for monitoring. PSA testing will be done for prostate screening, given the patient's preference. Within the low-dose CT scan program, his lung health will be assessed following his history of smoking. A colonoscopy referral is pending to complete his colorectal cancer screening. Cerumen impaction will be monitored, and intervention may be needed to maintain auditory health. Discussion Notes I have discussed with the patient the importance of continued cardiology follow- up for management of his aortic stenosis and dilated ascending aorta, emphasizing the need for regular monitoring due to the associated risks. We reviewed lung cancer screening with low-dose CT scans due to his history as a former smoker. I advised a colonoscopy referral for colorectal cancer screening, discussing its necessity as part of routine preventive care, last one was last june. The patient expressed preference for PSA testing over a digital rectal exam for prostate cancer screening, which we will proceed with. We also covered the management of his cerumen impaction to prevent any hearing-related issues. Patient Instructions - Follow up with cardiology as scheduled for heart condition management. - Complete PSA testing as planned. - Seek referral for colonoscopy for [facility] screening. - Continue with the low-dose CT scan pro gram for lung health monitoring. - Report any hearing difficulties or con cerns regarding ear health. -US for testicular/scrotal lesion noted [facility] Medical History Ascending aortic aneurysm Aortic stenosis Bicuspid aortic valve Personal history of nicotine dependence Surgical History History of appendectomy History of right inguinal hernia repair History of esophagogastroduodenoscopy (EGD) History of colonoscopy Family History Maternal Grandmother Cancer of unknown origin Mother Skin cancer Social History Household Members: Family Housing: House Alcohol intake: current Alcohol intake frequency: 0-2 drinks per day Alcohol type: beer Comment: , Patient Tobacco Use Status: Former Tobacco user Tobacco use type: Cigarette Years Smoked: (onset 16yo, 1ppd x 36yrs, 30+PYH, quit 12/2022) e-Cigarette/Vaping Use: Never Used Second Hand Smoke Exposure: No service: No Current occupational status: employed Current occupation: [employer] Current occupational exposures/hazards: No Cognitive needs: No Hearing needs: No Vision needs: No Questionnaire PHQ-9 Over the last 2 weeks, how often have you been bothered by any of the following problems? 1. Little interest or pleasure in doing things: not at all 2. Feeling down, depressed, or hopeless: not at all 3. Trouble falling or staying asleep, or sleeping too much: not at all 4. Feeling tired or having little energy: not at all 5. Poor appetite or overeating: not at all 6. Feeling bad about yourself - or that you are a failure or have let yourself or your family down: not at all 7. Trouble concentrating on things, such as reading the newspaper or watching television: not at all 8. Moving or speaking so slowly that other people could have noticed. Or the opposite - being so fidgety or restless that you have been moving around a lot more than usual: not at all 9. Thoughts that you would be better off or of hurting yourself in some way: not at all Total score: 0 Depression Screening Interpretation: Negative Depression Screening Done: Yes 17649 - PHQ-9 Billing: Yes Source: Developed by Drs. Pieter Hedrick, Drew Arzola and colleagues, with an educational chaim from [employer]. Thrive Questionnaire Date Thrive assessed: 05/28/24 I am a: Patient What is your living situation today?: I have a steady place to live Within the past 12 months, did the food you bought not last and you didn't have the money to get more?: Never true Within the past 12 months, did you worry whether your food would run out before you got money to buy more?: Never true Do you have trouble paying for medicines?: No Do you have trouble getting transportation to medical appointments?: No Do you have trouble paying your heating and electricity bill?: No Do you have trouble taking care of your child, family member or friend?: No Do you have trouble with day-to-day activities such as bathing, preparing meals, shopping, managing finances, etc.?: No Are you currently unemployed and looking for a job?: No Are you interested in more education?: No Please select the resources that you would like help with: None Currently or been in a relationship where the following occur: No concerns reported THRIVE Score: 0 AUDIT C Alcohol Use Questionnaire (AUDIT-C) 1. How often do you have a drink containing alcohol?: Never 3. How often do you have six or more drinks on one occasion?: Never Total Score: 0 Score Reviewed/Action Taken: Yes ARTHUR-7 AMB Questionnaire ARTHUR-7 Date ARTHUR - 7 assessed: 05/28/24 Feeling nervous, anxious, or on edge: 0 = Not at all Not being able to stop or control worryin = Not at all Worrying too much about different things: 0 = Not at all Trouble relaxin = Not at all Being so restless that it is hard to sit still: 0 = Not at all Becoming easily annoyed or irritable: 0 = Not at all Feeling afraid as if something awful might happen: 0 = Not at all Total ARTHUR-7 score (0-4 normal; 5-9 mild; 10-14 moderate; 15-21 severe): 0 Source: Developed by Drs. Pieter Hedrick, Drew Arzola and colleagues, with an educational chaim from [employer]. ARTHUR-7 Assessment Billing ARTHUR-7 Assessment Tool: ARTHUR-7 Assessment 83152 Physical exam (Primary Care) Vital Signs: Last Vital Signs Temp 97.9 F 05/28/24 11:28 Pulse 72 05/28/24 11:28 BP 130/70 05/28/24 11:28 Pulse Ox 97 05/28/24 11:28 Oxygen Delivery Method Room Air 05/28/24 11:28 BMI result Body Mass Index 27.5 Tobacco/Smoking Status: Tobacco use Status Tobacco use date assessed 05/28/24 05/28/24 11:35 Patient Tobacco Use Status Former Tobacco user 05/28/24 11:35 Tobacco use type Cigarette 05/28/24 11:35 e-Cigarette/Vaping Use Never Used 05/28/24 11:35 PHQ-9: PHQ-9 Score PHQ-9: Total score 0 05/28/24 11:35 Depression Screening Interpretation: Negative Thrive Assessment: Date of Thrive Assessment Date Thrive assessed 05/28/24 05/28/24 11:35 Currently or been in a relationship where the following occur: No concerns reported Office Procedures Cerumen Removal From which ear canal was the cerumen removed: bilateral Removal: irrigation Notes: patient tolerated procedure well, no complications and ear canal clear [id number] Irrigation/Lavage Coding Level of Care Code Est Pt Prev Care 40-64y(33242) Diagnoses Screening for colon cancer Z12.11 Encounter for routine adult physical exam with abnormal findings Z00. Scrotal lesion N50.9 Cerumen impaction H61.20 CPT Codes Office Procedure - CPT: 52711-Ibg Irrigation/Lavage ([id number]) Additional Codes ARTHUR-7 Assessment Billing - ARTHUR-7 Assessment Tool: ARTHUR-7 Assessment 81228 ([id number]) PHQ-9 - 79843 - PHQ-9 Billing: Yes ([id number]) Assessment & Plan Assessment & Plan (1) Screening for colon cancer: Code(s): Z12.11 - Encounter for screening for malignant neoplasm of colon Category: Medical (2) Encounter for routine adult physical exam with abnormal findings: Code(s): Z00.01 - Encounter for general adult medical examination with abnormal findings Category: Medical (3) Scrotal lesion: Code(s): N50.9 - Disorder of male genital organs, unspecified Category: Medical (4) Cerumen impaction: Code(s): H61.20 - Impacted cerumen, unspecified ear Category: Medical Plan . Orders: Orders US scrotum Today N50.9 - Disorder of male genital organs, unspecified Referrals Gastroenterology Referral Z12.11 - Encounter for screening for malignant neoplasm of colon
== END 2024-05-28 12:19 | disposition home or self-care (01) ==
LOC: HO.HMCC 11:10
PROVIDERS: PCP Nurse Practitioner Family; Visit Provider Nurse Practitioner Family
DX: Z00.01 Encounter for general adult medical examination with abnormal findings (principal); Z12.11 Encounter for screening for malignant neoplasm of colon; N50.9 Disorder of male genital organs, unspecified; H61.23 Impacted cerumen, bilateral

== ENCOUNTER → 2024-05-28 11:09 | Outpatient (BNVA) | payer BC, SELFPAY | PROVIDERS: PCP Nurse Practitioner Family; Visit Provider Nurse Practitioner Family | DX: Z00.01 Encounter for general adult medical examination with abnormal findings (principal); H61.23 Impacted cerumen, bilateral; N50.9 Disorder of male genital organs, unspecified | CPT/HCPCS: 69209; 96127 ==

== ENCOUNTER 2024-06-21 09:01 | Outpatient (AMB) | payer BC, SELFPAY ==
[2024-06-21 09:10] VITALS: BP 122/74; PULSE 73; TEMP 36.6; O2SAT 98; BMI 27.5
--- NOTE | 2024-06-21 09:10 | MHC.OFFWIV ---
Intake Vital Signs 06/21/24 09:10 Height 5 ft 11 in Weight 197 lb BMI 27.5 BP 122/74 Blood Pressure Location Lt brachial Position Sitting Pulse 73 Pulse Source Pulse Oximeter Temp 97.9 F Temp Source Oral Pulse Oximetry (%) 98 Oxygen Delivery Method Room Air Intake Visit Reasons: EP Congestion Patient Tobacco Use Status: Former Tobacco user Allergies ENVIRONMENTAL Allergy (Unknown, Uncoded 06/21/24 09:12) STUFFY NOSE, SNEEZING Do you need a note to return to daycare/school/sports/work: No HPI EP Congestion HPI Details Saroj Vega presents with symptoms of a cold that started on Sunday. He reports a stuffed up nose, coughing, and mucus production. The patient has been self-medicating with DayQuil, NightQuil, and Mucinex, but states these treatments have not been effective in alleviating his symptoms. Mr. Vega describes his cough as productive, bringing up all kinds of mucus. He denies having a fever. The patient has already tested negative for COVID-19. He mentions a history of childhood asthma but does not report any current respiratory conditions such as COPD. Mr. Vega is a non-smoker. The patient expresses a desire for antibiotics to knock out his illness. He reports allergies to cat hair, dog hair, horse hair, cow hair, pollen, and ragweed. Despite his cold symptoms, Mr. Vega appears to be maintaining his regular work schedule, mentioning that he works in [place]. [facility] Medical History Ascending aortic aneurysm Aortic stenosis Bicuspid aortic valve Personal history of nicotine dependence Surgical History History of appendectomy History of right inguinal hernia repair History of esophagogastroduodenoscopy (EGD) History of colonoscopy Family History Maternal Grandmother Cancer of unknown origin Mother Skin cancer Social History Household Members: Family Housing: House Alcohol intake: current Alcohol intake frequency: 0-2 drinks per day Alcohol type: beer Comment: , Patient Tobacco Use Status: Former Tobacco user Tobacco use type: Cigarette Years Smoked: (onset 16yo, 1ppd x 36yrs, 30+PYH, quit 12/2022) e-Cigarette/Vaping Use: Never Used Second Hand Smoke Exposure: No service: No Current occupational status: employed Current occupation: [employer] Current occupational exposures/hazards: No Cognitive needs: No Hearing needs: No Vision needs: No Review of Systems Const All systems reviewed & are unremarkable except as noted in HPI and below Denies fever(s), Denies headache(s) and Denies weakness Eyes Reports no additional complaints ENT Reports no additional complaints, Denies headache(s), Reports nasal congestion and Reports nasal discharge Card Reports no additional complaints, Denies chest pain, Denies leg edema and Denies dyspnea Resp Reports cough and Denies dyspnea GI Denies abdominal pain, Denies nausea and Denies vomiting Denies dysuria and Denies urinary frequency Musc Reports no additional complaints Neuro Denies headache(s) and Denies weakness Psych Reports no additional complaints Endo Reports no additional complaints Physical Exam Vital Signs: Last Vital Signs Temp 97.9 F 06/21/24 09:10 Pulse 73 06/21/24 09:10 BP 122/74 06/21/24 09:10 Pulse Ox 98 06/21/24 09:10 Oxygen Delivery Method Room Air 06/21/24 09:10 BMI result Body Mass Index 27.5 Const General: healthy appearing, comfortable, no acute distress and alert Orientation/consciousness: patient oriented x3 Limitations: no limitations HEENT Head: Yes normal to inspection Ears: hearing grossly normal bilaterally Resp Effort & Inspection: able to speak in complete sentences Auscultation: no rales, no rhonchi and wheezes (left lower lobe) Cardio Rate: regular rate Skin General skin exam: no rashes or lesions noted Neuro General: patient oriented x3 Extrem General: Yes normal to inspection Assessment & Plan Assessment & Plan (1) Upper respiratory infection: Code(s): J06.9 - Acute upper respiratory infection, unspecified Qualifiers: URI type: unspecified URI Qualified Code(s): J06.9 - Acute upper respiratory infection, unspecified Plan: Upper Respiratory Infection with Bronchitis: - Patient presents with symptoms consistent with an upper respiratory infection complicated by bronchitis - Symptoms include nasal congestion, productive cough with mucus, and wheezing noted on examination in the lower lobe - No fever reported - History of childhood asthma, which may contribute to the current respiratory symptoms - Dnek-mgp-sgftweb medications (DayQuil, NightQuil, Mucinex) have been ineffective - COVID-19 test was negative - Wheezing suggests possible reactive airway involvement Plan: - Prescribe azithromycin for 5 days - Prescribe oral steroids for 2 days to address wheezing - Prescribe as-needed inhaler for shortness of breath - Prescribe cough medication for symptomatic relief - Discontinue DayQuil and NightQuil - Patient to return for follow-up if not improving after 5-day course of azithromycin, if symptoms worsen, or if fever develops - Consider chest x-ray if symptoms persist or worsen Medications: New azithromycin For 250 mg dose pack: take 500 mg today (day 1), then 250 mg for 4 days (days 2-5) PO 6 tabs 0RF benzonatate 200 mg PO BID-TID PRN 10 caps 0RF cough prednisone 40 mg (2 x 20 mg) PO DAILY 2 days 4 tabs 0RF Coding Level of Care Code Est Pt Level 4 (15059) Diagnoses Upper respiratory tract infection, unspecified type J06.9 URI type: unspecified URI
== END 2024-06-21 09:24 | disposition home or self-care (01) ==
PROVIDERS: PCP Nurse Practitioner Family; Visit Provider Physician Assistant
DX: J06.9 Acute upper respiratory infection, unspecified (principal)

== ENCOUNTER → 2024-06-21 09:01 | Outpatient (BNVA) | payer BC, SELFPAY | PROVIDERS: PCP Nurse Practitioner Family | DX: Z13.89 Encounter for screening for other disorder (principal) ==

== ENCOUNTER 2024-07-02 09:18 | Outpatient (REF) | payer BC, SELFPAY ==
--- NOTE | ~2024-07-02 | US_ITS ---
EXAMINATION: US SCROTUM CLINICAL INFORMATION: Testicular lesion right testicle.. COMPARISON: 07/03/2021. TECHNIQUE: A sonogram of the scrotum was performed assessing jiang-scale appearance and color Doppler flow. Spectral Doppler analysis of the arterial and venous flow were performed in the testes bilaterally. FINDINGS: RIGHT: Right testicle measures 3.2 x 1.4 x 2.2 cm, volume 5.1 mL, (previously 17.4 mL). There is an upper pole relatively nonvascular heterogeneous lesion measuring approximately 1.2 x 1.1 x 1.1 cm, without internal blood flow, likely testicular infarct. The inferior pole appears more normal. Spectral Doppler analysis of the arterial and venous flow is otherwise normal in the right testis. Right epididymal head is normal in size. Epididymal head cyst measuring 5 x 6 mm. There is a large right hydrocele with specular debris present. Right epididymal Doppler flow is normal. LEFT: Left testicle measures 4.6 x 2.1 x 3.1 cm, volume 16.0 mL. (Previously 14.5 mL) No focal testicular parenchymal lesions are visualized. Spectral Doppler analysis of the arterial and venous flow is normal in the left testis. Left epididymal head is mildly enlarged secondary to 3 simple epididymal head cysts, the largest measuring 3.9 x 1.7 x 3.0 cm. No left hydrocele. There is a left varicocele. Left epididymal Doppler flow is normal. US/US scrotum IMPRESSION: 1. Somewhat small right testicle with an upper pole heterogeneous lesion without internal blood flow highly suggestive of testicular infarct. 2. Large right scrotal hydrocele with debris. 3. Right epididymal head simple cyst measuring 6 x 5 mm. 4. There are 3 simple epididymal head cysts on the left, largest measuring 3.9 x 1.7 x 3.0 cm. The second largest measures 1.0 cm. 5. Normal left testicle. No significant left-sided hydrocele. 6. Left varicocele present. Electronically signed by: Medhat Horn MD 07/02/2024 10:53 AM EDT
[2024-07-02 10:07] LABS: MANUAL DIFF FLAG NO
[2024-07-02 10:17] LABS: Basophils Percent Auto 0.5 % (0-2); Eosinophils Absolute Auto 0.7 X10*3/uL (0.0-0.4); Eosinophils Percent Auto 9.1 % (0-4); Hematocrit 41.2 % (42.0-52.0); Hemoglobin 14.1 g/dl (14.0-18.0); Imm Gran Abs Auto 0.02 X10*3/uL (0.00-0.03); Imm Gran Pct Auto 0.3 % (0.0-0.4); Lymphocytes Absolute Auto 2.8 X10*3/uL (1.2-4.9); Lymphocytes Percent Auto 35.4 % (20-40); Mean Corpuscular HGB Conc 34.2 g/dl (31.0-36.0); Mean Corpuscular Hemoglobin 29.3 pg (27.0-33.0); Mean Corpuscular Volume 85.7 fL (80.0-98.0); Mean Platelet Volume 10.2 fL (9.4-12.4); Monocytes Absolute Auto 0.6 X10*3/uL (0.1-1.2); Neutrophils Absolute Auto 3.7 x10*3/uL (2.0-8.3); Neutrophils Percent Auto 46.7 % (45-73); Platelet Count 255 X10*3/uL (160-400); Red Blood Count 4.81 X10*6/uL (4.60-5.80); Red Cell Distribution Width 13.5 % (11.0-16.0); White Blood Count 7.8 X10*3/uL (4.8-10.8)
[2024-07-02 10:55] LABS: Appearance Urine Clear; Color Urine Dark Yellow; Glucose Urine UA Negative (Negative); Leukocyte Esterase Urine Negative (Negative); Nitrite Urine Negative (Negative); PH 6.5 (5.0-9.0); Urine Blood Negative (Negative); Urine Ketones Negative (Negative); Urine Protein Negative (Neg-Trace)
[2024-07-02 11:33] LABS: Prostate Specific Antigen Scr 0.94 ng/mL (<0.05-4.0)
[2024-07-02 11:36] LABS: Alanine Aminotransferase 43 U/L (0-40); Albumin Level 4.3 g/dL (3.5-5.0); Alkaline Phosphatase 70 U/L (39-117); Anion Gap 11 (12-20); Aspartate Amino Transferase 32 U/L (5-37); Bilirubin Total 0.7 mg/dL (0.0-1.0); Blood Urea Nitrogen 15 mg/dL (9-16); Carbon Dioxide 26 mmol/L (22-29); Chloride 105 mmol/L (96-108); Cholesterol 235 mg/dL (<200); Estimated Glomerular Filt Rate > 60; Glucose Fasting 112 mg/dL (60-99); HDL Cholesterol 43 mg/dL (>40); LDL Cholesterol Calculated 169 mg/dL (<100); Sodium 138 mmol/L (135-145); Total Protein 7.8 g/dL (6.5-8.0); Triglycerides 115 mg/dL (<150)
[2024-07-02 11:38] LABS: TSH reflex Free T4 0.92 uIU/mL (0.32-4.0)
== END 2024-07-02 09:19 | disposition home or self-care (01) ==
LOC: HO.HMGCX 09:18
PROVIDERS: PCP Nurse Practitioner Family; Visit Provider Nurse Practitioner Family
DX: Z00.00 Encounter for general adult medical examination without abnormal findings (principal); Z12.5 Encounter for screening for malignant neoplasm of prostate; N50.9 Disorder of male genital organs, unspecified
CPT/HCPCS: 36415; 76870; 80053; 80061; 81003; 84153; 84443; 85025

== ENCOUNTER → 2024-07-02 09:25 | Outpatient (BNV) | payer BC, SELFPAY | PROVIDERS: PCP Nurse Practitioner Family; Visit Provider Radiology Diagnostic Radiology | DX: N43.3 Hydrocele, unspecified (principal); N50.3 Cyst of epididymis | CPT/HCPCS: 76870; 93975 ==

== ENCOUNTER 2024-07-02 09:53 | Outpatient (AMB) | payer BC, SELFPAY ==
--- NOTE | 2024-07-02 10:00 | AM.OFFWIN_ITS ---
Intake Vital Signs 07/02/24 10:01 Weight 193 lb BP 114/70 Blood Pressure Location Rt brachial Position Sitting Pulse 64 Pulse Source Pulse Oximeter Temp 97.9 F Temp Source Oral Pulse Oximetry (%) 94 Oxygen Delivery Method Room Air Intake Visit Reasons: EP Sinus congestion Intake Note: Patient here for sinus congestion and cough for almost 2 weeks Patient Tobacco Use Status: Former Tobacco user Allergies ENVIRONMENTAL Allergy (Unknown, Uncoded 07/02/24 10:05) STUFFY NOSE, SNEEZING Do you need a note to return to daycare/school/sports/work: No HPI HPI Comments History of Present Illness Details History - The patient is a 53-year-old male pres enting with a cough and upper respiratory symptoms. - Symptom onset was approximately one we ek ago, with initial treatment including prednisone, azithromycin, and Tessalon Perles. - Despite medication, primary relief was not immediate, and the patient suspected viral etiology. - The patient denied fever, shortness of breath, and wheezing and holds no history of asthma or chronic obstructive pulmonary disease. Physical Exam General: Cooperative, healthy appearing, comfortable and no acute distress Orientation/consciousness: Patient oriented x3 Limitations: No limitations Head: Normal to inspection Ears: Hearing grossly normal bilaterally, external ears normal and TM's normal bilaterally. Nose: Normal external nose present, Normal nares present and No nasal discharge present Face and sinus: Normal facial exam and Yes sinuses nontender Mouth: Normal oral and palatal mucosa present and moist mucous membranes Throat: Yes tonsils normal, Yes uvula midline. Posterior oropharynx erythema Eyes: Appearance normal, both eyes and all related structures Neck: Normal visual inspection Respiratory: Clear to auscultation bilaterally. Normal respiratory effort, able to speak in complete sentences, not actively coughing, no respiratory distress, not tachypneic, no tripod positioning and no use of accessory muscles Cardiovascular: Regular rate and rhythm. Normal S1 and S2 Skin: No rashes or lesions noted Neuro: Patient oriented x3 Extremities: Normal to inspection and Yes no clubbing, cyanosis or edema [facility] Medical History Ascending aortic aneurysm Aortic stenosis Bicuspid aortic valve Personal history of nicotine dependence Surgical History History of appendectomy History of right inguinal hernia repair History of esophagogastroduodenoscopy (EGD) History of colonoscopy Family History Maternal Grandmother Cancer of unknown origin Mother Skin cancer Social History Household Members: Family Housing: House Alcohol intake: current Alcohol intake frequency: 0-2 drinks per day Alcohol type: beer Comment: , Patient Tobacco Use Status: Former Tobacco user Tobacco use type: Cigarette Years Smoked: (onset 16yo, 1ppd x 36yrs, 30+PYH, quit 12/2022) e-Cigarette/Vaping Use: Never Used Second Hand Smoke Exposure: No service: No Current occupational status: employed Current occupation: [employer] Current occupational exposures/hazards: No Cognitive needs: No Hearing needs: No Vision needs: No Review of Systems Const All systems reviewed & are unremarkable except as noted in HPI and below Physical Exam Vital Signs: Last Vital Signs Temp 97.9 F 07/02/24 10:01 Pulse 64 07/02/24 10:01 BP 114/70 07/02/24 10:01 Pulse Ox 94 07/02/24 10:01 Oxygen Delivery Method Room Air 07/02/24 10:01 Assessment & Plan Assessment & Plan (1) URI, acute: Code(s): J06.9 - Acute upper respiratory infection, unspecified Plan: VSS, pt well appearing and PE unremarkable. His symptoms are likely due to a viral upper respiratory infection which is why the Zpak didn't help however his wheeze is gone so the prednisone worked well. Symptomatic management is emphasized, with recommendations to continue using cough suppressants, preferably at bedtime. Maintaining adequate hydration and rest is encouraged alongside the use of ibuprofen for any throat inflammation, assuming kidney function is normal. Follow-up should be considered only if symptoms do not improve or deteriorate unexpectedly. Patient was informed and verbally consented to the use of an ambient scribe for clinic note documentation during this visit Medications: New benzonatate 200 mg PO BEDTIME PRN 10 caps 0RF cough Coding Level of Care Code Est Pt Level 3 (55711) Diagnoses URI, acute J06.9
[2024-07-02 10:01] VITALS: BP 114/70; PULSE 64; TEMP 36.6; O2SAT 94
== END 2024-07-02 10:58 | disposition home or self-care (01) ==
PROVIDERS: PCP Nurse Practitioner Family; Visit Provider Physician Assistant
DX: J06.9 Acute upper respiratory infection, unspecified (principal)

== ENCOUNTER → 2024-07-16 07:27 | Outpatient (BNVA) | payer BC, SELFPAY | PROVIDERS: PCP Nurse Practitioner Family; Visit Provider Nurse Practitioner Family ==

== ENCOUNTER 2024-09-24 15:18 | Outpatient (AMB) | payer BC, SELFPAY ==
--- NOTE | 2024-09-24 15:26 | MHC.OFFVIS ---
Intake Visit Reasons: hydrocele Intake Note: Patient is present for HYDROCELE Urology Medication:NONE Antibiotic Allergy:NONE Blood Thinner:NONE Corrective Therapy Aide Required: No Allergies ENVIRONMENTAL Allergy (Unknown, Uncoded 09/24/24 15:27) STUFFY NOSE, SNEEZING HPI Comments Details: Saroj is a pleasant male. He is a patient of Dr. Snow. 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 This was discussed Likely secondary to repair performed in 2022 Right-sided hydrocele Large right-sided hydrocele - on Scrotal imaging ultrasound with by bilateral hydroceles On exam hydrocele is large and communicates to inguinal ring with transmitted pulse CT 08/31 - Large right inguinal hernia [facility] Medical History Ascending aortic aneurysm Aortic stenosis Bicuspid aortic valve Personal history of nicotine dependence Surgical History History of appendectomy History of right inguinal hernia repair History of esophagogastroduodenoscopy (EGD) History of colonoscopy Family History Maternal Grandmother Cancer of unknown origin Mother Skin cancer Social History Household Members: Family Housing: House Alcohol intake: current Alcohol intake frequency: 0-2 drinks per day Alcohol type: beer Comment: , Patient Tobacco Use Status: Former Tobacco user Tobacco use type: Cigarette Years Smoked: (onset 16yo, 1ppd x 36yrs, 30+PYH, quit 12/2022) e-Cigarette/Vaping Use: Never Used Second Hand Smoke Exposure: No service: No Current occupational status: employed Current occupation: [employer] Current occupational exposures/hazards: No Cognitive needs: No Hearing needs: No Vision needs: No Review of Systems Const Denies chills and Denies fever(s) Card Reports no additional complaints and Denies syncope Resp Denies cough GI Denies abdominal pain and Denies heartburn Reports as per HPI and Denies change in libido Neuro Denies syncope Psych Denies change in libido Endo Denies change in libido Physical Exam Const General: cooperative, healthy appearing, comfortable and no acute distress Orientation/consciousness: patient oriented x3 HEENT Face and sinus: Yes normal facial exam Mouth: moist mucous membranes Neck Neck: Yes normal visual inspection, Yes full ROM and Yes trachea midline Chest Chest palpation & inspection: normal inspection of the chest Resp Effort & Inspection: normal respiratory effort, able to speak in complete sentences and no respiratory distress GI Inspection: Yes normal to inspection Back/Spine/Pelvis Cervical Spine: normal cervical lordosis Thoracic/Lumbar Spine: thoracic and lumbar spine normal to inspection Skin General skin exam: no rashes or lesions noted Neuro General: patient oriented x3, gait normal, tone normal and moves all extremities Extrem General: Yes normal to inspection and Yes capillary refill normal Results AMB Urinalysis, Automated UA Leukoctes 0 Lisa/uL Last Edit by ALEXSANDRA Rose on 09/24/24 16:37 UA Nitrite Negative Last Edit by Joss Toro CCM on 09/24/24 16:37 UA Urobilinogen 0.2 mg/dL Last Edit by Joss Toro CCM on 09/24/24 16:37 UA Protein 15 mg/dL Last Edit by ALEXSANDRA Rose on 09/24/24 16:37 UA pH 6.0 Last Edit by Joss Toro CCM on 09/24/24 16:37 UA Blood 10 Zeke/uL Last Edit by Joss Toro CCM on 09/24/24 16:37 UA Specific [place] 1.020 Last Edit by ALEXSANDRA Rose on 09/24/24 16:37 UA Ketone Negative Last Edit by Joss Toro CCM on 09/24/24 16:37 UA Bilirubin 0 mg/dL Last Edit by ALEXSANDRA Rose on 09/24/24 16:37 UA Glucose 0 mg/dL Last Edit by Joss Toro CCM on 09/24/24 16:37 Assessment & Plan Assessment & Plan (1) Hydrocele in adult: Code(s): N43.3 - Hydrocele, unspecified Category: Medical Plan Twelve month follow-up Orders: Orders Testosterone, Total 12 Months N50.1 - Vascular disorders of male genital organs AMB Urinalysis Automated Today Z13.9 - Encounter for screening, unspecified Patient Instructions: This note is constructed using voice recognition software. While every effort has been made to ensure accuracy automatic presser errors may have been included. Imaging studies, laboratory and physical exam results were discussed and reviewed in detail. No major barriers to patient understanding were identified. An opportunity to ask questions regarding the treatment plan was provided. All questions were answered. The patient expressed understanding and agreement with the above treatment plan. The patient is aware they should contact our office by phone for worsening of their current condition or the appearance of new urologic symptoms. Compliance is encouraged with any medications and followup testing that is ordered. It is a privilege to participate in the urologic care of your patient. If you have any questions or concerns regarding treatment for the above conditions, or other urologic issues, please do not hesitate to contact me. The office telephone contact is [phone]. Sincerely, Dr Rian Crocker MD, [facility] - Urology Compassionate Specialist Care for the Genitourinary System Coding Level of Care Code Est Pt Level 3 (60943) Diagnoses Hydrocele in adult N43.3
== END 2024-09-24 16:34 | disposition home or self-care (01) ==
LOC: HO.HUSH 15:19
PROVIDERS: PCP Nurse Practitioner Family; Visit Provider Urology
DX: Z13.9 Encounter for screening, unspecified (principal); N43.3 Hydrocele, unspecified
CPT/HCPCS: 99213

== ENCOUNTER → 2024-09-24 15:18 | Outpatient (BNVA) | payer BC, SELFPAY | PROVIDERS: PCP Nurse Practitioner Family; Visit Provider Urology | DX: N43.2 Other hydrocele (principal); N50.0 Atrophy of testis; N50.1 Vascular disorders of male genital organs | CPT/HCPCS: 81003 ==

== ENCOUNTER 2024-11-05 10:44 | Outpatient (REF) | payer BC, SELFPAY ==
[2024-11-05 13:50] LABS: MANUAL DIFF FLAG NO
[2024-11-05 13:55] LABS: Appearance Urine Clear; Glucose Urine UA Negative (Negative); PH 5.5 (5.0-9.0); Specific Gravity - Urine 1.020 (1.005-1.025)
[2024-11-05 14:05] LABS: Hematocrit 42.2 % (42.0-52.0); Hemoglobin 14.4 g/dl (14.0-18.0); Imm Gran Abs Auto 0.02 X10*3/uL (0.00-0.03); Imm Gran Pct Auto 0.3 % (0.0-0.4); Lymphocytes Absolute Auto 2.8 X10*3/uL (1.2-4.9); Mean Corpuscular HGB Conc 34.1 g/dl (31.0-36.0); Mean Corpuscular Hemoglobin 29.9 pg (27.0-33.0); Mean Corpuscular Volume 87.7 fL (80.0-98.0); NRBC Abs Auto 0.000 X10*3/uL (0.0-0.012); NRBC Pct Auto 0.0 /100WBC (0.0-0.2); Platelet Count 240 X10*3/uL (160-400); Red Blood Count 4.81 X10*6/uL (4.60-5.80); White Blood Count 6.9 X10*3/uL (4.8-10.8)
[2024-11-05 14:46] LABS: Alanine Aminotransferase 38 U/L (0-40); Albumin Level 4.8 g/dL (3.5-5.0); Alkaline Phosphatase 72 U/L (39-117); Anion Gap 13 (12-20); Aspartate Amino Transferase 30 U/L (5-37); Blood Urea Nitrogen 15 mg/dL (9-16); Calcium 9.7 mg/dL (8.4-10.2); Carbon Dioxide 24 mmol/L (22-29); Chloride 105 mmol/L (96-108); Cholesterol 211 mg/dL (<200); Estimated Glomerular Filt Rate > 60; HDL Cholesterol 48 mg/dL (>40); Potassium 3.9 mmol/L (3.3-5.1); Sodium 138 mmol/L (135-145); Total Protein 7.9 g/dL (6.5-8.0); Triglycerides 71 mg/dL (<150)
== END 2024-11-05 10:45 | disposition home or self-care (01) ==
LOC: HO.HMGCLDS 10:44
PROVIDERS: PCP Nurse Practitioner Family; Visit Provider Nurse Practitioner Family
DX: Z00.01 Encounter for general adult medical examination with abnormal findings (principal); R01.1 Cardiac murmur, unspecified; I35.0 Nonrheumatic aortic (valve) stenosis; I71.21 Aneurysm of the ascending aorta, without rupture; Q23.1 Congenital insufficiency of aortic valve; Z13.31 Encounter for screening for depression; Z13.39 Encounter for screening examination for other mental health and behavioral disorders
CPT/HCPCS: 36415; 80053; 80061; 81003; 84443; 85025; 96127

== ENCOUNTER 2024-11-05 10:44 | Outpatient (AMB) | payer BC, SELFPAY ==
[2024-11-05 11:12] VITALS: BP 124/78; PULSE 58; TEMP 36.8; O2SAT 97; BMI 27.5
--- NOTE | 2024-11-05 11:12 | A.OFFPC_ITS ---
Vital Signs 11/05/24 11:12 Height 5 ft 11 in Weight 197 lb BMI 27.5 BP 124/78 Blood Pressure Location Lt brachial Position Sitting Pulse 58 Pulse Source Pulse Oximeter Temp 98.2 F Temp Source Oral Pulse Oximetry (%) 97 Oxygen Delivery Method Room Air Intake Visit Reasons: ANNUAL PE Ladle Patcher Required: No Accompanied by: Self / Same As Patient Allergies ENVIRONMENTAL Allergy (Unknown, Uncoded 09/24/24 15:27) STUFFY NOSE, SNEEZING Medication List - Last Reconciled 11/05/24 by LISA Buck- aspirin 81 mg PO DAILY Tobacco use date assessed: 11/05/24 Dental Screening Dental Screen Date: 11/05/24 Did you have a dental visit in the last 12 months?: No Did you have a dental problem in the last 6 months where you did not have access to dental care?: No Was dental information given to patient?: Patient has dentist HPI ANNUAL PE HPI Details History of Present Illness The patient is a 54-year-old male presenting for a follow-up on aortic stenosis and testicular lesions. The patient has been under cardiology care for aortic stenosis, with the last echocardiogram conducted in the fall of the previous year. A follow-up with cardiology is planned to reassess the condition. Regarding the testicular lesions, palpation revealed lesions on the superior aspect of both testicles. An ultrasound of the scrotum was performed in June, and the patient has been referred to urology, with a follow-up scheduled for next year. pt is part of our LDCT program Health Maintenance - Cardiovascular follow-up with cardiolo gy for aortic stenosis - Gastroenterology follow-up for colonos copy scheduling Social History Review of Systems - Cardiovascular: Denies chest pain - Respiratory: Denies dyspnea - Gastrointestinal: Denies abdominal alla n, hematochezia, constipation, diarrhea - Genitourinary: Denies urinary issues - Genitourinary: Denies excessive pain i n testicles Physical Exam General: Cooperative, healthy appearing, comfortable, no acute distress and well developed Orientation: Patient oriented x3 Limitations: No limitations Head: Normal to inspection Ears: Hearing grossly normal bilaterally Nose: Normal external nose present Face and sinus: Normal facial exam Eyes: Appearance normal, both eyes and all related structures Neck: Normal visual inspection and Yes full ROM Respiratory: Normal respiratory effort and able to speak in complete sentences. Clear to auscultation bilaterally Cardiovascular: Regular rate and rhythm. Systolic murmur noted GI: Normal to inspection. Soft to palpation and nontender : Testicles with lesions noted to superior aspect of bilateral testicles, no hernias appreciated Skin: No rashes or lesions noted Neuro: Patient oriented x3 Extremities: Normal to inspection Results - Ultrasound of scrotum performed in Jun il Plan 1. Aortic Stenosis The patient will continue to follow up with cardiology for management of aortic stenosis. 2. Testicular Lesions The patient has been referred to urology for further evaluation and management of testicular lesions. Discussion Notes I discussed with the patient the importance of following up with cardiology for his aortic stenosis and with urology for the testicular lesions. We also talked about scheduling a colonoscopy with gastroenterology as part of his preventative care. Patient Instructions - Follow up with cardiology for aortic s tenosis management. - Schedule an appointment with urology f or testicular lesions. - Contact gastroenterology to schedule a colonoscopy. [facility] Medical History Ascending aortic aneurysm Aortic stenosis Bicuspid aortic valve Personal history of nicotine dependence Surgical History History of appendectomy History of right inguinal hernia repair History of esophagogastroduodenoscopy (EGD) History of colonoscopy Family History Maternal Grandmother Cancer of unknown origin Mother Skin cancer Social History Household Members: Family Housing: House Alcohol intake: current Alcohol intake frequency: 0-2 drinks per day Alcohol type: beer Comment: , Patient Tobacco Use Status: Former Tobacco user Tobacco use type: Cigarette Years Smoked: (onset 16yo, 1ppd x 36yrs, 30+PYH, quit 12/2022) e-Cigarette/Vaping Use: Never Used Second Hand Smoke Exposure: No service: No Current occupational status: employed Current occupation: [employer] Current occupational exposures/hazards: No Cognitive needs: No Hearing needs: No Vision needs: No Questionnaire PHQ-9 Over the last 2 weeks, how often have you been bothered by any of the following problems? 1. Little interest or pleasure in doing things: not at all 2. Feeling down, depressed, or hopeless: not at all 3. Trouble falling or staying asleep, or sleeping too much: not at all 4. Feeling tired or having little energy: not at all 5. Poor appetite or overeating: not at all 6. Feeling bad about yourself - or that you are a failure or have let yourself or your family down: not at all 7. Trouble concentrating on things, such as reading the newspaper or watching television: not at all 8. Moving or speaking so slowly that other people could have noticed. Or the opposite - being so fidgety or restless that you have been moving around a lot more than usual: not at all 9. Thoughts that you would be better off or of hurting yourself in some way: not at all Total score: 0 Depression Screening Interpretation: Negative Depression Screening Done: Yes 28689 - PHQ-9 Billing: Yes Source: Developed by Drs. Pieter Hedrick, Alida Ruiz, Drew Murray and colleagues, with an educational chaim from [employer]. Thrive Questionnaire Date Thrive assessed: 05/28/24 I am a: Patient What is your living situation today?: I have a steady place to live Within the past 12 months, did the food you bought not last and you didn't have the money to get more?: Never true Within the past 12 months, did you worry whether your food would run out before you got money to buy more?: Never true Do you have trouble paying for medicines?: No Do you have trouble getting transportation to medical appointments?: No Do you have trouble paying your heating and electricity bill?: No Do you have trouble taking care of your child, family member or friend?: No Do you have trouble with day-to-day activities such as bathing, preparing meals, shopping, managing finances, etc.?: No Are you currently unemployed and looking for a job?: No Are you interested in more education?: No Please select the resources that you would like help with: None Currently or been in a relationship where the following occur: No concerns reported THRIVE Score: 0 AUDIT C Alcohol Use Questionnaire (AUDIT-C) 3. How often do you have six or more drinks on one occasion?: Never Total Score: 0 ARTHUR-7 AMB Questionnaire ARTHUR-7 Date ARTHUR - 7 assessed: 11/05/24 Feeling nervous, anxious, or on edge: 0 = Not at all Not being able to stop or control worryin = Not at all Worrying too much about different things: 0 = Not at all Trouble relaxin = Not at all Being so restless that it is hard to sit still: 0 = Not at all Becoming easily annoyed or irritable: 0 = Not at all Feeling afraid as if something awful might happen: 0 = Not at all Total ARTHUR-7 score (0-4 normal; 5-9 mild; 10-14 moderate; 15-21 severe): 0 Source: Developed by Drs. Pieter Hedrick, Alida Ruiz, Drew Murray and colleagues, with an educational chaim from [employer]. ARTHUR-7 Assessment Billing ARTHUR-7 Assessment Tool: ARTHUR-7 Assessment 56980 Physical exam (Primary Care) Vital Signs: Last Vital Signs Temp 98.2 F 11/05/24 11:12 Pulse 58 11/05/24 11:12 BP 124/78 11/05/24 11:12 Pulse Ox 97 11/05/24 11:12 Oxygen Delivery Method Room Air 11/05/24 11:12 BMI result Body Mass Index 27.5 Tobacco/Smoking Status: Tobacco use Status Tobacco use date assessed 11/05/24 11/05/24 11:17 Patient Tobacco Use Status Former Tobacco user 11/05/24 11:17 Tobacco use type Cigarette 11/05/24 11:17 e-Cigarette/Vaping Use Never Used 11/05/24 11:17 PHQ-9: PHQ-9 Score PHQ-9: Total score 0 11/05/24 11:17 Depression Screening Interpretation: Negative Thrive Assessment: Date of Thrive Assessment Date Thrive assessed 05/28/24 11/05/24 11:17 Currently or been in a relationship where the following occur: No concerns reported Coding Level of Care Code Est Pt Level 3 (45682) Est Pt Prev Care 40-64y(81851) Diagnoses Encounter for routine adult physical exam with abnormal findings Z00.01 Heart murmur R01.1 Aortic stenosis I35.0 Bicuspid aortic valve Q23.1 Ascending aortic aneurysm I71.21 Screening PSA (prostate specific antigen) Z12.5 Additional Codes ARTHUR-7 Assessment Billing - ARTHUR-7 Assessment Tool: ARTHUR-7 Assessment 42928 ([id number]) PHQ-9 - 58007 - PHQ-9 Billing: Yes ([id number]) Assessment & Plan Assessment & Plan (1) Encounter for routine adult physical exam with abnormal findings: Code(s): Z00. - Encounter for general adult medical examination with abnormal findings Category: Medical (2) Heart murmur: Code(s): R01.1 - Cardiac murmur, unspecified Category: Medical (3) Aortic stenosis: Code(s): I35.0 - Nonrheumatic aortic (valve) stenosis Category: Medical (4) Bicuspid aortic valve: Code(s): Q23.1 - Congenital insufficiency of aortic valve Category: Medical (5) Ascending aortic aneurysm: Comment: (ascending thoracic aorta measured 4.4 x 4.3 cm 01/2023) Code(s): I71.21 - Aneurysm of the ascending aorta, without rupture Category: Medical (6) Screening PSA (prostate specific antigen): Code(s): Z12.5 - Encounter for screening for malignant neoplasm of prostate Category: Medical Plan . Orders: Orders Complete Blood Count Auto Diff Today Z00. - Encounter for general adult medical examination with abnormal findings TSH reflex Free T4 Today Z00. - Encounter for general adult medical examination with abnormal findings UA CC w/rflx Micro + Cult Today Z00. - Encounter for general adult medical examination with abnormal findings CA echo transthoracic complete Today I35.0 - Nonrheumatic aortic (valve) stenosis, I71.21 - Aneurysm of the ascending aorta, without rupture, Q23.1 - Congenital insufficiency of aortic valve, R01.1 - Cardiac murmur, unspecified Prostate Specific Antigen Scr Today Z12.5 - Encounter for screening for m alignant neoplasm of prostate Comprehensive [place]. Panel Fast Today Z00. - Encounter for general adult medical examination with abnormal findings Lipid Panel Today Z00.01 - Encounter for general adult medical examination with abnormal findings
== END 2024-11-05 12:50 | disposition home or self-care (01) ==
LOC: HO.HMCC 10:45
PROVIDERS: PCP Nurse Practitioner Family; Visit Provider Nurse Practitioner Family
DX: Z00.01 Encounter for general adult medical examination with abnormal findings (principal); R01.1 Cardiac murmur, unspecified; I35.0 Nonrheumatic aortic (valve) stenosis; Q23.1 Congenital insufficiency of aortic valve; I71.21 Aneurysm of the ascending aorta, without rupture; Z12.5 Encounter for screening for malignant neoplasm of prostate

== ENCOUNTER 2025-01-10 10:26 | Outpatient (REF) | payer BC, SELFPAY ==
[2025-01-10 12:02] LABS: Alanine Aminotransferase 37 U/L (0-40); Albumin Level 4.6 g/dL (3.5-5.0); Alkaline Phosphatase 86 U/L (39-117); Anion Gap 11 (12-20); Aspartate Amino Transferase 26 U/L (5-37); Blood Urea Nitrogen 19 mg/dL (9-16); Calcium 9.4 mg/dL (8.4-10.2); Carbon Dioxide 29 mmol/L (22-29); Chloride 105 mmol/L (96-108); Cholesterol 149 mg/dL (<200); Estimated Glomerular Filt Rate > 60; HDL Cholesterol 41 mg/dL (>40); Potassium 4.6 mmol/L (3.3-5.1); Sodium 140 mmol/L (135-145); Total Protein 7.8 g/dL (6.5-8.0); Triglycerides 66 mg/dL (<150)
== END 2025-01-10 10:27 | disposition home or self-care (01) ==
LOC: HO.HMGCLDS 10:26
PROVIDERS: PCP Nurse Practitioner Family; Visit Provider Nurse Practitioner Family
DX: E78.5 Hyperlipidemia, unspecified (principal)
CPT/HCPCS: 36415; 80053; 80061

== ENCOUNTER 2025-02-11 13:01 | Outpatient (AMB) | payer BC, SELFPAY ==
[2025-02-11 13:03] VITALS: BP 120/70; PULSE 72; BMI 28.9
--- NOTE | 2025-02-11 13:03 | A.OFFVIS_ITS ---
Vital Signs 02/11/25 13:03 Height 5 ft 11 in Weight 207 lb 3.752 oz BMI 28.9 BP 120/70 Blood Pressure Location Lt brachial Position Sitting Pulse 72 Intake Visit Reasons: fu Testing (NS)/ preop clear for colonosc Intake Note: Pre-op clearance for colonoscopy with ekg feeling good Highway Inspector Required: No Allergies ENVIRONMENTAL Allergy (Unknown, Uncoded 09/24/24 15:27) STUFFY NOSE, SNEEZING Medication List - Last Reconciled 02/11/25 by John Todd NP aspirin 81 mg PO DAILY atorvastatin (Lipitor) 20 mg PO BEDTIME 30 days HPI Comments Details: This is a 54-year-old male patient coming in for a overdue follow-up visit. Patient with known aortic aneurysm measuring at 5 cm from previous echo and aortic stenosis. Patient was seen by Dr. Norris in August of 2023 for which patient had a repeat echo showing unchanged aortic aneurysm. Patient was discussed about aortic aneurysm surgery at his office visit but unfortunately patient never followed up. Today, patient is here for preop risk stratification for upcoming colonoscopy. Today, patient is reporting feeling well overall without any cardiac symptoms of exertional chest pain, shortness of breath, palpitations, dizziness, orthopnea, PND, leg edema, presyncope or syncope. Patient is reporting compliance with his medications. REPLACED BY [facility] Medical History Ascending aortic aneurysm Aortic stenosis Bicuspid aortic valve Personal history of nicotine dependence Surgical History History of appendectomy History of right inguinal hernia repair History of esophagogastroduodenoscopy (EGD) History of colonoscopy Family History Maternal Grandmother Cancer of unknown origin Mother Skin cancer Social History Household Members: Family Housing: House Alcohol intake: current Alcohol intake frequency: 0-2 drinks per day Alcohol type: beer Comment: , Patient Tobacco Use Status: Former Tobacco user Tobacco use type: Cigarette Years Smoked: (onset 16yo, 1ppd x 36yrs, 30+PYH, quit 12/2022) e-Cigarette/Vaping Use: Never Used Second Hand Smoke Exposure: No service: No Current occupational status: employed Current occupation: [employer] Current occupational exposures/hazards: No Cognitive needs: No Hearing needs: No Vision needs: No Review of Systems Const Denies chills, Denies fatigue, Denies fever(s), Denies frequent falls, Denies weakness, Denies weight gain and Denies weight loss ENT Denies dizziness Card Denies chest pain, Denies leg edema, Denies lightheadedness, Denies palpitations, Denies dyspnea, Denies dyspnea on exertion, Denies orthopnea and Denies other (loss of consciousness) Resp Denies cough, Denies dyspnea and Denies dyspnea on exertion GI Denies hematochezia and Denies change in stool character Musc Denies abnormal gait, Denies muscle weakness, Denies numbness, Denies radiating pain into limb and Denies tingling Neuro Denies abnormal gait, Denies dizziness, Denies frequent falls, Denies numbness, Denies tingling and Denies weakness Endo Denies fatigue and Denies palpitations Physical Exam Vital Signs: Last Vital Signs Pulse 72 02/11/25 13:03 BP 120/70 02/11/25 13:03 BMI result Body Mass Index 28.9 Const General: cooperative, healthy appearing, comfortable and no acute distress Orientation/consciousness: patient oriented x3 HEENT Head: Yes normal to inspection Neck Neck: Yes normal visual inspection, Yes trachea midline and Yes supple Chest Chest palpation & inspection: normal inspection of the chest Resp Effort & Inspection: normal respiratory effort Auscultation: clear to auscultation bilaterally, no crackles, no rales, no rhonchi and no wheezes Cardio Jugular venous distension: no JVD Palpation: normal PMI Rate: regular rate Rhythm: regular rhythm Heart sounds: S1 normal heart sound present, S2 normal heart sound present, no click, no gallops, Murmur heart sound present systolic and no rubs Peripheral pulses: Peripheral pulses 2+ throughout GI Inspection: Yes normal to inspection Palpation (GI): Soft to palpation Auscultation: normal bowel sounds Skin General skin exam: no rashes or lesions noted Neuro General: patient oriented x3 Extrem General: Yes normal to inspection, No no pedal edema and No calf tenderness Psych Appearance: grossly normal Mental Status: mental status grossly normal Speech and movement: Normal speech and movement present Office Procedures EKG Details: EKG today showed normal sinus rhythm, rate 72 beats per minute, STT wave abnormality suggestive of inferolateral infarct, [place], [place]. [id number], Complete Assessment & Plan Assessment & Plan (1) Ascending aortic aneurysm: Comment: (ascending thoracic aorta measured 4.4 x 4.3 cm 01/2023) Code(s): I71.21 - Aneurysm of the ascending aorta, without rupture Category: Medical Plan: 09/19/2023-echo study showed a normal LV systolic function with an ejection fraction between 55-60% with possible bicuspid aortic valve with [id number] aortic stenosis and [id number] aortic regurgitation. Moderate to severe enlargement of ascending aorta at 5 cm. Patient had a repeat limited echo on 01/16/2024 that showed enlargement of ascending aorta measuring at 5 cm. Patient did not return for follow-up visit. Looking at notes, patient was supposed to undergo another echo study with primary care but never completed this either. Today, patient is here for preop cardiac risk stratification for upcoming colonoscopy. We will plan for a CTA chest aorta to get a better understanding of the aorta. Patient was already discussed about surgical repair at his previous visit and this was reiterated again at today's visit. Patient verbalizes understanding. Patient's EKG today showed STT wave abnormality suggestive of inferolateral infarct which is new compared to his previous EKG. Chest CT from January of 2024 also had short moderate calcifications. Currently with no reported symptoms of angina. We will plan for a cardiac catheterization after CTA chest aorta. Discuss the case with Dr. Tovar. Blood pressure is within normal limits. Continue low-dose aspirin therapy. We will increase statin to 40 mg daily with a goal of LDL less than 70. Most recent LDL at 95. We will repeat this in 3 months. (2) Aortic stenosis: Code(s): I35.0 - Nonrheumatic aortic (valve) stenosis Category: Medical Plan: As above. (3) Dyslipidemia: Code(s): E78.5 - Hyperlipidemia, unspecified Category: Medical Plan: As above. Advised on med compliance, low-salt diet, and management of vascular risk factors. Advised to avoid strenuous exercise. Advised to strongly keep his follow-up visits. Patient verbalizes understanding. We will address preop clearance for colonoscopy post testings. Follow up after CAT scans. In the interim, patient will call the office with any concerns or change in symptoms. Advised to seek ER care in case of exertional chest pain not resolved with rest. This note was generated using voice recognition software. While every effort has been made to ensure accuracy and proper goat herder, there may be occasional errors that could affect the content or meaning of the described symptoms. Orders: Orders AMB EKG-In Office Today Z01.810 - Encounter for preprocedural cardiovascular examination Lipid Panel 3 Months E78.5 - Hyperlipidemia, unspecified CT angio chest aorta Today I71.21 - Aneurysm of the ascending aorta, without rupture Basic Metabolic Panel Today I71.21 - Aneurysm of the ascending aorta, without rupture Medications: New atorvastatin (Lipitor) 40 mg PO DAILY 90 tabs 3RF Discontinued atorvastatin (Lipitor) Discontinued Reason: Doctor's Order 20 mg PO BEDTIME 30 days 30 tabs 2RF Coding Level of Care Code Est Pt Level 4 (24852) Complex visit Add On G2211 Diagnoses Ascending aortic aneurysm I71.21 Aortic stenosis I35.0 Dyslipidemia E78.5 CPT Codes EKG - CPT: 47695-Nmaopjqxxoekxfoia, Complete ([id number]) Time Spent (min) 34 Comment Time spent in reviewing the chart, test results, assessment, counseling and documentation.
== END 2025-02-11 13:32 | disposition home or self-care (01) ==
LOC: HO.HCS 13:02
PROVIDERS: PCP Nurse Practitioner Family
DX: I71.21 Aneurysm of the ascending aorta, without rupture (principal); I35.0 Nonrheumatic aortic (valve) stenosis; E78.5 Hyperlipidemia, unspecified
CPT/HCPCS: 93010; 99214

== ENCOUNTER → 2025-02-11 13:01 | Outpatient (BNVA) | payer BC, SELFPAY | PROVIDERS: PCP Nurse Practitioner Family | DX: Z01.810 Encounter for preprocedural cardiovascular examination (principal); I71.21 Aneurysm of the ascending aorta, without rupture; I35.0 Nonrheumatic aortic (valve) stenosis; E78.5 Hyperlipidemia, unspecified | CPT/HCPCS: 93005 ==